=== PATIENT | female | born 1965 | race African-American/Black ===

== ENCOUNTER 2017-12-08 12:44 | Outpatient (CLI) | payer BC | END 2017-12-08 12:45 | disposition home or self-care (01) | LOC: BICRAD 12:44 | PROVIDERS: ATTEND Physician Assistant | DX: M25.562 Pain in left knee (principal); M17.12 Unilateral primary osteoarthritis, left knee ==

== ENCOUNTER 2018-07-19 12:41 | Inpatient (IN) | payer SELFPAY ==
[2018-07-19] MEDS ORDERED: Lidocaine 1% (PF) 30 ML VIAL ONE (15:13)
[2018-07-19 16:02] LABS: BF Color Yellow; Body Fluid Source PLEURAL FLUID; Tube # EDTA; WBC/NonHematic-Auto 1020 /cumm
[2018-07-19 16:03] LABS: BF RBC Count - Manual 2375 /cumm; Clarity Cloudy/Turbid (Clear)
[2018-07-19 16:07] LABS: Pleural Fluid, Protein 4.3 g/dL
[2018-07-19 16:26] VITALS: BMI 32.0
[2018-07-19] MEDS ORDERED: Dextrose 50% Abboject 50 ML SYRINGE SLOW IVP PRN ×2 (16:28)
[2018-07-19] MEDS ORDERED: Dextrose 5% in Water 1,000 ML IV PRN (16:28)
--- NOTE | 2018-07-19 16:43 | CON ---
DATE OF SERVICE: 07/19/2018 SERVICE: Pulmonary Medicine. REASON FOR CONSULTATION: Pleural effusion. HISTORY OF PRESENT ILLNESS: The patient is a 53-year-old -[place] female with past medical history significant for actually nothing. She denies any current fevers, chills, nausea or vomiting. She was in her usual state of health until 3 weeks ago when she started having cough. It was nonproductive. She denies having any hemoptysis, yellow, green or white phlegm. She denies having orthopnea. That being said, she has had progressive increasing shortness of breath, particularly with exertion. She presented to the Emergency Department for this evaluation. She denies having any sick contacts. She has no nausea, vomiting, diarrhea, arthralgias, hot or red swollen joints , rashes. PAST MEDICAL HISTORY: 1. Type 2 diabetes mellitus. 2. Hypothyroidism. 3. Hypertension. 4. Chronic back pain. PAST SURGICAL HISTORY: 1. Peritoneal abscess drainage. 2. Cholecystectomy. 3. Tonsillectomy. 4. Tubal ligation. SOCIAL HISTORY: Negative for significant alcohol, tobacco or illicit drug use. She is a lifelong nonsmoker. She has no exposure to chemicals, dust asbestos or tuberculosis. FAMILY HISTORY: Mom had lung cancer. Otherwise, it is noncontributory. ALLERGIES: NKDA INPATIENT MEDICATIONS: Reviewed in MAR and updated as noted below. REVEIW OF SYSTEMS: General, Head, Ears, Eyes, Nose, Throat, Cardiovascular, Respiratory, GI, , Musculoskeletal, Neurologic, and Skin are negative except as mentioned in the HPI. PHYSICAL EXAM: Vitals: Afebrile, Stable. Gen: AOx3, NAD HEENT: NC/AT, sclera white, conjunctavae pink, Oral/Nasal mucosa moist and without lesions. Lungs: CTAB. No w/r/r. Reduced air entry at left base. Heart: RRR Abd: soft, nt/nd, bs+ MS: no c/c/e : no [place] Neuro: grossly non-focal. LABORATORY DATA: WBC 7.2, hemoglobin 14.4, platelets 399,000. Sodium 131, bicarbonate 20, creatinine 1.45. Basic metabolic profile and liver function studies are otherwise unremarkable. Lactate 1.5. Urinalysis is positive for glycosuria, but otherwise completely unremarkable. Influenza A and B are negative. IMAGING DATA: 1. Chest x-ray demonstrates left-sided pleural parenchymal opacification. Otherwise, right-sided chest appears to be clear. 2. CT of the chest demonstrates large left-sided pleural effusion. There are both consolidating and atelectatic changes of the left lung. There is a very small amount of the left upper lobe that is actually open. There is no acute cardiopulmonary abnormality in the right lung. Mediastinal lymphadenopathy is identified. ASSESSMENT: 1. Acute hypoxic respiratory failure. 2. Pleural effusion. 3. Community-acquired pneumonia, possible. 4. Family history of lung cancer. 5. Diabetes mellitus. DISCUSSION AND PLAN: We will proceed with a thoracentesis. I would put her on some antibiotics directed at community-acquired coverage. We can include anaerobic coverage as well. Augmentin should be more than adequate for covering most of the organisms that we need to. Atypical disease should not need to be covered. Furthermore, she frankly does not present like she has pneumonia. We will know more after the thoracentesis could be completed, but cancer is a diagnosis of exclusion at this time. 70 minutes have been devoted to this patient in various activities. I personally reviewed all imaging studies and laboratory data noted within this document. For fifty percent of this time, I was interacting with the patient at the bedside or coordinating care with the care team. For the remainder of the time I was immediately available to the patient in the hospital unit. YING
[2018-07-19] MEDS: HYDROcodone/Acetaminophen 5/325 mg Tablet PO PRN ×2 (17:02→21:27)
[2018-07-19 17:10] LABS: BF Segmented Neutrophils 15 %; Cell Count Non Hematic 78 %; Eosinophils 2 %; Lymphocytes 5 %
[2018-07-19] MEDS: HumaLOG 300 UNITS/3 ML VIAL SC PRN (18:08)
--- NOTE | 2018-07-19 18:46 | HP ---
HISTORY OF PRESENT ILLNESS: A 53-year-old female who generally healthy, who was ultimately transferr ed from the [facility]. In the ER there, the patient presented complaining of a dry cough that has been going on for about 3 weeks and getting progressively worse. She reported she did not initially have any shortness of breath or feel bad, but she was having cough paroxysms th at made her feel like she was having some asthma. She felt some rattling and wheezing once it was ov er. She then started developing some dyspnea on exertion and mild shortness of breath. She has had no sputum production or hemoptysis. She denies any fevers or chills or any chest pain except that judy varghese has some positional pain on the right side when she was lying on that side. In the [facility], the patient had a chest x-ray which revealed near complete opacification of the l eft hemithorax on the right lung was clear. There was no mediastinal shift. A CT scan of the chest was obtained which revealed large left pleural effusion with extensive opacification of the left lung . Once patient arrived to the emergency department here, she was seen by myself and Dr. Allen of [facility]. He subsequently performed an ultrasound guided thoracentesis and removed 2-1/2 liters of dark kelly fluid. The patient tolerated the procedure well. Review of systems was negative except for those things mentioned in the history of present illness. MEDICATIONS: The patient does report occasional polyuria depending on the control of her blood sugar s. PAST MEDICAL HISTORY: Notable for hypertension, diabetes mellitus, hypothyroidism, chronic back pain , osteoarthritis. PAST SURGICAL HISTORY: Tubal ligation, cholecystectomy peritonsillar abscess drainage. FAMILY HISTORY: Father had prostate cancer, CHF. Mother had a "female" cancer as well as a melanoma and lung cancer both diagnosed at the same time, but were distinctly different pathology according t o the patient. SOCIAL HISTORY: The patient is a nonsmoker. She is a social drinker. She denies drug use. She is . She is a F[employer] and her would be her surrogate decision maker should that become necessary. ALLERGIES: None, Flexeril 10 mg p.r.n., Neurontin 300 mg t.i.d., metformin 1000 mg b.i.d., glyburide 2.5 mg every day, lisinopril/HCTZ 20/12.5 one p.o. daily, lisinopril 20 mg every day, Demadex 20 mg every day, Synthroid 175 mcg every day. PHYSICAL EXAMINATION: VITAL SIGNS: BP ranged from 92/74-148/124, pulse 103, respirations 20, temperature 98.4, O2 sat 100% on room air. GENERAL APPEARANCE: Age appropriate female. She is in no distress. She is awake, alert, and orient ed, pleasant, cooperative. HEENT: PERRL. No OP lesions. NECK: Supple and symmetric, no lymphadenopathy, JVD, or carotid bruits. CARDIOVASCULAR: Regular rate and rhythm without murmurs, gallops or rubs. LUNGS: Clear to auscultation bilaterally with good chest wall expansion and air exchange on the righ t. Left side is completely diminished with only very distant lung sounds presents. ABDOMEN: Soft, nontender, nondistended. No hepatosplenomegaly. EXTREMITIES: Trace edema on the right, none on the left. No cyanosis, clubbing, or edema. LABORATORY DATA: White count 7.2, hemoglobin 14.4, platelets 399. Sodium 131, potassium 3.9, chlori de 98, CO2 of 20, BUN 17, creatinine 1.45, glucose 595. A repeat fingerstick is 373. Lactic acid 1. 5. AST 9, ALT 12. Urinalysis greater than 1000 glucose. Pleural fluid is cloudy and turbid with 10 20 white cells, 2375 red cells. Protein is 4.3, LDH 869 and glucose 371. Flu screen is negative. ASSESSMENT AND PLAN: 1. Left pleural effusion, unknown etiology. The patient has had thoracentesis performed in the [facility] department. Fluid has been sent for further studies pending further evaluation. We will need to follow up chest x-ray to ensure there is no underlying pneumonia. In the interim, the patient is covered with oral Augmentin per the recommendations of Pulmonary. 2. Diabetes mellitus, poor control. We will give her diabetic diet and sliding scale insulin for no w. Continue with metformin. 3. Chronic kidney disease. The patient's last creatinine in our system was 1.15 in 2012, current GF R is 45 given her stage 3 chronic kidney disease. 4. History of hypertension. The patient's blood pressure has been fairly variable, but currently on the low side. We will continue to monitor. 5. History of hypothyroidism. We will continue with her usual Synthroid dose. 6. Chronic pain syndrome. The patient is on gabapentin. We will continue that with arvind ambrose.
--- NOTE | 2018-07-19 19:04 | OP ---
DATE OF PROCEDURE: 07/19/2018 PROCEDURE: Left-sided pleural drainage with catheter insertion under ultrasound guidance. CONSENT: The risks and benefits of this procedure were explained to the patient. All questions were answered and alternative options explained. STAFF PHYSICIAN: Braulio Allen M.D. MEDICATIONS USED: Lidocaine 1% without epinephrine, total quantity 10 mL. PREOPERATIVE DIAGNOSIS: Pleural effusion, not otherwise specified. POSTPROCEDURE DIAGNOSIS: Pleural effusion, not otherwise specified. DESCRIPTION OF PROCEDURE: A timeout was performed by the procedure team and patient. The patient wa s positively identified using name and date of . The procedure site was marked. Vital sign mon itoring was accomplished by noninvasive hemodynamic monitoring, pulse oximetry, and telemetry. In th e seated position, the left posterior hemithorax was examined using ultrasound probe. The diaphragm and pleural fluid were easily identified. The skin was prepped and draped in usual sterile fashion a nd anesthetized with 1% lidocaine without epinephrine. A finder needle was inserted in the pleural s pace with return of cloudy yellow fluid. A pleural drainage catheter was inserted in the same locati on and a total 2600 mL of pleural fluid was withdrawn by syringe pump technique. A sample was sent f or analysis. Evacuation of fluid terminated because the fluid stopped coming. At the end of the pro cedure, estimated pleural pressures, measured by manometry, was -17 cm of pleural fluid. The intact catheter was withdrawn on exhalation and a sterile dressing was applied. The patient had stable ratna ls throughout the entire procedure. ESTIMATED BLOOD LOSS: Two mL. COMPLICATIONS: None.
[2018-07-19] MEDS: Amoxicillin/Potassium Clav 875 MG TAB PO SCH (20:46)
[2018-07-20] MEDS: HumaLOG 300 UNITS/3 ML VIAL SC PRN ×3 (04:51→17:05)
[2018-07-20] MEDS: HYDROcodone/Acetaminophen 5/325 mg Tablet PO PRN ×2 (04:59→17:06)
[2018-07-20 05:29] LABS: #Eosinphils 0.3 thou/uL (0.0-0.7); #Lymphocytes 1.7 thou/uL (1.20-3.40); #Monocytes 0.6 thou/uL (0.11-0.59); #Neutrophils 3.6 thou/uL (1.40-6.50); %Basophils 0.1 % (0.0-1.0); %Eosinophils 4.7 % (0.0-10.0); %Lymphocytes 27.4 % (21.0-51.0); %Neutrophils 58.7 % (42.0-75.0); Hemoglobin 12.2 g/dL (12.0-16.0); Mean Corpuscular HGB CONC 33.1 g/dL (32.0-36.0); Mean Corpuscular Hemoglobin 28.2 pg (27.0-31.0); Mean Corpuscular Volume 85.4 fL (78.0-98.0); Platelet Count 319 thou/uL (130-400); RBC Distribution Width 12.8 % (11.5-14.5); Red Blood Cell (RBC) Count 4.33 mill/uL (4.20-5.40); White Blood Cell (WBC) Count 6.1 thou/uL (4.8-10.8)
[2018-07-20 05:37] LABS: Anion Gap 14 mmol/L (10-20); BUN (Urea Nitrogen) 9 mg/dL (9.8-20.1); Calc. Creatinine Clearance 130 mL/min (70-130); Carbon Dioxide 21 mmol/L (22-29); Chloride 103 mmol/L (98-107); Estimated GFR-MDRD Greater than 90; Glucose 307 mg/dL (70-105); Potassium 3.6 mmol/L (3.5-5.1); Sodium 134 mmol/L (136-145)
[2018-07-20] MEDS: Amoxicillin/Potassium Clav 875 MG TAB PO SCH ×2 (08:47→20:06)
--- NOTE | 2018-07-20 09:41 | RAD ---
CHEST PA AND LATERAL: Date: 07/20/18 HISTORY: 53-year-old female with history of pleural effusion, status post thoracentesis follow-up. COMPARISON: 07/19/18. FINDINGS: There is considerable decrease in the left side pleural effusion. There are fairly extensive intersti tial and linear, as well as some alveolar nodular parenchymal changes throughout the left lung. Incre ased interstitial markings are noted in the right chest. Slight right costophrenic angle blunting. IMPRESSION: Considerable decrease in the size of the previously noted large left pleural effusion, with resultant more midline cardiomediastinal position. Interstitial and alveolar parenchymal changes throughout th e left lung. Minimal parenchymal changes in the right lung, particularly right base, with slight righ t costophrenic angle blunting. Continue short-term follow-up. No pneumothorax. POS: ROSALBA
[2018-07-20] MEDS ORDERED: Torsemide 20 MG TAB PO PRN (11:52)
[2018-07-20] MEDS ORDERED: glyBURIDE 2.5 MG TAB PO SCH ×2 (11:52→12:45)
[2018-07-20] MEDS: Gabapentin 300 MG CAP PO SCH ×2 (15:11→20:06)
--- NOTE | 2018-07-20 16:10 | PDOC.PN ---
- Subjective Encounter Start Date: 07/20/18 Encounter Start Time: 13:10 Feels well. No complaints. Tolerated the procedure well. No cough. - Objective Resuscitation Status: Resuscitation Status FULL:Full Resuscitation Vital Signs & Weight: Vital Signs (12 hours) Temp Pulse Resp BP Pulse Ox 07/20/18 15:24 98 F 104 H 21 H 117/65 92 L 07/20/18 10:57 98.1 F 98 22 H 116/70 94 L 07/20/18 08:00 94 L 07/20/18 07:51 98.1 F 99 20 113/78 94 L Weight Weight 223 lb 1 oz I&O: 07/19/18 07/20/18 07/21/18 06:59 06:59 06:59 Intake Total 360 Balance 360 Result Diagrams: 07/20/18 04:33 07/20/18 04:33 Additional Labs: Accuchecks 07/20/18 07/20/18 07/19/18 10:56 04:48 20:13 POC Glucose 297 H 332 H 402 H 07/19/18 17:07 POC Glucose 384 H Phys Exam - Physical Examination Constitutional: NAD Respiratory: no wheezing, no rales, no rhonchi, clear to auscultation bilateral Cardiovascular: RRR, no significant murmur Gastrointestinal: soft, non-tender, no distention, positive bowel sounds Musculoskeletal: no edema Psychiatric: normal affect, A&O x 3 Dx/Plan (1) Pleural effusion Code(s): J90 - PLEURAL EFFUSION, NOT ELSEWHERE CLASSIFIED Status: Acute (2) Diabetes mellitus Code(s): E11.9 - TYPE 2 DIABETES MELLITUS WITHOUT COMPLICATIONS Status: Acute (3) Diabetic neuropathy Code(s): E11.40 - TYPE 2 DIABETES MELLITUS WITH DIABETIC NEUROPATHY, UNSP Status: Acute Comment: Continue gabapentin. (4) Hypothyroidism Code(s): E03.9 - HYPOTHYROIDISM, UNSPECIFIED Status: Acute Comment: Levothyroxine. - Plan * Awaiting results of fluid studies. Recheck CXR in am. If stable, may be able to follow up as outpatient.
[2018-07-20] MEDS ORDERED: metFORMIN 500 MG TAB PO SCH (17:00)
[2018-07-20] MEDS: metFORMIN 500 MG TAB PO SCH (17:04)
--- NOTE | 2018-07-20 17:05 | PRG ---
DATE OF SERVICE: 07/20/2018 SERVICE: Pulmonary Medicine. INTERVAL HISTORY: The patient is doing fine from a respiratory standpoint. Denies any current chest pain, fevers, chills, shortness of breath, nausea or vomiting. Otherwise, there has been no interva l change to patient's condition. She actually feels just fine. She felt that there was a little les s pressure on her chest last night and slept touch more comfortably. PHYSICAL EXAMINATION: VITAL SIGNS: Afebrile, pulse 98, blood pressure 116/70, respirations 22, saturation 94% on room air. GENERAL: The patient is awake, alert, no apparent distress. LUNGS: Decent air entry with improved aeration on the left. There is no prolonged expiratory phase, wheezing or crackles. HEART: Normal rate, regular. ABDOMEN: Soft, nontender, nondistended. Bowel sounds are positive. MUSCULOSKELETAL: No cyanosis or clubbing. There is no pitting in the bilateral lower extremities. NEUROLOGIC: Grossly nonfocal. LABORATORY DATA: Basic metabolic profile is essentially unremarkable. Creatinine is normal. Pleura l fluid LDH is 869, glucose 371, total protein 4.3. The cell type is not neutrophil, or lymphocytic. It is nonhematologic cells that predominate. PH is low at 7.2. AFB smear is negative. Body fluid culture is negative to date. IMAGING DATA: Chest x-ray demonstrates interval improvement in the left-sided pleural parenchymal op acification. ASSESSMENT: 1. Pleural effusion, exudate with non-hematogenous cell type predominating. 2. Acute hypoxic respiratory failure, resolved. 3. Community-acquired pneumonia, unlikely. 4. Family history of lung cancer. DISCUSSION AND PLAN: We are awaiting the cytology. We will continue our antibiotics, but they can b e limited to 5-day duration. She will need to remain in the hospital until we have final results of the pleural fluid broth.
[2018-07-21] MEDS: HYDROcodone/Acetaminophen 5/325 mg Tablet PO PRN ×2 (06:16→20:13)
[2018-07-21] MEDS: HumaLOG 300 UNITS/3 ML VIAL SC PRN ×3 (06:17→17:20)
[2018-07-21] MEDS: Lisinopril 20 MG TAB PO SCH (08:39)
[2018-07-21] MEDS: metFORMIN 500 MG TAB PO SCH ×2 (08:39→17:20)
[2018-07-21] MEDS: Amoxicillin/Potassium Clav 875 MG TAB PO SCH ×2 (08:39→20:14)
[2018-07-21] MEDS: Gabapentin 300 MG CAP PO SCH ×3 (08:39→20:14)
[2018-07-21] MEDS ORDERED: Levothyroxine 175 MCG TAB PO SCH ×2 (09:00→10:00)
[2018-07-21] MEDS ORDERED: Lisinopril/Hydrochlorothiazide 20 mg/12.5 mg Tablet PO SCH (09:00)
[2018-07-21] MEDS: glyBURIDE 2.5 MG TAB PO SCH (10:55)
--- NOTE | 2018-07-21 15:16 | PRG ---
DATE OF SERVICE: 07/21/2018 SERVICE: Pulmonary Medicine. INTERVAL HISTORY: The patient continues to be breathing okay. I went by the Pathology. They are zavala ggesting to me that they feel that they are seeing a significant amount of cancer cells present. It is a poorly differentiated carcinoma based on their initial observation. Special stains on a cell bl ock are currently pending. That being said, the patient is breathing comfortably. She did not have any fevers, chills or overnight events. PHYSICAL EXAMINATION: VITAL SIGNS: Afebrile, pulse 99, blood pressure 123/81, respirations 18, saturation 95% on room air. GENERAL: The patient is awake and alert, in no apparent distress. LUNGS: Decent air entry. There is no prolonged expiratory phase. Dependent crackles are not presen t. No rhonchi or wheezing are appreciated. HEART: Normal rate, regular. ABDOMEN: Soft, nontender, nondistended. Bowel sounds are positive. MUSCULOSKELETAL: No cyanosis or clubbing. There is no pitting in the bilateral lower extremities. NEUROLOGIC: Grossly nonfocal. LABORATORY DATA: WBC 6.1, hemoglobin 12.2, platelets 319,000. Acid fast smear is negative. Body fl uid culture remains negative to date. ASSESSMENT: 1. Malignant pleural effusion on the left, status post thoracentesis, final pathology pending. Poor ly differentiated carcinoma has been identified. 2. Acute hypoxic respiratory failure, resolved. 3. Family history of lung cancer. DISCUSSION AND PLAN: Once again, we are awaiting the results of the cytology. There is a cell block on which special stains are is currently pending. I have told the patient about the suspicion that we have for cancer. I am placing an Oncology referral. Once a discussion occurs between Oncology an d the patient, she could be considered for transition home. I do not think there is a pneumonia pres ent, but one cannot be excluded. As such, I think it is reasonable to complete a 5-day course of ant ibiotic.
--- NOTE | 2018-07-21 21:21 | PDOC.PN ---
- Subjective Encounter Start Date: 07/21/18 Encounter Start Time: 14:00 Feeling generally well. Still has some cough. Blood sugars are running high, but she says her blood sugars are always this high or higher. - Objective Resuscitation Status: Resuscitation Status FULL:Full Resuscitation Vital Signs & Weight: Vital Signs (12 hours) Temp Pulse Resp BP Pulse Ox 07/21/18 19:42 98.5 F 100 18 125/83 97 Weight Weight 223 lb 1 oz I&O: 07/20/18 07/21/18 07/22/18 06:59 06:59 06:59 Intake Total 600 1440 Balance 600 1440 Result Diagrams: 07/20/18 04:33 07/20/18 04:33 Additional Labs: Accuchecks 07/21/18 07/21/18 07/21/18 19:48 16:29 11:28 POC Glucose 209 H 229 H 268 H 07/21/18 04:18 POC Glucose 242 H Phys Exam - Physical Examination Constitutional: NAD Respiratory: no wheezing, no rales, no rhonchi, clear to auscultation bilateral Cardiovascular: RRR, no significant murmur, no rub Gastrointestinal: soft, non-tender, no distention, positive bowel sounds Musculoskeletal: no edema Dx/Plan (1) Pleural effusion Code(s): J90 - PLEURAL EFFUSION, NOT ELSEWHERE CLASSIFIED Status: Acute (2) Diabetes mellitus Code(s): E11.9 - TYPE 2 DIABETES MELLITUS WITHOUT COMPLICATIONS Status: Acute (3) Diabetic neuropathy Code(s): E11.40 - TYPE 2 DIABETES MELLITUS WITH DIABETIC NEUROPATHY, UNSP Status: Acute Comment: Continue gabapentin. (4) Hypothyroidism Code(s): E03.9 - HYPOTHYROIDISM, UNSPECIFIED Status: Acute Comment: Levothyroxine. - Plan * Discussed with Dr. Allen. Tayla on the fluid appears to have malignant cells. Initially appears to be a poorly differentiated carcinoma. Tayla is working on cell blocks for stains. He will follow up with the patient his afternoon and discuss the findings with her and help decide on a plan for oncology evaluation.
[2018-07-22] MEDS: HumaLOG 300 UNITS/3 ML VIAL SC PRN ×2 (06:23→17:41)
[2018-07-22] MEDS: Levothyroxine 175 MCG TAB PO SCH (06:23)
[2018-07-22] MEDS: Acetaminophen 325 MG TAB PO PRN (06:27)
[2018-07-22] MEDS: Cyclobenzaprine 10 MG TAB PO PRN (06:27)
[2018-07-22] MEDS: glyBURIDE 2.5 MG TAB PO SCH (08:57)
[2018-07-22] MEDS: Amoxicillin/Potassium Clav 875 MG TAB PO SCH ×2 (08:57→20:19)
[2018-07-22] MEDS: metFORMIN 500 MG TAB PO SCH ×2 (08:57→17:41)
[2018-07-22] MEDS: Gabapentin 300 MG CAP PO SCH ×3 (08:57→20:17)
[2018-07-22] MEDS: Lisinopril 20 MG TAB PO SCH (08:57)
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
[2018-07-22] MEDS: HYDROcodone/Acetaminophen 5/325 mg Tablet PO PRN ×2 (12:29→20:17)
--- NOTE | 2018-07-22 14:47 | PRG ---
DATE OF SERVICE: 07/22/2018 SERVICE: Pulmonary Medicine. INTERVAL HISTORY: The patient did really well from a respiratory standpoint. She denies any current chest pain, fevers, chills, nausea, vomiting or diarrhea. She is meeting with Oncology right now. As such, my encounter was brief. There were no reported events overnight. PHYSICAL EXAMINATION: VITAL SIGNS: Afebrile, pulse 97, blood pressure 140/91, respirations 20, saturation 96% on room air. GENERAL: The patient is awake, alert, no apparent distress. LUNGS: Excellent air entry. There is no prolonged expiratory phase or wheezing present. HEART: Normal rate, regular. ABDOMEN: Soft, nontender, nondistended. Bowel sounds are positive. MUSCULOSKELETAL: No cyanosis or clubbing. There is no pitting in the bilateral lower extremities. NEUROLOGIC: Grossly nonfocal. ASSESSMENT: 1. Malignant effusion. 2. Adenocarcinoma of the lung, stage IV. 3. Community-acquired pneumonia, unlikely. DISCUSSION AND PLAN: At this point, the patient is stable for transition out of the hospital. She h as no further requirements for inpatient Pulmonary or critical care opinion, and I will sign off. I will have her return to clinic in 2 weeks in the outpatient setting with a pre-clinic chest x-ray. S he is certainly more than welcome to come back sooner if she has increasing respiratory discomfort. She will be an excellent candidate for PleurX catheter if she has recurrence.
--- NOTE | 2018-07-22 15:26 | CT ---
CT THORAX WITH IV CONTRAST CT ABDOMEN AND PELVIS WITH IV CONTRAST: Date: 07/22/18 HISTORY: Non-small cell lung cancer with left pleural effusion and metastatic disease. This exam is being perf ormed for staging. COMPARISON: Noncontrast CT thorax on 07/19/18. FINDINGS: CT THORAX: There has been interval decrease in size of the left pleural effusion, but a moderately large left pl eural effusion does persist. There are increased interstitial densities and alveolar opacities, as we ll as patchy parenchymal changes within the visualized left lung, although the consolidation within t he left lung has improved from the prior exam. Findings on current exam could be related to pneumonit is, although lymphangitic spread of tumor cannot be entirely excluded. There has been interval development of a very small right pleural effusion. A stable 6.0 mm pleural based pulmonary nodule is again seen in the anterior aspect of the right midd le lobe. No additional pulmonary nodule is seen on the right. There is a tiny, sub-4.0 mm, pulmonary nodule in the right upper lobe, better visualized on prior exam, but is not enlarged. No enlarged lymph nodes are seen by CT size criteria. There are degenerative changes in the spine, but no lytic or sclerotic osseous lesions are visualized . There is right acromioclavicular joint osteoarthritis and right glenohumeral osteoarthropathy prese nt. CT ABDOMEN AND PELVIS: Post cholecystectomy changes are seen. The liver, spleen, pancreas, bilateral adrenal glands, kidneys, abdominal aorta, and opacified small bowel demonstrate a normal CT appearance. Increased density is seen in the urinary bladder which could be related to a small amount of contrast in the urinary bladder, but no contrast is seen in either ureter. Hemorrhage within the urinary blad nany cannot be entirely excluded given increased density. There is heterogeneity of the uterus with calcifications present. Findings could be related to uterin e fibroids. The appendix is visualized and normal in caliber. There is no free fluid, fluid collection, or lymphadenopathy seen in the abdomen or pelvis. There is bilateral hip osteoarthritis with degenerative change in the spine. No lytic or sclerotic os seous lesions are otherwise appreciated involving the osseous structures. IMPRESSION: 1. Interval decrease in size of left pleural effusion, but a moderately large left pleural effusion does persist. 2. Interstitial and patchy parenchymal opacities, as well as alveolar opacities involving the left l cecilia. Findings could be related to pneumonitis, but lymphangitic spread of tumor is a possibility. 3. Stable right middle lobe pleural based pulmonary nodule. 4. Interval development of a tiny right pleural effusion. 5. No evidence of lymphadenopathy. 6. Post cholecystectomy changes. 7. Increased density within the urinary bladder of uncertain etiology. While this could be related t o a small amount of contrast mixing with urine, there is no contrast seen in either collecting system or ureter to suggest this as an etiology. Hemorrhage within the urinary bladder cannot be entirely e xcluded. Clinical correlation is recommended, and urinalysis may be helpful for further evaluation. 8. Heterogeneity of the uterus, which is not well opacified on this exam, but this could be related to uterine fibroids. POS: [facility]
[2018-07-22] MEDS ORDERED: ISOVUE-370 76%-LOCM 1 ML ONE (16:20)
[2018-07-22] MEDS ORDERED: Gadobenate Dimeglumine 529 MG/1 ML (20ML VIAL) ONE (16:34)
--- NOTE | 2018-07-22 19:42 | PDOC.PN ---
- Subjective Encounter Start Date: 07/22/18 Encounter Start Time: 19:40 Subjective: nsg notes rev, gilberto ovn, multiple family members at bedside, no c/o of -: CP or SOB at this point in time - Objective Resuscitation Status: Resuscitation Status FULL:Full Resuscitation Vital Signs & Weight: Vital Signs (12 hours) Temp Pulse Resp BP BP Pulse Ox 07/22/18 15:52 97.6 F 100 18 132/88 96 07/22/18 10:53 98.3 F 97 20 140/91 H 96 07/22/18 08:57 129/87 07/22/18 08:00 96 Weight Weight 223 lb 1 oz I&O: 07/21/18 07/22/18 07/23/18 06:59 06:59 06:59 Intake Total 600 1440 480 Balance 600 1440 480 Result Diagrams: 07/20/18 04:33 07/20/18 04:33 Additional Labs: Accuchecks 07/22/18 07/22/18 07/22/18 15:56 10:57 04:10 POC Glucose 243 H 232 H 262 H 07/21/18 19:48 POC Glucose 209 H Dx/Plan - Plan - Physical Examination Constitutional: NAD, seated on the EOB Dx/Plan (1) Pleural effusion Code(s): J90 - PLEURAL EFFUSION, NOT ELSEWHERE CLASSIFIED Status: Likely sub- acute 2/2 malignancy. Currently stable respiratory status s/p thoracentesis. Apprec pulm c/s Concern for malignant etiology. apprec onc c/s Family at bedside state that they would prefer to have a clearly outlined plan for oncologic treatment and from there will determine whether or not they want to pursue treatment locally or in [place] (2) Diabetes mellitus Code(s): E11.9 - TYPE 2 DIABETES MELLITUS WITHOUT COMPLICATIONS Status: Acute (3) Diabetic neuropathy Code(s): E11.40 - TYPE 2 DIABETES MELLITUS WITH DIABETIC NEUROPATHY, UNSP Status: Acute Comment: Continue gabapentin. (4) Hypothyroidism Code(s): E03.9 - HYPOTHYROIDISM, UNSPECIFIED Status: Acute Comment: Levothyroxine. - Plan * d/w pt and pts family at bedside
--- NOTE | 2018-07-22 20:13 | MRI ---
MRI OF BRAIN WITH AND WITHOUT IV CONTRAST: 07/22/18 HISTORY: Non-small cell lung cancer with metastatic disease. COMPARISON: None available. FINDINGS: No signal abnormalities are seen within the brain. There is no evidence of an acute infarction. Thin section post contrasted images demonstrate a small focal area of enhancement anterior to the frontal horn of the right lateral ventricle. This has a more linear configuration on sagittal images. No othe r areas of abnormal enhancement are present within the brain. The septum pellucidum and third ventricle are in the midline. The ventricular system is normal in siz e, shape and position. There are mastoid effusions seen bilaterally, greater on the left. The orbits and paranasal sinuses demonstrate a normal MRI appearance. There is a focus of increased F LAIR, T2, and T1 weighted signal intensity within the right parotid bone likely related to focal area of fat in the diploic space. No definite calvarial lesion is appreciated. IMPRESSION: Suggestion of a small focal area of enhancement measuring 6 mm just anterior to the anterior horn of the right lateral ventricle. This is only seen on thin section post contrast imaging. An early metast atic lesion could not be excluded, and a follow-up MRI brain in 6 weeks is recommended for further ev aluation. No other areas of abnormal enhancement are seen. POS: [facility]
[2018-07-23] MEDS: Cyclobenzaprine 10 MG TAB PO PRN ×2 (01:50→12:51)
[2018-07-23] MEDS: Acetaminophen 325 MG TAB PO PRN ×2 (01:50→12:50)
[2018-07-23] MEDS: HumaLOG 300 UNITS/3 ML VIAL SC PRN ×2 (06:19→12:39)
[2018-07-23] MEDS: Levothyroxine 175 MCG TAB PO SCH (06:19)
[2018-07-23] MEDS: HYDROcodone/Acetaminophen 5/325 mg Tablet PO PRN ×2 (06:22→16:03)
[2018-07-23] MEDS: Gabapentin 300 MG CAP PO SCH ×2 (07:50→16:04)
[2018-07-23] MEDS: Lisinopril 20 MG TAB PO SCH (07:50)
[2018-07-23] MEDS: metFORMIN 500 MG TAB PO SCH ×2 (07:50→16:04)
[2018-07-23] MEDS: Amoxicillin/Potassium Clav 875 MG TAB PO SCH (07:51)
[2018-07-23] MEDS: glyBURIDE 2.5 MG TAB PO SCH (07:51)
[2018-07-23] MEDS ORDERED: Fluconazole 100 MG TAB PO SCH (09:00)
[2018-07-23 17:09] VITALS: BP 133/86; TEMP 97.8
== END 2018-07-23 18:15 | disposition home or self-care (01) | DRG 186 ==
LOC: ERS 12:41 → T4-A 14:48
PROVIDERS: ADMIT Internal Medicine; ATTEND Internal Medicine
PROC: 0W9B3ZX Drainage of Left Pleural Cavity, Percutaneous Approach, Diagnostic (ICD-10-PCS; principal; 2018-07-19)
DX: J90 Pleural effusion, not elsewhere classified (principal); J96.01 Acute respiratory failure with hypoxia; C34.90 Malignant neoplasm of unspecified part of unspecified bronchus or lung; Z79.899 Other long term (current) drug therapy; I10 Essential (primary) hypertension; E03.9 Hypothyroidism, unspecified; M19.90 Unspecified osteoarthritis, unspecified site; M54.9 Dorsalgia, unspecified; Z88.8 Allergy status to other drugs, medicaments and biological substances; N18.3 Chronic kidney disease, stage 3 (moderate); E11.65 Type 2 diabetes mellitus with hyperglycemia; G89.4 Chronic pain syndrome; Z77.22 Contact with and (suspected) exposure to environmental tobacco smoke (acute) (chronic); E11.40 Type 2 diabetes mellitus with diabetic neuropathy, unspecified
CPT/HCPCS: 32555; 36415; 36416; 70553; 71046; 71260; 74177; 80048; 82945; 83615; 83986; 84157; 85025; 85060; 87070; 87116; 87205; 87206; 88112; 88305; 88341; 88342; 89051; 96365; A9579; J2001; J3370

== ENCOUNTER 2018-07-28 22:31 | Inpatient (IN) | payer SELFPAY ==
[2018-07-28 23:13] LABS: #Basophils 0.1 thou/uL (0.0-0.2); #Eosinphils 0.2 thou/uL (0.0-0.7); #Lymphocytes 1.6 thou/uL (1.20-3.40); #Monocytes 0.7 thou/uL (0.11-0.59); #Neutrophils 5.5 thou/uL (1.40-6.50); %Basophils 0.6 % (0.0-1.0); %Eosinophils 2.2 % (0.0-10.0); %Lymphocytes 20.5 % (21.0-51.0); %Monocytes 8.5 % (0.0-10.0); %Neutrophils 68.3 % (42.0-75.0); Hemoglobin 14.1 g/dL (12.0-16.0); Mean Corpuscular HGB CONC 33.3 g/dL (32.0-36.0); Mean Corpuscular Hemoglobin 28.3 pg (27.0-31.0); Mean Platelet Volume 6.6 fL (7.4-10.4); Platelet Count 565 thou/uL (130-400); RBC Distribution Width 12.9 % (11.5-14.5); Red Blood Cell (RBC) Count 4.98 mill/uL (4.20-5.40)
[2018-07-28 23:20] LABS: PTT 33.5 SEC (22.9-36.1); Prothrombin Time 13.1 SEC (12.0-14.7)
--- NOTE | 2018-07-28 23:22 | RAD ---
TWO VIEWS CHEST: 07/28/18 Comparison made to previous exam from 07/20/18. PA and lateral views of the chest demonstrate near complete whiteout of the left hemithorax with what appears to be interval development of a near complete opacification of the left lung and development of a large left sided effusion. This has significantly increased since the previous exam from eight days ago. Some cardiomegaly seen. There is some shift of the mediastinum from left to right. The righ t lung is well aerated. IMPRESSION: Complete whiteout of the left hemithorax concerning for some component of consolidation and left side d effusion. POS: [facility]
[2018-07-28] MEDS ORDERED: Diazepam 5 MG TAB ONE (23:30)
[2018-07-28 23:56] LABS: CKMB 2.3 ng/mL (0-6.6); Troponin I Less than 0.010 ng/mL (< 0.028)
[2018-07-29 00:33] LABS: ALT (SGPT) 34 U/L (8-55); AST (SGOT) 35 U/L (5-34); Albumin 3.4 g/dL (3.5-5.0); Alkaline Phosphatase 87 U/L (40-150); Anion Gap 17 mmol/L (10-20); BUN (Urea Nitrogen) 13 mg/dL (9.8-20.1); Bilirubin, Total 0.6 mg/dL (0.2-1.2); Calc. Creatinine Clearance 0 mL/min (70-130); Calcium 8.5 mg/dL (7.8-10.44); Carbon Dioxide 21 mmol/L (22-29); Chloride 97 mmol/L (98-107); Estimated GFR-MDRD 83; Globulin 3.3 g/dL (2.4-3.5); Glucose 341 mg/dL (70-105); Potassium 5.3 mmol/L (3.5-5.1); Protein, Total 6.7 g/dL (6.0-8.3); Sodium 130 mmol/L (136-145)
[2018-07-29] MEDS ORDERED: Dextrose 5 % And 0.9 % NaCl 1,000 ML IV SCH ×2 (01:15→02:45)
[2018-07-29 01:31] VITALS: BMI 35.0
[2018-07-29] MEDS ORDERED: Dextrose 5% in Water 1,000 ML IV PRN (01:32)
[2018-07-29] MEDS ORDERED: Dextrose 50% Abboject 50 ML SYRINGE SLOW IVP PRN (01:32)
[2018-07-29] MEDS ORDERED: Cyclobenzaprine 10 MG TAB PO PRN (01:50)
[2018-07-29] MEDS ORDERED: Torsemide 20 MG TAB PO PRN (01:53)
[2018-07-29] MEDS ORDERED: Ketorolac Tromethamine 30 MG/ML VIAL IVP SCH (02:00)
[2018-07-29] MEDS: Sodium Chloride 0.9% 1,000 ML IV SCH ×3 (03:13→21:40)
[2018-07-29] MEDS: HumaLOG 300 UNITS/3 ML VIAL SC PRN ×3 (03:14→21:41)
[2018-07-29] MEDS: Acetaminophen/Codeine 30-300mg Tablet PO PRN (06:12)
[2018-07-29] MEDS: Levothyroxine 175 MCG TAB PO SCH (06:12)
[2018-07-29] MEDS ORDERED: Prevnar 13-Val Conj/PF 0.5 ML SYRINGE IM ONE (09:00)
[2018-07-29] MEDS: glyBURIDE 2.5 MG TAB PO SCH (09:00)
[2018-07-29] MEDS: Lisinopril/Hydrochlorothiazide 20 mg/12.5 mg Tablet PO SCH (09:00)
[2018-07-29] MEDS: Gabapentin 300 MG CAP PO SCH ×3 (11:17→21:43)
[2018-07-29] MEDS ORDERED: Sodium Chloride 0.9% 1,000 ML IV SCH (11:45)
--- NOTE | 2018-07-29 11:46 | CON ---
DATE OF CONSULTATION: 07/29/2018 REASON FOR CONSULTATION: Metastatic lung cancer. HISTORY OF PRESENT ILLNESS: A 53-year-old -[place] female with recent diagnosis of adenocarcinoma of the lung discovered on pleural fluid analysis for large left pleural effusion, presenting with worsening dyspnea, cough, and right lower neck muscle spasms for the past few days. The patient denies any fevers at home or other symptoms. The patient had drainage of large left effusion on recent hospitalization and pathology confirmed adenocarcinoma of the lung, PD-L1 of 60%. EGFR ALK, ROS 1 and BRAP mutations are still currently pending. The recommended treatment for her would be Keytruda immunotherapy unless she has an activating mutation in which case an oral targeted drug would be appropriate. The patient is to be seen by Dr. Clemente this afternoon for placement of a PleurX catheter and has already been seen by Dr. Allen. REVIEW OF SYSTEMS: A 10-point review of systems negative except as per HPI. PAST MEDICAL HISTORY: Adenocarcinoma of the lung, diabetes and hypothyroidism. PAST SURGICAL HISTORY: Tubal ligation, cholecystectomy, peritonsillar abscess drainage and pleural effusion drainage. FAMILY HISTORY: Prostate cancer in father, some type of gynecologic malignancy in her mother along with melanoma and lung cancer. SOCIAL HISTORY: Nonsmoker, however, a large amount of secondhand smoke at home from her . Social alcohol, no intravenous drug use. ALLERGIES: No known drug allergies. CURRENT MEDICATIONS: Reviewed. PHYSICAL EXAMINATION: VITAL SIGNS: Temperature 97.9, pulse 113, respirations 22, satting 93% on room air, blood pressure 114/76. GENERAL APPEARANCE: Patient is sitting up, in mild respiratory distress. HEENT: Pupils equally round and reactive. NECK: Supple, no lymphadenopathy. CARDIOVASCULAR: S1, S2, regular rate and rhythm. LUNGS: No accessory muscle use. Largely decreased breath sounds of the left mid to lower lung padilla. Right side is clear to auscultation without wheezing. ABDOMEN: Obese, soft, nondistended, nontender. EXTREMITIES: No edema. NEUROLOGIC: Cranial nerves II-XII grossly intact. PSYCHIATRIC: Awake, alert and oriented x3 with appropriate affect. LABORATORY DATA: White blood cell 8.0, hemoglobin 14.1, platelets 565. Sodium 130, potassium 5.3, BUN 13 and creatinine 0.86. IMAGING DATA: Chest x-ray shows complete wide out of the left hemithorax concerning for some component of consolidation of left-sided effusion increased since the previous exam 8 days ago. Some shift of the mediastinum from left to right, right lung is well aerated. ASSESSMENT AND PLAN: A 53-year-old -[place] female with new diagnosis of adenocarcinoma of the lung with primary site left pleural fluid with no other evidence of disease. The patient has recurrent left-sided effusion and is planned for PleurX catheter placement today. The patient had dramatic response to pleural fluid drainage during last hospital admission and expected the same response to PleurX catheter placement. After discharge, patient can follow up with me in clinic and start treatment with Keytruda versus targeted oral therapy depending on activating mutation once these results return from pathology. I have discussed the patient's PDL1 positivity and treatment with her and her sister. The patient is scheduled to see me on 08/02/2018 at 11:15 a.m[facility]. I have encouraged the patient to keep this appointment so that we can promptly start therapy. Thank you for the consultation. YING
--- NOTE | 2018-07-29 13:13 | CON ---
DATE OF CONSULTATION: 07/29/2018 SERVICE: Pulmonary Medicine. INTERVAL HISTORY: The patient is doing poorly from a respiratory standpoint. After discharge from the hospital, she started slowly having increasing dyspnea on exertion over the last 3 or 4 days. She started getting the fullness in her chest, and the pain that was reminiscent of her full fluid chest previously. Ultimately, she decided to return to the emergency department. She had recurrence of the fluid in a very short period of time. I was going to see her in clinic in an additional week. Unfortunately, she could make it to that appointment. Ultimately, she returned to the emergency department. She is not having any fevers or chills. She is coughing, but not bringing up any sputum. Otherwise, she is in her usual state of health. We have very good news. The special studies are back on her cancer. It appears that she has very high expression of PD-L1. For past medical history, past surgical history, social history, family history , allergies, please refer to my consultation report dated 07/19/2018. MEDICATIONS: List of her inpatient medications was reviewed. No specific updates were made at this time. REVIEW OF SYSTEMS: General, head, ears, eyes, nose, throat, cardiovascular, respiratory, GI, , musculoskeletal, neurologic and skin is negative except as mentioned in the HPI. PHYSICAL EXAMINATION: VITAL SIGNS: Afebrile, pulse 113, blood pressure 114/76, respirations 20, saturation 93% on room air. GENERAL: The patient is awake, alert, no apparent distress. HEENT: Normocephalic, atraumatic. Sclerae are white, conjunctivae pink. Oral mucosa is moist without lesions. LUNGS: Excellent air entry on the right. There is no prolonged expiratory phase. There is decreased air entry on the left. HEART: Normal rate, regular. ABDOMEN: Soft, nontender, nondistended. Bowel sounds are positive. MUSCULOSKELETAL: No cyanosis or clubbing. No pitting in the bilateral lower extremities. NEUROLOGIC: Grossly nonfocal. LABORATORY DATA: WBC 8.0, hemoglobin 14.1, platelets 565,000 with a normal differential. INR 1.0. Sodium 130. Basic metabolic profile is otherwise unremarkable. Liver function studies are also unremarkable. Blood sugar ranges from 178-341. Urinalysis is only significant for glycosuria. Pathology on the pleural fluid was reviewed once again. It is poorly differentiated adenocarcinoma consistent with lung primary. PD-L1 expression is over 90% based on what Dr. Vallecillo has told me today. ASSESSMENT: 1. Adenocarcinoma of the lung, stage IV, PD-L1 positive. 2. Malignant pleural effusion. DISCUSSION AND PLAN: I am going to place an Oncology consultation in. She can work with Dr. Vallecillo to determine what the best course of therapy is for her moving forward. [facility] In [facility] meantime, I would like to make her feel better. I am going to place a Cardiothoracic Surgery consultation, so that Dr. Clemente can evaluate her to see if she is a good candidate for PleurX. I think she would be a great candidate for PleurX being that she actually manipulate these things at her usp. Once we get her feeling comfortable, she is a candidate for transition out of the hospital. Pulmonary will continue to follow while she remains in house, but from my perspective, as soon as the space was drained, she will be good to go home. Follow up with Oncology. 70 minutes have been devoted to this patient in various activities. I personally reviewed all imaging studies and laboratory data noted within this document. For fifty percent of this time, I was interacting with the patient at the bedside or coordinating care with the care team. For the remainder of the time I was immediately available to the patient in the hospital unit. YING
--- NOTE | 2018-07-29 13:57 | HP ---
REASON FOR ADMISSION: Left pleural effusion, recurrent with adenocarcinoma of the lung. HISTORY OF PRESENT ILLNESS: The patient gives history of having shortness of breath which started ou t 2 days back. This got worse last night and she developed spasms in her neck and shoulder. She kne w something was wrong and came to emergency room. On arrival, the patient had an x-ray done which sh ows whiteout of left lung. She has known history of adenocarcinoma of lung and her PD-L1 is 60% per Oncology notes. She is apparently a candidate for Pembrolizumab. She has no complaints of chest heather n or palpitation. PAST MEDICAL AND SURGICAL HISTORY: The patient has had thoracenteses done on 07/19/[address] Tanya alston. She had nearly 2600 mL of pleural fluid removed then. Histopathology grew poorly differentiated adenocarcinoma. Diabetes mellitus type 2, hypertension, dyslipidemia, hypothyroidism, chronic back pain, osteoarthritis, tubal ligation, cholecystectomy, peritonsillar abscess drainage in the past. PERSONAL HISTORY: Does not abuse alcohol or drugs. No history of smoking. FAMILY HISTORY: Mother at the age of 78 years. She has had history of lung cancer, melanoma an d pelvic cancer. Father in his 70s. He has had history of prostate cancer. CODE STATUS: FULL. Power of banking attorney is her sister, Ms. Trupti Irvin and daughter, Ms. Segundo. ALLERGIES: No known drug allergies. CURRENT MEDICATIONS: Flexeril 10 mg p.o. 3 times daily p.r.n., Tylenol with codeine q.8 hours p.r.n. , gabapentin 300 mg p.o. 3 times daily, glyburide 2.5 mg p.o. daily, Synthroid 175 mcg p.o. daily, li sinopril with hydrochlorothiazide 20/12.5 mg p.o. daily, metformin 1000 mg p.o. twice daily, torsemid e 20 mg p.o. daily, Ultram 25 mg p.o. q.8h. p.r.n. REVIEW OF SYSTEMS: The following complete review of systems was negative, unless otherwise mentioned in the HPI or below: Constitutional: Weight loss or gain, ability to conduct usual activities. Skin: Rash, itching. Eyes: Double vision, pain. ENT/Mouth: Nose bleeding, neck stiffness, pain, tenderness. Cardiovascular: Palpitations, dyspnea on exertion, orthopnea. Respiratory: Shortness of breath, wheezing, cough, hemoptysis, fever or night sweats. Gastrointestinal: Poor appetite, abdominal pain, heartburn, nausea, vomiting, constipation, or diarrhea. Genitourinary: Urgency, frequency, dysuria, nocturia. Musculoskeletal: Pain, swelling. Neurologic/Psychiatric: Anxiety, depression. Allergy/Immunologic: Skin rash, bleeding tendency. PHYSICAL EXAMINATION: GENERAL: The patient is a 53-year-old female who is currently sitting up due to shortness of breath. VITAL SIGNS: Blood pressure 124/86, pulse 120 per minute, respiratory rate 20 per minute, temperatur e 98 degrees Fahrenheit, saturating 97% on room air. NECK: Supple, no elevated JVD. HEENT: Eyes; extraocular muscles intact. Pupils reacting to light. Oral cavity; mucous membranes a re moist. No exudates or congestion. CARDIOVASCULAR: S1, S2 heard. Regular rhythm, tachycardic. RESPIRATORY: There is no air entry on the left hemithorax. ABDOMEN: Soft, bowel sounds heard. No tenderness, rigidity or guarding. EXTREMITIES: No peripheral edema or calf tenderness. VASCULAR: Peripheral pulses 1+ bilateral, no ischemic ulcerations or gangrene. CENTRAL NERVOUS SYSTEM: No gross focal deficits noted. The patient is alert, awake, and oriented we ll. PSYCHIATRIC: The patient's mood is euthymic. No hallucinations or delusions. LABORATORY AND X-RAY FINDINGS: Chest x-ray done shows complete whiteout of left hemithorax. White c ount of 8, H&H 14 and 42, platelet count 565 with 68% neutrophils. PT, INR, PTT within normal limits . Potassium 5.3, serum bicarbonate 21, BUN 13, creatinine 0.8, serum glucose 341. AST, ALT 35 and 3 4, total bilirubin 0.6, alkaline phosphatase 87, albumin is 3.4. CLINICAL IMPRESSION AND PLAN: The patient will be admitted to telemetry for left complete opacificat ion of hemithorax due to recurrent effusion from known adenocarcinoma left lung. The patient will huitron ve a PleurX catheter placed by Dr. Clemente this afternoon. I have discussed her findings with Dr. Kapil hood. The patient is cleared for discharge this afternoon after PleurX catheter and once she ambulate s well. The patient as difficulty passing urine and has very low residual of 50 mL. Likely the pat ient is a hypovolemic and will give a liter of bolus. We will also place her on lidocaine patch for pain and spasms and continue Flexeril and Ultram as before. We will also continue her glyburide, lis inopril with hydrochlorothiazide along with levothyroxine, gabapentin as before. The patient appears to have a good prognosis per Dr. Allen due to PD- L1 mutation being positive. Please note her EGF R and ROS and BRAP mutations are still pending per Oncology. If the patient goes home, this will be a short stay summary. CODE STATUS: Code status was discussed and she is a FULL CODE.
[2018-07-29] MEDS ORDERED: Lidocaine 1% PF 5 ML VIAL ONE (14:30)
[2018-07-29] MEDS ORDERED: Ondansetron PF 4 MG/2 ML Vial ONE (14:30)
[2018-07-29] MEDS ORDERED: Succinylcholine Chloride 20 MG/ML 10 ml SYRINGE FS ONE (14:30)
[2018-07-29] MEDS ORDERED: PROPOFOL 200 MG/20 ML VIAL ONE (14:30)
[2018-07-29] MEDS ORDERED: Fentanyl 100 MCG/2 ML VIAL ONE (14:42)
[2018-07-29] MEDS ORDERED: Midazolam HCl 2 mg/2 ml Vial ONE (14:42)
[2018-07-29] MEDS ORDERED: Fentanyl 100 MCG/2 ML VIAL SLOW IVP PRN (17:02)
[2018-07-29] MEDS ORDERED: Acetaminophen 325 MG TAB PO PRN (17:02)
--- NOTE | 2018-07-29 17:09 | RAD ---
PORTABLE CHEST: 07/29/18 HISTORY: Chest tube. COMPARISON: 07/28/18. FINDINGS/IMPRESSION: There is a linear density overlying the left apical region which presumably represents a left chest d rainage tube. I do not detect entry site of this catheter. There is improved aeration in the left lung, although there continues to be diffuse alveolar density throughout the left hemithorax. The right lung remains clear. POS: [facility]
[2018-07-29] MEDS: HYDROcodone/Acetaminophen 5/325 mg Tablet PO PRN (19:30)
[2018-07-30] MEDS: Levothyroxine 175 MCG TAB PO SCH (05:12)
[2018-07-30] MEDS: Acetaminophen/Codeine 30-300mg Tablet PO PRN ×2 (05:19→15:43)
[2018-07-30 05:41] LABS: #Basophils 0.1 thou/uL (0.0-0.2); #Eosinphils 0.1 thou/uL (0.0-0.7); #Lymphocytes 1.2 thou/uL (1.20-3.40); #Monocytes 0.8 thou/uL (0.11-0.59); #Neutrophils 5.4 thou/uL (1.40-6.50); %Basophils 0.7 % (0.0-1.0); %Eosinophils 1.6 % (0.0-10.0); %Neutrophils 70.8 % (42.0-75.0); Hemoglobin 12.6 g/dL (12.0-16.0); Mean Corpuscular HGB CONC 32.4 g/dL (32.0-36.0); Mean Corpuscular Hemoglobin 27.4 pg (27.0-31.0); Mean Corpuscular Volume 84.6 fL (78.0-98.0); Mean Platelet Volume 6.5 fL (7.4-10.4); Platelet Count 490 thou/uL (130-400); RBC Distribution Width 12.6 % (11.5-14.5); Red Blood Cell (RBC) Count 4.59 mill/uL (4.20-5.40); White Blood Cell (WBC) Count 7.6 thou/uL (4.8-10.8)
[2018-07-30 05:52] LABS: Anion Gap 13 mmol/L (10-20); BUN (Urea Nitrogen) 10 mg/dL (9.8-20.1); Calc. Creatinine Clearance 135 mL/min (70-130); Carbon Dioxide 25 mmol/L (22-29); Chloride 100 mmol/L (98-107); Estimated GFR-MDRD Greater than 90; Glucose 208 mg/dL (70-105); Sodium 134 mmol/L (136-145)
--- NOTE | 2018-07-30 08:08 | RAD ---
ONE VIEW CHEST: HISTORY: Status post pleurx. COMPARISON: 07/29/2018. FINDINGS: There is a left-sided chest tube. There is near-complete opacification of the left hemithorax. Stab le aeration of the right lung. Limited evaluation of the cardiac silhouette due to left hemithoracic opacification. IMPRESSION: No significant interval change. POS: [facility]
[2018-07-30] MEDS: glyBURIDE 2.5 MG TAB PO SCH (08:10)
[2018-07-30] MEDS: Gabapentin 300 MG CAP PO SCH ×2 (08:10→15:05)
[2018-07-30] MEDS: Lisinopril/Hydrochlorothiazide 20 mg/12.5 mg Tablet PO SCH (08:10)
[2018-07-30] MEDS ORDERED: Lidocaine 5% Patch TD SCH (09:00)
[2018-07-30] MEDS: HYDROcodone/Acetaminophen 5/325 mg Tablet PO PRN (11:07)
--- NOTE | 2018-07-30 11:08 | PDOC.PN ---
- Subjective Encounter Start Date: 07/30/18 Encounter Start Time: 10:00 Subjective: no sob, feels better -: is amb in room - Objective MAR Reviewed: Yes Vital Signs & Weight: Vital Signs (12 hours) Temp Pulse Resp BP BP BP Pulse Ox 07/30/18 08:10 109 H 110/66 07/30/18 07:05 99.4 F 113 H 18 109/72 92 L 07/30/18 03:04 98.7 F 120 H 18 115/70 93 L Weight Weight 228 lb 6.4 oz I&O: 07/29/18 07/30/18 07/31/18 06:59 06:59 06:59 Intake Total 309 3049 Output Total 4400 Balance 309 -1351 Result Diagrams: 07/30/18 05:01 07/30/18 05:01 Additional Labs: Accuchecks 07/30/18 07/29/18 07/29/18 05:30 20:50 18:55 POC Glucose 215 H 232 H 232 H 07/29/18 11:24 POC Glucose 241 H Phys Exam - Physical Examination HEENT: PERRLA, moist MMs Neck: no JVD, supple Respiratory: no wheezing, no rales decrease air entry left infrascapular area Cardiovascular: RRR, no significant murmur Gastrointestinal: soft, non-tender, positive bowel sounds Musculoskeletal: no edema, pulses present Neurological: non-focal, moves all 4 limbs Psychiatric: normal affect, A&O x 3 Dx/Plan (1) Malignant pleural effusion Code(s): J91.0 - MALIGNANT PLEURAL EFFUSION Status: Acute Comment: s/p Pleuryx cath 07/29/2018 (2) Adenocarcinoma, lung Code(s): C34.90 - MALIGNANT NEOPLASM OF UNSP PART OF UNSP BRONCHUS OR LUNG Status: Acute Qualifiers: Laterality: left Qualified Code(s): C34.92 - Malignant neoplasm of unspecified part of left bronchus or lung (3) HTN (hypertension) Code(s): I10 - ESSENTIAL (PRIMARY) HYPERTENSION Status: Chronic Qualifiers: Hypertension type: essential hypertension Qualified Code(s): I10 - Essential (primary) hypertension (4) Diabetes mellitus Code(s): E11.9 - TYPE 2 DIABETES MELLITUS WITHOUT COMPLICATIONS Status: Chronic Qualifiers: Diabetes mellitus type: type 2 Diabetes mellitus exterminator insulin use: without half-way use Diabetes mellitus complication status: with unspecified complications Qualified Code(s): E11.8 - Type 2 diabetes mellitus with unspecified complications (5) Hypothyroidism Code(s): E03.9 - HYPOTHYROIDISM, UNSPECIFIED Status: Chronic Qualifiers: Hypothyroidism type: unspecified Qualified Code(s): E03.9 - Hypothyroidism , unspecified Comment: Levothyroxine. - Plan hemostable -: needs to learn to use Pleuryx cath at home -: may dc home if cleared by specialists -: to f/u with on thursday * . Review of Systems - Medications/Allergies Allergies/Adverse Reactions: Allergies Allergy/AdvReac Type Severity Reaction Status Date / Time No Known Allergies Allergy Verified 07/29/18 01:32 Medications: Current Medications Acetaminophen (Tylenol) 325 mg PO Q6H PRN PRN Reason: Headache/Fever or Pain Acetaminophen/Codeine Phosphate (Tylenol #3) 1 tab PO Q8H PRN PRN Reason: Pain Last Admin: 07/30/18 05:19 Dose: 1 tab Hydrocodone Bitart/Acetaminophen ([place] 5/325) 1 tab PO Q4H PRN PRN Reason: Severe Pain (7-10) Last Admin: 07/29/18 19:30 Dose: 1 tab Cyclobenzaprine HCl (Flexeril) 10 mg PO TIDPRN PRN PRN Reason: Muscle Spasm Last Admin: 07/29/18 02:00 Dose: 10 mg Dextrose/Water (Dextrose 50%) 25 gm SLOW IVP PRN PRN PRN Reason: Hypoglycemia Fentanyl (Sublimaze) 25 mcg SLOW IVP Q2H PRN PRN Reason: Severe Pain (7-10) Gabapentin (Neurontin) 300 mg PO TID [facility] Last Admin: 07/30/18 08:10 Dose: 300 mg Glucagon (Glucagon) 1 mg IM PRN PRN PRN Reason: Hypoglycemia Glyburide (Micronase) 2.5 mg PO DAILY [facility] Last Admin: 07/30/18 08:10 Dose: 2.5 mg Lisinopril/HCTZ (Prinizide 20-12.5) 1 tab PO DAILY [facility] Last Admin: 07/30/18 08:10 Dose: 1 tab Dextrose/Water (D5w) 1,000 mls @ 0 mls/hr IV .Q0M PRN PRN Reason: Hypoglycemia Sodium Chloride (Normal Saline 0.9%) 1,000 mls @ 70 mls/hr IV .[id number] [facility] Last Admin: 07/29/18 21:40 Dose: 1,000 mls Insulin Human Lispro (Humalog) 0 units SC .MILD SLIDING SCALE PRN PRN Reason: Mild Correctional Scale Last Admin: 07/29/18 19:33 Dose: 3 unit Insulin Human Lispro (Humalog) 0 units SC .BEDTIME SLIDING SC PRN PRN Reason: Bedtime Correctional Scale Last Admin: 07/29/18 21:41 Dose: 2 unit Levothyroxine Sodium (Synthroid) 175 mcg PO 0600 [facility] Last Admin: 07/30/18 05:12 Dose: 175 mcg Lidocaine (Lidoderm 5% Patch) 1 patch TD DAILY [facility] Last Admin: 07/30/18 08:10 Dose: 1 patch Miscellaneous Medication (Lidocaine Patch Removal) 1 each TOP 2100 [place] Sodium Chloride (Flush - Normal Saline) 10 ml IVF Q12HR [facility] Last Admin: 07/30/18 08:11 Dose: 10 ml Sodium Chloride (Flush - Normal Saline) 10 ml IVF PRN PRN PRN Reason: Saline Flush
[2018-07-30] MEDS: HumaLOG 300 UNITS/3 ML VIAL SC PRN (11:10)
--- NOTE | 2018-07-30 13:19 | DIS ---
DATE OF ADMISSION: 07/29/2018 DATE OF DISCHARGE: 07/30/2018 DISCHARGE DISPOSITION: To home. PRIMARY DISCHARGE DIAGNOSES: 1. Malignant left-sided pleural effusion, status post PleurX catheter placed. 2. Adenocarcinoma left lung. SECONDARY DISCHARGE DIAGNOSES: Hypertension, diabetes mellitus type 2, hypothyroidism. PROCEDURES DONE DURING HOSPITALIZATION: The patient has had PleurX catheter placed by Dr. Clemente on 1 09/28/2017. She has had removal of 3000 mL of pleural fluid with the procedure. Chest x-ray done on admission showed whiteout of left lung. H&H 12 and 38, platelet count 490, BUN 10, creatinine 0.7, a lbumin is 3.4. INPATIENT CONSULTS: Dr. Edwin Vallecillo for Oncology, Dr. Allen for Pulmonology, Dr. Clemente for Thoracic Surgery. DISCHARGE MEDICATIONS: Patient to continue Tylenol with codeine q.8h. p.r.n., Flexeril 10 mg 3 time s daily p.r.n., lisinopril with hydrochlorothiazide 20/12.5 mg p.o. daily, Ultram p.r.n. for pain, ga bapentin 300 mg p.o. 3 times daily, glyburide 2.5 mg p.o. daily, Synthroid 175 mcg p.o. daily, lidoca ine patch 5% transdermal daily, metformin 1000 mg twice daily. ALLERGIES: No known drug allergies. DISCHARGE PLAN: Patient to follow up with Dr. Vallecillo on Thursday for further plans about chemo/immunoth erapy. BRIEF COURSE DURING HOSPITALIZATION: The patient got admitted on the with complaints of shortne ss of breath. She had known history of adenocarcinoma left lung and was recently hospitalized with a thoracentesis done as well. The patient essentially had a whiteout of left lung with recurrent pleu ral effusion. She had PleurX catheter placed by Dr. Cleemnte with removal of 3000 mL of fluid. The pat ient is awaiting multiple mutation markers from her cancer workup. She currently has PD-L1 of about 60%. EGFR, ROS and BRAP mutations are still pending. She will discuss with Dr. Vallecillo on Thursday abou t further immunotherapy versus chemotherapy options based on the mentation markers. She is hemodynam ically stable. Once the patient is taught how to use the PleurX catheter she will be shortly discharged home. Pleporfirio e see a [id number] documentation for the day of discharge on [facility].
--- NOTE | 2018-07-30 14:26 | PRG ---
DATE OF SERVICE: 07/30/2018 SERVICE: Pulmonary Medicine. INTERVAL HISTORY: The patient is doing great from a respiratory standpoint. She denies any current chest pain, fevers, chills, nausea or vomiting. She got her chest evacuated yesterday and PleurX cat heter is in place. She feels comfortable with the use of this device. Ultimately, she is prepared f or transition out of hospital. PHYSICAL EXAMINATION: VITAL SIGNS: Afebrile, pulse 122, blood pressure 116/70, respirations 18, saturation 97% on room air . GENERAL: The patient is awake, alert, in no apparent distress. LUNGS: Excellent air entry. There is no prolonged expiratory phase or wheezing present. HEART: Normal rate, regular. ABDOMEN: Soft, nontender, nondistended. Bowel sounds are positive. MUSCULOSKELETAL: No cyanosis or clubbing. No pitting in the bilateral lower extremities. NEUROLOGIC: Grossly nonfocal. ASSESSMENT: 1. Adenocarcinoma of the lung, PD-L1 positive. 2. Malignant pleural effusion, status post PleurX catheter placement. PLAN: The patient can be transitioned out of the hospital today. Pulmonary will continue to follow if she remains in house, but hopefully she will be [id number] today. I will have her return to [facility] to see me as previously directed.
[2018-07-30 15:10] VITALS: BP 116/70; TEMP 98.3
--- NOTE | 2018-07-30 17:50 | EKG ---
Test Reason : SOB Blood Pressure : / mmHG Vent. Rate : 124 BPM Atrial Rate : 124 BPM P-R Int : 140 ms QRS Dur : 076 ms QT Int : 334 ms P-R-T Axes : 052 036 053 degrees QTc Int : 479 ms Sinus tachycardia with Fusion complexes Nonspecific T wave abnormality Abnormal ECG Confirmed by ABISAI MUHAMMAD ([id number]), development editor MARGIE HERR ([id number] on 07/30/2018 5:49:13 PM Referred By: Confirmed By:ABISAI MUHAMMAD
[2018-07-30] MEDS ORDERED: Lidocaine Patch Removal 1 EACH TOP SCH (21:00)
== END 2018-07-30 16:08 | disposition home or self-care (01) | DRG 181 ==
LOC: ERS 22:31 → 2NO 07-29 01:10
PROVIDERS: ADMIT Internal Medicine; ATTEND Internal Medicine
PROC: 0W9B30Z Drainage of Left Pleural Cavity with Drainage Device, Percutaneous Approach (ICD-10-PCS; principal; 2018-07-29)
DX: C34.92 Malignant neoplasm of unspecified part of left bronchus or lung (principal); J91.0 Malignant pleural effusion; I10 Essential (primary) hypertension; E11.9 Type 2 diabetes mellitus without complications; E03.9 Hypothyroidism, unspecified
CPT/HCPCS: 36415; 36416; 71045; 71046; 80048; 80053; 82553; 84484; 85025; 85610; 85730; 87040; 90471; 90670; 93005; C1729; G0009; J1885; J2001; J2250; J2405; J2704; J3010

== ENCOUNTER 2018-08-09 12:57 | Outpatient (CLI) | payer OTHER, SELFPAY | END 2018-08-09 12:58 | disposition home or self-care (01) | LOC: ULT 12:57 | PROVIDERS: ATTEND Internal Medicine Hematology & Oncology | DX: Z51.11 Encounter for antineoplastic chemotherapy (principal); C34.90 Malignant neoplasm of unspecified part of unspecified bronchus or lung; J91.0 Malignant pleural effusion; I08.1 Rheumatic disorders of both mitral and tricuspid valves; Z79.899 Other long term (current) drug therapy | CPT/HCPCS: 93306 ==

== ENCOUNTER 2018-08-17 10:20 | Outpatient (CLI) | payer OTHER, SELFPAY ==
--- NOTE | 2018-08-18 10:52 | PET ---
PET CT FROM SKULL BASE THROUGH MID THIGH: HISTORY: Non-small cell lung cancer with metastatic disease. COMPARISON: CT of chest, abdomen, and pelvis dated 07/22/18. TECHNIQUE: A PET CT was performed from the skull base through the mid thigh after administration of 12.1 mCi F18 -FDG. FINDINGS: The entire left thorax demonstrates hypermetabolic activity. This is more prominent peripherally. The re is only a trace left pleural effusion when compared to the prior CT in the upper thorax. The patie nt has a left-sided chest tube. Residual fluid is seen in the major fissure and inferiorly just above the diaphragm. The max SUV value of the hypermetabolic left thorax is 5.1. There is a right middle l obe peripheral nodule which is not hypermetabolic. There are hypermetabolic mediastinal lymph nodes with a max SUV value of 6.1 in the subcarinal locati on. Bilateral hilar hypermetabolic lymph nodes are seen with a maximum SUV value of 4.1 on the right and 5.6 on the left. There are hypermetabolic lymph nodes at the cervicothoracic junction which are s ubcentimeter in size but have max SUV value of 4.3. There appears to be one lymph node on each side. Anterior to the heart, within the left thorax, there is hypermetabolic activity with a max SUV value of 3.7. This may represent activity along the anterior pleura in this location, but pericardial hyper metabolic activity is also a possibility. No suspicious or hypermetabolic activity are seen in the abdomen or pelvis. No suspicious or hypermet abolic activity seen within the bones. IMPRESSION: 1. Abnormal diffuse hypermetabolic activity in the left thorax is consistent with the patient's left lung malignancy. This appears to have spread throughout the entire left thorax. 2. There is metastatic disease to the mediastinum and bilateral hilar regions. 3. There are hypermetabolic lower cervical lymph nodes which likely represent metastatic disease. POS: ROSALBA
== END 2018-08-17 10:21 | disposition home or self-care (01) ==
LOC: PET 10:20
PROVIDERS: ATTEND Internal Medicine Hematology & Oncology
DX: C34.92 Malignant neoplasm of unspecified part of left bronchus or lung (principal); C78.1 Secondary malignant neoplasm of mediastinum
CPT/HCPCS: 78815; A9552

== ENCOUNTER 2018-08-30 11:25 | Outpatient (CLI) | payer OTHER, SELFPAY ==
--- NOTE | 2018-08-30 14:21 | RAD ---
CHEST PA AND LATERAL 2 VIEWS: Date: 08/30/18 HISTORY: 53-year-old female with history of dyspnea. COMPARISON: 07/30/18. FINDINGS: There is extensive interstitial and alveolar parenchymal changes throughout the entire left chest. Th ere is evidence for some left pleural effusion. There is a small caliber left chest tube in place. Th ere are some increased linear and interstitial markings in the right lung, which appears somewhat mor e marked than on the prior 07/30/18 study, raising concern for the possibility of some developing dif fuse interstitial change. IMPRESSION: Marked pleural and parenchymal opacity changes in the left chest, showing little change from prior study. Small caliber left chest tube in place extending into the region of the left apex. Mini mal increased linear and interstitial markings in the right lung, which appear more marked than on th e prior study. Probable tiny right pleural effusion. POS: ROSALBA
== END 2018-08-30 11:26 | disposition home or self-care (01) ==
LOC: RAD 11:25
PROVIDERS: ATTEND Internal Medicine
DX: R06.00 Dyspnea, unspecified (principal)
CPT/HCPCS: 71046

== ENCOUNTER 2018-09-13 19:22 | Inpatient (IN) | payer BC, OTHER ==
[~2018-09-13 19:22] MED LIST: ISOVUE-370 76%-LOCM 1 ML ONE
[2018-09-13 19:55] LABS: #Eosinphils 0.5 thou/uL (0.0-0.7); #Lymphocytes 1.5 thou/uL (1.20-3.40); #Neutrophils 11.6 thou/uL (1.40-6.50); %Basophils 0.1 % (0.0-1.0); %Eosinophils 3.2 % (0.0-10.0); %Lymphocytes 10.1 % (21.0-51.0); %Monocytes 6.9 % (0.0-10.0); %Neutrophils 79.7 % (42.0-75.0); Hemoglobin 14.5 g/dL (12.0-16.0); Mean Corpuscular HGB CONC 32.1 g/dL (32.0-36.0); Mean Corpuscular Hemoglobin 27.1 pg (27.0-31.0); Mean Corpuscular Volume 84.6 fL (78.0-98.0); Mean Platelet Volume 8.7 fL (7.4-10.4); Platelet Count 126 thou/uL (130-400); RBC Distribution Width 13.5 % (11.5-14.5); Red Blood Cell (RBC) Count 5.33 mill/uL (4.20-5.40); White Blood Cell (WBC) Count 14.6 thou/uL (4.8-10.8)
--- NOTE | 2018-09-13 20:12 | RAD ---
PORTABLE AP CHEST X-RAY: 09/13/2018 HISTORY: Shortness of breath. Abdominal pain. Chest tightness. Stage IV lung cancer. COMPARISON: 07/29/2018 and 08/30/2018 FINDINGS: Again noted is increased density at the left lung base with increased interstitial and alveolar opaci ties seen within the left upper and left mid lung zones. Findings are overall stable when compared t o the prior exam. The thoracostomy tube overlying the medial left lung apex is again seen. The righ t lung remains clear. The left cardiac border is obscured. There has been no interval change from p rior exams. IMPRESSION: Stable chest with pleural and parenchymal changes throughout the left hemithorax with left-sided thor acostomy tube remaining in place. POS: ALEJANDRO
[2018-09-13 20:18] LABS: ALT (SGPT) 16 U/L (8-55); AST (SGOT) 7 U/L (5-34); Albumin 4.3 g/dL (3.5-5.0); Alkaline Phosphatase 87 U/L (40-150); Anion Gap 26 mmol/L (10-20); BUN (Urea Nitrogen) 32 mg/dL (9.8-20.1); Bilirubin, Total 1.4 mg/dL (0.2-1.2); Calc. Creatinine Clearance 0 mL/min (70-130); Calcium 8.8 mg/dL (7.8-10.44); Carbon Dioxide 25 mmol/L (22-29); Chloride 80 mmol/L (98-107); Estimated GFR-MDRD 31; Globulin 3.6 g/dL (2.4-3.5); Lipase 13 U/L (8-78); Magnesium 1.6 mg/dL (1.6-2.6); Potassium 3.6 mmol/L (3.5-5.1); Protein, Total 7.9 g/dL (6.0-8.3); Sodium 127 mmol/L (136-145)
[2018-09-13 20:42] LABS: Glucose 761 mg/dL (70-105)
[2018-09-13 20:45] LABS: Bilirubin Negative (Negative); Blood, Urine Negative (Negative); Clarity CLEAR (Clear); Glucose, Urine (Dipstick) >=1000 mg/dL (Negative); Leukocyte Negative (Negative); Nitrite Negative (Negative); Protein, Urine (Dipstick) Negative (Neg-Trace); Specific Gravity, Urine 1.019 (1.002-1.036); Urobilinogen 0.2 mg/dL (0.2-1.0); pH, Urine 6.5 (5.0-9.0)
--- NOTE | 2018-09-13 21:01 | CT ---
CT PULMONARY ANGIOGRAM CHEST WITH 3D RENDERING: HISTORY: A 53-year-old female with a history of shortness of breath and chest pain with palpitations. History of hypertension and lung cancer. FINDINGS: There are small bilateral layering pleural effusions. There is a left-sided chest tube in place. Th ere is a very large, loculated, somewhat subpleural effusion on the left, resulting in some marked co mpression of the left lung, as well as marked depression of the left hemidiaphragm. This large colle ction measures approximately 10 x 13 x 16 cm. There is some bilateral scattered ground glass opacity changes and some vascular congestion. There are bilateral nodules, up to 0.9 cm on the left side. There is some left-sided pleural thickening. There is some shift of the heart to the right side seco ndary to the large, loculated pleural effusion. There are some minimally enlarged bilateral hilar ly mph nodes. Minimal pericardial effusion. Up to borderline-sized superior-anterior mediastinal lymph nodes. IMPRESSION: 1. No convincing CT evidence for acute pulmonary embolism. 2. Very large, loculated left pleural effusion, with compression of the left lung, marked depression of the left hemidiaphragm, and some shift of the heart to the right. 3. Small free layering pleural effusions. 4. Bilateral scattered pulmonary ground glass opacity changes, nonspecific, as well as some bilatera l pulmonary nodules, which are poorly circumscribed, up to 0.8 cm. 5. Bilateral hilar, as well as some anterior-superior mediastinal lymph node enlargement. 6. Minimal pericardial effusion. POS: YARIEL
--- NOTE | 2018-09-13 21:08 | CT ---
CT ABDOMEN AND PELVIS WITH IV CONTRAST: HISTORY: A 53-year-old female with a history of abdominal pain. FINDINGS: The previously noted very large, loculated left pleural effusion is only partially visualized on this study. There is marked depression of the left hemidiaphragm, with some pleural thickening in the le ft chest, small free layering pleural effusions, and scattered, poorly defined, nodular changes and d iffuse nonspecific ground glass opacities within both visualized lower lungs. Status post cholecyste ctomy. The liver, pancreas, spleen, and adrenal glands are unremarkable. No renal calculus or ob struction. No CT evidence for acute appendicitis. Small uterine calcifications, probably small fibr oids. No significant free intraperitoneal fluid, abscess, or other significant acute process. Lumba r spine degenerative disease. IMPRESSION: 1. The left hemidiaphragm is markedly depressed from the very large, loculated left pleural effusion . 2. Pleural and parenchymal changes in the lower visualized lungs, as above. 3. No renal calculus or genitourinary obstruction. 4. Normal appearing appendix. 5. No evidence for other significant acute process in the abdomen or pelvis. POS: ROSALBA
[2018-09-13] MEDS ORDERED: Sodium Chloride 0.9% 100 ML ONE (21:13)
[2018-09-13] MEDS ORDERED: Piperacillin/Tazobactam 3.375 GM VIAL ONE (21:13)
[2018-09-13] MEDS ORDERED: Insulin Regular 300 UNITS/3 ML VIAL ONE (21:16)
[2018-09-13] MEDS ORDERED: Ondansetron PF 4 MG/2 ML Vial ONE (21:21)
[2018-09-13] MEDS ORDERED: Fentanyl 100 MCG/2 ML VIAL ONE (21:21)
[2018-09-13] MEDS ORDERED: Senokot S 8.6-50 MG TAB PO PRN (22:04)
[2018-09-13] MEDS ORDERED: Bisacodyl 5 MG TAB PO PRN (22:04)
[2018-09-13] MEDS ORDERED: Ondansetron ODT 4 MG TAB PO PRN (22:04)
[2018-09-13] MEDS ORDERED: Dextrose 50% Abboject 50 ML SYRINGE SLOW IVP PRN (22:04)
[2018-09-13] MEDS ORDERED: Dextrose 5% in Water 1,000 ML IV PRN (22:04)
[2018-09-13] MEDS ORDERED: HumaLOG 300 UNITS/3 ML VIAL SC PRN ×2 (22:04)
[2018-09-13] MEDS ORDERED: Sodium Chloride 0.9% 1,000 ML IV SCH (22:15)
[2018-09-13 22:42] LABS: Bicarbonate (HCO3v) 28.7 mmol/L (22.0-29.0); CO2 Tension (PvCO2) 42.2 mmHg (41.0-51.0); Calcium, Ionized 0.88 mmol/L (1.12-1.32); Hemoglobin - Calc 14.2 g/dL (12.0-18.0); O2 Tension (PvO2) 36.5 mmHg (35.0-45.0); Potassium 3.3 mmol/L (3.4-4.7); vO2 Saturation-calc 71.7 % (94-98)
[2018-09-13 23:17] LABS: Troponin I Less than 0.010 ng/mL (< 0.028)
[2018-09-13 23:24] LABS: Glucose Accucheck Confirmation 710 mg/dl (70-105)
[2018-09-14 00:03] LABS: Lactic Acid 4.1 mmol/L (0.5-2.2)
[2018-09-14] MEDS ORDERED: HumaLOG 300 UNITS/3 ML VIAL SC SCH (02:00)
[2018-09-14] MEDS: Cefepime 2 GM in Sodium Chloride 0.9% 100 ML IVPB SCH (02:31)
[2018-09-14 02:55] LABS: #Eosinphils 0.5 thou/uL (0.0-0.7); #Monocytes 1.1 thou/uL (0.11-0.59); #Neutrophils 8.6 thou/uL (1.40-6.50); %Basophils 0.3 % (0.0-1.0); %Eosinophils 4.7 % (0.0-10.0); %Monocytes 9.8 % (0.0-10.0); %Neutrophils 76.2 % (42.0-75.0); Mean Corpuscular HGB CONC 33.1 g/dL (32.0-36.0); Mean Corpuscular Hemoglobin 27.6 pg (27.0-31.0); Mean Corpuscular Volume 83.4 fL (78.0-98.0); Mean Platelet Volume 8.5 fL (7.4-10.4); Platelet Count 105 thou/uL (130-400); RBC Distribution Width 13.5 % (11.5-14.5); Red Blood Cell (RBC) Count 4.72 mill/uL (4.20-5.40); White Blood Cell (WBC) Count 11.3 thou/uL (4.8-10.8)
[2018-09-14 03:15] LABS: Albumin 3.6 g/dL (3.5-5.0); Anion Gap 21 mmol/L (10-20); BUN (Urea Nitrogen) 28 mg/dL (9.8-20.1); BUN/Creatinine Ratio 16.57; Calc. Creatinine Clearance 53 mL/min (70-130); Calcium 7.8 mg/dL (7.8-10.44); Carbon Dioxide 24 mmol/L (22-29); Chloride 90 mmol/L (98-107); Estimated GFR-MDRD 38; Glucose 496 mg/dL (70-105); Phosphorus 4.4 mg/dL (2.3-4.7); Potassium 3.3 mmol/L (3.5-5.1); Sodium 132 mmol/L (136-145)
[2018-09-14] MEDS: Ondansetron PF 4 MG/2 ML Vial IVP PRN ×2 (03:41→11:39)
[2018-09-14] MEDS ORDERED: NS 0.9% w/ 20 MEQ KCL 1,000 ML/1,000 ML BAG IV PRN (03:48)
[2018-09-14] MEDS ORDERED: Dextrose 5 %-0.45 % NaCl 1,000 ML IV PRN (03:48)
[2018-09-14] MEDS ORDERED: D5 1/2 NS w/20 mEq KCL 1,000 ML IV PRN (03:48)
[2018-09-14] MEDS ORDERED: Dextrose 5% in Water 1,000 ML IV PRN ×2 (03:48→22:41)
[2018-09-14] MEDS ORDERED: Sodium Chloride 0.9% 1,000 ML IV PRN ×4 (03:48)
[2018-09-14] MEDS ORDERED: Potassium Chloride 20 MEQ TAB PO PRN (03:49)
[2018-09-14] MEDS ORDERED: Potassium Chloride 40 MEQ in Premix Bag 1 BAG IVPB PRN (03:49)
[2018-09-14] MEDS ORDERED: Magnesium 2 GM/NS 0.9% 100 ML 2 GM in Premix Bag 1 BAG IVPB PRN (03:49)
[2018-09-14] MEDS ORDERED: Potassium Phosphate 15 MMOL in Sodium Chloride 0.9% 250 ML 250 ML IV PRN (03:49)
[2018-09-14] MEDS ORDERED: Potassium Chloride 40 MEQ in Sodium Chloride 0.9% 250 ML 250 ML IVPB PRN (03:49)
[2018-09-14] MEDS ORDERED: Dextrose 50% Abboject 50 ML SYRINGE SLOW IVP PRN (03:49)
[2018-09-14] MEDS ORDERED: Potassium Phosphate 12 MMOL in Sodium Chloride 0.9% 250 ML 250 ML IV PRN (03:49)
[2018-09-14] MEDS ORDERED: Potassium Phosphate 9 MMOL in Sodium Chloride 0.9% 100 ML IVPB PRN (03:49)
[2018-09-14] MEDS ORDERED: CCU ELECTROLYTE REPLACEMENT PROTOCOL FS PRN (03:49)
[2018-09-14] MEDS ORDERED: Magnesium Oxide 400 MG TAB PO PRN (03:49)
[2018-09-14] MEDS ORDERED: ADD ELECTROLYTE REPLACEMENT SET TO PROFILE FS SCH (04:00)
[2018-09-14] MEDS ORDERED: HUMULIN R 100 UNITS in Sodium Chloride 0.9% 100 ML IVPB SCH (04:00)
[2018-09-14] MEDS ORDERED: Levothyroxine Sodium 100 MCG TAB PO SCH (06:00)
[2018-09-14 06:18] LABS: Anion Gap 22 mmol/L (10-20); BUN (Urea Nitrogen) 26 mg/dL (9.8-20.1); Calc. Creatinine Clearance 62 mL/min (70-130); Calcium 7.9 mg/dL (7.8-10.44); Carbon Dioxide 21 mmol/L (22-29); Chloride 95 mmol/L (98-107); Estimated GFR-MDRD 46; Glucose 242 mg/dL (70-105); Potassium 3.1 mmol/L (3.5-5.1); Sodium 135 mmol/L (136-145)
[2018-09-14] MEDS: Thyroid 30 MG TAB PO SCH (08:17)
[2018-09-14] MEDS: Heparin 5,000 UNITS/ML VIAL SC SCH ×2 (08:29→20:37)
[2018-09-14] MEDS: Famotidine/PF 20 mg/2ml Vial SLOW IVP SCH (08:29)
[2018-09-14] MEDS: Famotidine 20 MG TAB PO SCH (08:30)
[2018-09-14] MEDS: Lidocaine 5% Patch TD SCH (08:30)
[2018-09-14] MEDS: Gabapentin 300 MG CAP PO SCH ×3 (08:30→20:37)
[2018-09-14] MEDS ORDERED: Prevnar 13-Val Conj/PF 0.5 ML SYRINGE IM ONE (09:00)
[2018-09-14 11:18] LABS: Anion Gap 18 mmol/L (10-20); BUN (Urea Nitrogen) 22 mg/dL (9.8-20.1); Calc. Creatinine Clearance 74 mL/min (70-130); Calcium 7.8 mg/dL (7.8-10.44); Carbon Dioxide 23 mmol/L (22-29); Chloride 97 mmol/L (98-107); Estimated GFR-MDRD 56; Glucose 273 mg/dL (70-105); Potassium 3.9 mmol/L (3.5-5.1); Sodium 134 mmol/L (136-145)
--- NOTE | 2018-09-14 11:43 | CON ---
DATE OF CONSULTATION: HISTORY OF PRESENT ILLNESS: A 53-year-old female, recently discharged from the hospital after she had a pleural catheter inserted for malignant left pleural effusion. Does not have any shortness of breath, palpitation, or cough. She received two cycles of chemotherapy. She got worsening dyspnea and palpitation. PAST MEDICAL HISTORY: Pertinent for otherwise diabetes, hypothyroidism, hypertension, arthritis, and stage IV lung cancer. PAST SURGICAL HISTORY: Previous surgeries otherwise included previous thoracentesis, previous pleural catheter, previous cholecystectomy, tubal ligation, and peritonsillar abscess. SOCIAL HISTORY: No alcohol or tobacco use at this time. MEDICATIONS: Home medicines include Glucophage 1000 twice a day, Demadex 20, thyroid, Compazine, Tagrisso, lisinopril, . She is now started on vancomycin and Maxipime. REVIEW OF SYSTEMS: Otherwise 10-point negative. PHYSICAL EXAMINATION: GENERAL: She is awake, alert, and responsive. VITAL SIGNS: Sats are 95 on room air, respirations 16, temperature 97, and blood pressure 109/73. CHEST: Decreased breath sounds in left lung. CARDIAC: Normal S1, S2. No gallops. ABDOMEN: No mass. LABORATORY DATA: Influenza titer negative. IMPRESSION: Status post left pleural catheter, recurrent malignant pleural effusion, adenocarcinoma, status post chemotherapy. She has a pleural catheter which has stopped working. It is unclear at this stage whether if there would be any benefit from doing a thoracentesis or not. She remains relatively asymptomatic. I am not so sure if there is any benefit from repositioning the pleural catheter either. The pleural effusion is loculated anteriorly in the upper lobe. Continue comfort care. Discussed with Dr. Clemente in the morning. This is a consultation note, 70 minutes, of which 50% spent in direct patient care. Job ID: [id number]
[2018-09-14] MEDS: Vancomycin HCl 1 GM in Premix Bag 1 BAG IVPB SCH ×2 (13:18→23:01)
[2018-09-14] MEDS: Acetaminophen/Codeine 30-300mg Tablet PO PRN (13:25)
[2018-09-14] MEDS ORDERED: Promethazine HCl 25 MG/ML VIAL SLOW IVP PRN (14:57)
--- NOTE | 2018-09-14 16:30 | PDOC.PN ---
- Subjective Encounter Start Date: 09/14/18 Encounter Start Time: 10:00 Pt seen for followup re; pleural effusion. Reports abdo discomfort, SOBOE. - Objective Resuscitation Status - Order Detail: 09/13/18 22:04 Resuscitation Status Routine Resuscitation Status: FULL: Full Resuscitation MAR Reviewed: Yes Vital Signs & Weight: Vital Signs (12 hours) Temp Pulse Resp BP Pulse Ox 09/14/18 15:29 98.7 F 116 H 18 108/77 99 09/14/18 11:03 97.2 F L 110 H 20 106/78 99 09/14/18 08:00 95 09/14/18 07:32 97.2 F L 113 H 16 109/73 95 Weight Weight 196 lb I&O: 09/13/18 09/14/18 09/15/18 06:59 06:59 06:59 Intake Total 1025 Output Total 200 Balance 825 Result Diagrams: 09/14/18 02:26 09/14/18 10:36 Additional Labs: Accuchecks 09/14/18 09/14/18 09/14/18 16:06 15:15 14:11 POC Glucose 129 H 109 152 H 09/14/18 09/14/18 09/14/18 13:21 12:04 11:12 POC Glucose 189 H 213 H 263 H 09/14/18 09/14/18 09/14/18 10:02 09:14 08:15 POC Glucose 287 H 245 H 219 H 09/14/18 09/14/18 09/14/18 07:14 06:00 05:05 POC Glucose 148 H 160 H 265 H 09/14/18 09/14/18 09/14/18 04:10 03:27 01:40 POC Glucose 340 H 401 H 478 H EKG Reviewed by me: Yes (Tele: sinus tachycardia) Phys Exam - Physical Examination Constitutional: NAD HEENT: moist MMs, sclera anicteric, oral pharynx no lesions, 2+ tonsils Neck: no nodes, no JVD, supple, full ROM Decreased air entry left base S1, s2, tachy, reg Gastrointestinal: soft, non-tender, no distention, positive bowel sounds Neurological: moves all 4 limbs Psychiatric: normal affect, A&O x 3 Dx/Plan (1) Malignant pleural effusion Code(s): J91.0 - MALIGNANT PLEURAL EFFUSION Status: Acute Comment: s/p Pleuryx cath 07/29/2018, now presenting with pleural effusion (2) DKA (diabetic ketoacidosis) Code(s): E13.10 - OTH DIABETES MELLITUS WITH KETOACIDOSIS WITHOUT COMA Status : Acute Comment: being treated per protocol (3) Adenocarcinoma, lung Code(s): C34.90 - MALIGNANT NEOPLASM OF UNSP PART OF UNSP BRONCHUS OR LUNG Status: Chronic Qualifiers: Laterality: left Qualified Code(s): C34.92 - Malignant neoplasm of unspecified part of left bronchus or lung Comment: oncology consulted (4) HTN (hypertension) Code(s): I10 - ESSENTIAL (PRIMARY) HYPERTENSION Status: Chronic Qualifiers: Hypertension type: essential hypertension Qualified Code(s): I10 - Essential (primary) hypertension Comment: controlled (5) Hypothyroidism Code(s): E03.9 - HYPOTHYROIDISM, UNSPECIFIED Status: Chronic Qualifiers: Hypothyroidism type: unspecified Qualified Code(s): E03.9 - Hypothyroidism , unspecified Comment: on levothyroxine. - Plan * . Review of Systems - Review of Systems Constitutional: weakness. negative: fever, chills, sweats, malaise Respiratory: SOB with Excertion. negative: Cough, Dry, Shortness of Breath, Hemoptysis, Pleuritic Pain, Sputum, Wheezing Cardiovascular: negative: chest pain, palpitations, orthopnea, paroxysmal nocturnal dyspnea, edema, light headedness Gastrointestinal: Abdominal Pain. negative: Nausea, Vomiting, Diarrhea, Constipation, Melena, Hematochezia Genitourinary: Other. negative: Dysuria, Frequency, Incontinence, Hematuria, Retention Skin: negative: Rash, Lesions, Blu, Bruising - Medications/Allergies Allergies/Adverse Reactions: Allergies Allergy/AdvReac Type Severity Reaction Status Date / Time No Known Allergies Allergy Verified 07/29/18 01:32 Medications: Current Medications Acetaminophen (Tylenol) 650 mg PO Q4H PRN PRN Reason: Headache/Fever/Mild Pain (1-3) Acetaminophen/Codeine Phosphate (Tylenol #3) 1 tab PO Q8H PRN PRN Reason: Moderate Pain (4-6) Last Admin: 09/14/18 13:25 Dose: 1 tab Bisacodyl (Dulcolax) 10 mg PO DAILYPRN PRN PRN Reason: Constipation Calcium Carbonate (Tums) 1,000 mg PO Q4H PRN PRN Reason: Heartburn or Indigestion Cyclobenzaprine HCl (Flexeril) 10 mg PO TIDPRN PRN PRN Reason: MUSCLE SPASM Dextrose/Water (Dextrose 50%) 25 gm SLOW IVP PRN PRN PRN Reason: Hypoglycemia Famotidine (Pepcid) 20 mg SLOW IVP DAILY [facility] Last Admin: 09/14/18 08:29 Dose: 20 mg Famotidine (Pepcid) 20 mg PO DAILY [facility] Last Admin: 09/14/18 08:30 Dose: Not Given Gabapentin (Neurontin) 300 mg PO TID [facility] Last Admin: 09/14/18 13:25 Dose: 300 mg Glucagon (Glucagon) 1 mg IM PRN PRN PRN Reason: Hypoglycemia Heparin Sodium (Porcine) (Heparin) 5,000 units SC BID [facility] Last Admin: 09/14/18 08:29 Dose: 5,000 units Dextrose/Water (D5w) 1,000 mls @ 0 mls/hr IV .Q0M PRN PRN Reason: Hypoglycemia Cefepime HCl 2 gm/ Sodium (Chloride) 100 mls @ 200 mls/hr IVPB Q24HR@0300 [facility] Last Admin: 09/14/18 02:31 Dose: 100 mls Vancomycin HCl 1 gm/ Device 200 mls @ 200 mls/hr IVPB 1100,2300 [facility] Last Admin: 09/14/18 13:18 Dose: 200 mls Insulin Human Regular 100 (units/ Sodium Chloride) 101 mls @ 0 mls/hr IVPB INF [facility]; Protocol Last Admin: 09/14/18 04:18 Dose: 101 mls Sodium Chloride (Normal Saline 0.9%) 1,000 mls @ 1,000 mls/hr IV .Q1H PRN; Protocol PRN Reason: STEP 1: DKA PROTOCOL Sodium Chloride (Normal Saline 0.9%) 1,000 mls @ 500 mls/hr IV .Q2H PRN PRN Reason: STEP 1: DKA PROTOCOL Potassium Chloride/Sodium Chloride (Ns 0.9% W/ 20 Meq Kcl) 1,000 ml in 1,000 mls @ 500 mls/hr IV .Q2H PRN; Protocol PRN Reason: STEP 2: DKA PROTOCOL Sodium Chloride (Normal Saline 0.9%) 1,000 mls @ 500 mls/hr IV INF PRN; Protocol PRN Reason: STEP 2: DKA PROTOCOL Potassium Chloride/Sodium Chloride (Ns 0.9% W/ 20 Meq Kcl) 1,000 ml in 1,000 mls @ 250 mls/hr IV .Q4H PRN PRN Reason: STEP 3: DKA PROTOCOL Sodium Chloride (Normal Saline 0.9%) 1,000 mls @ 250 mls/hr IV .Q4H PRN PRN Reason: STEP 3:DKA PROTOCOL Dextrose/Sodium Chloride (D5 1/2 Ns) 1,000 mls @ 250 mls/hr IV INF PRN; Protocol PRN Reason: STEP 4: DKA PROTOCOL Potassium Chloride/Dextrose/Sod Cl (D5 1/2 Ns W/20 Meq Kcl) 1,000 mls @ 250 mls /hr IV INF PRN; Protocol PRN Reason: STEP 4: DKA PROTOCOL Last Admin: 09/14/18 06:04 Dose: 1,000 mls Potassium Chloride 40 meq/ (Sodium Chloride) 270 mls @ 135 mls/hr IVPB ASDIR PRN PRN Reason: FOR SERUM K+ 2.5 - 3.5 Potassium Chloride 40 meq/ (Device) 100 mls @ 50 mls/hr IVPB ASDIR PRN PRN Reason: FOR SERUM K+ 2.5 - 3.5 Magnesium Sulfate 1 gm/ Sodium (Chloride) 102 mls @ 102 mls/hr IV PRN PRN PRN Reason: MAG LEVEL 1.4 - 2.0 Magnesium Sulfate 2 gm/ Device 100 mls @ 100 mls/hr IVPB ASDIR PRN PRN Reason: MAGNESIUM < 1.4 Potassium Phosphate 9 mmol/ (Sodium Chloride) 103 mls @ 25.75 mls/hr IVPB ASDIR PRN PRN Reason: Phosphate 1.0-1.8 Potassium Phosphate 12 mmol/ (Sodium Chloride) 254 mls @ 63.5 mls/hr IV ASDIR PRN PRN Reason: Serum phosphate 0.5-0.9 Potassium Phosphate 15 mmol/ (Sodium Chloride) 255 mls @ 63.75 mls/hr IV ASDIR PRN PRN Reason: Serum Phos < 0.5 Lidocaine (Lidoderm 5% Patch) 1 patch TD DAILY [facility] Last Admin: 09/14/18 08:30 Dose: Not Given Magnesium Oxide (Magnesium Oxide) 400 mg PO BIDPRN PRN PRN Reason: FOR SERUM MAG 1.4 - 2.0 Magnesium Oxide (Magnesium Oxide) 800 mg PO PRN PRN PRN Reason: FOR SERUM MAG < 1.4 Miscellaneous Medication (Lidocaine Patch Removal) 1 each TOP 2100 [facility] Miscellaneous Medication (Pharmacy To Dose) 0 each IVPB PRN PRN PRN Reason: VANC/CEFEPIME Pharmacy to Dose Miscellaneous Medication (Phos-Nak) 1 pkt PO TIDPRN PRN PRN Reason: FOR PHOS LEVEL 1.0 - 1.8 Miscellaneous Medication (Phos-Nak) 2 pkt PO TIDPRN PRN PRN Reason: FOR PHOS LEVEL 0.5 - 1.0 Morphine Sulfate (Morphine) 2 mg IV Q4H PRN PRN Reason: Severe Pain (7-10) Ccu Electrolyte (Replacement Protocol) 0 each FS PRN PRN PRN Reason: FOR ELECTROLYTE REPLACEMENT Ondansetron HCl (Zofran Odt) 4 mg PO Q6H PRN PRN Reason: Nausea/Vomiting Ondansetron HCl (Zofran) 4 mg IVP Q6H PRN PRN Reason: Nausea/Vomiting Last Admin: 09/14/18 11:39 Dose: 4 mg Potassium Chloride (K-Dur) 40 meq PO ASDIR PRN PRN Reason: FOR SERUM K+ 2.5 - 3.5 Last Admin: 09/14/18 04:59 Dose: 40 meq Potassium Chloride (Klor-Con) 40 meq PER TUBE ASDIR PRN PRN Reason: FOR SERUM K+ 2.5-3.5 Promethazine HCl (Phenergan) 25 mg SLOW IVP Q6H PRN PRN Reason: Nausea/Vomiting Senna/Docusate Sodium (Senokot S) 2 tab PO BIDPRN PRN PRN Reason: Constipation Sodium Chloride (Flush - Normal Saline) 10 ml IVF Q12HR [facility] Last Admin: 09/14/18 08:31 Dose: 10 ml Sodium Chloride (Flush - Normal Saline) 10 ml IVF PRN PRN PRN Reason: Saline Flush Last Admin: 09/14/18 11:40 Dose: 10 ml Thyroid ([place] Thyroid) 30 mg PO 0600 [facility] Last Admin: 09/14/18 08:17 Dose: Not Given Tramadol HCl (Ultram) 25 mg PO Q8H PRN PRN Reason: Moderate Pain (4-6) Zolpidem Tartrate (Ambien) 5 mg PO HSPRN PRN PRN Reason: Insomnia
[2018-09-14] MEDS: Lidocaine Patch Removal 1 EACH TOP SCH (20:36)
[2018-09-14] MEDS ORDERED: Dextrose 50% Abboject 50 ML SYRINGE IVP PRN (22:41)
[2018-09-14] MEDS: NS 0.9% w/ 20 MEQ KCL 1,000 ML/1,000 ML BAG IV PRN (22:42)
[2018-09-14] MEDS ORDERED: Insulin Glargine 30 UNITS in Pre-Filled Syringe 1 EACH SC SCH (22:45)
[2018-09-15] MEDS: Cefepime 2 GM in Sodium Chloride 0.9% 100 ML IVPB SCH (02:13)
[2018-09-15] MEDS: NS 0.9% w/ 20 MEQ KCL 1,000 ML/1,000 ML BAG IV PRN ×3 (04:37→20:26)
[2018-09-15] MEDS: Thyroid 30 MG TAB PO SCH (05:30)
[2018-09-15] MEDS: Insulin Regular 300 UNITS/3 ML VIAL SC PRN ×3 (05:33→17:03)
[2018-09-15 06:34] LABS: #Eosinphils 0.6 thou/uL (0.0-0.7); #Lymphocytes 1.6 thou/uL (1.20-3.40); #Monocytes 0.9 thou/uL (0.11-0.59); %Basophils 0.1 % (0.0-1.0); %Eosinophils 6.4 % (0.0-10.0); %Lymphocytes 17.3 % (21.0-51.0); %Monocytes 9.9 % (0.0-10.0); %Neutrophils 66.3 % (42.0-75.0); Hemoglobin 11.8 g/dL (12.0-16.0); Mean Corpuscular HGB CONC 32.7 g/dL (32.0-36.0); Mean Corpuscular Hemoglobin 27.6 pg (27.0-31.0); Mean Corpuscular Volume 84.2 fL (78.0-98.0); Mean Platelet Volume 8.3 fL (7.4-10.4); Platelet Count 104 thou/uL (130-400); RBC Distribution Width 13.4 % (11.5-14.5); Red Blood Cell (RBC) Count 4.27 mill/uL (4.20-5.40)
[2018-09-15 06:47] LABS: Anion Gap 12 mmol/L (10-20); BUN (Urea Nitrogen) 12 mg/dL (9.8-20.1); Calc. Creatinine Clearance 97 mL/min (70-130); Calcium 7.6 mg/dL (7.8-10.44); Carbon Dioxide 22 mmol/L (22-29); Chloride 103 mmol/L (98-107); Estimated GFR-MDRD 77; Glucose 216 mg/dL (70-105); Potassium 4.3 mmol/L (3.5-5.1); Sodium 133 mmol/L (136-145)
[2018-09-15] MEDS: Famotidine/PF 20 mg/2ml Vial SLOW IVP SCH (08:48)
[2018-09-15] MEDS: Gabapentin 300 MG CAP PO SCH ×3 (08:52→20:25)
[2018-09-15] MEDS: Famotidine 20 MG TAB PO SCH (08:52)
[2018-09-15] MEDS: Acetaminophen/Codeine 30-300mg Tablet PO PRN ×2 (08:52→20:27)
[2018-09-15] MEDS: Heparin 5,000 UNITS/ML VIAL SC SCH ×2 (08:52→20:25)
[2018-09-15] MEDS: Lidocaine 5% Patch TD SCH (08:53)
[2018-09-15 10:22] LABS: Vancomycin, Trough 15.2 ug/mL
[2018-09-15] MEDS: Vancomycin HCl 1 GM in Premix Bag 1 BAG IVPB SCH ×2 (11:00→23:03)
[2018-09-15] MEDS ORDERED: TAGRISSO 80 MG PO SCH (13:00)
[2018-09-15] MEDS: TAGRISSO 80 MG PO SCH (13:31)
--- NOTE | 2018-09-15 14:56 | PDOC.PN ---
- Subjective Encounter Start Date: 09/15/18 Encounter Start Time: 10:40 Pt seen for followup re: malignant pleural effusion. feels better today, tolerating diet. - Objective Resuscitation Status - Order Detail: 09/13/18 22:04 Resuscitation Status Routine Resuscitation Status: FULL: Full Resuscitation MAR Reviewed: Yes Vital Signs & Weight: Vital Signs (12 hours) Temp Pulse Resp BP Pulse Ox 09/15/18 11:40 98.1 F 114 H 20 108/76 100 09/15/18 08:00 98 09/15/18 07:45 97.3 F L 120 H 20 122/74 98 09/15/18 04:24 97.6 F 119 H 21 H 93/55 L 96 Weight Admit Weight 196 lb Weight 196 lb I&O: 09/14/18 09/15/18 09/16/18 06:59 06:59 06:59 Intake Total 1025 5560 Output Total 200 1450 Balance 825 4110 Result Diagrams: 09/15/18 05:46 09/15/18 05:46 Additional Labs: Accuchecks 09/15/18 09/15/18 09/15/18 11:42 05:33 02:13 POC Glucose 233 H 210 H 206 H 09/14/18 09/14/18 09/14/18 23:00 22:03 21:10 POC Glucose 151 H 210 H 175 H 09/14/18 09/14/18 09/14/18 20:08 19:05 17:58 POC Glucose 190 H 190 H 190 H 09/14/18 09/14/18 09/14/18 17:13 16:06 15:15 POC Glucose 214 H 129 H 109 09/13/18 22:51 POC Glucose Greater than 550 H* EKG Reviewed by me: Yes (Tele: s. tach) Phys Exam - Physical Examination Constitutional: NAD HEENT: moist MMs, sclera anicteric, oral pharynx no lesions, 2+ tonsils Neck: no nodes, no JVD, supple, full ROM Decreased air entry L base S1, S2, tachy, reg Gastrointestinal: soft, non-tender, no distention, positive bowel sounds Neurological: moves all 4 limbs Psychiatric: normal affect, A&O x 3 Dx/Plan (1) Malignant pleural effusion Code(s): J91.0 - MALIGNANT PLEURAL EFFUSION Status: Acute Comment: may need catheter location changed (2) Adenocarcinoma, lung Code(s): C34.90 - MALIGNANT NEOPLASM OF UNSP PART OF UNSP BRONCHUS OR LUNG Status: Chronic Qualifiers: Laterality: left Qualified Code(s): C34.92 - Malignant neoplasm of unspecified part of left bronchus or lung Comment: oncology following (3) HTN (hypertension) Code(s): I10 - ESSENTIAL (PRIMARY) HYPERTENSION Status: Chronic Qualifiers: Hypertension type: essential hypertension Qualified Code(s): I10 - Essential (primary) hypertension Comment: controlled (4) Hypothyroidism Code(s): E03.9 - HYPOTHYROIDISM, UNSPECIFIED Status: Chronic Qualifiers: Hypothyroidism type: unspecified Qualified Code(s): E03.9 - Hypothyroidism , unspecified Comment: continue levothyroxine. (5) DKA (diabetic ketoacidosis) Code(s): E13.10 - OTH DIABETES MELLITUS WITH KETOACIDOSIS WITHOUT COMA Status : Resolved - Plan * . Review of Systems - Review of Systems Constitutional: negative: fever, chills, sweats, weakness, malaise Respiratory: Cough, Dry, SOB with Excertion. negative: Shortness of Breath, Hemoptysis, Pleuritic Pain, Sputum, Wheezing Cardiovascular: negative: chest pain, palpitations, orthopnea, paroxysmal nocturnal dyspnea, edema, light headedness Gastrointestinal: negative: Nausea, Vomiting, Abdominal Pain, Diarrhea, Constipation, Melena, Hematochezia Genitourinary: negative: Dysuria, Frequency, Incontinence, Hematuria, Retention Skin: negative: Rash, Lesions, Blu, Bruising - Medications/Allergies Allergies/Adverse Reactions: Allergies Allergy/AdvReac Type Severity Reaction Status Date / Time No Known Allergies Allergy Verified 07/29/18 01:32 Medications: Current Medications Acetaminophen (Tylenol) 650 mg PO Q4H PRN PRN Reason: Headache/Fever/Mild Pain (1-3) Acetaminophen/Codeine Phosphate (Tylenol #3) 1 tab PO Q8H PRN PRN Reason: Moderate Pain (4-6) Last Admin: 09/15/18 08:52 Dose: 1 tab Bisacodyl (Dulcolax) 10 mg PO DAILYPRN PRN PRN Reason: Constipation Calcium Carbonate (Tums) 1,000 mg PO Q4H PRN PRN Reason: Heartburn or Indigestion Cyclobenzaprine HCl (Flexeril) 10 mg PO TIDPRN PRN PRN Reason: MUSCLE SPASM Dextrose/Water (Dextrose 50%) 25 gm IVP PRN PRN PRN Reason: HYPOGLYCEMIA PROTOCOL Famotidine (Pepcid) 20 mg SLOW IVP DAILY [facility] Last Admin: 09/15/18 08:48 Dose: Not Given Famotidine (Pepcid) 20 mg PO DAILY [facility] Last Admin: 09/15/18 08:52 Dose: 20 mg Gabapentin (Neurontin) 300 mg PO TID [facility] Last Admin: 09/15/18 14:02 Dose: 300 mg Glucagon (Glucagon) 1 mg IM PRN PRN PRN Reason: HYPOGLYCEMIA PROTOCOL Heparin Sodium (Porcine) (Heparin) 5,000 units SC BID [facility] Last Admin: 09/15/18 08:52 Dose: 5,000 units Cefepime HCl 2 gm/ Sodium (Chloride) 100 mls @ 200 mls/hr IVPB Q24HR@0300 [facility] Last Admin: 09/15/18 02:13 Dose: 100 mls Vancomycin HCl 1 gm/ Device 200 mls @ 200 mls/hr IVPB 1100,2300 [facility] Last Admin: 09/15/18 11:00 Dose: 200 mls Sodium Chloride (Normal Saline 0.9%) 1,000 mls @ 1,000 mls/hr IV .Q1H PRN; Protocol PRN Reason: STEP 1: DKA PROTOCOL Sodium Chloride (Normal Saline 0.9%) 1,000 mls @ 500 mls/hr IV .Q2H PRN PRN Reason: STEP 1: DKA PROTOCOL Potassium Chloride/Sodium Chloride (Ns 0.9% W/ 20 Meq Kcl) 1,000 ml in 1,000 mls @ 500 mls/hr IV .Q2H PRN; Protocol PRN Reason: STEP 2: DKA PROTOCOL Sodium Chloride (Normal Saline 0.9%) 1,000 mls @ 500 mls/hr IV INF PRN; Protocol PRN Reason: STEP 2: DKA PROTOCOL Potassium Chloride/Sodium Chloride (Ns 0.9% W/ 20 Meq Kcl) 1,000 ml in 1,000 mls @ 250 mls/hr IV .Q4H PRN PRN Reason: STEP 3: DKA PROTOCOL Last Admin: 09/15/18 14:03 Dose: 1,000 mls Sodium Chloride (Normal Saline 0.9%) 1,000 mls @ 250 mls/hr IV .Q4H PRN PRN Reason: STEP 3:DKA PROTOCOL Dextrose/Sodium Chloride (D5 1/2 Ns) 1,000 mls @ 250 mls/hr IV INF PRN; Protocol PRN Reason: STEP 4: DKA PROTOCOL Potassium Chloride/Dextrose/Sod Cl (D5 1/2 Ns W/20 Meq Kcl) 1,000 mls @ 250 mls /hr IV INF PRN; Protocol PRN Reason: STEP 4: DKA PROTOCOL Last Admin: 09/14/18 06:04 Dose: 1,000 mls Potassium Chloride 40 meq/ (Sodium Chloride) 270 mls @ 135 mls/hr IVPB ASDIR PRN PRN Reason: FOR SERUM K+ 2.5 - 3.5 Potassium Chloride 40 meq/ (Device) 100 mls @ 50 mls/hr IVPB ASDIR PRN PRN Reason: FOR SERUM K+ 2.5 - 3.5 Magnesium Sulfate 1 gm/ Sodium (Chloride) 102 mls @ 102 mls/hr IV PRN PRN PRN Reason: MAG LEVEL 1.4 - 2.0 Magnesium Sulfate 2 gm/ Device 100 mls @ 100 mls/hr IVPB ASDIR PRN PRN Reason: MAGNESIUM < 1.4 Potassium Phosphate 9 mmol/ (Sodium Chloride) 103 mls @ 25.75 mls/hr IVPB ASDIR PRN PRN Reason: Phosphate 1.0-1.8 Potassium Phosphate 12 mmol/ (Sodium Chloride) 254 mls @ 63.5 mls/hr IV ASDIR PRN PRN Reason: Serum phosphate 0.5-0.9 Potassium Phosphate 15 mmol/ (Sodium Chloride) 255 mls @ 63.75 mls/hr IV ASDIR PRN PRN Reason: Serum Phos < 0.5 Dextrose/Water (D5w) 1,000 mls @ 0 mls/hr IV INF PRN PRN Reason: HYPOGLYCEMIA PROTOCOL Insulin Human Regular (Humulin R) 0 units SC .MODERATE SLIDING SC PRN; Protocol PRN Reason: MODERATE SLIDING SCALE Last Admin: 09/15/18 12:31 Dose: 4 unit Insulin Human Regular (Humulin R) 0 units SC .BEDTIME SLIDING [facility] PRN; Protocol PRN Reason: BEDTIME SLIDING SCALE Lidocaine (Lidoderm 5% Patch) 1 patch TD DAILY [facility] Last Admin: 09/15/18 08:53 Dose: Not Given Magnesium Oxide (Magnesium Oxide) 400 mg PO BIDPRN PRN PRN Reason: FOR SERUM MAG 1.4 - 2.0 Magnesium Oxide (Magnesium Oxide) 800 mg PO PRN PRN PRN Reason: FOR SERUM MAG < 1.4 Miscellaneous Medication (Lidocaine Patch Removal) 1 each TOP 2100 [facility] Last Admin: 09/14/18 20:36 Dose: Not Given Miscellaneous Medication (Pharmacy To Dose) 0 each IVPB PRN PRN PRN Reason: VANC/CEFEPIME Pharmacy to Dose Miscellaneous Medication (Phos-Nak) 1 pkt PO TIDPRN PRN PRN Reason: FOR PHOS LEVEL 1.0 - 1.8 Miscellaneous Medication (Phos-Nak) 2 pkt PO TIDPRN PRN PRN Reason: FOR PHOS LEVEL 0.5 - 1.0 Morphine Sulfate (Morphine) 2 mg IV Q4H PRN PRN Reason: Severe Pain (7-10) Ccu Electrolyte (Replacement Protocol) 0 each FS PRN PRN PRN Reason: FOR ELECTROLYTE REPLACEMENT Ondansetron HCl (Zofran Odt) 4 mg PO Q6H PRN PRN Reason: Nausea/Vomiting Ondansetron HCl (Zofran) 4 mg IVP Q6H PRN PRN Reason: Nausea/Vomiting Last Admin: 09/14/18 11:39 Dose: 4 mg Tagrisso 80 Mg 1 each PO DAILY [facility] Last Admin: 09/15/18 13:31 Dose: 1 each Tagrisso 80 Mg 1 each PO NOW [facility] Stop: 09/15/18 15:00 Last Admin: 09/15/18 13:32 Dose: Not Given Potassium Chloride (K-Dur) 40 meq PO ASDIR PRN PRN Reason: FOR SERUM K+ 2.5 - 3.5 Last Admin: 09/14/18 04:59 Dose: 40 meq Potassium Chloride (Klor-Con) 40 meq PER TUBE ASDIR PRN PRN Reason: FOR SERUM K+ 2.5-3.5 Promethazine HCl (Phenergan) 25 mg SLOW IVP Q6H PRN PRN Reason: Nausea/Vomiting Senna/Docusate Sodium (Senokot S) 2 tab PO BIDPRN PRN PRN Reason: Constipation Sodium Chloride (Flush - Normal Saline) 10 ml IVF Q12HR [facility] Last Admin: 09/15/18 08:53 Dose: Not Given Sodium Chloride (Flush - Normal Saline) 10 ml IVF PRN PRN PRN Reason: Saline Flush Last Admin: 09/14/18 11:40 Dose: 10 ml Thyroid ([place] Thyroid) 30 mg PO 0600 [facility] Last Admin: 09/15/18 05:30 Dose: 30 mg Tramadol HCl (Ultram) 25 mg PO Q8H PRN PRN Reason: Moderate Pain (4-6) Zolpidem Tartrate (Ambien) 5 mg PO HSPRN PRN PRN Reason: Insomnia
[2018-09-15] MEDS: Lidocaine Patch Removal 1 EACH TOP SCH (20:26)
[2018-09-16] MEDS: Guaifenesin DM 100-10/5 ML UDCUP PO PRN ×3 (02:52→21:40)
[2018-09-16] MEDS: Cefepime 2 GM in Sodium Chloride 0.9% 100 ML IVPB SCH (02:53)
[2018-09-16] MEDS: traMADol HCl 50 MG TAB PO PRN ×2 (02:53→09:03)
--- NOTE | 2018-09-16 03:49 | CON ---
DATE OF CONSULTATION: 09/14/2018 REASON FOR CONSULTATION: Lung cancer. 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 The patient was started on Tagrisso approximately 4 weeks ago and has been tolerating this medication well. She was admitted to the hospital twice in July 2018 for shortness of breath and at that time, was found to have a large pleural effusion, which required thoracentesis and rapidly returned, which required readmission and the placement of a PleurX catheter and drain. The patient's symptoms greatly improved, drainage of the fluid and she was able to follow up with me in clinic and begin treatment. Since beginning treatment, her drain has stopped draining any pleural fluid and her effusion has returned. The patient has maintained her oxygen saturation; however, still complains of some shortness of breath. Today, she states that her main complaint is stomach pain, but she denies major nausea, vomiting, diarrhea, or constipation. She currently denies any other symptoms. She states that she was seen by someone from Thoracic Surgery, who stated they would discuss with Dr. Clemente if her PleurX catheter needs to be adjusted or replaced. REVIEW OF SYSTEMS: Ten-point review of systems negative except as per HPI. PAST MEDICAL HISTORY: Lung cancer, hypothyroidism, hypertension, and diabetes. PAST SURGICAL HISTORY: PleurX catheter placement, cholecystectomy, tubal ligation, and peritonsillar abscess. SOCIAL HISTORY: No alcohol or tobacco currently, and a former smoker. CURRENT MEDICATIONS: Reviewed. PHYSICAL EXAMINATION: VITAL SIGNS: Temperature 97.2, pulse 110, respirations 20, saturating 99% on room air, and blood pressure 106/78. GENERAL APPEARANCE: The patient is sitting up in bed, eating, in no acute distress. HEENT: Normocephalic, atraumatic. No scleral icterus noted. CARDIAC: S1 and S2 without murmurs, rubs, or gallops. Mild tachycardia. LUNGS: Respirations, decreased breath sounds in the left mid to lower lung padilla and otherwise clear to auscultation. ABDOMEN: Soft, nondistended, and nontender. EXTREMITIES: No significant edema. NEUROLOGIC: Cranial nerves 2 through 12 grossly intact. PSYCHIATRIC: Awake, alert, and oriented x3. LABORATORY DATA: White blood cells 14.6 on admission down to 11.3, hemoglobin 13.0. Platelets 126 on admission, currently 105. Sodium 134, potassium 3.9, chloride 97, carbon dioxide 23. Creatinine 2.04 on admission, currently 1.2. BUN 32 on admission, currently 22. Glucose 761 on admission, currently 273. Lactic acid 4.1. IMAGING DATA: CT angio of the chest showed no convincing evidence for acute PE , but did show a very large loculated left pleural effusion with compression of the left lung, marked depression of the left hemidiaphragm and some shift of the heart to the right, small free layering pleural effusions, bilateral scattered pulmonary ground-glass opacity changes are nonspecific as well as some bilateral pulmonary nodules, which are partly circumscribed at 2.8 cm. Bilateral hilar as well as some anterior-superior mediastinal lymph node enlargement and minimal pericardial effusion. CT of the abdomen and pelvis did not show any significant acute process. ASSESSMENT AND PLAN: A 53-year-old female with stage IV EGFR positive lung cancer with malignant left pleural effusion, status post PleurX catheter drainage and currently on Tagrisso oral targeted therapy for treatment of her lung cancer. The patient is presenting with worsening shortness of breath due to recurrent left pleural effusion and her PleurX catheter is currently not draining. She is currently maintaining her oxygen saturations; however, may require adjustment or placement of a PleurX catheter and this is to be determined by Dr. Clemente. The patient also presented with elevated glucose over 700 and required an insulin drip. Recommend followup with Dr. Clemente with regards to replacement of the PleurX catheter. APOLINAR is improved with fluid resuscitation and glucose has improved with insulin drip. The patient did not take her Tagrisso last night and has not been restarted on it as of yet. She had an EKG in the ER and I would recommend repeating this and if her QTc is not prolonged, she may restart her Tagrisso while she is in the hospital.We will follow along with you. Thank you for this consult. Job ID: [id number] [email or web address]
[2018-09-16] MEDS: Thyroid 30 MG TAB PO SCH (05:49)
[2018-09-16] MEDS: TAGRISSO 80 MG PO SCH (08:53)
[2018-09-16] MEDS: Famotidine 20 MG TAB PO SCH ×2 (08:54→20:11)
[2018-09-16] MEDS: Gabapentin 300 MG CAP PO SCH ×3 (08:54→20:11)
[2018-09-16] MEDS ORDERED: TAGRISSO 80 MG PO SCH (09:00)
[2018-09-16] MEDS: Heparin 5,000 UNITS/ML VIAL SC SCH ×2 (09:07→20:10)
[2018-09-16] MEDS: Famotidine/PF 20 mg/2ml Vial SLOW IVP SCH ×2 (09:07→20:35)
[2018-09-16] MEDS: Lidocaine 5% Patch TD SCH (09:09)
[2018-09-16 10:22] LABS: #Eosinphils 0.4 thou/uL (0.0-0.7); #Monocytes 0.7 thou/uL (0.11-0.59); #Neutrophils 5.2 thou/uL (1.40-6.50); %Eosinophils 4.8 % (0.0-10.0); %Lymphocytes 14.1 % (21.0-51.0); %Monocytes 9.5 % (0.0-10.0); %Neutrophils 71.6 % (42.0-75.0); Hemoglobin 11.5 g/dL (12.0-16.0); Mean Corpuscular HGB CONC 32.3 g/dL (32.0-36.0); Mean Corpuscular Hemoglobin 27.3 pg (27.0-31.0); Mean Corpuscular Volume 84.6 fL (78.0-98.0); Mean Platelet Volume 8.3 fL (7.4-10.4); Platelet Count 111 thou/uL (130-400); RBC Distribution Width 13.4 % (11.5-14.5); Red Blood Cell (RBC) Count 4.21 mill/uL (4.20-5.40); White Blood Cell (WBC) Count 7.3 thou/uL (4.8-10.8)
[2018-09-16 10:35] LABS: Vancomycin, Trough 14.7 ug/mL
[2018-09-16] MEDS: Piperacillin/Tazobactam 3.375 GM in Sodium Chloride 0.9% 100 ML IVPB SCH ×3 (10:36→21:39)
[2018-09-16 10:37] LABS: Anion Gap 13 mmol/L (10-20); BUN (Urea Nitrogen) 6 mg/dL (9.8-20.1); Calc. Creatinine Clearance 115 mL/min (70-130); Calcium 7.9 mg/dL (7.8-10.44); Carbon Dioxide 19 mmol/L (22-29); Chloride 105 mmol/L (98-107); Estimated GFR-MDRD Greater than 90; Glucose 238 mg/dL (70-105); Phosphorus 2.1 mg/dL (2.3-4.7); Potassium 4.6 mmol/L (3.5-5.1); Sodium 132 mmol/L (136-145)
[2018-09-16] MEDS: Lorazepam 2 MG/ML VIAL SLOW IVP PRN ×2 (11:23→20:10)
[2018-09-16] MEDS: Vancomycin HCl 1.25 GM in Sodium Chloride 0.9% 250 ML 250 ML IVPB SCH ×2 (11:32→23:08)
[2018-09-16] MEDS ORDERED: Sodium Phosphate 15 MMOL in Sodium Chloride 0.9% 250 ML 250 ML IVPB SCH (12:15)
--- NOTE | 2018-09-16 12:21 | PRG ---
DATE OF SERVICE: 09/16/2018 SERVICE: Pulmonary Medicine. INTERVAL HISTORY: The patient is doing poorly from respiratory standpoint. She is tachycardic and short of breath. She denies any current fevers, chills, nausea, or vomiting. She is not able to get any significant rest. PHYSICAL EXAMINATION: VITAL SIGNS: Afebrile, pulse 113, blood pressure 110/73, respirations 18, saturation 99% on 4 L nasal cannula. GENERAL: The patient is awake and alert, in no apparent distress. LUNGS: Decent air entry. There are crackles and rhonchi present on the left. No prolonged expiratory phase or wheezing is present. There is good air entry on the right. No wheezing, rhonchi, or crackles appreciated there. HEART: Normal rate and regular. ABDOMEN: Soft, nontender, and nondistended. Bowel sounds are positive. MUSCULOSKELETAL: No cyanosis or clubbing. There is no pitting in the bilateral lower extremities. NEUROLOGIC: Grossly nonfocal. LABORATORY DATA: WBC 7.3, hemoglobin 11.5, and platelets 111,000. Sodium 132 and stable. Basic metabolic profile is otherwise unremarkable. Blood sugar ranges from 178 to 238. Phosphorus 2.1, magnesium 1.0. Urinalysis is unremarkable except for glycosuria. Vancomycin trough is 15. Serratia is growing in the lung. This is mostly sensitive organism. IMAGING STUDIES: CTA of the chest demonstrates a large loculated left-sided effusion. There is a PleurX catheter in place with drainage of that compartment. There is also interstitial fullness, and atelectasis in the left lung. Infiltrate cannot be excluded. There is no significant disease on the right. Shotty mediastinal lymphadenopathy is also noted. CT of the abdomen and pelvis demonstrates no acute intraabdominal process. ASSESSMENT: 1. Severe sepsis. 2. Acute kidney injury, resolved. 3. Empyema, suspected. 4. Adenocarcinoma of the lung, stage IV. 5. Malignant effusion with history of PleurX catheter placement. DISCUSSION AND PLAN: The PleurX catheter has been nonfunctional for a protracted period of time. As such, I do think it would be reasonable for us to remove it, particularly in light of now growing Serratia. Additionally, she may benefit from a partial decortication, so that we can liberate this loculated collection of fluid. Replacement of the PleurX catheter and/or chest tube placement may be indicated. If Cardiothoracic Surgery is unable to perform this type of an intervention, because of technical difficulties, we will make an attempt doing a bedside thoracentesis. Phosphorus and magnesium will be replaced today. Empiric antibiotics will be continued. She will need to remain in the [facility]MCU for the time being. Pulmonary Critical Care will continue to follow along. Job ID: [id number]
--- NOTE | 2018-09-16 15:51 | PDOC.PN ---
- Subjective Encounter Start Date: 09/16/18 Encounter Start Time: 09:00 Pt seen for followup re; malignant pleural effusion. Reports significant shortness of breath. Feels unwell. - Objective Resuscitation Status - Order Detail: 09/13/18 22:04 Resuscitation Status Routine Resuscitation Status: FULL: Full Resuscitation MAR Reviewed: Yes Vital Signs & Weight: Vital Signs (12 hours) Temp Pulse Resp BP Pulse Ox 09/16/18 15:20 98.2 F 117 H 32 H 121/91 H 100 09/16/18 11:05 98.8 F 122 H 20 130/95 H 100 09/16/18 08:01 98.8 F 113 H 18 110/73 99 09/16/18 08:00 100 09/16/18 03:59 98.5 F 119 H 18 118/84 100 09/16/18 03:58 95 Weight Admit Weight 196 lb Weight 197 lb I&O: 09/15/18 09/16/18 09/17/18 06:59 06:59 06:59 Intake Total 5560 3800 Output Total 1450 900 Balance 4110 2900 Result Diagrams: 09/16/18 10:06 09/16/18 10:06 Additional Labs: Accuchecks 09/16/18 09/16/18 09/15/18 10:28 05:49 20:40 POC Glucose 219 H 178 H 187 H 09/15/18 16:44 POC Glucose 232 H EKG Reviewed by me: Yes (Tele: sinus tachycardia) Phys Exam - Physical Examination Constitutional: NAD HEENT: moist MMs Neck: supple Decreased air entry left lung S1, S2, tachy, reg Gastrointestinal: soft Neurological: moves all 4 limbs Deviation from normal: appears anxious Dx/Plan (1) Malignant pleural effusion Code(s): J91.0 - MALIGNANT PLEURAL EFFUSION Status: Acute Comment: culture growing serratia, antibiotics changed today (to Zosyn and vancomycin) (2) Adenocarcinoma, lung Code(s): C34.90 - MALIGNANT NEOPLASM OF UNSP PART OF UNSP BRONCHUS OR LUNG Status: Chronic Qualifiers: Laterality: left Qualified Code(s): C34.92 - Malignant neoplasm of unspecified part of left bronchus or lung Comment: appreciate oncology service input (3) HTN (hypertension) Code(s): I10 - ESSENTIAL (PRIMARY) HYPERTENSION Status: Chronic Qualifiers: Hypertension type: essential hypertension Qualified Code(s): I10 - Essential (primary) hypertension Comment: controlled (4) Hypothyroidism Code(s): E03.9 - HYPOTHYROIDISM, UNSPECIFIED Status: Chronic Qualifiers: Hypothyroidism type: unspecified Qualified Code(s): E03.9 - Hypothyroidism , unspecified Comment: on levothyroxine. (5) DKA (diabetic ketoacidosis) Code(s): E13.10 - OTH DIABETES MELLITUS WITH KETOACIDOSIS WITHOUT COMA Status : Resolved - Plan * . CV surgery being consulted re; pleural effusion. Will await input. Review of Systems - Review of Systems Constitutional: weakness, malaise Respiratory: SOB with Excertion. negative: Cough, Shortness of Breath, Pleuritic Pain, Wheezing Cardiovascular: chest pain. negative: palpitations, orthopnea, paroxysmal nocturnal dyspnea, edema, light headedness - Medications/Allergies Allergies/Adverse Reactions: Allergies Allergy/AdvReac Type Severity Reaction Status Date / Time No Known Allergies Allergy Verified 07/29/18 01:32 Medications: Current Medications Acetaminophen (Tylenol) 650 mg PO Q4H PRN PRN Reason: Headache/Fever/Mild Pain (1-3) Acetaminophen/Codeine Phosphate (Tylenol #3) 1 tab PO Q8H PRN PRN Reason: Moderate Pain (4-6) Last Admin: 09/15/18 20:27 Dose: 1 tab Albuterol/Ipratropium (Duoneb) 3 ml NEB Q6H PRN PRN Reason: .SHORTNESS OF BREATH Bisacodyl (Dulcolax) 10 mg PO DAILYPRN PRN PRN Reason: Constipation Calcium Carbonate (Tums) 1,000 mg PO Q4H PRN PRN Reason: Heartburn or Indigestion Cyclobenzaprine HCl (Flexeril) 10 mg PO TIDPRN PRN PRN Reason: MUSCLE SPASM Dextrose/Water (Dextrose 50%) 25 gm IVP PRN PRN PRN Reason: HYPOGLYCEMIA PROTOCOL Famotidine (Pepcid) 20 mg PO BID SOLOMON Famotidine (Pepcid) 20 mg SLOW IVP BID SOLOMON Gabapentin (Neurontin) 300 mg PO TID SOLOMON Last Admin: 09/16/18 15:39 Dose: 300 mg Glucagon (Glucagon) 1 mg IM PRN PRN PRN Reason: HYPOGLYCEMIA PROTOCOL Guaifenesin/Dextromethorphan (Robitussin Dm) 10 ml PO Q4H PRN PRN Reason: Cough Last Admin: 09/16/18 09:00 Dose: 10 ml Heparin Sodium (Porcine) (Heparin) 5,000 units SC BID SOLOMON Last Admin: 09/16/18 09:07 Dose: Not Given Sodium Chloride (Normal Saline 0.9%) 1,000 mls @ 1,000 mls/hr IV .Q1H PRN; Protocol PRN Reason: STEP 1: DKA PROTOCOL Potassium Chloride/Sodium Chloride (Ns 0.9% W/ 20 Meq Kcl) 1,000 ml in 1,000 mls @ 500 mls/hr IV .Q2H PRN; Protocol PRN Reason: STEP 2: DKA PROTOCOL Sodium Chloride (Normal Saline 0.9%) 1,000 mls @ 500 mls/hr IV INF PRN; Protocol PRN Reason: STEP 2: DKA PROTOCOL Potassium Chloride 40 meq/ (Sodium Chloride) 270 mls @ 135 mls/hr IVPB ASDIR PRN PRN Reason: FOR SERUM K+ 2.5 - 3.5 Potassium Chloride 40 meq/ (Device) 100 mls @ 50 mls/hr IVPB ASDIR PRN PRN Reason: FOR SERUM K+ 2.5 - 3.5 Magnesium Sulfate 1 gm/ Sodium (Chloride) 102 mls @ 102 mls/hr IV PRN PRN PRN Reason: MAG LEVEL 1.4 - 2.0 Magnesium Sulfate 2 gm/ Device 100 mls @ 100 mls/hr IVPB ASDIR PRN PRN Reason: MAGNESIUM < 1.4 Potassium Phosphate 9 mmol/ (Sodium Chloride) 103 mls @ 25.75 mls/hr IVPB ASDIR PRN PRN Reason: Phosphate 1.0-1.8 Potassium Phosphate 12 mmol/ (Sodium Chloride) 254 mls @ 63.5 mls/hr IV ASDIR PRN PRN Reason: Serum phosphate 0.5-0.9 Potassium Phosphate 15 mmol/ (Sodium Chloride) 255 mls @ 63.75 mls/hr IV ASDIR PRN PRN Reason: Serum Phos < 0.5 Dextrose/Water (D5w) 1,000 mls @ 0 mls/hr IV INF PRN PRN Reason: HYPOGLYCEMIA PROTOCOL Piperacillin Sod/Tazobactam (Sod 3.375 gm/ Sodium Chloride) 100 mls @ 200 mls/ hr IVPB 0400,1000,1600,2200 [facility] Last Admin: 09/16/18 15:40 Dose: 100 mls Vancomycin HCl 1.25 gm/ Sodium (Chloride) 250 mls @ 166.667 mls/hr IVPB 1100, 2300 [facility] Last Admin: 09/16/18 11:32 Dose: 250 mls Sodium Phosphate 15 mmol/ (Sodium Chloride) 255 mls @ 63.75 mls/hr IVPB 1215 [facility] Stop: 09/16/18 16:14 Last Admin: 09/16/18 12:41 Dose: 255 mls Insulin Human Regular (Humulin R) 0 units SC .MODERATE SLIDING SC PRN; Protocol PRN Reason: MODERATE SLIDING SCALE Last Admin: 09/15/18 17:03 Dose: 4 unit Insulin Human Regular (Humulin R) 0 units SC .BEDTIME SLIDING SC PRN; Protocol PRN Reason: BEDTIME SLIDING SCALE Lidocaine (Lidoderm 5% Patch) 1 patch TD DAILY [facility] Last Admin: 09/16/18 09:09 Dose: 1 patch Lorazepam (Ativan) 1 mg SLOW IVP Q4H PRN PRN Reason: Anxiety Last Admin: 09/16/18 11:23 Dose: 1 mg Magnesium Oxide (Magnesium Oxide) 400 mg PO BIDPRN PRN PRN Reason: FOR SERUM MAG 1.4 - 2.0 Magnesium Oxide (Magnesium Oxide) 800 mg PO PRN PRN PRN Reason: FOR SERUM MAG < 1.4 Miscellaneous Medication (Lidocaine Patch Removal) 1 each TOP 2100 [facility] Last Admin: 09/15/18 20:26 Dose: Not Given Miscellaneous Medication (Pharmacy To Dose) 0 each IVPB PRN PRN PRN Reason: VANC/CEFEPIME Pharmacy to Dose Miscellaneous Medication (Phos-Nak) 1 pkt PO TIDPRN PRN PRN Reason: FOR PHOS LEVEL 1.0 - 1.8 Miscellaneous Medication (Phos-Nak) 2 pkt PO TIDPRN PRN PRN Reason: FOR PHOS LEVEL 0.5 - 1.0 Morphine Sulfate (Morphine) 2 mg IV Q4H PRN PRN Reason: Severe Pain (7-10) Ccu Electrolyte (Replacement Protocol) 0 each FS PRN PRN PRN Reason: FOR ELECTROLYTE REPLACEMENT Ondansetron HCl (Zofran Odt) 4 mg PO Q6H PRN PRN Reason: Nausea/Vomiting Ondansetron HCl (Zofran) 4 mg IVP Q6H PRN PRN Reason: Nausea/Vomiting Last Admin: 09/14/18 11:39 Dose: 4 mg Tagrisso 80 Mg 1 each PO DAILY [facility] Last Admin: 09/16/18 08:53 Dose: 1 each Potassium Chloride (K-Dur) 40 meq PO ASDIR PRN PRN Reason: FOR SERUM K+ 2.5 - 3.5 Last Admin: 09/14/18 04:59 Dose: 40 meq Potassium Chloride (Klor-Con) 40 meq PER TUBE ASDIR PRN PRN Reason: FOR SERUM K+ 2.5-3.5 Promethazine HCl (Phenergan) 25 mg SLOW IVP Q6H PRN PRN Reason: Nausea/Vomiting Senna/Docusate Sodium (Senokot S) 2 tab PO BIDPRN PRN PRN Reason: Constipation Sodium Chloride (Flush - Normal Saline) 10 ml IVF Q12HR [facility] Last Admin: 09/16/18 09:07 Dose: 10 ml Sodium Chloride (Flush - Normal Saline) 10 ml IVF PRN PRN PRN Reason: Saline Flush Last Admin: 09/14/18 11:40 Dose: 10 ml Thyroid (Heartwell Thyroid) 30 mg PO 0600 [facility] Last Admin: 09/16/18 05:49 Dose: 30 mg Tramadol HCl (Ultram) 25 mg PO Q8H PRN PRN Reason: Moderate Pain (4-6) Last Admin: 09/16/18 09:03 Dose: 25 mg Zolpidem Tartrate (Ambien) 5 mg PO HSPRN PRN PRN Reason: Insomnia
[2018-09-16] MEDS: Acetaminophen/Codeine 30-300mg Tablet PO PRN (20:16)
[2018-09-16] MEDS: Lidocaine Patch Removal 1 EACH TOP SCH (20:35)
[2018-09-16] MEDS: Insulin Regular 300 UNITS/3 ML VIAL SC PRN (21:39)
[2018-09-17] MEDS: Zolpidem Tartrate 5 MG TAB PO PRN (00:18)
[2018-09-17] MEDS: Lorazepam 2 MG/ML VIAL SLOW IVP PRN ×4 (04:14→21:35)
[2018-09-17] MEDS: Piperacillin/Tazobactam 3.375 GM in Sodium Chloride 0.9% 100 ML IVPB SCH ×2 (04:14→09:27)
[2018-09-17] MEDS: Guaifenesin DM 100-10/5 ML UDCUP PO PRN ×3 (04:14→19:46)
[2018-09-17 05:15] LABS: Anion Gap 15 mmol/L (10-20); BUN (Urea Nitrogen) 6 mg/dL (9.8-20.1); Calc. Creatinine Clearance 116 mL/min (70-130); Calcium 8.4 mg/dL (7.8-10.44); Carbon Dioxide 18 mmol/L (22-29); Chloride 107 mmol/L (98-107); Estimated GFR-MDRD Greater than 90; Glucose 207 mg/dL (70-105); Magnesium 1.6 mg/dL (1.6-2.6); Phosphorus 2.8 mg/dL (2.3-4.7); Potassium 5.1 mmol/L (3.5-5.1); Sodium 135 mmol/L (136-145)
[2018-09-17] MEDS: Thyroid 30 MG TAB PO SCH (05:32)
[2018-09-17] MEDS: Insulin Regular 300 UNITS/3 ML VIAL SC PRN ×4 (05:41→21:35)
[2018-09-17 07:37] LABS: BF Color Red; Body Fluid Source THORACENTESIS FLD; Clarity Cloudy/Turbid (Clear); Tube # 1
[2018-09-17 07:39] LABS: RBC Count-Automated 88000 /cumm; WBC/NonHematic-Auto 414 /cumm
[2018-09-17 07:47] LABS: Pleural Fluid, Protein 3.7 g/dL
--- NOTE | 2018-09-17 08:00 | RAD ---
CHEST 1 VIEW: Date: 09/17/18 COMPARISON: 09/13/18. HISTORY: Status post thoracentesis. FINDINGS: Essentially stable opacification of the lung parenchyma. There are extensive interstitial and alveola r opacities involving the left lung. Right basilar opacity is noted and has slightly progressed when compared to the prior examination. Limited evaluation of the cardiac silhouette. No definite pneumothorax. IMPRESSION: 1. Interval increased opacities in the right hemithorax, predominantly in the right lung base. 2. Persistent opacification of left lung. POS: [facility]
[2018-09-17] MEDS: TAGRISSO 80 MG PO SCH (08:15)
[2018-09-17] MEDS: Gabapentin 300 MG CAP PO SCH ×3 (08:15→19:45)
[2018-09-17] MEDS: Famotidine 20 MG TAB PO SCH ×2 (08:15→19:44)
[2018-09-17] MEDS: Heparin 5,000 UNITS/ML VIAL SC SCH ×2 (08:15→19:45)
--- NOTE | 2018-09-17 08:21 | PRG ---
DATE OF SERVICE: 09/17/2018 SERVICE: Pulmonary Medicine. INTERVAL HISTORY: The patient is actually doing poorly from respiratory standpoint. She is tachypneic. She is tachycardic. She denies any current fevers, chills, nausea, or vomiting. Otherwise, she started to have a wet cough this morning. She is bringing up a whole bunch of slimy serosanguinous fluid. PHYSICAL EXAMINATION: VITAL SIGNS: Afebrile, pulse 121, blood pressure 118/67, respirations 18, and saturation 100% on 4 L nasal cannula. GENERAL: The patient is awake and alert. She is in mild respiratory distress. HEENT: Normocephalic and atraumatic. Sclerae are white. Conjunctivae are pink. Oral mucosa is moist without lesions. LUNGS: Decent air entry on the right. On the left, there is decreased air entry, particularly in the anterior portion. HEART: Normal rate, regular. ABDOMEN: Soft, nontender, and nondistended. Bowel sounds are positive. MUSCULOSKELETAL: No cyanosis or clubbing. No pitting in bilateral lower extremities. NEUROLOGIC: Grossly nonfocal. LABORATORIES: Sodium 135, bicarb 18. Basic metabolic profile is otherwise unremarkable. Calcium 8.4, magnesium and phosphorus both fall within the normal limits. Urinalysis is only significant for glycosuria. Thoracentesis fluid has lots of red blood cells and some white blood cells. The differential is currently pending, but the pH is only 7.6. Bacterial culture from the PleurX catheter is growing Serratia marcescens, which is sensitive to many different antibiotics. Blood cultures x2 and urine culture are unremarkable. ASSESSMENT: 1. Severe sepsis. 2. Acute kidney injury, resolved. 3. Pleural effusion with history of malignant effusion. 4. Empyema, possible. 5. Adenocarcinoma of the lung, stage 4. DISCUSSION AND PLAN: PleurX catheter ultimately will need to be removed. I am going to do a bedside thoracentesis on this pocket of fluid to see whether or not there is any infection there. If there is, we may need to force the discussion of a large bore chest tube versus decortication, which would be extremely challenging given the fact that she is auto-pleurodesed her malignant effusion. Pulmonary will continue to follow. We will keep the patient in the [facility] for the time being. Job ID: [id number] [facility]
[2018-09-17 08:54] LABS: BF Segmented Neutrophils 5 %; Cell Count Non Hematic 90 %; Lymphocytes 5 %
[2018-09-17] MEDS ORDERED: Magnesium 2 GM/50 ML 2 GM in Premix Bag 1 BAG IVPB SCH (09:00)
[2018-09-17] MEDS ORDERED: Magnesium Sulfate 2 GM in Sodium Chloride 0.9% 100 ML IVPB SCH (09:00)
[2018-09-17] MEDS: Famotidine/PF 20 mg/2ml Vial SLOW IVP SCH ×2 (10:45→19:54)
[2018-09-17] MEDS: Lidocaine 5% Patch TD SCH (10:46)
[2018-09-17] MEDS: Vancomycin HCl 1.25 GM in Sodium Chloride 0.9% 250 ML 250 ML IVPB SCH (11:29)
--- NOTE | 2018-09-17 12:35 | OP ---
DATE OF PROCEDURE: 09/17/2018 SERVICE: Pulmonary Medicine. PROCEDURE: Left-sided pleural drainage with catheter insertion under ultrasound guidance. CONSENT: Risks and benefits of this procedure were explained to the patient. All questions were answered and alternative options were explained. MEDICATIONS USED: 1% without epinephrine, total quantity 10 mL. PREPROCEDURE DIAGNOSES: 1. Adenocarcinoma, stage IV. 2. History of malignant pleural effusion. 3. Severe sepsis. POSTPROCEDURE DIAGNOSES: 1. Adenocarcinoma, stage IV. 2. Pleural effusion, loculated. 3. History of malignant pleural effusion. DESCRIPTION OF PROCEDURE: Time-out was performed by the procedure team with the patient. The patient was positively identified using name and date of . The procedure site was marked. Vital sign monitoring was accomplished by noninvasive hemodynamic monitoring, pulse oximetry, and telemetry. In the supine position, the left anterior hemithorax was examined using ultrasound probe. The pocket of fluid was easily identified. The skin was prepped and draped in sterile fashion and anesthetized with 1% lidocaine without epinephrine. A finder needle was inserted into the pleural space with return of serosanguinous pleural fluid. A pleural drainage catheter was inserted in the same location. A total quantity of 900 mL of serosanguinous fluid was withdrawn by syringe pump technique. A sample was sent for analysis. Evacuation of fluid was terminated because the patient had a coughing paroxysm that would not quit. At the end of the procedure, estimated pleural pressures, measured by manometry, was -14 cm of pleural fluid. The intact catheter was withdrawn on exhalation and a sterile dressing was applied. The patient had stable vitals throughout the entire procedure. ESTIMATED BLOOD LOSS: Less than 2 mL. COMPLICATIONS: None. Job ID: [id number]
[2018-09-17] MEDS: Clindamycin 150 MG CAP PO SCH ×2 (13:33→21:34)
[2018-09-17] MEDS: cefTRIAXone\\ROCEPHIN 2 GM in Sodium Chloride 0.9% 100 ML IVPB SCH (13:43)
--- NOTE | 2018-09-17 15:59 | CON ---
DATE OF CONSULTATION: Ms. Thomas is a 53-year-old woman with stage IV lung cancer. She has been on Tagrisso for approximately 4 weeks. She had a PleurX catheter placed 3 weeks ago for malignant left-sided pleural effusion. She has not been feeling well, presented with shortness of breath. She had a CT of her chest performed, which shows the PleurX catheter to be intrapleural. There is an anterior effusion, which is unchanged from her pre-PleurX catheter placement. This indicates to me that is a loculated and walled off area of fluid. The PleurX catheter has been dysfunctional, draining only 5 mL or so of fluid. This fluid was cultured and is growing Serratia. I have been asked to see her to remove the catheter and also to lend an opinion on the anterior loculated area of pleural fluid. The PleurX catheter was easily removed at the bedside. 1. I have discussed the pleural fluid with Dr. Allen. 2. Adequately drain this would require decortication. I am not sure that her current situation is going to tolerate. Physiologically, she will tolerate any sort of surgical intervention. Doing a thoracentesis on the area, we will not change her lung volumes as this is a chronic loculated area. Unfortunately, she is in a bad situation overall and is with stage IV lung cancer, probably nearing the . Job ID: [id number]
--- NOTE | 2018-09-17 17:55 | PRG ---
DATE OF SERVICE: 09/17/2018 SUBJECTIVE: The patient was seen and examined at bedside. There were 2 family members in the room during my visit. She complains of shortness of breath and lack of good response from her paracentesis this morning. OBJECTIVE: VITAL SIGNS: Blood pressure is 130/96, pulse is 127, temperature is 98.3, respirations 34, O2 saturation is 96% on 2.5 L by nasal cannula, and maximal temperature is 98.8. HEENT: Head is atraumatic and normocephalic. Sclerae nonicteric. Oral mucosa is moist. NECK: Supple. LUNGS: Breath sounds diminished at the bases with crackles at the left base with some rales. No wheezing. HEART: S1 and S2. Tachycardic. No S3. No S4. ABDOMEN: Soft, nontender. Bowel sounds are present. EXTREMITIES: 1 to 1+ peripheral edema, similar bilaterally. NEUROLOGIC: She is alert and oriented x4. There are no any sensory or motor deficits present. Cranial nerves are intact. LABORATORY DATA: Labs showed sodium of 135, potassium 5.1, chloride 107, CO2 of 18, BUN 6, creatinine 0.77, glycemia is ranging from 199 to 265, and lactate dehydrogenase 551. The rest of chemistry within normal limits. Pleural fluid; cloudy and turbid, the pH of 7.6, WBCs 414, RBCs 88,000. Segmented neutrophils only 5%, 90% nonhematologic, total protein 3.7, pleural LDH 1492, pleural glucose 157. Microbiology; acid-fast bacilli on pleural fluid are negative. Gram stain on pleural fluid; RBCs present, few WBCs seen, no organisms seen. IMPRESSION: 1. Malignant pleural effusion, status post thoracentesis. This morning, the patient was switched to Rocephin and clindamycin. Cultures on pleural fluid pending. Cytology is pending. This looks like it is exudative pleural effusion. 2. Hypertension, chronic. 3. Uncontrolled diabetes. We will make some adjustments to her regimen. 4. Hypothyroidism, chronic, on replacement. Job ID: [id number]
[2018-09-17] MEDS: Acetaminophen/Codeine 30-300mg Tablet PO PRN (19:44)
[2018-09-17] MEDS: Lidocaine Patch Removal 1 EACH TOP SCH (19:54)
[2018-09-17] MEDS ORDERED: Insulin Glargine 10 UNITS in Pre-Filled Syringe 1 EACH SC SCH (21:00)
[2018-09-18] MEDS: Guaifenesin DM 100-10/5 ML UDCUP PO PRN ×4 (01:08→20:28)
[2018-09-18 05:02] LABS: Anion Gap 13 mmol/L (10-20); BUN (Urea Nitrogen) 5 mg/dL (9.8-20.1); Calc. Creatinine Clearance 111 mL/min (70-130); Calcium 8.4 mg/dL (7.8-10.44); Carbon Dioxide 23 mmol/L (22-29); Chloride 104 mmol/L (98-107); Estimated GFR-MDRD 80; Glucose 201 mg/dL (70-105); Potassium 4.7 mmol/L (3.5-5.1); Sodium 135 mmol/L (136-145)
[2018-09-18 05:07] LABS: Phosphorus 2.6 mg/dL (2.3-4.7)
[2018-09-18] MEDS: Thyroid 30 MG TAB PO SCH (05:59)
[2018-09-18] MEDS: Clindamycin 150 MG CAP PO SCH ×3 (05:59→21:03)
[2018-09-18 06:47] LABS: Magnesium 1.7 mg/dL (1.6-2.6)
[2018-09-18] MEDS: TAGRISSO 80 MG PO SCH (08:43)
[2018-09-18] MEDS: Heparin 5,000 UNITS/ML VIAL SC SCH ×2 (08:46→20:29)
[2018-09-18] MEDS: Famotidine 20 MG TAB PO SCH ×2 (08:47→20:28)
[2018-09-18] MEDS: Famotidine/PF 20 mg/2ml Vial SLOW IVP SCH ×2 (08:48→20:30)
[2018-09-18] MEDS: Lidocaine 5% Patch TD SCH (08:49)
[2018-09-18] MEDS: Gabapentin 300 MG CAP PO SCH ×3 (08:49→20:28)
[2018-09-18] MEDS: cefTRIAXone\\ROCEPHIN 2 GM in Sodium Chloride 0.9% 100 ML IVPB SCH (12:16)
[2018-09-18] MEDS: Insulin Regular 300 UNITS/3 ML VIAL SC PRN ×2 (12:16→21:04)
[2018-09-18] MEDS: Lorazepam 2 MG/ML VIAL SLOW IVP PRN ×2 (13:32→21:07)
--- NOTE | 2018-09-18 15:58 | PRG ---
DATE OF SERVICE: 09/18/2018 SUBJECTIVE: The patient is seen and examined at bedside. She went to the bathroom and took a shower and it worn her out to the point that she is tachypneic and more tachycardic. She is sitting in the chair. OBJECTIVE: VITAL SIGNS: Blood pressure is 123/75, pulse is 125, temperature is 98.2, respiratory rate is 22, O2 saturation is 100% on 4 L by nasal cannula. HEENT: Pupils reactive to light properly. Sclerae are nonicteric. LUNGS: Diminished breath sounds at the left base. HEART: S1, S2. Tachycardic. No S3. No S4. EXTREMITIES: 1+ peripheral edema. NEUROLOGIC EXAMINATION: Nonfocal. LABORATORY DATA: Showed sodium of 135, potassium 4.7, chloride 104, CO2 of 23, BUN 5, creatinine 0.89. Glycemia is ranging from 175 to 265. Calcium 8.4, phosphorus 2.6, and magnesium 1.7. IMPRESSION: 1. Pleural effusion, status post thoracocentesis. Cytology is still pending. The fluid is exudative. Cultures are pending. 2. History of malignant pleural effusion. 3. Stage IV adenocarcinoma of the lung. 4. Hypertension, chronic. 5. Uncontrolled diabetes. I am going to increase her insulin Lantus from 10 to 15 units daily. 6. Hypothyroidism, chronic, on replacement. PLAN: As mentioned above, we are increasing the dose on her long-acting insulin. Pulmonary management per Critical Care/Pulmonary Service. Job ID: [id number]
--- NOTE | 2018-09-18 16:21 | PRG ---
DATE OF SERVICE: SUBJECTIVE: This patient is very dyspneic at rest. She is sitting up in a chair. OBJECTIVE: VITAL SIGNS: Temperature is 98.2, pulse 120, respirations 22, O2 saturation 100% on 4 L, and blood pressure 123/75. HEENT: Unremarkable. NECK: No JVD. LUNGS: She has globally diminished breath sounds on both sides. CARDIAC: S1, S2, tachycardic without audible murmur. ABDOMEN: Soft. EXTREMITIES: No edema. LABORATORY DATA: Her chest x-ray shows a fairly sizable left effusion/infiltrate. Sodium 135, potassium 4.7, BUN 5, creatinine 0.8, glucose 201. ASSESSMENT: This patient has metastatic adenocarcinoma, stage IV. She has no current therapeutic options other than chemotherapy, which she does not appear to be responding to very well. RECOMMENDATIONS: Her prognosis is extremely poor. I think that her situation is palliative in nature. I spoke to the patient and her family extensively about options available to them as I doubt that continued medical management is going to prolong her life. Job ID: [id number]
[2018-09-18] MEDS ORDERED: Clopidogrel Bisulfate 75 MG TAB ONE (20:01)
[2018-09-18] MEDS: Lidocaine Patch Removal 1 EACH TOP SCH (20:31)
[2018-09-18] MEDS: Insulin Glargine 15 UNITS in Pre-Filled Syringe SC SCH (21:04)
[2018-09-19] MEDS: Guaifenesin DM 100-10/5 ML UDCUP PO PRN ×3 (03:09→20:59)
[2018-09-19 05:35] LABS: Anion Gap 13 mmol/L (10-20); BUN (Urea Nitrogen) 5 mg/dL (9.8-20.1); Calc. Creatinine Clearance 109 mL/min (70-130); Calcium 8.5 mg/dL (7.8-10.44); Carbon Dioxide 22 mmol/L (22-29); Chloride 104 mmol/L (98-107); Estimated GFR-MDRD 78; Glucose 234 mg/dL (70-105); Magnesium 1.5 mg/dL (1.6-2.6); Potassium 4.5 mmol/L (3.5-5.1); Sodium 134 mmol/L (136-145)
[2018-09-19] MEDS: Magnesium Oxide 400 MG TAB PO PRN ×2 (06:12→20:59)
[2018-09-19] MEDS: Clindamycin 150 MG CAP PO SCH ×3 (06:13→20:59)
[2018-09-19] MEDS: Insulin Regular 300 UNITS/3 ML VIAL SC PRN ×3 (06:13→21:00)
[2018-09-19] MEDS: Thyroid 30 MG TAB PO SCH (06:13)
[2018-09-19] MEDS: Gabapentin 300 MG CAP PO SCH ×3 (09:06→20:59)
[2018-09-19] MEDS: Heparin 5,000 UNITS/ML VIAL SC SCH ×2 (09:06→21:00)
[2018-09-19] MEDS: TAGRISSO 80 MG PO SCH (09:07)
[2018-09-19] MEDS: Famotidine 20 MG TAB PO SCH ×2 (09:10→20:59)
[2018-09-19] MEDS: Lidocaine 5% Patch TD SCH (09:30)
[2018-09-19] MEDS: Famotidine/PF 20 mg/2ml Vial SLOW IVP SCH ×2 (09:30→21:00)
[2018-09-19] MEDS: cefTRIAXone\\ROCEPHIN 2 GM in Sodium Chloride 0.9% 100 ML IVPB SCH (12:29)
--- NOTE | 2018-09-19 16:06 | PRG ---
DATE OF SERVICE: 09/19/2018 SUBJECTIVE: The patient is seen and examined at the bedside. She is sitting in the chair. She seems to be more comfortable this morning. Her respirations are slowed down, and her pulse is lower than what it was yesterday. She seems to be more comfortable. OBJECTIVE: NECK: Supple. LUNGS: Breath sounds diminished at the left base. HEART: S1 and S2. Tachycardic. No S3. No S4. ABDOMEN: Soft and nontender. EXTREMITIES: 1 to 2+ peripheral edema similar bilaterally. NEUROLOGIC: She is alert and oriented x4. There are no any motor or sensory deficits present. Cranial nerves are intact. LABORATORY DATA: Labs showed glycemia ranging from 193 to 239. IMPRESSION: 1. Pleural effusion, status post thoracocentesis. Cytology is still pending. The fluid is exudative. Culture is pending. 2. History of malignant pleural effusion. 3. Stage IV adenocarcinoma of the lung. 4. Hypertension, chronic. 5. Uncontrolled diabetes. I will again increase the dose on her long-acting insulin Lantus. 6. Hypothyroidism, chronic, on replacement. DISCUSSION: We are still waiting for cytology on the pleural effusion and culture results, but this looks like going to be malignant and her situation here is quite difficult since this is a stage IV and assistant quality manager informed the family that this situation is palliative and no medical treatment is going to help this lady, but the family has a hard time to understand and agree with this. Job ID: [id number]
[2018-09-19] MEDS: Insulin Glargine 15 UNITS in Pre-Filled Syringe SC SCH (21:00)
[2018-09-19] MEDS: Lorazepam 2 MG/ML VIAL SLOW IVP PRN (21:06)
[2018-09-19] MEDS: Lidocaine Patch Removal 1 EACH TOP SCH (21:11)
[2018-09-19] MEDS: Calcium Carbonate 500 MG ChewTAB PO PRN (22:18)
[2018-09-20 05:09] LABS: Anion Gap 14 mmol/L (10-20); BUN (Urea Nitrogen) 5 mg/dL (9.8-20.1); Calc. Creatinine Clearance 114 mL/min (70-130); Calcium 8.6 mg/dL (7.8-10.44); Carbon Dioxide 21 mmol/L (22-29); Chloride 103 mmol/L (98-107); Estimated GFR-MDRD 82; Glucose 193 mg/dL (70-105); Magnesium 1.3 mg/dL (1.6-2.6); Potassium 4.5 mmol/L (3.5-5.1); Sodium 133 mmol/L (136-145)
[2018-09-20] MEDS: Insulin Regular 300 UNITS/3 ML VIAL SC PRN ×3 (05:50→21:14)
[2018-09-20] MEDS: Clindamycin 150 MG CAP PO SCH ×3 (06:29→21:07)
[2018-09-20] MEDS: Magnesium 2 GM/50 ML 2 GM in Premix Bag 1 BAG IVPB SCH ×2 (06:29→15:11)
[2018-09-20] MEDS: Thyroid 30 MG TAB PO SCH (06:29)
[2018-09-20] MEDS ORDERED: Furosemide 40 MG/4 ML VIAL SLOW IVP SCH (08:30)
[2018-09-20] MEDS: Famotidine 20 MG TAB PO SCH ×2 (09:51→21:07)
[2018-09-20] MEDS: Gabapentin 300 MG CAP PO SCH ×3 (09:51→21:07)
[2018-09-20] MEDS: Famotidine/PF 20 mg/2ml Vial SLOW IVP SCH ×2 (09:52→21:08)
[2018-09-20] MEDS: Heparin 5,000 UNITS/ML VIAL SC SCH ×2 (09:52→21:06)
[2018-09-20] MEDS: Lidocaine 5% Patch TD SCH (09:53)
[2018-09-20] MEDS: TAGRISSO 80 MG PO SCH (09:53)
--- NOTE | 2018-09-20 11:22 | PQF ---
FATOU JUDD ZBIGNIEW A MD [id number] [facility]- B10 [id number] CLINICAL DOCUMENTATION IMPROVEMENT CLARIFICATION FORM: ICD-10 Updated PLEASE DO AN ADDENDUM TO THE PROGRESS NOTE WITH ANY DOCUMENTATION UPDATES OR ADDITIONS AND CARRY THROUGH TO DC SUMMARY. THANK YOU. DATE: 09/20 ATTN : DR. America MG Please exercise your independent, professional judgment in responding to the clarification form. Clinical indicators are provided on the bottom of this form for your review. Please check appropriate box(es): [ ] Sepsis due to: (Pna, UTI, gangrenous gall bladder, etc.) [x ] Severe sepsis with acute organ dysfunction of: (Examples: respiratory failure, encephalopathy, acute kidney failure, other) [ ] Localized infection without sepsis [ ] Other diagnosis [ ] Unable to determine For continuity of documentation, please document condition throughout progress notes and discharge summary. Thank You. CLINICAL INDICATORS - SIGNS / SYMPTOMS / LABS ER RPT: SOB HR: 103-140 RR: 23-28 BP: 86/60-114/76 RA SAT 91-97 >2L: 100%; WBC: 14.6 LACTIC ACID: 3.5 > 4.1 TRT: 3L NS, IV VANC & ZOSYN FINAL: LOCULATED PLEURAL EFFUSION, APOLINAR, EMPYEMA W/SEPSIS PULMONOLOGY PN 09/16 & 4: ASSESSMENT: 1) SEVERE SEPSIS; 3) EMPYEMA, SUSPECTED RISK FACTORS: STAGE IV L LUNG CANCER LOCULATED L PLEURAL EFFUSION (SERRATIA MARCESCENS) APOLINAR TREATMENTS: 3L NS IN ER (09/13) IV ANTIBIOTICS (VANCOMYCIN 09/13 - 09/17; ZOSYN 09/13; ROCEPHIN 09/17 - PRESENT) PO ANTIBIOTIC (CLEOCIN 09/17 - PRESENT) THANK YOU! Cindy (This form is maintained as a part of the permanent medical record) 2014 [employer]. All Rights Reserved Cindy Taylor RN, BSN [email or web address] Office: [phone] YING
[2018-09-20] MEDS ORDERED: Cefdinir 300 MG CAP PO SCH (11:45)
--- NOTE | 2018-09-20 11:47 | PRG ---
DATE OF SERVICE: 09/20/2018 SERVICE: Pulmonary Medicine. INTERVAL HISTORY: The patient is doing fine from respiratory standpoint. Breathing comfortably. She denies any current chest pain, fevers, or chills. Otherwise, there has been no notable change to her condition. PHYSICAL EXAMINATION: VITAL SIGNS: Afebrile, pulse 124, blood pressure 103/71, respirations 28, saturation 94% on 3 L nasal cannula. GENERAL: The patient is awake and alert, in no apparent distress. LUNGS: Decent air entry. No prolonged expiratory phase or wheezing is present. Dependent crackles are noted. HEART: Normal rate, regular. ABDOMEN: Soft, nontender, and nondistended. Bowel sounds are positive. MUSCULOSKELETAL: No cyanosis or clubbing. There is 3 to 4+ pitting in the bilateral lower extremities. NEUROLOGIC: Grossly nonfocal. LABORATORY DATA: Sodium 133, basic metabolic profile is otherwise unremarkable. Magnesium 1.3, phosphorus 3.0. Lung is growing Serratia marcescens. Body fluid culture and AFB are also unremarkable. ASSESSMENT: 1. Severe sepsis. 2. Acute kidney injury, resolved. 3. Malignant pleural effusion, loculated. 4. Adenocarcinoma of the lung, stage IV. DISCUSSION AND PLAN: The PleurX catheter has been removed. We can continue a 4-week course of antibiotic. They should be directed at the Serratia. Magnesium will be replaced today. I will put a Cardiology consultation in for persistent tachycardia, and initiate some small doses of Lasix. Her thyroid will be checked. Pulmonary Critical Care will continue to follow along. Job ID: [id number]
[2018-09-20] MEDS ORDERED: Thyroid 30 MG TAB PO SCH (12:00)
[2018-09-20] MEDS: Guaifenesin DM 100-10/5 ML UDCUP PO PRN ×2 (12:07→22:47)
--- NOTE | 2018-09-20 13:47 | PRG ---
DATE OF SERVICE: 09/20/2018 SUBJECTIVE: The patient is seen and examined at the bedside. She is feeling somewhat better, but she is asking for Dr. Vallecillo, her oncologist's to re-evaluate the situation and maybe give her some treatment for her stage IV lung cancer on the top of what she was getting before. OBJECTIVE: VITAL SIGNS: Blood pressure is 103/71, pulse is 124, temperature is 98.4, respiratory rate is 28, and O2 saturation is 94% on 3 L by nasal cannula. HEENT: Her eyes are PERRLA. Sclerae nonicteric. Oral mucosa is slightly dry. NECK: Supple. LUNGS: Breath sounds diminished at the left base with few crackles bilaterally. HEART: S1 and S2. Tachycardic. No S3. No S4. ABDOMEN: Soft and nontender. EXTREMITIES: 2+ peripheral edema similar bilaterally on the lower extremities. LABORATORY DATA: Labs showed glycemia ranging from 166 to 259, sodium of 133, potassium 4.5, chloride 103, CO2 of 21, BUN 5, creatinine 0.87, and magnesium 1.3. Culture, no growth in 3 days and pathology report shows adenocarcinoma cells in the pleural fluid. IMPRESSION: 1. Severe sepsis, resolved. 2. Malignant pleural effusion based on current cytology. 3. Stage IV adenocarcinoma of the lung. 4. Hypertension, chronic. 5. Uncontrolled diabetes. 6. Hypothyroidism, chronic on replacement. 7. Peripheral edema. DISCUSSION: We will use Lasix 40 mg IV push x1. At this point, she is switched to cefdinir and clindamycin. Mentioned above, her outlook is very poor. Job ID: [id number]
[2018-09-20] MEDS: Insulin Glargine 15 UNITS in Pre-Filled Syringe SC SCH (21:08)
[2018-09-20] MEDS: Lidocaine Patch Removal 1 EACH TOP SCH (21:09)
[2018-09-20] MEDS: Calcium Carbonate 500 MG ChewTAB PO PRN (21:14)
[2018-09-20] MEDS: traMADol HCl 50 MG TAB PO PRN (21:15)
--- NOTE | 2018-09-20 22:50 | CON ---
DATE OF CONSULTATION: HISTORY OF PRESENT ILLNESS: Sandee Thomas is a 53-year-old black female, nonsmoker, who has adenocarcinoma of the left lung. On PET scan, this appears to spread throughout the entire left thorax with metastatic disease in the mediastinum and hilar regions bilaterally. On August 24, 2018, she had a left PleurX catheter placed by Dr. Clemente. She also had an echocardiogram on August 09, 2018, which revealed the study to be technically difficult. Ejection fraction was 40% to 45% with mild concentric left ventricular hypertrophy, mild mitral regurgitation, and mild tricuspid regurgitation. She has apparently received 2 cycles of chemotherapy, but developed worsening dyspnea and palpitations. She has been in sinus tachycardia with rates in the 110s to 120s. PAST MEDICAL HISTORY: Stage IV lung cancer of the left lung, diabetes, hypothyroidism, hypertension, and arthritis. OPERATIONS: PleurX catheter placement, cholecystectomy, tubal ligation, and peritonsillar abscess. SOCIAL HISTORY: She has never smoked. She does not drink. MEDICATIONS: At home include: 1. Flexeril 10 mg t.i.d. 2. Neurontin 300 mg t.i.d. 3. Lisinopril/hydrochlorothiazide daily. 4. Metformin 1000 mg b.i.d. 5. Tagrisso 80 daily. 6. Compazine p.r.n. 7. [place] Thyroid 30 mcg daily. 8. Torsemide 20 mg daily p.r.n. ALLERGIES: NONE. REVIEW OF SYSTEMS: A 10-point review of systems is otherwise unremarkable. PHYSICAL EXAMINATION: VITAL SIGNS: Blood pressure 106/82, pulse of 121, sinus rhythm on the monitor. HEENT: PERRL. NECK: Supple. CHEST: Clear on the right. There is decreased breath sounds one fpc to posterior lung field on the left and crackles in the mid lung field. CARDIOVASCULAR: S1, S2 normal without any S3, S4, or murmurs. ABDOMEN: Obese. Normal bowel sounds. No tenderness. EXTREMITIES: Revealed 2+ pretibial edema bilaterally. NEUROLOGIC: Grossly intact. SKIN: Warm and dry. LABORATORY DATA: EKG revealed sinus tachycardia with rate of 125 per minute, possible left ventricular hypertrophy. Hemoglobin 11.5, hematocrit 35.6, white count 7300, platelets 111,000. Sodium 133, potassium 4.5, chloride 103, carbon dioxide 21, BUN 5, creatinine 0.87, magnesium 1.3, BNP 12.5. IMAGING STUDIES: Chest CTA revealed no evidence of pulmonary embolism, large effusion in left lung, minimal pericardial effusion. IMPRESSION: 1. Increased shortness of breath, multifactorial with left lung adenocarcinoma with large pleural effusion. She has developed increasing peripheral edema. 2. Left ventricular dysfunction with ejection fraction of 40% to 45%, one month ago. However, her BNP is only 12.5. 3. Hypertension. 4. Diabetes. 5. Hypercholesterolemia. 6. Obesity. 7. Hypothyroidism. PLAN: Echocardiogram will be performed to reassess left ventricular function. She will be gently diuresed. She is somewhat hypotensive and probably we will need to start carvedilol, but I would want to check an echocardiogram first to make sure that she does not have significant pericardial effusion. Certainly, her long-term prognosis is poor with stage IV lung cancer. Job ID: [id number]
[2018-09-21] MEDS: Furosemide 40 MG/4 ML VIAL SLOW IVP SCH (05:49)
[2018-09-21] MEDS: Clindamycin 150 MG CAP PO SCH ×3 (05:50→20:41)
[2018-09-21] MEDS: Insulin Regular 300 UNITS/3 ML VIAL SC PRN ×2 (05:57→20:42)
[2018-09-21] MEDS ORDERED: Thyroid 30 MG TAB PO SCH (06:00)
[2018-09-21] MEDS: traMADol HCl 50 MG TAB PO PRN ×3 (07:04→20:41)
[2018-09-21 07:17] LABS: Anion Gap 15 mmol/L (10-20); BUN (Urea Nitrogen) 7 mg/dL (9.8-20.1); Calc. Creatinine Clearance 94 mL/min (70-130); Calcium 9.2 mg/dL (7.8-10.44); Carbon Dioxide 24 mmol/L (22-29); Chloride 100 mmol/L (98-107); Estimated GFR-MDRD 68; Glucose 167 mg/dL (70-105); Magnesium 1.6 mg/dL (1.6-2.6); Potassium 4.3 mmol/L (3.5-5.1); Sodium 135 mmol/L (136-145)
[2018-09-21] MEDS: Cefdinir 300 MG CAP PO SCH (08:27)
[2018-09-21] MEDS: Famotidine 20 MG TAB PO SCH ×2 (08:27→20:41)
[2018-09-21] MEDS: Heparin 5,000 UNITS/ML VIAL SC SCH ×2 (08:27→20:41)
[2018-09-21] MEDS: TAGRISSO 80 MG PO SCH (08:27)
[2018-09-21] MEDS: Gabapentin 300 MG CAP PO SCH ×3 (08:27→20:41)
[2018-09-21] MEDS: Lidocaine 5% Patch TD SCH (08:28)
[2018-09-21] MEDS: Famotidine/PF 20 mg/2ml Vial SLOW IVP SCH ×2 (08:28→22:55)
[2018-09-21] MEDS ORDERED: Magnesium 2 GM/50 ML 2 GM in Premix Bag 1 BAG IVPB SCH (10:30)
--- NOTE | 2018-09-21 10:58 | PRG ---
DATE OF SERVICE: 09/21/2018 SERVICE: Pulmonary Medicine. INTERVAL HISTORY: The patient is breathing comfortably. Her heart rate is under a little better control. She has no complaints of fevers, chills, nausea, or vomiting. There were no significant overnight events. If anything, her dyspnea has improved ever so slightly. OBJECTIVE: VITAL SIGNS: Afebrile, pulse 122, blood pressure 117/80, respirations 22, saturation 93% on 3 L nasal cannula. GENERAL: The patient is awake and alert, in no apparent distress. LUNGS: Decreased air entry. Crackles are present. No prolonged expiratory phase or wheezing appreciated. HEART: Normal rate and regular. ABDOMEN: Soft, nontender, and nondistended. Bowel sounds are positive. MUSCULOSKELETAL: No cyanosis or clubbing. There is trace pitting in the bilateral lower extremities. NEUROLOGIC: Grossly nonfocal. LABORATORY DATA: Sodium 135 and improving. Creatinine 1.02 and gently uptrending. Magnesium 1.6. Lung is growing Serratia, which is sensitive to third generation cephalosporin. Blood cultures x2, and body fluid culture from the thoracentesis are unremarkable to date. ASSESSMENT: 1. Severe sepsis, improving. 2. Adenocarcinoma of the lung, stage IV. 3. Malignant pleural effusion, status post PleurX catheter placement and subsequent removal. 4. Acute kidney injury, resolved. 5. Severe sepsis secondary to possible infected pleural space. 6. Hyperthyroidism, iatrogenic. DISCUSSION AND PLAN: Her [place] Thyroid will be interrupted. Her TSH will need to be reinvestigated in the outpatient setting. I will replace the magnesium once again. From my perspective, she is stable for transition to the oncology unit if Cardiology clears that disposition. Pulmonary will continue to follow, intermittently during this hospital stay. Job ID: [id number] [facility]
[2018-09-21] MEDS: Carvedilol 3.125 MG TAB PO SCH (17:36)
[2018-09-21] MEDS: Insulin Glargine 15 UNITS in Pre-Filled Syringe SC SCH (20:40)
[2018-09-21] MEDS: Calcium Carbonate 500 MG ChewTAB PO PRN (21:28)
[2018-09-21] MEDS: Guaifenesin DM 100-10/5 ML UDCUP PO PRN (21:43)
[2018-09-21] MEDS: Lidocaine Patch Removal 1 EACH TOP SCH (22:56)
--- NOTE | 2018-09-21 22:58 | PDOC.PN ---
- Subjective Encounter Start Date: 09/21/18 Encounter Start Time: 19:30 Late entry note. Patient sitting up, leaning over bedside table. Breathing "about the same." Appetite marginal. She prefers not to engage regarding her disease process with me, a new physician to her, at this time, as "I'm just too tired right now." - Objective Resuscitation Status - Order Detail: 09/13/18 22:04 Resuscitation Status Routine Resuscitation Status: FULL: Full Resuscitation Vital Signs & Weight: Vital Signs (12 hours) Temp Pulse Resp BP Pulse Ox 09/21/18 20:00 98.7 F 113 H 20 111/71 99 09/21/18 16:00 97.9 F 117 H 18 97/71 99 09/21/18 11:09 97.6 F 118 H 22 H 115/70 94 L Weight Admit Weight 196 lb Weight 210 lb 12.191 oz I&O: 09/20/18 09/21/18 09/22/18 06:59 06:59 06:59 Intake Total 1820 1970 950 Output Total 1500 1300 800 Balance 320 670 150 Result Diagrams: 09/16/18 10:06 09/21/18 06:41 Additional Labs: Accuchecks 09/21/18 09/21/18 09/21/18 20:22 16:54 11:13 POC Glucose 245 H 186 H 139 H 09/21/18 05:58 POC Glucose 183 H Phys Exam - Physical Examination Uncomfortable, leaning over bedside table HEENT: oral pharynx no lesions Neck: supple Paucity of bs on left lower, decent aeration right lung Tachycardic Gastrointestinal: soft, non-tender Musculoskeletal: edema present Neurological: non-focal, moves all 4 limbs Psychiatric: A&O x 3 Fatigued Skin: no rash Dx/Plan (1) Systolic CHF, acute on chronic Code(s): I50.23 - ACUTE ON CHRONIC SYSTOLIC (CONGESTIVE) HEART FAILURE Status : Acute Comment: Moderate apical pericardial effusion on echo. Coreg added this evening per Dr. Stock. Torsemide at home prn, will add low dose scheduled. Appreciate cardiology care. (2) Malignant pleural effusion Code(s): J91.0 - MALIGNANT PLEURAL EFFUSION Status: Acute Comment: Oral antibiotics on board, Serratia present in fluid, sensitive to third generation cephalosporin (omnicef and clinda presently). Appreciate pulmonary care. (3) Adenocarcinoma, lung Code(s): C34.90 - MALIGNANT NEOPLASM OF UNSP PART OF UNSP BRONCHUS OR LUNG Status: Chronic Qualifiers: Laterality: left Qualified Code(s): C34.92 - Malignant neoplasm of unspecified part of left bronchus or lung Comment: Poor prognosis (4) Diabetes mellitus Code(s): E11.9 - TYPE 2 DIABETES MELLITUS WITHOUT COMPLICATIONS Status: Chronic Qualifiers: Diabetes mellitus type: type 2 Diabetes mellitus prison insulin use: without prison use Diabetes mellitus complication status: with unspecified complications Qualified Code(s): E11.8 - Type 2 diabetes mellitus with unspecified complications Comment: Hyperglycemia present. Diabetes management not a priority at this time. Appetite and intake variable. No changes made to regimen today. (5) HTN (hypertension) Code(s): I10 - ESSENTIAL (PRIMARY) HYPERTENSION Status: Chronic Qualifiers: Hypertension type: essential hypertension Qualified Code(s): I10 - Essential (primary) hypertension Comment: controlled (6) Hypothyroidism Code(s): E03.9 - HYPOTHYROIDISM, UNSPECIFIED Status: Chronic Qualifiers: Hypothyroidism type: unspecified Qualified Code(s): E03.9 - Hypothyroidism , unspecified Comment: On [place] thyroid (7) Hypomagnesemia Code(s): E83.42 - HYPOMAGNESEMIA Status: Acute Comment: Repleted, check AM - Plan * Noted per pulm rec transfer to oncology floor when ok with cardiology. Will review cardiology notes when transcribed, may be candidate to switch floors tomorrow.
[2018-09-22] MEDS: Furosemide 40 MG/4 ML VIAL SLOW IVP SCH (05:49)
[2018-09-22] MEDS: Cyclobenzaprine 10 MG TAB PO PRN (05:53)
[2018-09-22] MEDS: traMADol HCl 50 MG TAB PO PRN (05:57)
[2018-09-22] MEDS: Clindamycin 150 MG CAP PO SCH ×3 (06:06→21:09)
[2018-09-22 06:36] LABS: Anion Gap 17 mmol/L (10-20); BUN (Urea Nitrogen) 9 mg/dL (9.8-20.1); Calc. Creatinine Clearance 88 mL/min (70-130); Calcium 9.3 mg/dL (7.8-10.44); Carbon Dioxide 23 mmol/L (22-29); Chloride 99 mmol/L (98-107); Estimated GFR-MDRD 62; Glucose 138 mg/dL (70-105); Magnesium 1.9 mg/dL (1.6-2.6); Potassium 4.6 mmol/L (3.5-5.1); Sodium 134 mmol/L (136-145)
[2018-09-22] MEDS: Cefdinir 300 MG CAP PO SCH (09:37)
[2018-09-22] MEDS: Torsemide 20 MG TAB PO SCH (09:38)
[2018-09-22] MEDS: Famotidine 20 MG TAB PO SCH ×2 (09:38→21:09)
[2018-09-22] MEDS: Potassium Chloride 10 MEQ TAB PO SCH (09:38)
[2018-09-22] MEDS: Heparin 5,000 UNITS/ML VIAL SC SCH ×2 (09:38→21:09)
[2018-09-22] MEDS: Gabapentin 300 MG CAP PO SCH ×3 (09:38→21:09)
[2018-09-22] MEDS: Carvedilol 3.125 MG TAB PO SCH ×2 (09:39→17:36)
[2018-09-22] MEDS: Famotidine/PF 20 mg/2ml Vial SLOW IVP SCH ×2 (09:39→21:10)
[2018-09-22] MEDS: Lidocaine 5% Patch TD SCH (09:40)
[2018-09-22] MEDS: TAGRISSO 80 MG PO SCH (09:40)
[2018-09-22] MEDS: ALPRAZolam 0.25 MG TAB PO PRN ×2 (15:18→21:09)
--- NOTE | 2018-09-22 16:04 | PRG ---
DATE OF SERVICE: 09/22/2018 SUBJECTIVE: I was called to see the patient after she was complaining of difficulty breathing. She had a stat chest x-ray today, which shows a large left pleural effusion which is apparently loculated and a small right pleural effusion. She had an echocardiogram done yesterday, which shows evidence of pericardial effusion. Cardiology to address that. OBJECTIVE: VITAL SIGNS: Pulse 108, temperature 97, blood pressure 116/85, sats on a Ventimask 50% is 94% to 100%. She was having difficulty breathing. CHEST: Reveals extensive rhonchi and crackles bilaterally. CARDIAC: Normal S1, S2. No gallops. ABDOMEN: No masses. LABORATORY DATA: Creatinine 1.1. IMPRESSION: 1. Metastatic lung cancer. 2. Bilateral pleural effusion, left is loculated. 3. Pericardial effusion. 4. Congestive heart failure. She was started on Demadex yesterday. I am going to initiate neb treatments and low-dose steroids. Oncology needs to discuss the code status with her. Job ID: [id number]
--- NOTE | 2018-09-22 16:16 | RAD ---
PORTABLE UPRIGHT FRONTAL CHEST RADIOGRAPH 09/22/18 COMPARISON: 09/17/18. HISTORY: Shortness of breath. FINDINGS: There is extensive nonspecific hazy increased density throughout the left hemithorax suggesting pleur al density and/or diffuse air space disease. Lobulated density along the left hemithorax suggests loc ulated pleural fluid and/or left basilar mass lesion. Small right pleural effusion noted. Nonspecific interstitial opacity seen throughout the right hemith orax. Findings are not significantly changed when compared to 09/17/18. IMPRESSION: Extensive interstitial opacity/pulmonary parenchymal opacity and pleural opacity, left greater than r ight, nonspecific and grossly unchanged. Findings are better assessed on the 09/13/[address] exam. Of note, aeration within the right lung has significantly worsened since the 09/13/18 examination wit h worsening pleural density and worsening interstitial opacity throughout the right lung. POS: ROSALBA
--- NOTE | 2018-09-22 17:35 | PDOC.PN ---
- Subjective Encounter Start Date: 09/22/18 Encounter Start Time: 17:33 Subjective: feels very SOb coming [place] [facility] [place] daughter in room & reports that she was "fine"20 mins ago - Objective Resuscitation Status - Order Detail: 09/13/18 22:04 Resuscitation Status Routine Resuscitation Status: FULL: Full Resuscitation MAR Reviewed: Yes Vital Signs & Weight: Vital Signs (12 hours) Temp Pulse Resp BP BP Pulse Ox 09/22/18 16:25 98.2 F 118 H 28 H 116/85 99 09/22/18 12:15 97.8 F 108 H 22 H 116/85 92 L 09/22/18 07:49 93 L 09/22/18 07:47 98.4 F 110 H 20 100/58 L 93 L Weight Admit Weight 196 lb Weight 213 lb 13.574 oz I&O: 09/21/18 09/22/18 09/23/18 06:59 06:59 06:59 Intake Total 1970 1670 Output Total 1300 1000 Balance 670 670 Result Diagrams: 09/16/18 10:06 09/22/18 05:39 Additional Labs: Accuchecks 09/22/18 09/21/18 11:31 20:22 POC Glucose 150 H 245 H Microbiology 09/13/18 21:05 Nasal swab Influenza Types A,B Direct EIA - Final 09/13/18 19:55 Venous blood - Right Arm Blood Culture - Final NO GROWTH IN 5 DAYS 09/13/18 19:50 Venous blood - Right Arm Blood Culture - Final NO GROWTH IN 5 DAYS 09/13/18 19:26 Urine clean catch Urine Culture - Final 09/17/18 07:14 Pleural fluid Acid Fast Bacilli Smear - Final 09/14/18 01:07 Lung - Pending Bacterial Culture - Final Serratia marcescens 09/17/18 07:14 Pleural fluid Body Fluid Culture - Preliminary Laboratory Tests 09/20/18 09/21/18 09/22/18 04:45 06:41 05:39 Creatinine 0.87 1.02 1.11 H Phys Exam - Physical Examination very SOB,sitting on the edge of bed HEENT: PERRLA, moist MMs, sclera anicteric, TM's clear, 2+ tonsils Respiratory: wheezing present tachypenic Cardiovascular: RRR Gastrointestinal: soft, non-tender, no distention, positive bowel sounds Musculoskeletal: pulses present, edema present Neurological: non-focal, normal sensation, moves all 4 limbs Dx/Plan (1) Acute respiratory failure with hypoxia Code(s): J96.01 - ACUTE RESPIRATORY FAILURE WITH HYPOXIA Status: Acute (2) Sepsis Code(s): A41.9 - SEPSIS, UNSPECIFIED ORGANISM Status: Acute Comment: Serratia in Pleural fluid which is malignant (3) Systolic CHF, acute on chronic Code(s): I50.23 - ACUTE ON CHRONIC SYSTOLIC (CONGESTIVE) HEART FAILURE Status : Acute Comment: Moderate apical pericardial effusion on echo. Coreg added per Dr. Stock. Torsemide low dose scheduled. Appreciate cardiology care. (4) Pericardial effusion Code(s): I31.3 - PERICARDIAL EFFUSION (NONINFLAMMATORY) Status: Acute (5) Malignant pleural effusion Code(s): J91.0 - MALIGNANT PLEURAL EFFUSION Status: Acute Comment: Oral antibiotics on board, Serratia present in fluid, sensitive to third generation cephalosporin (omnicef and clinda presently). Appreciate pulmonary care.S/P PleurX placement and subsequent removal (6) Adenocarcinoma, lung Code(s): C34.90 - MALIGNANT NEOPLASM OF UNSP PART OF UNSP BRONCHUS OR LUNG Status: Chronic Qualifiers: Laterality: left Qualified Code(s): C34.92 - Malignant neoplasm of unspecified part of left bronchus or lung Comment: Poor prognosis (7) Diabetes mellitus Code(s): E11.9 - TYPE 2 DIABETES MELLITUS WITHOUT COMPLICATIONS Status: Chronic Qualifiers: Diabetes mellitus type: type 2 Diabetes mellitus fci insulin use: without ad terminal makeup operator use Diabetes mellitus complication status: with unspecified complications Qualified Code(s): E11.8 - Type 2 diabetes mellitus with unspecified complications Comment: Hyperglycemia present. Diabetes management not a priority at this time. Appetite and intake variable. No changes made to regimen today. (8) HTN (hypertension) Code(s): I10 - ESSENTIAL (PRIMARY) HYPERTENSION Status: Chronic Qualifiers: Hypertension type: essential hypertension Qualified Code(s): I10 - Essential (primary) hypertension Comment: controlled (9) Hypothyroidism Code(s): E03.9 - HYPOTHYROIDISM, UNSPECIFIED Status: Chronic Qualifiers: Hypothyroidism type: unspecified Qualified Code(s): E03.9 - Hypothyroidism , unspecified Comment: Yoandy thyroid stopped due to Iatrogenic Hyperthyroidism - Plan plan discussed w/ family, continue antibiotics, respiratory therapy, incentive spirometry, DVT proph w/SCDs clinically worse but wants everything done including ETT if needed -: cont o2 prn.diuresis.Poor prognosis -: Bipap if needed. add xanax prn -: follow [facility] recs.cont nebs,steroids,ABx IV -: care discussed w oncology.remains Full code as per discussion * .may need PleurX again for loculated pleural effusion Review of Systems - Review of Systems Constitutional: weakness, malaise Respiratory: Shortness of Breath Other: limited due to respiratory distress - Medications/Allergies Allergies/Adverse Reactions: Allergies Allergy/AdvReac Type Severity Reaction Status Date / Time No Known Allergies Allergy Verified 07/29/18 01:32 Medications: Current Medications Acetaminophen (Tylenol) 650 mg PO Q4H PRN PRN Reason: Headache/Fever/Mild Pain (1-3) Acetaminophen/Codeine Phosphate (Tylenol #3) 1 tab PO Q8H PRN PRN Reason: Moderate Pain (4-6) Last Admin: 09/17/18 19:44 Dose: 1 tab Albuterol/Ipratropium (Duoneb) 3 ml NEB Q6H PRN PRN Reason: .SHORTNESS OF BREATH Albuterol/Ipratropium (Duoneb) 3 ml NEB [id number] Alprazolam (Xanax) 0.25 mg PO TID PRN PRN Reason: Anxiety Last Admin: 09/22/18 15:18 Dose: 0.25 mg Bisacodyl (Dulcolax) 10 mg PO DAILYPRN PRN PRN Reason: Constipation Calcium Carbonate (Tums) 1,000 mg PO Q4H PRN PRN Reason: Heartburn or Indigestion Last Admin: 09/21/18 21:28 Dose: 1,000 mg Carvedilol (Coreg) 1.5625 mg PO BID-[facility] Last Admin: 09/22/18 09:39 Dose: 1.5625 mg Cefdinir (Omnicef) 600 mg PO DAILY [facility] Stop: 10/12/18 09:01 Last Admin: 09/22/18 09:37 Dose: 600 mg Clindamycin HCl (Cleocin) 300 mg PO Q8HR [facility] Last Admin: 09/22/18 14:30 Dose: 300 mg Cyclobenzaprine HCl (Flexeril) 10 mg PO TIDPRN PRN PRN Reason: MUSCLE SPASM Last Admin: 09/22/18 05:53 Dose: 10 mg Dextrose/Water (Dextrose 50%) 25 gm IVP PRN PRN PRN Reason: HYPOGLYCEMIA PROTOCOL Famotidine (Pepcid) 20 mg PO BID [facility] Last Admin: 09/22/18 09:38 Dose: 20 mg Famotidine (Pepcid) 20 mg SLOW IVP BID [facility] Last Admin: 09/22/18 09:39 Dose: Not Given Furosemide (Lasix) 40 mg SLOW IVP 0600 [facility] Last Admin: 09/22/18 05:49 Dose: 40 mg Gabapentin (Neurontin) 300 mg PO TID [facility] Last Admin: 09/22/18 14:30 Dose: 300 mg Glucagon (Glucagon) 1 mg IM PRN PRN PRN Reason: HYPOGLYCEMIA PROTOCOL Guaifenesin/Dextromethorphan (Robitussin Dm) 10 ml PO Q4H PRN PRN Reason: Cough Last Admin: 09/21/18 21:43 Dose: 10 ml Heparin Sodium (Porcine) (Heparin) 5,000 units SC BID [facility] Last Admin: 09/22/18 09:38 Dose: 5,000 units Sodium Chloride (Normal Saline 0.9%) 1,000 mls @ 1,000 mls/hr IV .Q1H PRN; Protocol PRN Reason: STEP 1: DKA PROTOCOL Potassium Chloride/Sodium Chloride (Ns 0.9% W/ 20 Meq Kcl) 1,000 ml in 1,000 mls @ 500 mls/hr IV .Q2H PRN; Protocol PRN Reason: STEP 2: DKA PROTOCOL Sodium Chloride (Normal Saline 0.9%) 1,000 mls @ 500 mls/hr IV INF PRN; Protocol PRN Reason: STEP 2: DKA PROTOCOL Potassium Chloride 40 meq/ (Sodium Chloride) 270 mls @ 135 mls/hr IVPB ASDIR PRN PRN Reason: FOR SERUM K+ 2.5 - 3.5 Potassium Chloride 40 meq/ (Device) 100 mls @ 50 mls/hr IVPB ASDIR PRN PRN Reason: FOR SERUM K+ 2.5 - 3.5 Magnesium Sulfate 1 gm/ Sodium (Chloride) 102 mls @ 102 mls/hr IV PRN PRN PRN Reason: MAG LEVEL 1.4 - 2.0 Potassium Phosphate 9 mmol/ (Sodium Chloride) 103 mls @ 25.75 mls/hr IVPB ASDIR PRN PRN Reason: Phosphate 1.0-1.8 Potassium Phosphate 12 mmol/ (Sodium Chloride) 254 mls @ 63.5 mls/hr IV ASDIR PRN PRN Reason: Serum phosphate 0.5-0.9 Potassium Phosphate 15 mmol/ (Sodium Chloride) 255 mls @ 63.75 mls/hr IV ASDIR PRN PRN Reason: Serum Phos < 0.5 Dextrose/Water (D5w) 1,000 mls @ 0 mls/hr IV INF PRN PRN Reason: HYPOGLYCEMIA PROTOCOL Insulin Glargine 15 units/ (Miscellaneous Medication) 0.15 mls @ 0 mls/hr SC [facility] Last Admin: 09/21/18 20:40 Dose: 0.15 mls Magnesium Sulfate 2 gm/ Device 50 mls @ 100 mls/hr IVPB ASDIR [facility] Last Admin: 09/20/18 15:11 Dose: 50 mls Insulin Human Regular (Humulin R) 0 units SC .MODERATE SLIDING SC PRN; Protocol PRN Reason: MODERATE SLIDING SCALE Last Admin: 09/21/18 05:57 Dose: 2 unit Insulin Human Regular (Humulin R) 0 units SC .BEDTIME SLIDING SC PRN; Protocol PRN Reason: BEDTIME SLIDING SCALE Last Admin: 09/21/18 20:42 Dose: 2 units Lidocaine (Lidoderm 5% Patch) 1 patch TD DAILY [facility] Last Admin: 09/22/18 09:40 Dose: Not Given Lorazepam (Ativan) 1 mg SLOW IVP Q4H PRN PRN Reason: Anxiety Last Admin: 09/19/18 21:06 Dose: 1 mg Magnesium Oxide (Magnesium Oxide) 400 mg PO BIDPRN PRN PRN Reason: FOR SERUM MAG 1.4 - 2.0 Last Admin: 09/19/18 20:59 Dose: 400 mg Magnesium Oxide (Magnesium Oxide) 800 mg PO PRN PRN PRN Reason: FOR SERUM MAG < 1.4 Methylprednisolone Sodium Succinate (Solu-Medrol) 40 mg IVP 0400,1600 [facility] Miscellaneous Medication (Lidocaine Patch Removal) 1 each TOP 2100 [facility] Last Admin: 09/21/18 22:56 Dose: Not Given Miscellaneous Medication (Phos-Nak) 1 pkt PO TIDPRN PRN PRN Reason: FOR PHOS LEVEL 1.0 - 1.8 Miscellaneous Medication (Phos-Nak) 2 pkt PO TIDPRN PRN PRN Reason: FOR PHOS LEVEL 0.5 - 1.0 Morphine Sulfate (Morphine) 2 mg IV Q4H PRN PRN Reason: Severe Pain (7-10) Ccu Electrolyte (Replacement Protocol) 0 each FS PRN PRN PRN Reason: FOR ELECTROLYTE REPLACEMENT Ondansetron HCl (Zofran Odt) 4 mg PO Q6H PRN PRN Reason: Nausea/Vomiting Ondansetron HCl (Zofran) 4 mg IVP Q6H PRN PRN Reason: Nausea/Vomiting Last Admin: 09/14/18 11:39 Dose: 4 mg Tagrisso 80 Mg 1 each PO DAILY [facility] Last Admin: 09/22/18 09:40 Dose: Not Given Potassium Chloride (K-Dur) 40 meq PO ASDIR PRN PRN Reason: FOR SERUM K+ 2.5 - 3.5 Last Admin: 09/14/18 04:59 Dose: 40 meq Potassium Chloride (Klor-Con) 40 meq PER TUBE ASDIR PRN PRN Reason: FOR SERUM K+ 2.5-3.5 Potassium Chloride (Klor-Con 10) 10 meq PO QAM-WM [facility] Last Admin: 09/22/18 09:38 Dose: 10 meq Promethazine HCl (Phenergan) 25 mg SLOW IVP Q6H PRN PRN Reason: Nausea/Vomiting Last Admin: 09/20/18 06:34 Dose: 25 mg Senna/Docusate Sodium (Senokot S) 2 tab PO BIDPRN PRN PRN Reason: Constipation Sodium Chloride (Flush - Normal Saline) 10 ml IVF Q12HR [facility] Last Admin: 09/22/18 09:41 Dose: 10 ml Sodium Chloride (Flush - Normal Saline) 10 ml IVF PRN PRN PRN Reason: Saline Flush Last Admin: 09/20/18 15:12 Dose: 10 ml Torsemide (Demadex) 20 mg PO DAILY [facility] Last Admin: 09/22/18 09:38 Dose: 20 mg Tramadol HCl (Ultram) 25 mg PO Q8H PRN PRN Reason: Moderate Pain (4-6) Last Admin: 09/22/18 05:57 Dose: 25 mg Zolpidem Tartrate (Ambien) 5 mg PO HSPRN PRN PRN Reason: Insomnia Last Admin: 09/17/18 00:18 Dose: 5 mg
[2018-09-22] MEDS: methylPREDNISolone Sod Succ 40 MG VIAL IVP SCH (17:36)
[2018-09-22] MEDS: Lidocaine Patch Removal 1 EACH TOP SCH (21:10)
[2018-09-22] MEDS: Insulin Glargine 15 UNITS in Pre-Filled Syringe SC SCH (21:12)
[2018-09-23] MEDS: methylPREDNISolone Sod Succ 40 MG VIAL IVP SCH ×2 (04:20→14:41)
[2018-09-23 04:45] LABS: #Basophils 0.1 thou/uL (0.0-0.2); #Lymphocytes 0.8 thou/uL (1.20-3.40); #Monocytes 0.3 thou/uL (0.11-0.59); %Basophils 0.8 % (0.0-1.0); %Eosinophils 0.6 % (0.0-10.0); %Lymphocytes 9.9 % (21.0-51.0); %Monocytes 3.1 % (0.0-10.0); %Neutrophils 85.6 % (42.0-75.0); Mean Corpuscular HGB CONC 30.4 g/dL (32.0-36.0); Mean Corpuscular Hemoglobin 26.4 pg (27.0-31.0); Mean Corpuscular Volume 87.1 fL (78.0-98.0); Mean Platelet Volume 8.3 fL (7.4-10.4); Platelet Count 153 thou/uL (130-400); RBC Distribution Width 13.6 % (11.5-14.5); Red Blood Cell (RBC) Count 4.55 mill/uL (4.20-5.40); White Blood Cell (WBC) Count 8.2 thou/uL (4.8-10.8)
[2018-09-23 05:06] LABS: Anion Gap 19 mmol/L (10-20); BUN (Urea Nitrogen) 16 mg/dL (9.8-20.1); Calc. Creatinine Clearance 74 mL/min (70-130); Carbon Dioxide 20 mmol/L (22-29); Chloride 97 mmol/L (98-107); Estimated GFR-MDRD 51; Glucose 238 mg/dL (70-105); Magnesium 1.7 mg/dL (1.6-2.6); Potassium 5.4 mmol/L (3.5-5.1); Sodium 131 mmol/L (136-145)
[2018-09-23] MEDS: ALPRAZolam 0.25 MG TAB PO PRN ×3 (05:20→20:39)
[2018-09-23] MEDS: Clindamycin 150 MG CAP PO SCH ×3 (05:21→22:15)
[2018-09-23] MEDS: Morphine 4 MG/ML VIAL IV PRN ×5 (05:24→23:21)
[2018-09-23] MEDS: Furosemide 40 MG/4 ML VIAL SLOW IVP SCH (05:57)
[2018-09-23] MEDS: Insulin Regular 300 UNITS/3 ML VIAL SC PRN ×2 (06:26→22:15)
[2018-09-23] MEDS: Potassium Chloride 10 MEQ TAB PO SCH (09:48)
[2018-09-23] MEDS: Torsemide 20 MG TAB PO SCH (09:48)
[2018-09-23] MEDS: Gabapentin 300 MG CAP PO SCH ×3 (09:48→20:39)
[2018-09-23] MEDS: Carvedilol 3.125 MG TAB PO SCH ×2 (09:48→17:20)
[2018-09-23] MEDS: Famotidine 20 MG TAB PO SCH ×2 (09:48→20:39)
[2018-09-23] MEDS: Cefdinir 300 MG CAP PO SCH (09:49)
[2018-09-23] MEDS: Famotidine/PF 20 mg/2ml Vial SLOW IVP SCH ×2 (09:49→20:39)
[2018-09-23] MEDS: Lidocaine 5% Patch TD SCH (09:50)
[2018-09-23] MEDS: Heparin 5,000 UNITS/ML VIAL SC SCH ×2 (09:50→20:39)
[2018-09-23] MEDS: TAGRISSO 80 MG PO SCH (09:50)
--- NOTE | 2018-09-23 10:07 | PRG ---
DATE OF SERVICE: 09/23/2018 SUBJECTIVE: This morning remains short of breath on a Ventimask. OBJECTIVE: VITAL SIGNS: Saturations are 100%, respiratory rate 24, temperature 97, blood pressure CHEST: Decreased breath sounds without any wheezing. CARDIAC: Sinus tach. ABDOMEN: Soft without any masses. LABORATORY DATA: Creatinine 1.3. White count 8000. IMPRESSION: Metastatic lung cancer, serratia, and loculated pleural effusion. PLAN: Comfort care. Pulmonary has nothing additional to offer at this stage. Family deciding about going home with hospice. Job ID: [id number]
--- NOTE | 2018-09-23 15:27 | PDOC.PN ---
- Subjective Encounter Start Date: 09/23/18 Encounter Start Time: 15:26 Subjective: feels very SOB but feels that she can get better -: sister in room & does not want to talk to me as i discuss prognosis -: care D/W PCT RN and RN on floor - Objective Resuscitation Status - Order Detail: 09/13/18 22:04 Resuscitation Status Routine Resuscitation Status: FULL: Full Resuscitation MAR Reviewed: Yes Vital Signs & Weight: Vital Signs (12 hours) Temp Pulse Resp BP Pulse Ox 09/23/18 11:55 97.5 F L 107 H 26 H 144/93 H 100 09/23/18 08:16 100 09/23/18 08:03 97.6 F 108 H 24 H 159/99 H 100 09/23/18 04:00 97.2 F L 106 H 18 159/99 H 98 Weight Admit Weight 196 lb Weight 227 lb 1.218 oz I&O: 09/22/18 09/23/18 09/24/18 06:59 06:59 06:59 Intake Total 1670 1070 Output Total 1000 1100 Balance 670 -30 Result Diagrams: 09/23/18 04:34 09/23/18 04:34 Additional Labs: Accuchecks 09/23/18 09/23/18 09/22/18 12:22 05:40 20:37 POC Glucose 222 H 212 H 193 H Laboratory Tests 09/21/18 09/22/18 09/23/18 06:41 05:39 04:34 Creatinine 1.02 1.11 H 1.31 H Phys Exam - Physical Examination seveer repiratory distress despite Venti mask HEENT: PERRLA, moist MMs, sclera anicteric, oral pharynx no lesions Neck: no nodes, no JVD, supple, full ROM Respiratory: wheezing present Cardiovascular: no significant murmur tachy Gastrointestinal: soft, non-tender, no distention, positive bowel sounds Musculoskeletal: no edema, pulses present Neurological: non-focal, normal sensation, moves all 4 limbs Dx/Plan (1) Acute respiratory failure with hypoxia Code(s): J96.01 - ACUTE RESPIRATORY FAILURE WITH HYPOXIA Status: Acute Comment: Pericardial and pleural effusion (2) Sepsis Code(s): A41.9 - SEPSIS, UNSPECIFIED ORGANISM Status: Acute Comment: Serratia in Pleural fluid which is malignant (3) Systolic CHF, acute on chronic Code(s): I50.23 - ACUTE ON CHRONIC SYSTOLIC (CONGESTIVE) HEART FAILURE Status : Acute Comment: Moderate apical pericardial effusion on echo. Coreg added per Dr. Stock. Torsemide low dose scheduled. Appreciate cardiology care. (4) Pericardial effusion Code(s): I31.3 - PERICARDIAL EFFUSION (NONINFLAMMATORY) Status: Acute (5) Malignant pleural effusion Code(s): J91.0 - MALIGNANT PLEURAL EFFUSION Status: Acute Comment: Oral antibiotics on board, Serratia present in fluid, sensitive to third generation cephalosporin (omnicef and clinda presently). Appreciate pulmonary care.S/P PleurX placement and subsequent removal (6) Adenocarcinoma, lung Code(s): C34.90 - MALIGNANT NEOPLASM OF UNSP PART OF UNSP BRONCHUS OR LUNG Status: Chronic Qualifiers: Laterality: left Qualified Code(s): C34.92 - Malignant neoplasm of unspecified part of left bronchus or lung Comment: Poor prognosis (7) Diabetes mellitus Code(s): E11.9 - TYPE 2 DIABETES MELLITUS WITHOUT COMPLICATIONS Status: Chronic Qualifiers: Diabetes mellitus type: type 2 Diabetes mellitus usp insulin use: without termination clerk use Diabetes mellitus complication status: with unspecified complications Qualified Code(s): E11.8 - Type 2 diabetes mellitus with unspecified complications Comment: Hyperglycemia present. Diabetes management not a priority at this time. Appetite and intake variable. No changes made to regimen today. (8) HTN (hypertension) Code(s): I10 - ESSENTIAL (PRIMARY) HYPERTENSION Status: Chronic Qualifiers: Hypertension type: essential hypertension Qualified Code(s): I10 - Essential (primary) hypertension Comment: controlled (9) Hypothyroidism Code(s): E03.9 - HYPOTHYROIDISM, UNSPECIFIED Status: Chronic Qualifiers: Hypothyroidism type: unspecified Qualified Code(s): E03.9 - Hypothyroidism , unspecified Comment: Yoandy thyroid stopped due to Iatrogenic Hyperthyroidism - Plan plan discussed w/ family, DVT proph w/SCDs family requesting transfer to [facility].will try -: Oncology trying to see if repeat Palliative thoracentesis is an option -: prognosis extremly poor & not unexpected -: family & Pt in denial & do not demonstarted any understanding of Disease -: cont supportive care.Unfunded. * .time spent in coordinating care 35 minutes Review of Systems - Review of Systems Constitutional: weakness, malaise Respiratory: SOB with Excertion Other: limited ROS due to severe resp distress - Medications/Allergies Allergies/Adverse Reactions: Allergies Allergy/AdvReac Type Severity Reaction Status Date / Time No Known Allergies Allergy Verified 07/29/18 01:32 Medications: Current Medications Acetaminophen (Tylenol) 650 mg PO Q4H PRN PRN Reason: Headache/Fever/Mild Pain (1-3) Acetaminophen/Codeine Phosphate (Tylenol #3) 1 tab PO Q8H PRN PRN Reason: Moderate Pain (4-6) Albuterol/Ipratropium (Duoneb) 3 ml NEB Q6H PRN PRN Reason: .SHORTNESS OF BREATH Albuterol/Ipratropium (Duoneb) 3 ml NEB [id number] Last Admin: 09/23/18 10:18 Dose: Not Given Alprazolam (Xanax) 0.25 mg PO TID PRN PRN Reason: Anxiety Last Admin: 09/23/18 11:50 Dose: 0.25 mg Bisacodyl (Dulcolax) 10 mg PO DAILYPRN PRN PRN Reason: Constipation Calcium Carbonate (Tums) 1,000 mg PO Q4H PRN PRN Reason: Heartburn or Indigestion Last Admin: 09/21/18 21:28 Dose: 1,000 mg Carvedilol (Coreg) 3.125 mg PO BID-[facility] Last Admin: 09/23/18 09:48 Dose: 3.125 mg Cefdinir (Omnicef) 600 mg PO DAILY [facility] Stop: 10/12/18 09:01 Last Admin: 09/23/18 09:49 Dose: 600 mg Clindamycin HCl (Cleocin) 300 mg PO Q8HR [facility] Last Admin: 09/23/18 14:40 Dose: 300 mg Cyclobenzaprine HCl (Flexeril) 10 mg PO TIDPRN PRN PRN Reason: MUSCLE SPASM Last Admin: 09/22/18 05:53 Dose: 10 mg Dextrose/Water (Dextrose 50%) 25 gm IVP PRN PRN PRN Reason: HYPOGLYCEMIA PROTOCOL Famotidine (Pepcid) 20 mg PO BID [facility] Last Admin: 09/23/18 09:48 Dose: 20 mg Famotidine (Pepcid) 20 mg SLOW IVP BID [facility] Last Admin: 09/23/18 09:49 Dose: Not Given Furosemide (Lasix) 40 mg SLOW IVP 0600 [facility] Last Admin: 09/23/18 05:57 Dose: Not Given Gabapentin (Neurontin) 300 mg PO TID [facility] Last Admin: 09/23/18 14:40 Dose: 300 mg Glucagon (Glucagon) 1 mg IM PRN PRN PRN Reason: HYPOGLYCEMIA PROTOCOL Guaifenesin/Dextromethorphan (Robitussin Dm) 10 ml PO Q4H PRN PRN Reason: Cough Last Admin: 09/21/18 21:43 Dose: 10 ml Heparin Sodium (Porcine) (Heparin) 5,000 units SC BID [facility] Last Admin: 09/23/18 09:50 Dose: 5,000 units Sodium Chloride (Normal Saline 0.9%) 1,000 mls @ 1,000 mls/hr IV .Q1H PRN; Protocol PRN Reason: STEP 1: DKA PROTOCOL Potassium Chloride/Sodium Chloride (Ns 0.9% W/ 20 Meq Kcl) 1,000 ml in 1,000 mls @ 500 mls/hr IV .Q2H PRN; Protocol PRN Reason: STEP 2: DKA PROTOCOL Sodium Chloride (Normal Saline 0.9%) 1,000 mls @ 500 mls/hr IV INF PRN; Protocol PRN Reason: STEP 2: DKA PROTOCOL Potassium Chloride 40 meq/ (Sodium Chloride) 270 mls @ 135 mls/hr IVPB ASDIR PRN PRN Reason: FOR SERUM K+ 2.5 - 3.5 Potassium Chloride 40 meq/ (Device) 100 mls @ 50 mls/hr IVPB ASDIR PRN PRN Reason: FOR SERUM K+ 2.5 - 3.5 Magnesium Sulfate 1 gm/ Sodium (Chloride) 102 mls @ 102 mls/hr IV PRN PRN PRN Reason: MAG LEVEL 1.4 - 2.0 Last Admin: 09/23/18 10:56 Dose: 102 mls Potassium Phosphate 9 mmol/ (Sodium Chloride) 103 mls @ 25.75 mls/hr IVPB ASDIR PRN PRN Reason: Phosphate 1.0-1.8 Potassium Phosphate 12 mmol/ (Sodium Chloride) 254 mls @ 63.5 mls/hr IV ASDIR PRN PRN Reason: Serum phosphate 0.5-0.9 Potassium Phosphate 15 mmol/ (Sodium Chloride) 255 mls @ 63.75 mls/hr IV ASDIR PRN PRN Reason: Serum Phos < 0.5 Dextrose/Water (D5w) 1,000 mls @ 0 mls/hr IV INF PRN PRN Reason: HYPOGLYCEMIA PROTOCOL Insulin Glargine 15 units/ (Miscellaneous Medication) 0.15 mls @ 0 mls/hr SC HS [facility] Last Admin: 09/22/18 21:12 Dose: 0.15 mls Magnesium Sulfate 2 gm/ Device 50 mls @ 100 mls/hr IVPB ASDIR [facility] Last Admin: 09/20/18 15:11 Dose: 50 mls Insulin Human Regular (Humulin R) 0 units SC .MODERATE SLIDING SC PRN; Protocol PRN Reason: MODERATE SLIDING SCALE Last Admin: 09/23/18 06:26 Dose: 4 unit Insulin Human Regular (Humulin R) 0 units SC .BEDTIME SLIDING SC PRN; Protocol PRN Reason: BEDTIME SLIDING SCALE Last Admin: 09/21/18 20:42 Dose: 2 units Lidocaine (Lidoderm 5% Patch) 1 patch TD DAILY [facility] Last Admin: 09/23/18 09:50 Dose: Not Given Lorazepam (Ativan) 1 mg SLOW IVP Q4H PRN PRN Reason: Anxiety Last Admin: 09/19/18 21:06 Dose: 1 mg Magnesium Oxide (Magnesium Oxide) 400 mg PO BIDPRN PRN PRN Reason: FOR SERUM MAG 1.4 - 2.0 Last Admin: 09/19/18 20:59 Dose: 400 mg Magnesium Oxide (Magnesium Oxide) 800 mg PO PRN PRN PRN Reason: FOR SERUM MAG < 1.4 Methylprednisolone Sodium Succinate (Solu-Medrol) 40 mg IVP 0400,1600 [facility] Last Admin: 09/23/18 14:41 Dose: 40 mg Miscellaneous Medication (Lidocaine Patch Removal) 1 each TOP 2100 [facility] Last Admin: 09/22/18 21:10 Dose: Not Given Miscellaneous Medication (Phos-Nak) 1 pkt PO TIDPRN PRN PRN Reason: FOR PHOS LEVEL 1.0 - 1.8 Miscellaneous Medication (Phos-Nak) 2 pkt PO TIDPRN PRN PRN Reason: FOR PHOS LEVEL 0.5 - 1.0 Morphine Sulfate (Morphine) 2 mg IV Q4H PRN PRN Reason: Severe Pain (7-10) Last Admin: 09/23/18 14:41 Dose: 2 mg Ccu Electrolyte (Replacement Protocol) 0 each FS PRN PRN PRN Reason: FOR ELECTROLYTE REPLACEMENT Ondansetron HCl (Zofran Odt) 4 mg PO Q6H PRN PRN Reason: Nausea/Vomiting Ondansetron HCl (Zofran) 4 mg IVP Q6H PRN PRN Reason: Nausea/Vomiting Last Admin: 09/14/18 11:39 Dose: 4 mg Tagrisso 80 Mg 1 each PO DAILY [facility] Last Admin: 09/23/18 09:50 Dose: Not Given Potassium Chloride (K-Dur) 40 meq PO ASDIR PRN PRN Reason: FOR SERUM K+ 2.5 - 3.5 Last Admin: 09/14/18 04:59 Dose: 40 meq Potassium Chloride (Klor-Con) 40 meq PER TUBE ASDIR PRN PRN Reason: FOR SERUM K+ 2.5-3.5 Potassium Chloride (Klor-Con 10) 10 meq PO QAM-WM [facility] Last Admin: 09/23/18 09:48 Dose: 10 meq Promethazine HCl (Phenergan) 25 mg SLOW IVP Q6H PRN PRN Reason: Nausea/Vomiting Last Admin: 09/20/18 06:34 Dose: 25 mg Senna/Docusate Sodium (Senokot S) 2 tab PO BIDPRN PRN PRN Reason: Constipation Sodium Chloride (Flush - Normal Saline) 10 ml IVF Q12HR [facility] Last Admin: 09/23/18 09:50 Dose: 10 ml Sodium Chloride (Flush - Normal Saline) 10 ml IVF PRN PRN PRN Reason: Saline Flush Last Admin: 09/20/18 15:12 Dose: 10 ml Torsemide (Demadex) 20 mg PO DAILY [facility] Last Admin: 09/23/18 09:48 Dose: 20 mg Tramadol HCl (Ultram) 25 mg PO Q8H PRN PRN Reason: Moderate Pain (4-6) Zolpidem Tartrate (Ambien) 5 mg PO HSPRN PRN PRN Reason: Insomnia Last Admin: 09/17/18 00:18 Dose: 5 mg
--- NOTE | 2018-09-23 18:45 | EKG ---
Test Reason : BEFORE CHEMO MED Blood Pressure : / mmHG Vent. Rate : 112 BPM Atrial Rate : 112 BPM P-R Int : 128 ms QRS Dur : 074 ms QT Int : 372 ms P-R-T Axes : 057 050 051 degrees QTc Int : 507 ms Sinus tachycardia Nonspecific T wave abnormality Abnormal ECG Confirmed by KAI CHAVEZ ([id number]) on 09/23/2018 6:44:53 PM Referred By: PEG CARMEN Confirmed By:KAI CHAVEZ
[2018-09-23] MEDS: Lidocaine Patch Removal 1 EACH TOP SCH (20:39)
[2018-09-23] MEDS: Insulin Glargine 15 UNITS in Pre-Filled Syringe SC SCH (22:14)
[2018-09-24] MEDS: Morphine 4 MG/ML VIAL IV PRN ×3 (04:00→13:24)
[2018-09-24] MEDS: methylPREDNISolone Sod Succ 40 MG VIAL IVP SCH (04:01)
[2018-09-24] MEDS: Furosemide 40 MG/4 ML VIAL SLOW IVP SCH (06:07)
[2018-09-24] MEDS: Insulin Regular 300 UNITS/3 ML VIAL SC PRN ×2 (06:08→21:07)
[2018-09-24] MEDS: ALPRAZolam 0.25 MG TAB PO PRN ×3 (06:14→22:11)
[2018-09-24] MEDS: Clindamycin 150 MG CAP PO SCH ×3 (06:14→21:06)
[2018-09-24] MEDS: traMADol HCl 50 MG TAB PO PRN (06:14)
[2018-09-24 06:54] LABS: Glucose 210 mg/dL (70-105)
[2018-09-24 07:04] LABS: Anion Gap 22 mmol/L (10-20); BUN (Urea Nitrogen) 24 mg/dL (9.8-20.1); Calc. Creatinine Clearance 57 mL/min (70-130); Calcium 8.9 mg/dL (7.8-10.44); Carbon Dioxide 18 mmol/L (22-29); Chloride 97 mmol/L (98-107); Estimated GFR-MDRD 39; Potassium 6.2 mmol/L (3.5-5.1); Sodium 131 mmol/L (136-145)
--- NOTE | 2018-09-24 08:07 | CON ---
DATE OF CONSULTATION: HISTORY OF PRESENT ILLNESS: This is a 53-year-old black female with metastatic lung cancer. She had placement of a left-sided PleurX catheter on August 24 and was notable for drainage of 2 to 3 L of fluid. The patient was discharged home and getting about 600 mL of fluid out almost every day and then fluid recollection ceased. Catheter was removed and cultured, positive for Serratia. The patient has had rather severe dyspnea since admission and has been sitting up in bed on high-flow oxygen. She had a CT scan on admission that demonstrated a large anterior collection of fluid separate from the PleurX catheter. Ultimately, she had an ultrasound-guided aspiration of this by Dr. Allen several days ago with removal of about 900 mL of fluid. I have been asked to see her again for possible PleurX catheter placement. On examination, she is dyspneic at rest and high flow on oxygen, sitting up in a bed. She is unable to lie flat. Most recent chest x-ray yesterday showed what appeared to be a loculated effusion with a somewhat different appearance on the x-ray prior to thoracentesis by Dr. Allen thoracentesis. She is extremely dyspneic even after thoracentesis and oxygen therapy although with oxygen she has 100% saturations. We will repeat her chest x-ray tomorrow and have radiology do an ultrasound-guided catheter placement and evacuation of her effusion. Job ID: [id number] [facility]
[2018-09-24] MEDS ORDERED: Insulin Regular 300 UNITS/3 ML VIAL SC SCH (09:00)
[2018-09-24] MEDS ORDERED: Dextrose 50% Abboject 50 ML SYRINGE SLOW IVP SCH (09:00)
--- NOTE | 2018-09-24 09:00 | RAD ---
SINGLE VIEW OF THE CHEST: Comparison: 09-17-18, 09-22-18 History: Malignant left pleural effusion. FINDINGS: Single view of the chest shows near complete opacification of the left thorax. This is unchanged comp ared to the prior examination. It is difficult to assess the cardiomediastinal silhouette secondary t o the opacification. This opacity is likely secondary to a pleural effusion. There also appears to be small right pleural effusions. IMPRESSION: Stable exam. POS: TPC
[2018-09-24] MEDS: Carvedilol 6.25 MG TAB PO SCH ×2 (09:07→18:04)
[2018-09-24] MEDS: Cefdinir 300 MG CAP PO SCH (09:07)
[2018-09-24] MEDS: Potassium Chloride 10 MEQ TAB PO SCH (09:07)
[2018-09-24] MEDS: Gabapentin 300 MG CAP PO SCH ×3 (09:07→21:07)
[2018-09-24] MEDS: Torsemide 20 MG TAB PO SCH (09:07)
[2018-09-24] MEDS: Famotidine/PF 20 mg/2ml Vial SLOW IVP SCH ×2 (09:08→21:08)
[2018-09-24] MEDS: Famotidine 20 MG TAB PO SCH ×2 (09:08→21:06)
[2018-09-24] MEDS: TAGRISSO 80 MG PO SCH (09:09)
[2018-09-24] MEDS: Lidocaine 5% Patch TD SCH (09:09)
[2018-09-24] MEDS: Heparin 5,000 UNITS/ML VIAL SC SCH ×2 (09:13→21:07)
--- NOTE | 2018-09-24 11:04 | PRG ---
DATE OF SERVICE: 09/24/2018 SUBJECTIVE: Sandee Thomas remains in MICU on the Ventimask. OBJECTIVE: VITAL SIGNS: Saturations 90%, respiratory rate temperature 96, and blood pressure 127/82. CHEST: Decreased breath sounds. No wheezing. CARDIAC: Normal S1 and S2. No gallops. ABDOMEN: Soft. LABORATORY DATA: Potassium 6.2, creatinine 1.64. IMPRESSION: 1. Metastatic lung cancer. 2. Bilateral pleural effusion. 3. Azotemia. PLAN: Discussed with Dr. Clemente. I do not have any great options at this stage. Since the azotemia is worsening, I am going to stop the diuretics. Comfort care. In the meantime, continue steroids and neb treatments. Job ID: [id number]
[2018-09-24 12:43] LABS: INR-International Normal Ratio 1.1; PTT 30.2 SEC (22.9-36.1); Prothrombin Time 14.3 SEC (12.0-14.7)
[2018-09-24] MEDS ORDERED: Fentanyl 100 MCG/2 ML VIAL ONE (13:06)
[2018-09-24] MEDS ORDERED: Sodium Bicarbonate 2.5 MEQ/5 ML VIAL ONE (13:06)
--- NOTE | 2018-09-24 14:47 | PDOC.PN ---
- Subjective Encounter Start Date: 09/24/18 Encounter Start Time: 14:45 Subjective: feels a little better. in good spirits.no Chest pain -: still significant SOB, - Objective Resuscitation Status - Order Detail: 09/13/18 22:04 Resuscitation Status Routine Resuscitation Status: FULL: Full Resuscitation MAR Reviewed: Yes Vital Signs & Weight: Vital Signs (12 hours) Temp Pulse Resp BP BP Pulse Ox 09/24/18 12:00 97.4 F L 92 21 H 105/73 100 09/24/18 08:00 96.9 F L 106 H 24 H 127/82 98 09/24/18 07:35 98 09/24/18 04:00 97.0 F L 101 H 20 109/67 100 Weight Admit Weight 196 lb Weight 206 lb 9.17 oz I&O: 09/23/18 09/24/18 09/25/18 06:59 06:59 06:59 Intake Total 1070 910 Output Total 1100 1050 Balance -30 -140 Result Diagrams: 09/23/18 04:34 09/24/18 05:57 Additional Labs: Accuchecks 09/24/18 09/24/18 09/23/18 10:35 05:43 20:32 POC Glucose 264 H 273 H 344 H Laboratory Tests 09/22/18 09/23/18 09/24/18 05:39 04:34 05:57 Creatinine 1.11 H 1.31 H 1.64 H Phys Exam - Physical Examination mod resp distress w VentiMask on HEENT: PERRLA, moist MMs, sclera anicteric, oral pharynx no lesions Neck: no nodes, no JVD, supple, full ROM Respiratory: wheezing present Cardiovascular: RRR tachy Gastrointestinal: soft, non-tender, no distention Musculoskeletal: no edema, pulses present Neurological: non-focal, normal sensation, moves all 4 limbs Psychiatric: normal affect, A&O x 3 Skin: no rash Dx/Plan (1) Hyperkalemia Code(s): E87.5 - HYPERKALEMIA Status: Acute (2) Acute respiratory failure with hypoxia Code(s): J96.01 - ACUTE RESPIRATORY FAILURE WITH HYPOXIA Status: Acute Comment: Pericardial and pleural effusion (3) Sepsis Code(s): A41.9 - SEPSIS, UNSPECIFIED ORGANISM Status: Acute Comment: Serratia in Pleural fluid which is malignant (4) Systolic CHF, acute on chronic Code(s): I50.23 - ACUTE ON CHRONIC SYSTOLIC (CONGESTIVE) HEART FAILURE Status : Acute Comment: Moderate apical pericardial effusion on echo. Coreg added per Dr. Stock. Torsemide low dose scheduled. Appreciate cardiology care. (5) Pericardial effusion Code(s): I31.3 - PERICARDIAL EFFUSION (NONINFLAMMATORY) Status: Acute (6) Malignant pleural effusion Code(s): J91.0 - MALIGNANT PLEURAL EFFUSION Status: Acute Comment: Oral antibiotics on board, Serratia present in fluid, sensitive to third generation cephalosporin (omnicef and clinda presently). Appreciate pulmonary care.S/P PleurX placement and subsequent removal (7) Adenocarcinoma, lung Code(s): C34.90 - MALIGNANT NEOPLASM OF UNSP PART OF UNSP BRONCHUS OR LUNG Status: Chronic Qualifiers: Laterality: left Qualified Code(s): C34.92 - Malignant neoplasm of unspecified part of left bronchus or lung Comment: Poor prognosis (8) Diabetes mellitus Code(s): E11.9 - TYPE 2 DIABETES MELLITUS WITHOUT COMPLICATIONS Status: Chronic Qualifiers: Diabetes mellitus type: type 2 Diabetes mellitus terminal gauger insulin use: without terminal gauger use Diabetes mellitus complication status: with unspecified complications Qualified Code(s): E11.8 - Type 2 diabetes mellitus with unspecified complications Comment: Hyperglycemia present. Diabetes management not a priority at this time. Appetite and intake variable. No changes made to regimen today. (9) HTN (hypertension) Code(s): I10 - ESSENTIAL (PRIMARY) HYPERTENSION Status: Chronic Qualifiers: Hypertension type: essential hypertension Qualified Code(s): I10 - Essential (primary) hypertension Comment: controlled (10) Hypothyroidism Code(s): E03.9 - HYPOTHYROIDISM, UNSPECIFIED Status: Chronic Qualifiers: Hypothyroidism type: unspecified Qualified Code(s): E03.9 - Hypothyroidism , unspecified Comment: Yoandy thyroid stopped due to Iatrogenic Hyperthyroidism - Plan plan discussed w/ family, continue antibiotics, respiratory therapy, incentive spirometry, DVT proph w/SCDs plans for palliative thoracentesis w leave in cathter -: give insulin with dextrose for high potassium. worsening renal function -: poor prognnosis but will let Dr Allen discuss Rx options -: Oncology following -: cont supportive care * . Review of Systems - Review of Systems Constitutional: weakness, malaise Respiratory: SOB with Excertion. negative: Cough, Dry, Shortness of Breath, Hemoptysis, Pleuritic Pain, Sputum, Wheezing Cardiovascular: negative: chest pain, palpitations, orthopnea, paroxysmal nocturnal dyspnea, edema, light headedness, other Gastrointestinal: negative: Nausea, Vomiting, Abdominal Pain, Diarrhea, Constipation, Melena, Hematochezia, Other Genitourinary: negative: Dysuria, Frequency, Incontinence, Hematuria, Retention , Other - Medications/Allergies Allergies/Adverse Reactions: Allergies Allergy/AdvReac Type Severity Reaction Status Date / Time No Known Allergies Allergy Verified 07/29/18 01:32 Medications: Current Medications Acetaminophen (Tylenol) 650 mg PO Q4H PRN PRN Reason: Headache/Fever/Mild Pain (1-3) Acetaminophen/Codeine Phosphate (Tylenol #3) 1 tab PO Q8H PRN PRN Reason: Moderate Pain (4-6) Albuterol/Ipratropium (Duoneb) 3 ml NEB Q6H PRN PRN Reason: .SHORTNESS OF BREATH Albuterol/Ipratropium (Duoneb) 3 ml NEB [id number] SCH Last Admin: 09/24/18 10:17 Dose: Not Given Alprazolam (Xanax) 0.25 mg PO TID PRN PRN Reason: Anxiety Last Admin: 09/24/18 06:14 Dose: 0.25 mg Bisacodyl (Dulcolax) 10 mg PO DAILYPRN PRN PRN Reason: Constipation Calcium Carbonate (Tums) 1,000 mg PO Q4H PRN PRN Reason: Heartburn or Indigestion Last Admin: 09/21/18 21:28 Dose: 1,000 mg Carvedilol (Coreg) 6.25 mg PO BID-[facility] Last Admin: 09/24/18 09:07 Dose: 6.25 mg Cefdinir (Omnicef) 600 mg PO DAILY [facility] Stop: 10/12/18 09:01 Last Admin: 09/24/18 09:07 Dose: 600 mg Clindamycin HCl (Cleocin) 300 mg PO Q8HR [facility] Last Admin: 09/24/18 06:14 Dose: 300 mg Cyclobenzaprine HCl (Flexeril) 10 mg PO TIDPRN PRN PRN Reason: MUSCLE SPASM Last Admin: 09/22/18 05:53 Dose: 10 mg Dextrose/Water (Dextrose 50%) 25 gm IVP PRN PRN PRN Reason: HYPOGLYCEMIA PROTOCOL Famotidine (Pepcid) 20 mg PO BID [facility] Last Admin: 09/24/18 09:08 Dose: 20 mg Famotidine (Pepcid) 20 mg SLOW IVP BID [facility] Last Admin: 09/24/18 09:08 Dose: Not Given Gabapentin (Neurontin) 300 mg PO TID [facility] Last Admin: 09/24/18 09:07 Dose: 300 mg Glucagon (Glucagon) 1 mg IM PRN PRN PRN Reason: HYPOGLYCEMIA PROTOCOL Guaifenesin/Dextromethorphan (Robitussin Dm) 10 ml PO Q4H PRN PRN Reason: Cough Last Admin: 09/21/18 21:43 Dose: 10 ml Heparin Sodium (Porcine) (Heparin) 5,000 units SC BID [facility] Last Admin: 09/24/18 09:13 Dose: 5,000 units Sodium Chloride (Normal Saline 0.9%) 1,000 mls @ 1,000 mls/hr IV .Q1H PRN; Protocol PRN Reason: STEP 1: DKA PROTOCOL Potassium Chloride/Sodium Chloride (Ns 0.9% W/ 20 Meq Kcl) 1,000 ml in 1,000 mls @ 500 mls/hr IV .Q2H PRN; Protocol PRN Reason: STEP 2: DKA PROTOCOL Sodium Chloride (Normal Saline 0.9%) 1,000 mls @ 500 mls/hr IV INF PRN; Protocol PRN Reason: STEP 2: DKA PROTOCOL Magnesium Sulfate 1 gm/ Sodium (Chloride) 102 mls @ 102 mls/hr IV PRN PRN PRN Reason: MAG LEVEL 1.4 - 2.0 Last Admin: 09/23/18 10:56 Dose: 102 mls Potassium Phosphate 9 mmol/ (Sodium Chloride) 103 mls @ 25.75 mls/hr IVPB ASDIR PRN PRN Reason: Phosphate 1.0-1.8 Potassium Phosphate 12 mmol/ (Sodium Chloride) 254 mls @ 63.5 mls/hr IV ASDIR PRN PRN Reason: Serum phosphate 0.5-0.9 Potassium Phosphate 15 mmol/ (Sodium Chloride) 255 mls @ 63.75 mls/hr IV ASDIR PRN PRN Reason: Serum Phos < 0.5 Dextrose/Water (D5w) 1,000 mls @ 0 mls/hr IV INF PRN PRN Reason: HYPOGLYCEMIA PROTOCOL Insulin Glargine 15 units/ (Miscellaneous Medication) 0.15 mls @ 0 mls/hr SC HS [facility] Last Admin: 09/23/18 22:14 Dose: 0.15 mls Magnesium Sulfate 2 gm/ Device 50 mls @ 100 mls/hr IVPB ASDIR [facility] Last Admin: 09/20/18 15:11 Dose: 50 mls Insulin Human Regular (Humulin R) 0 units SC .MODERATE SLIDING SC PRN; Protocol PRN Reason: MODERATE SLIDING SCALE Last Admin: 09/24/18 06:08 Dose: 6 unit Insulin Human Regular (Humulin R) 0 units SC .BEDTIME SLIDING SC PRN; Protocol PRN Reason: BEDTIME SLIDING SCALE Last Admin: 09/23/18 22:15 Dose: 4 units Lidocaine (Lidoderm 5% Patch) 1 patch TD DAILY [facility] Last Admin: 09/24/18 09:09 Dose: Not Given Lorazepam (Ativan) 1 mg SLOW IVP Q4H PRN PRN Reason: Anxiety Last Admin: 09/19/18 21:06 Dose: 1 mg Magnesium Oxide (Magnesium Oxide) 400 mg PO BIDPRN PRN PRN Reason: FOR SERUM MAG 1.4 - 2.0 Last Admin: 09/19/18 20:59 Dose: 400 mg Magnesium Oxide (Magnesium Oxide) 800 mg PO PRN PRN PRN Reason: FOR SERUM MAG < 1.4 Miscellaneous Medication (Lidocaine Patch Removal) 1 each TOP 2100 [facility] Last Admin: 09/23/18 20:39 Dose: Not Given Miscellaneous Medication (Phos-Nak) 1 pkt PO TIDPRN PRN PRN Reason: FOR PHOS LEVEL 1.0 - 1.8 Miscellaneous Medication (Phos-Nak) 2 pkt PO TIDPRN PRN PRN Reason: FOR PHOS LEVEL 0.5 - 1.0 Morphine Sulfate (Morphine) 2 mg IV Q4H PRN PRN Reason: Severe Pain (7-10) Last Admin: 09/24/18 13:24 Dose: 2 mg Ccu Electrolyte (Replacement Protocol) 0 each FS PRN PRN PRN Reason: FOR ELECTROLYTE REPLACEMENT Ondansetron HCl (Zofran Odt) 4 mg PO Q6H PRN PRN Reason: Nausea/Vomiting Ondansetron HCl (Zofran) 4 mg IVP Q6H PRN PRN Reason: Nausea/Vomiting Last Admin: 09/14/18 11:39 Dose: 4 mg Tagrisso 80 Mg 1 each PO DAILY [facility] Last Admin: 09/24/18 09:09 Dose: Not Given Promethazine HCl (Phenergan) 25 mg SLOW IVP Q6H PRN PRN Reason: Nausea/Vomiting Last Admin: 09/20/18 06:34 Dose: 25 mg Senna/Docusate Sodium (Senokot S) 2 tab PO BIDPRN PRN PRN Reason: Constipation Sodium Chloride (Flush - Normal Saline) 10 ml IVF Q12HR [facility] Last Admin: 09/24/18 09:09 Dose: 10 ml Sodium Chloride (Flush - Normal Saline) 10 ml IVF PRN PRN PRN Reason: Saline Flush Last Admin: 09/20/18 15:12 Dose: 10 ml Tramadol HCl (Ultram) 25 mg PO Q8H PRN PRN Reason: Moderate Pain (4-6) Last Admin: 09/24/18 06:14 Dose: 25 mg Zolpidem Tartrate (Ambien) 5 mg PO HSPRN PRN PRN Reason: Insomnia Last Admin: 09/17/18 00:18 Dose: 5 mg
--- NOTE | 2018-09-24 15:36 | ULT ---
FOCUS ULTRASOUND OF THE RIGHT HEMITHORAX: Date: 09-24-18 History: Right pleural effusion. Area was marked for Dr. Michel to perform a thoracentesis. FINDINGS: Two images demonstrate a large right pleural effusion. IMPRESSION: Right pleural effusion marked for Dr. Michel to perform thoracentesis. POS: YARIEL
[2018-09-24 16:04] LABS: Body Fluid Source PLEURAL FLUID; Clarity Cloudy/Turbid (Clear); Tube # EDTA
[2018-09-24 16:10] LABS: Pleural Fluid, Protein 3.6 g/dL
[2018-09-24 16:26] LABS: RBC Count-Automated 20000 /cumm; WBC/NonHematic-Auto 9344 /cumm
--- NOTE | 2018-09-24 16:29 | RAD ---
SINGLE VIEW OF THE CHEST: 09/24/18 COMPARISON: 09/22/18, 09/24/18 at 4:42 a.m. HISTORY: Status post thoracentesis. FINDINGS: Single view of the chest shows an enlarged but stable cardiomediastinal silhouette. A pigtail cathete r projects over the left chest. No pneumothorax is seen. There is persistent opacity projecting over the left thorax consistent with a pleural effusion and adjacent atelectasis. The previously seen smal l left pleural effusion has improved and is not visible on this examination. There may be an infiltra te in the right lower lobe. IMPRESSION: 1. Status post pigtail catheter placement in the left thorax without evidence of pneumothorax. 2. Persistent left pleural effusion with adjacent atelectasis. POS: TPC
[2018-09-24 16:39] LABS: BF Segmented Neutrophils 4 %; Cell Count Non Hematic 93 %; Lymphocytes 3 %
--- NOTE | 2018-09-24 16:43 | CT ---
CT GUIDED PERCUTANEOUS LEFT SIDED THORACOSTOMY TUBE PLACEMENT AND DRAINAGE OF LARGE PLEURAL FLUID COL LECTION. 09/24/18 HISTORY: Large left sided pleural fluid collection which recurs after thoracentesis. Placement of drainage cat heter was requested. TECHNIQUE: The procedure including the risks and complications were explained to the patient and informed consen t was obtained. The patient was placed on the CT scan table in the supine position. Limited noncont rasted CT scan was obtained through the chest with grid localizer in place overlying the left chest. The area was marked and then meticulously prepped and draped in the usual sterile fashion. Skin and s ubcutaneous tissues were infiltrated with buffered 1% lidocaine for local anesthesia. A 21 gauge needle was advanced into the collection with return of fluid. A 0.018 guidewire was placed and position was confirmed with three axial noncontrasted CT images. The needle was exchanged over the guidewire for a 5 [place] introducer sheath, and the 0.018 inch guid ewire was removed and 0.035 inch Amplatz guidewire was placed and positioning was confirmed with thre e axial noncontrasted CT images. The introducer sheath was exchanged over the guidewire for an 8 [place] tissue dilator followed by john cement of an 8 [place] loop all purpose drainage catheter. The catheter was positioned in the ple ural fluid collection. Approximately 80 mL of serosanguineous fluid was aspirated. The catheter was s utured in place utilizing 2-0 Ethilon suture material. The catheter was capped as requested. Patient tolerated the procedure well without immediate complication. FINDINGS: Large left pleural fluid collection with consolidation in the left upper lobe with pleural thickenin g involving the majority of the left upper lobe. There is a moderately large right pleural effusion present. An 8 [place] loop all purpose drainage catheter serving as a left sided thoracostomy tub e was successfully placed within the large left pleural fluid collection. Approximately 80 mL of ser osanguineous fluid was aspirated. The tube was capped as requested. Above findings were discussed with Dr. Michel at this time. Dr. Michel reported that right sided thoracoc entesis will be performed and as result, the large left pleural fluid collection was not drained in i ts entirety at this time. Patient was transported to ultrasound for marking of the right posterior ch est prior to thoracentesis on the right. IMPRESSION: 1. Large left loculated pleural fluid collection. An 8 [place] loop all purpose drainage cat heter serving as a left sided thoracostomy tube was placed. 2. Moderately large right pleural effusion. 3. Pleural thickening involving the left hemithorax as well as interstitial thickening in the vi sualized aerated left upper lung. Findings may be related to patient's known neoplastic process. POS: YARIEL
[2018-09-24 17:13] LABS: BF Color Red; Body Fluid Source PLEURAL FLUID; Clarity Cloudy/Turbid (Clear); RBC Count-Automated 255000 /cumm; Tube # EDTA; WBC/NonHematic-Auto 1872 /cumm
[2018-09-24 19:17] LABS: BF Segmented Neutrophils 26 %; Cell Count Non Hematic 64 %; Eosinophils 2 %; Lymphocytes 8 %
[2018-09-24] MEDS: Insulin Glargine 15 UNITS in Pre-Filled Syringe SC SCH (21:07)
[2018-09-24] MEDS: Lidocaine Patch Removal 1 EACH TOP SCH (21:08)
[2018-09-25] MEDS: Calcium Carbonate 500 MG ChewTAB PO PRN (03:40)
[2018-09-25] MEDS ORDERED: Clotrimazole 2% 3 Day Vag Cr 22.2 GM TUBE VAG SCH (03:45)
[2018-09-25] MEDS: Clindamycin 150 MG CAP PO SCH ×3 (05:39→22:09)
[2018-09-25] MEDS: Insulin Regular 300 UNITS/3 ML VIAL SC PRN ×2 (05:42→17:07)
[2018-09-25 06:31] LABS: Anion Gap 15 mmol/L (10-20); BUN (Urea Nitrogen) 36 mg/dL (9.8-20.1); Calc. Creatinine Clearance 64 mL/min (70-130); Calcium 8.5 mg/dL (7.8-10.44); Carbon Dioxide 26 mmol/L (22-29); Chloride 97 mmol/L (98-107); Estimated GFR-MDRD 44; Glucose 231 mg/dL (70-105); Magnesium 1.9 mg/dL (1.6-2.6); Potassium 4.6 mmol/L (3.5-5.1); Sodium 133 mmol/L (136-145)
[2018-09-25] MEDS: Heparin 5,000 UNITS/ML VIAL SC SCH ×2 (08:37→22:09)
[2018-09-25] MEDS: Fluconazole 100 MG TAB PO SCH (08:38)
[2018-09-25] MEDS: Cefdinir 300 MG CAP PO SCH (08:38)
[2018-09-25] MEDS: Famotidine 20 MG TAB PO SCH ×2 (08:38→22:09)
[2018-09-25] MEDS: Gabapentin 300 MG CAP PO SCH ×3 (08:38→22:09)
[2018-09-25] MEDS: Famotidine/PF 20 mg/2ml Vial SLOW IVP SCH ×2 (08:39→22:10)
[2018-09-25] MEDS: TAGRISSO 80 MG PO SCH (08:39)
[2018-09-25] MEDS: Lidocaine 5% Patch TD SCH (08:39)
[2018-09-25] MEDS: Carvedilol 6.25 MG TAB PO SCH ×2 (08:41→16:36)
[2018-09-25] MEDS: traMADol HCl 50 MG TAB PO PRN (08:41)
--- NOTE | 2018-09-25 11:06 | PRG ---
DATE OF SERVICE: 09/25/2018 SUBJECTIVE: This morning, she is looking better, and less short of breath. OBJECTIVE: VITAL SIGNS: Saturations 100% on 2 L, temperature 98, blood pressure is 118/72, respiratory rate 18. CHEST: Decreased breath sounds bilateral with minimal crackles. CARDIAC: Normal S1 and S2. No gallops. ABDOMEN: Soft. LABORATORY DATA: Creatinine 1.48. IMPRESSION: Bilateral metastatic pleural effusion, [id number] carcinoma, drainage of large right volume of pleural effusion with improvement in her pulmonary status. PLAN: Pulmonary saunders, continue supportive care. She can be transferred out of the MICU. Continue neb treatments and low-dose steroids. Job ID: [id number]
--- NOTE | 2018-09-25 14:35 | PDOC.PN ---
- Subjective Encounter Start Date: 09/25/18 Encounter Start Time: 14:30 Subjective: feels a little better today as fluid removed from lungs -: able to eat and drink and has no new Qs for me today -: declines to discuss prognosis to anyone again - Objective Resuscitation Status - Order Detail: 09/13/18 22:04 Resuscitation Status Routine Resuscitation Status: FULL: Full Resuscitation MAR Reviewed: Yes Vital Signs & Weight: Vital Signs (12 hours) Temp Pulse Resp BP BP BP Pulse Ox 09/25/18 10:51 98 18 88/59 L 100 09/25/18 08:41 118/72 09/25/18 08:00 100 09/25/18 07:46 100 09/25/18 07:16 98.0 F 101 H 23 H 97/69 99 09/25/18 04:00 97.6 F 99 18 101/81 97 Weight Admit Weight 196 lb Weight 208 lb I&O: 09/24/18 09/25/18 09/26/18 06:59 06:59 06:59 Intake Total 910 1310 Output Total 1050 2680 Balance -140 -1370 Result Diagrams: 09/23/18 04:34 09/25/18 05:55 Additional Labs: Accuchecks 09/25/18 09/24/18 09/24/18 10:34 19:56 16:35 POC Glucose 100 444 H 273 H Microbiology 09/13/18 21:05 Nasal swab Influenza Types A,B Direct EIA - Final 09/13/18 19:55 Venous blood - Right Arm Blood Culture - Final NO GROWTH IN 5 DAYS 09/13/18 19:50 Venous blood - Right Arm Blood Culture - Final NO GROWTH IN 5 DAYS 09/13/18 19:26 Urine clean catch Urine Culture - Final 09/17/18 07:14 Pleural fluid Body Fluid Culture - Final 09/17/18 07:14 Pleural fluid Acid Fast Bacilli Smear - Final 09/14/18 01:07 Lung - Pending Bacterial Culture - Final Serratia marcescens 09/24/18 15:30 Pleural fluid Body Fluid Culture - Preliminary 09/24/18 14:00 Pleural fluid Body Fluid Culture - Preliminary Laboratory Tests 09/21/18 09/22/18 09/23/18 06:41 05:39 04:34 Potassium 4.6 5.4 H Creatinine 1.02 1.11 H 1.31 H 09/24/18 09/25/18 05:57 05:55 Potassium 6.2 H 4.6 Creatinine 1.64 H 1.48 H Phys Exam - Physical Examination breathing easier today HEENT: PERRLA, moist MMs, sclera anicteric, oral pharynx no lesions Neck: no nodes, no JVD, supple, full ROM diffuse rales ,reduced at bases Cardiovascular: RRR, no significant murmur Gastrointestinal: soft, non-tender, no distention, positive bowel sounds Musculoskeletal: no edema, pulses present Neurological: non-focal, normal sensation, moves all 4 limbs Dx/Plan (1) Acute respiratory failure with hypoxia Code(s): J96.01 - ACUTE RESPIRATORY FAILURE WITH HYPOXIA Status: Acute Comment: Pericardial and pleural effusion (2) Sepsis Code(s): A41.9 - SEPSIS, UNSPECIFIED ORGANISM Status: Acute Comment: Serratia in Pleural fluid which is malignant (3) Systolic CHF, acute on chronic Code(s): I50.23 - ACUTE ON CHRONIC SYSTOLIC (CONGESTIVE) HEART FAILURE Status : Acute Comment: Moderate apical pericardial effusion on echo. Coreg added per Dr. Stock. Torsemide low dose scheduled. Appreciate cardiology care. (4) Pericardial effusion Code(s): I31.3 - PERICARDIAL EFFUSION (NONINFLAMMATORY) Status: Acute (5) Malignant pleural effusion Code(s): J91.0 - MALIGNANT PLEURAL EFFUSION Status: Acute Comment: Oral antibiotics on board, Serratia present in fluid, sensitive to third generation cephalosporin (omnicef and clinda presently). Appreciate pulmonary care.S/P PleurX placement and subsequent removal (6) Adenocarcinoma, lung Code(s): C34.90 - MALIGNANT NEOPLASM OF UNSP PART OF UNSP BRONCHUS OR LUNG Status: Chronic Qualifiers: Laterality: left Qualified Code(s): C34.92 - Malignant neoplasm of unspecified part of left bronchus or lung Comment: Poor prognosis (7) Diabetes mellitus Code(s): E11.9 - TYPE 2 DIABETES MELLITUS WITHOUT COMPLICATIONS Status: Chronic Qualifiers: Diabetes mellitus type: type 2 Diabetes mellitus assisted insulin use: without assisted use Diabetes mellitus complication status: with unspecified complications Qualified Code(s): E11.8 - Type 2 diabetes mellitus with unspecified complications Comment: Hyperglycemia present. Diabetes management not a priority at this time. Appetite and intake variable. No changes made to regimen today. (8) HTN (hypertension) Code(s): I10 - ESSENTIAL (PRIMARY) HYPERTENSION Status: Chronic Qualifiers: Hypertension type: essential hypertension Qualified Code(s): I10 - Essential (primary) hypertension Comment: controlled (9) Hypothyroidism Code(s): E03.9 - HYPOTHYROIDISM, UNSPECIFIED Status: Chronic Qualifiers: Hypothyroidism type: unspecified Qualified Code(s): E03.9 - Hypothyroidism , unspecified Comment: Yoandy thyroid stopped due to Iatrogenic Hyperthyroidism (10) Hyperkalemia Code(s): E87.5 - HYPERKALEMIA Status: Acute - Plan plan discussed w/ family, respiratory therapy, incentive spirometry, DVT proph w /SCDs s/p Left chest pigtail cathter & large volume thoracentesis left side -: will start DC planning w OP follow up -: pt and family do not want to dicsuss prognosis but just want her to be -: comfortable.HD stable for now -: renal Fx improving. monitor * . Review of Systems - Review of Systems Constitutional: weakness, malaise Respiratory: Shortness of Breath, SOB with Excertion, Wheezing Cardiovascular: negative: chest pain, palpitations, orthopnea, paroxysmal nocturnal dyspnea, edema, light headedness, other Gastrointestinal: negative: Nausea, Vomiting, Abdominal Pain, Diarrhea, Constipation, Melena, Hematochezia, Other Genitourinary: negative: Dysuria, Frequency, Incontinence, Hematuria, Retention , Other - Medications/Allergies Allergies/Adverse Reactions: Allergies Allergy/AdvReac Type Severity Reaction Status Date / Time No Known Allergies Allergy Verified 07/29/18 01:32 Medications: Current Medications Acetaminophen (Tylenol) 650 mg PO Q4H PRN PRN Reason: Headache/Fever/Mild Pain (1-3) Acetaminophen/Codeine Phosphate (Tylenol #3) 1 tab PO Q8H PRN PRN Reason: Moderate Pain (4-6) Albuterol/Ipratropium (Duoneb) 3 ml NEB Q6H PRN PRN Reason: .SHORTNESS OF BREATH Albuterol/Ipratropium (Duoneb) 3 ml NEB [id number] [facility] Last Admin: 09/25/18 14:25 Dose: Not Given Alprazolam (Xanax) 0.25 mg PO TID PRN PRN Reason: Anxiety Last Admin: 09/24/18 22:11 Dose: 0.25 mg Bisacodyl (Dulcolax) 10 mg PO DAILYPRN PRN PRN Reason: Constipation Calcium Carbonate (Tums) 1,000 mg PO Q4H PRN PRN Reason: Heartburn or Indigestion Last Admin: 09/25/18 03:40 Dose: 1,000 mg Carvedilol (Coreg) 6.25 mg PO BID-[facility] Last Admin: 09/25/18 08:41 Dose: 6.25 mg Cefdinir (Omnicef) 600 mg PO DAILY [facility] Stop: 10/12/18 09:01 Last Admin: 09/25/18 08:38 Dose: 600 mg Clindamycin HCl (Cleocin) 300 mg PO Q8HR [facility] Last Admin: 09/25/18 13:00 Dose: 300 mg Clotrimazole (Clotrimazole 2% 3 Day Vag Cr) 0 gm VAG HS [facility] Stop: 09/26/18 21:01 Cyclobenzaprine HCl (Flexeril) 10 mg PO TIDPRN PRN PRN Reason: MUSCLE SPASM Last Admin: 09/22/18 05:53 Dose: 10 mg Dextrose/Water (Dextrose 50%) 25 gm IVP PRN PRN PRN Reason: HYPOGLYCEMIA PROTOCOL Famotidine (Pepcid) 20 mg PO BID [facility] Last Admin: 09/25/18 08:38 Dose: 20 mg Famotidine (Pepcid) 20 mg SLOW IVP BID [facility] Last Admin: 09/25/18 08:39 Dose: Not Given Fluconazole (Diflucan) 150 mg PO DAILY [facility] Stop: 09/27/18 09:01 Last Admin: 09/25/18 08:38 Dose: 150 mg Gabapentin (Neurontin) 300 mg PO TID [facility] Last Admin: 09/25/18 08:38 Dose: 300 mg Glucagon (Glucagon) 1 mg IM PRN PRN PRN Reason: HYPOGLYCEMIA PROTOCOL Guaifenesin/Dextromethorphan (Robitussin Dm) 10 ml PO Q4H PRN PRN Reason: Cough Last Admin: 09/21/18 21:43 Dose: 10 ml Heparin Sodium (Porcine) (Heparin) 5,000 units SC BID [facility] Last Admin: 09/25/18 08:37 Dose: 5,000 units Sodium Chloride (Normal Saline 0.9%) 1,000 mls @ 1,000 mls/hr IV .Q1H PRN; Protocol PRN Reason: STEP 1: DKA PROTOCOL Potassium Chloride/Sodium Chloride (Ns 0.9% W/ 20 Meq Kcl) 1,000 ml in 1,000 mls @ 500 mls/hr IV .Q2H PRN; Protocol PRN Reason: STEP 2: DKA PROTOCOL Sodium Chloride (Normal Saline 0.9%) 1,000 mls @ 500 mls/hr IV INF PRN; Protocol PRN Reason: STEP 2: DKA PROTOCOL Magnesium Sulfate 1 gm/ Sodium (Chloride) 102 mls @ 102 mls/hr IV PRN PRN PRN Reason: MAG LEVEL 1.4 - 2.0 Last Admin: 09/23/18 10:56 Dose: 102 mls Potassium Phosphate 9 mmol/ (Sodium Chloride) 103 mls @ 25.75 mls/hr IVPB ASDIR PRN PRN Reason: Phosphate 1.0-1.8 Potassium Phosphate 12 mmol/ (Sodium Chloride) 254 mls @ 63.5 mls/hr IV ASDIR PRN PRN Reason: Serum phosphate 0.5-0.9 Potassium Phosphate 15 mmol/ (Sodium Chloride) 255 mls @ 63.75 mls/hr IV ASDIR PRN PRN Reason: Serum Phos < 0.5 Dextrose/Water (D5w) 1,000 mls @ 0 mls/hr IV INF PRN PRN Reason: HYPOGLYCEMIA PROTOCOL Insulin Glargine 15 units/ (Miscellaneous Medication) 0.15 mls @ 0 mls/hr SC HS [facility] Last Admin: 09/24/18 21:07 Dose: 0.15 mls Magnesium Sulfate 2 gm/ Device 50 mls @ 100 mls/hr IVPB ASDIR [facility] Last Admin: 09/20/18 15:11 Dose: 50 mls Insulin Human Regular (Humulin R) 0 units SC .MODERATE SLIDING SC PRN; Protocol PRN Reason: MODERATE SLIDING SCALE Last Admin: 09/25/18 05:42 Dose: 6 unit Insulin Human Regular (Humulin R) 0 units SC .BEDTIME SLIDING SC PRN; Protocol PRN Reason: BEDTIME SLIDING SCALE Last Admin: 09/24/18 21:07 Dose: 5 units Lidocaine (Lidoderm 5% Patch) 1 patch TD DAILY [facility] Last Admin: 09/25/18 08:39 Dose: Not Given Lorazepam (Ativan) 1 mg SLOW IVP Q4H PRN PRN Reason: Anxiety Last Admin: 09/19/18 21:06 Dose: 1 mg Magnesium Oxide (Magnesium Oxide) 400 mg PO BIDPRN PRN PRN Reason: FOR SERUM MAG 1.4 - 2.0 Last Admin: 09/19/18 20:59 Dose: 400 mg Magnesium Oxide (Magnesium Oxide) 800 mg PO PRN PRN PRN Reason: FOR SERUM MAG < 1.4 Miscellaneous Medication (Lidocaine Patch Removal) 1 each TOP 2100 [facility] Last Admin: 09/24/18 21:08 Dose: Not Given Miscellaneous Medication (Phos-Nak) 1 pkt PO TIDPRN PRN PRN Reason: FOR PHOS LEVEL 1.0 - 1.8 Miscellaneous Medication (Phos-Nak) 2 pkt PO TIDPRN PRN PRN Reason: FOR PHOS LEVEL 0.5 - 1.0 Morphine Sulfate (Morphine) 2 mg IV Q4H PRN PRN Reason: Severe Pain (7-10) Last Admin: 09/24/18 13:24 Dose: 2 mg Ccu Electrolyte (Replacement Protocol) 0 each FS PRN PRN PRN Reason: FOR ELECTROLYTE REPLACEMENT Ondansetron HCl (Zofran Odt) 4 mg PO Q6H PRN PRN Reason: Nausea/Vomiting Ondansetron HCl (Zofran) 4 mg IVP Q6H PRN PRN Reason: Nausea/Vomiting Last Admin: 09/14/18 11:39 Dose: 4 mg Tagrisso 80 Mg 1 each PO DAILY [facility] Last Admin: 09/25/18 08:39 Dose: Not Given Promethazine HCl (Phenergan) 25 mg SLOW IVP Q6H PRN PRN Reason: Nausea/Vomiting Last Admin: 09/20/18 06:34 Dose: 25 mg Senna/Docusate Sodium (Senokot S) 2 tab PO BIDPRN PRN PRN Reason: Constipation Sodium Chloride (Flush - Normal Saline) 10 ml IVF Q12HR [facility] Last Admin: 09/25/18 08:39 Dose: 10 ml Sodium Chloride (Flush - Normal Saline) 10 ml IVF PRN PRN PRN Reason: Saline Flush Last Admin: 09/20/18 15:12 Dose: 10 ml Tramadol HCl (Ultram) 25 mg PO Q8H PRN PRN Reason: Moderate Pain (4-6) Last Admin: 09/25/18 08:41 Dose: 25 mg Zolpidem Tartrate (Ambien) 5 mg PO HSPRN PRN PRN Reason: Insomnia Last Admin: 09/17/18 00:18 Dose: 5 mg
--- NOTE | 2018-09-25 19:11 | EKG ---
Test Reason : SHORTNESS OF BREATH Blood Pressure : / mmHG Vent. Rate : 125 BPM Atrial Rate : 125 BPM P-R Int : 114 ms QRS Dur : 074 ms QT Int : 336 ms P-R-T Axes : 057 057 075 degrees QTc Int : 484 ms Sinus tachycardia Moderate voltage criteria for LVH, may be normal variant Nonspecific T wave abnormality Abnormal ECG Confirmed by DARRYL PARKS ([id number]), makeup editor MARGIE HERR ([id number]) on 09/25/2018 7:10:15 PM Referred By: Confirmed By:DARRYL PARKS
[2018-09-25] MEDS: Clotrimazole 2% 3 Day Vag Cr 22.2 GM TUBE VAG SCH (22:10)
[2018-09-25] MEDS: Insulin Glargine 15 UNITS in Pre-Filled Syringe SC SCH (22:11)
[2018-09-25] MEDS: Lidocaine Patch Removal 1 EACH TOP SCH (22:12)
[2018-09-26] MEDS: Calcium Carbonate 500 MG ChewTAB PO PRN ×2 (00:06→06:01)
[2018-09-26] MEDS: traMADol HCl 50 MG TAB PO PRN ×3 (00:06→22:48)
[2018-09-26 05:52] LABS: Anion Gap 17 mmol/L (10-20); BUN (Urea Nitrogen) 25 mg/dL (9.8-20.1); Calc. Creatinine Clearance 92 mL/min (70-130); Calcium 8.5 mg/dL (7.8-10.44); Carbon Dioxide 24 mmol/L (22-29); Chloride 101 mmol/L (98-107); Estimated GFR-MDRD 67; Glucose 134 mg/dL (70-105); Magnesium 1.6 mg/dL (1.6-2.6); Potassium 4.1 mmol/L (3.5-5.1); Sodium 138 mmol/L (136-145)
[2018-09-26] MEDS: Clindamycin 150 MG CAP PO SCH ×3 (05:59→21:55)
[2018-09-26] MEDS: Acetaminophen 325 MG TAB PO PRN (06:08)
[2018-09-26] MEDS: Fluconazole 100 MG TAB PO SCH (10:33)
[2018-09-26] MEDS: Cefdinir 300 MG CAP PO SCH (10:44)
[2018-09-26] MEDS: Famotidine 20 MG TAB PO SCH ×2 (10:44→21:55)
[2018-09-26] MEDS: Gabapentin 300 MG CAP PO SCH ×3 (10:44→21:55)
[2018-09-26] MEDS: Heparin 5,000 UNITS/ML VIAL SC SCH ×2 (10:44→21:54)
[2018-09-26] MEDS: Carvedilol 6.25 MG TAB PO SCH ×2 (10:46→18:19)
[2018-09-26] MEDS: Famotidine/PF 20 mg/2ml Vial SLOW IVP SCH ×2 (10:47→21:52)
[2018-09-26] MEDS: TAGRISSO 80 MG PO SCH (10:48)
[2018-09-26] MEDS: Lidocaine 5% Patch TD SCH (10:48)
--- NOTE | 2018-09-26 12:27 | PDOC.PN ---
- Subjective Encounter Start Date: 09/26/18 Encounter Start Time: 12:25 Subjective: feels much better today and breathing a little easier -: still very SOB w minimal exertion. -: wants to keep Warren in - Objective Resuscitation Status - Order Detail: 09/13/18 22:04 Resuscitation Status Routine Resuscitation Status: FULL: Full Resuscitation MAR Reviewed: Yes Vital Signs & Weight: Vital Signs (12 hours) Temp Pulse Resp BP BP BP Pulse Ox 09/26/18 12:00 98.5 F 104 H 16 100 09/26/18 10:46 110/88 09/26/18 08:00 98.4 F 103 H 18 98/65 97 09/26/18 04:00 97.4 F L 103 H 18 104/60 100 Weight Admit Weight 196 lb Weight 208 lb I&O: 09/25/18 09/26/18 09/27/18 06:59 06:59 06:59 Intake Total 1310 650 100 Output Total 2680 1200 Balance -1370 -550 100 Result Diagrams: 09/23/18 04:34 09/26/18 04:54 Additional Labs: Accuchecks 09/26/18 09/26/18 09/25/18 10:42 06:11 22:00 POC Glucose 215 H 153 H 214 H 09/25/18 16:30 POC Glucose 252 H Microbiology 09/13/18 21:05 Nasal swab Influenza Types A,B Direct EIA - Final 09/13/18 19:55 Venous blood - Right Arm Blood Culture - Final NO GROWTH IN 5 DAYS 09/13/18 19:50 Venous blood - Right Arm Blood Culture - Final NO GROWTH IN 5 DAYS 09/13/18 19:26 Urine clean catch Urine Culture - Final 09/24/18 15:30 Pleural fluid Acid Fast Bacilli Smear - Final 09/17/18 07:14 Pleural fluid Body Fluid Culture - Final 09/17/18 07:14 Pleural fluid Acid Fast Bacilli Smear - Final 09/14/18 01:07 Lung - Pending Bacterial Culture - Final Serratia marcescens 09/24/18 15:30 Pleural fluid Body Fluid Culture - Preliminary 09/24/18 14:00 Pleural fluid Body Fluid Culture - Preliminary Laboratory Tests 09/21/18 09/22/18 09/23/18 06:41 05:39 04:34 Creatinine 1.02 1.11 H 1.31 H 09/24/18 09/25/18 09/26/18 05:57 05:55 04:54 Creatinine 1.64 H 1.48 H 1.03 Phys Exam - Physical Examination Constitutional: NAD winded HEENT: PERRLA, moist MMs, sclera anicteric, oral pharynx no lesions Neck: no nodes, no JVD, supple, full ROM Respiratory: no wheezing, no rales, no rhonchi reduced at bases.Left <right Cardiovascular: RRR, no significant murmur Gastrointestinal: soft, non-tender, no distention, positive bowel sounds Musculoskeletal: no edema, pulses present Neurological: non-focal, normal sensation, moves all 4 limbs Dx/Plan (1) Acute respiratory failure with hypoxia Code(s): J96.01 - ACUTE RESPIRATORY FAILURE WITH HYPOXIA Status: Acute Comment: Pericardial and pleural effusion .S/P Pigtail cathter insertion Left Pleural effusion and R thoracentesis of large volume 09/24/18 (2) Sepsis Code(s): A41.9 - SEPSIS, UNSPECIFIED ORGANISM Status: Acute Comment: Serratia in Pleural fluid which is malignant (3) Systolic CHF, acute on chronic Code(s): I50.23 - ACUTE ON CHRONIC SYSTOLIC (CONGESTIVE) HEART FAILURE Status : Acute Comment: Moderate apical pericardial effusion on echo. Coreg added per Dr. Stock. Torsemide low dose scheduled. Appreciate cardiology care. (4) Pericardial effusion Code(s): I31.3 - PERICARDIAL EFFUSION (NONINFLAMMATORY) Status: Acute (5) Malignant pleural effusion Code(s): J91.0 - MALIGNANT PLEURAL EFFUSION Status: Acute Comment: Oral antibiotics on board, Serratia present in fluid, sensitive to third generation cephalosporin (omnicef and clinda presently). Appreciate pulmonary care.S/P PleurX placement and subsequent removal.see#1 (6) Adenocarcinoma, lung Code(s): C34.90 - MALIGNANT NEOPLASM OF UNSP PART OF UNSP BRONCHUS OR LUNG Status: Chronic Qualifiers: Laterality: left Qualified Code(s): C34.92 - Malignant neoplasm of unspecified part of left bronchus or lung Comment: Poor prognosis (7) Diabetes mellitus Code(s): E11.9 - TYPE 2 DIABETES MELLITUS WITHOUT COMPLICATIONS Status: Chronic Qualifiers: Diabetes mellitus type: type 2 Diabetes mellitus alf insulin use: without watermelon inspector use Diabetes mellitus complication status: with unspecified complications Qualified Code(s): E11.8 - Type 2 diabetes mellitus with unspecified complications Comment: Hyperglycemia present. Diabetes management not a priority at this time. Appetite and intake variable. No changes made to regimen today. (8) HTN (hypertension) Code(s): I10 - ESSENTIAL (PRIMARY) HYPERTENSION Status: Chronic Qualifiers: Hypertension type: essential hypertension Qualified Code(s): I10 - Essential (primary) hypertension Comment: controlled (9) Hypothyroidism Code(s): E03.9 - HYPOTHYROIDISM, UNSPECIFIED Status: Chronic Qualifiers: Hypothyroidism type: unspecified Qualified Code(s): E03.9 - Hypothyroidism , unspecified Comment: Yoandy thyroid stopped due to Iatrogenic Hyperthyroidism (10) Hyperkalemia Code(s): E87.5 - HYPERKALEMIA Status: Acute - Plan plan discussed w/ family, warren catheter, continue antibiotics, PT/OT, respiratory therapy, incentive spirometry, out of bed/ambulate, DVT proph w/SCDs cont supportive care -: Pt can be Dced home w Pigtail and self draiange of pleural effusion -: Requesting martina to MD [place].declined once on 09/23/18 -: will try again tomorrow .follow PCCM & CTS recs -: cont diuresis.poor prognosis But will let decide & discuss w fam * . Review of Systems - Review of Systems Constitutional: weakness, malaise. negative: fever, chills, sweats, other Respiratory: Shortness of Breath, SOB with Excertion. negative: Cough, Dry, Hemoptysis, Pleuritic Pain, Sputum, Wheezing Cardiovascular: negative: chest pain, palpitations, orthopnea, paroxysmal nocturnal dyspnea, edema, light headedness, other Gastrointestinal: negative: Nausea, Vomiting, Abdominal Pain, Diarrhea, Constipation, Melena, Hematochezia, Other Genitourinary: negative: Dysuria, Frequency, Incontinence, Hematuria, Retention , Other Musculoskeletal: negative: Neck Pain, Shoulder Pain, Arm Pain, Back Pain, Hand Pain, Leg Pain, Foot Pain, Other Neurological: negative: Weakness, Numbness, Incoordination, Change in Speech, Confusion, Seizures, Other - Medications/Allergies Allergies/Adverse Reactions: Allergies Allergy/AdvReac Type Severity Reaction Status Date / Time No Known Allergies Allergy Verified 07/29/18 01:32 Medications: Current Medications Acetaminophen (Tylenol) 650 mg PO Q4H PRN PRN Reason: Headache/Fever/Mild Pain (1-3) Last Admin: 09/26/18 06:08 Dose: 650 mg Acetaminophen/Codeine Phosphate (Tylenol #3) 1 tab PO Q8H PRN PRN Reason: Moderate Pain (4-6) Albuterol/Ipratropium (Duoneb) 3 ml NEB Q6H PRN PRN Reason: .SHORTNESS OF BREATH Albuterol/Ipratropium (Duoneb) 3 ml NEB [id number] [facility] Last Admin: 09/26/18 11:31 Dose: Not Given Alprazolam (Xanax) 0.25 mg PO TID PRN PRN Reason: Anxiety Last Admin: 09/24/18 22:11 Dose: 0.25 mg Bisacodyl (Dulcolax) 10 mg PO DAILYPRN PRN PRN Reason: Constipation Calcium Carbonate (Tums) 1,000 mg PO Q4H PRN PRN Reason: Heartburn or Indigestion Last Admin: 09/26/18 06:01 Dose: 1,000 mg Carvedilol (Coreg) 6.25 mg PO BID-[facility] Last Admin: 09/26/18 10:46 Dose: 6.25 mg Cefdinir (Omnicef) 600 mg PO DAILY [facility] Stop: 10/12/18 09:01 Last Admin: 09/26/18 10:44 Dose: 600 mg Clindamycin HCl (Cleocin) 300 mg PO Q8HR [facility] Last Admin: 09/26/18 05:59 Dose: 300 mg Clotrimazole (Clotrimazole 2% 3 Day Vag Cr) 0 gm VAG HS [facility] Stop: 09/26/18 21:01 Last Admin: 09/25/18 22:10 Dose: 1 appful Cyclobenzaprine HCl (Flexeril) 10 mg PO TIDPRN PRN PRN Reason: MUSCLE SPASM Last Admin: 09/22/18 05:53 Dose: 10 mg Dextrose/Water (Dextrose 50%) 25 gm IVP PRN PRN PRN Reason: HYPOGLYCEMIA PROTOCOL Famotidine (Pepcid) 20 mg PO BID [facility] Last Admin: 09/26/18 10:44 Dose: 20 mg Famotidine (Pepcid) 20 mg SLOW IVP BID [facility] Last Admin: 09/26/18 10:47 Dose: Not Given Fluconazole (Diflucan) 150 mg PO DAILY [facility] Stop: 09/27/18 09:01 Last Admin: 09/26/18 10:33 Dose: 150 mg Gabapentin (Neurontin) 300 mg PO TID [facility] Last Admin: 09/26/18 10:44 Dose: 300 mg Glucagon (Glucagon) 1 mg IM PRN PRN PRN Reason: HYPOGLYCEMIA PROTOCOL Guaifenesin/Dextromethorphan (Robitussin Dm) 10 ml PO Q4H PRN PRN Reason: Cough Last Admin: 09/21/18 21:43 Dose: 10 ml Heparin Sodium (Porcine) (Heparin) 5,000 units SC BID [facility] Last Admin: 09/26/18 10:44 Dose: 5,000 units Sodium Chloride (Normal Saline 0.9%) 1,000 mls @ 1,000 mls/hr IV .Q1H PRN; Protocol PRN Reason: STEP 1: DKA PROTOCOL Potassium Chloride/Sodium Chloride (Ns 0.9% W/ 20 Meq Kcl) 1,000 ml in 1,000 mls @ 500 mls/hr IV .Q2H PRN; Protocol PRN Reason: STEP 2: DKA PROTOCOL Sodium Chloride (Normal Saline 0.9%) 1,000 mls @ 500 mls/hr IV INF PRN; Protocol PRN Reason: STEP 2: DKA PROTOCOL Magnesium Sulfate 1 gm/ Sodium (Chloride) 102 mls @ 102 mls/hr IV PRN PRN PRN Reason: MAG LEVEL 1.4 - 2.0 Last Admin: 09/23/18 10:56 Dose: 102 mls Potassium Phosphate 9 mmol/ (Sodium Chloride) 103 mls @ 25.75 mls/hr IVPB ASDIR PRN PRN Reason: Phosphate 1.0-1.8 Potassium Phosphate 12 mmol/ (Sodium Chloride) 254 mls @ 63.5 mls/hr IV ASDIR PRN PRN Reason: Serum phosphate 0.5-0.9 Potassium Phosphate 15 mmol/ (Sodium Chloride) 255 mls @ 63.75 mls/hr IV ASDIR PRN PRN Reason: Serum Phos < 0.5 Dextrose/Water (D5w) 1,000 mls @ 0 mls/hr IV INF PRN PRN Reason: HYPOGLYCEMIA PROTOCOL Insulin Glargine 15 units/ (Miscellaneous Medication) 0.15 mls @ 0 mls/hr SC HS [facility] Last Admin: 09/25/18 22:11 Dose: 0.15 mls Magnesium Sulfate 2 gm/ Device 50 mls @ 100 mls/hr IVPB ASDIR [facility] Last Admin: 09/20/18 15:11 Dose: 50 mls Insulin Human Regular (Humulin R) 0 units SC .MODERATE SLIDING SC PRN; Protocol PRN Reason: MODERATE SLIDING SCALE Last Admin: 09/25/18 17:07 Dose: 6 unit Insulin Human Regular (Humulin R) 0 units SC .BEDTIME SLIDING SC PRN; Protocol PRN Reason: BEDTIME SLIDING SCALE Last Admin: 09/24/18 21:07 Dose: 5 units Lidocaine (Lidoderm 5% Patch) 1 patch TD DAILY [facility] Last Admin: 09/26/18 10:48 Dose: Not Given Magnesium Oxide (Magnesium Oxide) 400 mg PO BIDPRN PRN PRN Reason: FOR SERUM MAG 1.4 - 2.0 Last Admin: 09/19/18 20:59 Dose: 400 mg Magnesium Oxide (Magnesium Oxide) 800 mg PO PRN PRN PRN Reason: FOR SERUM MAG < 1.4 Miscellaneous Medication (Lidocaine Patch Removal) 1 each TOP 2100 [facility] Last Admin: 09/25/18 22:12 Dose: Not Given Miscellaneous Medication (Phos-Nak) 1 pkt PO TIDPRN PRN PRN Reason: FOR PHOS LEVEL 1.0 - 1.8 Miscellaneous Medication (Phos-Nak) 2 pkt PO TIDPRN PRN PRN Reason: FOR PHOS LEVEL 0.5 - 1.0 Morphine Sulfate (Morphine) 2 mg IV Q4H PRN PRN Reason: Severe Pain (7-10) Last Admin: 09/24/18 13:24 Dose: 2 mg Ccu Electrolyte (Replacement Protocol) 0 each FS PRN PRN PRN Reason: FOR ELECTROLYTE REPLACEMENT Ondansetron HCl (Zofran Odt) 4 mg PO Q6H PRN PRN Reason: Nausea/Vomiting Ondansetron HCl (Zofran) 4 mg IVP Q6H PRN PRN Reason: Nausea/Vomiting Last Admin: 09/14/18 11:39 Dose: 4 mg Tagrisso 80 Mg 1 each PO DAILY [facility] Last Admin: 09/26/18 10:48 Dose: Not Given Promethazine HCl (Phenergan) 25 mg SLOW IVP Q6H PRN PRN Reason: Nausea/Vomiting Last Admin: 09/20/18 06:34 Dose: 25 mg Senna/Docusate Sodium (Senokot S) 2 tab PO BIDPRN PRN PRN Reason: Constipation Sodium Chloride (Flush - Normal Saline) 10 ml IVF Q12HR [facility] Last Admin: 09/26/18 10:47 Dose: 10 ml Sodium Chloride (Flush - Normal Saline) 10 ml IVF PRN PRN PRN Reason: Saline Flush Last Admin: 09/20/18 15:12 Dose: 10 ml Tramadol HCl (Ultram) 25 mg PO Q8H PRN PRN Reason: Moderate Pain (4-6) Last Admin: 09/26/18 10:44 Dose: 25 mg Zolpidem Tartrate (Ambien) 5 mg PO HSPRN PRN PRN Reason: Insomnia Last Admin: 09/17/18 00:18 Dose: 5 mg
[2018-09-26] MEDS: Insulin Regular 300 UNITS/3 ML VIAL SC PRN ×2 (12:49→18:19)
--- NOTE | 2018-09-26 12:57 | PRG ---
DATE OF SERVICE: 09/26/2018 SUBJECTIVE: This morning, she is much better, less short of breath. OBJECTIVE: VITAL SIGNS: Saturations 100% on nasal O2 2 L, respirations 16, temperature 98, pulse 104, blood pressure 98/65. CHEST: Decreased breath sounds on the left side, right lung unremarkable. CARDIAC: Normal S1 and S2. No gallops. ABDOMEN: No masses. IMPRESSION: Recurrent pleural effusion, metastatic cancer, status post thoracentesis right side, status post small bore chest tube inserted in the left chest with loculated pleural effusion. PLAN: The patient is symptomatic, much improved. She is to follow up with her oncologist on outpatient basis. At this stage, nothing additional for pulmonary to offer. Job ID: [id number]
[2018-09-26] MEDS: Acetaminophen/Codeine 30-300mg Tablet PO PRN (16:00)
[2018-09-26] MEDS: Insulin Glargine 15 UNITS in Pre-Filled Syringe SC SCH (21:54)
[2018-09-26] MEDS: Lidocaine Patch Removal 1 EACH TOP SCH (21:56)
[2018-09-26] MEDS: Clotrimazole 2% 3 Day Vag Cr 22.2 GM TUBE VAG SCH (22:07)
[2018-09-27] MEDS: ALPRAZolam 0.25 MG TAB PO PRN (02:46)
[2018-09-27 05:46] LABS: Anion Gap 11 mmol/L (10-20); BUN (Urea Nitrogen) 15 mg/dL (9.8-20.1); Calc. Creatinine Clearance 110 mL/min (70-130); Calcium 8.2 mg/dL (7.8-10.44); Carbon Dioxide 29 mmol/L (22-29); Chloride 101 mmol/L (98-107); Estimated GFR-MDRD 83; Glucose 124 mg/dL (70-105); Magnesium 1.6 mg/dL (1.6-2.6); Potassium 4.2 mmol/L (3.5-5.1); Sodium 137 mmol/L (136-145)
[2018-09-27] MEDS: Acetaminophen/Codeine 30-300mg Tablet PO PRN (06:49)
[2018-09-27] MEDS: Clindamycin 150 MG CAP PO SCH ×2 (06:49→14:48)
--- NOTE | 2018-09-27 07:12 | OP ---
DATE OF PROCEDURE: 09/24/2018 PROCEDURE PERFORMED: Thoracentesis. INDICATION: Pleural effusion in the right side. DESCRIPTION OF PROCEDURE: After informed consent, the right posterior thorax was cleaned with chlorhexidine and 1% Xylocaine was infiltrated in the right 8th intercostal space in the posterior axillary line. Pleural cavity was entered in. After infiltrated with lidocaine all the way to the pleura, about 20 mL of turbid yellow fluid was removed. Thereafter, using an 8-Yoruba catheter, total about 1200 mL of slightly sanguinous to yellow fluid was removed without difficulty. Pleural effusion was sent for appropriate studies including cytology and culture. The patient otherwise tolerated the procedure well. Job ID: [id number]
[2018-09-27] MEDS: Heparin 5,000 UNITS/ML VIAL SC SCH ×2 (09:29→22:14)
[2018-09-27] MEDS: Gabapentin 300 MG CAP PO SCH ×3 (09:31→22:14)
[2018-09-27] MEDS: Fluconazole 100 MG TAB PO SCH (09:31)
[2018-09-27] MEDS: Carvedilol 6.25 MG TAB PO SCH ×2 (09:33→17:20)
[2018-09-27] MEDS: Cefdinir 300 MG CAP PO SCH (09:33)
[2018-09-27] MEDS: Famotidine 20 MG TAB PO SCH ×3 (09:34→22:24)
[2018-09-27] MEDS: Lidocaine 5% Patch TD SCH (09:35)
[2018-09-27] MEDS: TAGRISSO 80 MG PO SCH (09:35)
[2018-09-27] MEDS: Famotidine/PF 20 mg/2ml Vial SLOW IVP SCH ×2 (09:35→22:25)
[2018-09-27] MEDS: traMADol HCl 50 MG TAB PO PRN (09:38)
--- NOTE | 2018-09-27 12:50 | PDOC.PN ---
- Subjective Encounter Start Date: 09/27/18 Encounter Start Time: 12:47 Ms. Thomas was seen today in follow-up of Adenocarcinoma of the lung, with bilateral malignant pleural effusions. She had an episode of some dyspnea earlier,she relates to a coughing spell. She says she would like to transfer to [facility] for further treatment, as she says she has a lot to live for and believes they may offer her more advanced treatment than is available here. - Objective Resuscitation Status - Order Detail: 09/13/18 22:04 Resuscitation Status Routine Resuscitation Status: FULL: Full Resuscitation MAR Reviewed: Yes Vital Signs & Weight: Vital Signs (12 hours) Temp Pulse Resp BP BP Pulse Ox 09/27/18 12:00 97.6 F 96 20 100/72 100 09/27/18 11:22 110 H 20 09/27/18 09:33 105/76 09/27/18 08:30 104 H 105/76 100 09/27/18 08:00 98.1 F 62 18 179/84 H 97 09/27/18 07:56 120 H 16 09/27/18 04:00 97.8 F 107 H 19 106/74 93 L Weight Admit Weight 196 lb Weight 218 lb 9.6 oz I&O: 09/26/18 09/27/18 09/28/18 06:59 06:59 06:59 Intake Total 650 820 Output Total 1200 850 Balance -550 -30 Result Diagrams: 09/23/18 04:34 09/27/18 04:52 Additional Labs: Accuchecks 09/27/18 09/27/18 09/26/18 10:39 05:51 19:37 POC Glucose 166 H 121 H 190 H 09/26/18 16:34 POC Glucose 214 H Phys Exam - Physical Examination HEENT: PERRLA Respiratory: no wheezing, no rales decreased air movement at the bases Cardiovascular: RRR, no significant murmur, no rub Gastrointestinal: soft, non-tender, no distention, positive bowel sounds Musculoskeletal: edema present 2-3+ pitting edema in both lower extremities Dx/Plan (1) Acute respiratory failure with hypoxia Code(s): J96.01 - ACUTE RESPIRATORY FAILURE WITH HYPOXIA Status: Acute Comment: Pericardial and pleural effusion .S/P Pigtail cathter insertion Left Pleural effusion and R thoracentesis of large volume 09/24/18 (2) Malignant pleural effusion Code(s): J91.0 - MALIGNANT PLEURAL EFFUSION Status: Acute Comment: Oral antibiotics on board, Serratia present in fluid, sensitive to third generation cephalosporin (omnicef and clinda presently). Appreciate pulmonary care.S/P PleurX placement and subsequent removal.see#1 (3) Adenocarcinoma, lung Code(s): C34.90 - MALIGNANT NEOPLASM OF UNSP PART OF UNSP BRONCHUS OR LUNG Status: Chronic Qualifiers: Laterality: left Qualified Code(s): C34.92 - Malignant neoplasm of unspecified part of left bronchus or lung Comment: Poor prognosis (4) Diabetes mellitus Code(s): E11.9 - TYPE 2 DIABETES MELLITUS WITHOUT COMPLICATIONS Status: Chronic Qualifiers: Diabetes mellitus type: type 2 Diabetes mellitus penitentiary insulin use: without termite exterminator use Diabetes mellitus complication status: with unspecified complications Qualified Code(s): E11.8 - Type 2 diabetes mellitus with unspecified complications Comment: Hyperglycemia present. Diabetes management not a priority at this time. Appetite and intake variable. No changes made to regimen today. (5) HTN (hypertension) Code(s): I10 - ESSENTIAL (PRIMARY) HYPERTENSION Status: Chronic Qualifiers: Hypertension type: essential hypertension Qualified Code(s): I10 - Essential (primary) hypertension Comment: controlled - Plan * Acute respiratory failure due to bilateral malignant pleural effusions. She is s/p replacement of the PleurX catheter on the left, and a therapeutic Thorocentesis on the right. * Pleural fluid grew Serratia, and she is currently on Omnicef, and Clindamycin * Stage 4 adenocarcinoma- [facility] and is receiving Tagrisso * DM- blood glucose is stable * HTN- blood pressure . * We are currently pursuing transfer to [facility]
[2018-09-27] MEDS ORDERED: Furosemide 20 MG/2 ML VIAL SLOW IVP SCH (17:15)
[2018-09-27] MEDS: Morphine 4 MG/ML VIAL IV PRN (18:12)
[2018-09-27] MEDS: Insulin Regular 300 UNITS/3 ML VIAL SC PRN (18:59)
[2018-09-27] MEDS ORDERED: TAGRISSO 80 MG PO SCH (19:00)
--- NOTE | 2018-09-27 20:58 | RAD ---
RADIOGRAPH CHEST 1 VIEW: Date: 09/27/2018 Time: 6:33 p.m. HISTORY: A 53-year-old female, status post thoracentesis. COMPARISON: 09/24/2018 TECHNIQUE: Apical lordotic view. FINDINGS: Because of the very different patient positioning, comparison is somewhat difficult. There is almost total opacification of the left hemithorax. A minimally aerated portion of left apical lung field v isualized. No pneumothorax is visualized. There is a pleural catheter, with distal curled portion o verlying the lateral aspect of the left upper lung zone. Diffuse interstitial and alveolar, mostly a lveolar, pulmonary densities throughout most of the right lung, except for relative sparing of the ri ght apex. No cardiomediastinal shift from midline. IMPRESSION: 1. No pneumothorax visualized. 2. Almost total opacification of the left hemithorax by what is presumably large left pleural effusi on. 3. Diffuse infiltrates throughout the right lung, which could represent pulmonary edema, although pn eumonia is possible. STANLEY [] POS: ROSALBA
[2018-09-27] MEDS: Insulin Glargine 15 UNITS in Pre-Filled Syringe SC SCH (22:14)
[2018-09-27] MEDS: Lidocaine Patch Removal 1 EACH TOP SCH (22:26)
[2018-09-28] MEDS: Acetaminophen/Codeine 30-300mg Tablet PO PRN (04:41)
[2018-09-28] MEDS: Guaifenesin DM 100-10/5 ML UDCUP PO PRN ×2 (04:42→23:20)
[2018-09-28 06:04] LABS: Anion Gap 17 mmol/L (10-20); BUN (Urea Nitrogen) 14 mg/dL (9.8-20.1); Calc. Creatinine Clearance 107 mL/min (70-130); Calcium 8.5 mg/dL (7.8-10.44); Carbon Dioxide 24 mmol/L (22-29); Chloride 100 mmol/L (98-107); Estimated GFR-MDRD 76; Glucose 115 mg/dL (70-105); Magnesium 1.7 mg/dL (1.6-2.6); Potassium 4.9 mmol/L (3.5-5.1); Sodium 136 mmol/L (136-145)
[2018-09-28] MEDS: Famotidine/PF 20 mg/2ml Vial SLOW IVP SCH ×2 (08:11→23:22)
[2018-09-28] MEDS: Carvedilol 6.25 MG TAB PO SCH ×2 (08:51→16:08)
[2018-09-28] MEDS: Lidocaine 5% Patch TD SCH (09:07)
[2018-09-28] MEDS: Heparin 5,000 UNITS/ML VIAL SC SCH ×2 (09:14→23:22)
[2018-09-28] MEDS: Cefdinir 300 MG CAP PO SCH (09:15)
[2018-09-28] MEDS: Furosemide 40 MG TAB PO SCH (09:15)
[2018-09-28] MEDS: Famotidine 20 MG TAB PO SCH ×2 (09:15→23:22)
[2018-09-28] MEDS: Gabapentin 300 MG CAP PO SCH ×3 (09:15→23:21)
[2018-09-28] MEDS: traMADol HCl 50 MG TAB PO PRN (09:36)
[2018-09-28] MEDS: TAGRISSO 80 MG PO SCH (09:56)
--- NOTE | 2018-09-28 10:48 | PRG ---
DATE OF SERVICE: 09/28/2018 SUBJECTIVE: This morning, she is better. She is less short of breath. OBJECTIVE: VITAL SIGNS: Saturations are 100% on 3 L, respiratory rate 20, temperature 99, and blood pressure is 94/71. CHEST: Right lung remarkable. Left lung, decreased breath sounds in entire left lung. CARDIAC: Normal S1 and S2. No gallops. ABDOMEN: No masses. IMPRESSION: 1. Loculated left pleural effusion. 2. Right pleural effusion, status post thoracentesis, probably metastatic, still awaiting cytology. 3. Metastatic lung cancer. 4. Bilateral pleural effusion, left loculated. PLAN: the patient today. She can be discharged home on low-flow O2. She wants to go to [facility] for a second opinion. If the right-sided effusion comes back rapidly, consider putting another PleurX catheter. Otherwise supportive care. Job ID: [id number]
--- NOTE | 2018-09-28 11:11 | PDOC.PN ---
- Subjective Encounter Start Date: 09/28/18 Encounter Start Time: 11:10 Ms. Thomas was seen today in follow-up. She says she is breathing a little better today. She says her appetite is not the best, but she did eat most of her breakfast. - Objective Resuscitation Status - Order Detail: 09/13/18 22:04 Resuscitation Status Routine Resuscitation Status: FULL: Full Resuscitation MAR Reviewed: Yes Vital Signs & Weight: Vital Signs (12 hours) Temp Pulse Resp BP BP Pulse Ox 09/28/18 08:51 94/71 09/28/18 08:00 99 F 108 H 20 110/78 100 09/28/18 07:26 104 H 16 91 L 09/28/18 04:00 97.9 F 110 H 20 109/67 100 09/28/18 00:00 98.7 F 100 18 103/65 99 Weight Admit Weight 196 lb Weight 204 lb 9.6 oz I&O: 09/27/18 09/28/18 09/29/18 06:59 06:59 06:59 Intake Total 820 520 240 Output Total 850 1200 Balance -30 -680 240 Result Diagrams: 09/23/18 04:34 09/28/18 04:27 Additional Labs: Accuchecks 09/28/18 09/28/18 09/27/18 10:57 05:30 20:17 POC Glucose 171 H 145 H 201 H 09/27/18 18:37 POC Glucose 220 H Phys Exam - Physical Examination HEENT: PERRLA Respiratory: no wheezing + air movement on the left, but diminished deacreased breath sounds at the right base Cardiovascular: RRR, no significant murmur, no rub Gastrointestinal: soft, non-tender, no distention, positive bowel sounds Musculoskeletal: pulses present, edema present 2+ pittine edema bilaterally Neurological: non-focal Dx/Plan (1) Acute respiratory failure with hypoxia Code(s): J96.01 - ACUTE RESPIRATORY FAILURE WITH HYPOXIA Status: Acute Comment: Pericardial and pleural effusion .S/P Pigtail cathter insertion Left Pleural effusion and R thoracentesis of large volume 09/24/18 (2) Malignant pleural effusion Code(s): J91.0 - MALIGNANT PLEURAL EFFUSION Status: Acute Comment: Oral antibiotics on board, Serratia present in fluid, sensitive to third generation cephalosporin (omnicef and clinda presently). Appreciate pulmonary care.S/P PleurX placement and subsequent removal.see#1 (3) Adenocarcinoma, lung Code(s): C34.90 - MALIGNANT NEOPLASM OF UNSP PART OF UNSP BRONCHUS OR LUNG Status: Chronic Qualifiers: Laterality: left Qualified Code(s): C34.92 - Malignant neoplasm of unspecified part of left bronchus or lung Comment: Poor prognosis (4) Diabetes mellitus Code(s): E11.9 - TYPE 2 DIABETES MELLITUS WITHOUT COMPLICATIONS Status: Chronic Qualifiers: Diabetes mellitus type: type 2 Diabetes mellitus terminal operations supervisor insulin use: without nursing home use Diabetes mellitus complication status: with unspecified complications Qualified Code(s): E11.8 - Type 2 diabetes mellitus with unspecified complications Comment: Hyperglycemia present. Diabetes management not a priority at this time. Appetite and intake variable. No changes made to regimen today. (5) HTN (hypertension) Code(s): I10 - ESSENTIAL (PRIMARY) HYPERTENSION Status: Chronic Qualifiers: Hypertension type: essential hypertension Qualified Code(s): I10 - Essential (primary) hypertension Comment: controlled - Plan * Acute respiratory failure- due to bilateral Malignant Pleural Effusion- discussed with Dr. Clemente and Dr. Michel * Continue drainage through the Pigtail catheter * She is oxygenating better since admission * Stage 4 Adenocarcinoma- continue Tagrisso * She was denied transfer to [facility] yesterday, but I spoke with the doctor on the receiving end, and he said they would try to expedite getting her an appointment in their outpatient clinic. * DM- blood glucose is stable * HTN- blood pressure is stable
[2018-09-28] MEDS: Insulin Regular 300 UNITS/3 ML VIAL SC PRN ×2 (12:32→16:07)
--- NOTE | 2018-09-28 14:56 | CT ---
CT GUIDED PERCUTANEOUS LEFT SIDED THORACOSTOMY TUBE PLACEMENT AND DRAINAGE OF LARGE PLEURAL FLUID COL LECTION. 09/24/18 HISTORY: Large left sided pleural fluid collection which recurs after thoracentesis. Placement of drainage cat heter was requested. TECHNIQUE: The procedure including the risks and complications were explained to the patient and informed consen t was obtained. The patient was placed on the CT scan table in the supine position. Limited noncont rasted CT scan was obtained through the chest with grid localizer in place overlying the left chest. The area was marked and then meticulously prepped and draped in the usual sterile fashion. Skin and s ubcutaneous tissues were infiltrated with buffered 1% lidocaine for local anesthesia. A 21 gauge needle was advanced into the collection with return of fluid. A 0.018 guidewire was placed and position was confirmed with three axial noncontrasted CT images. The needle was exchanged over the guidewire for a 5 Ghanaian introducer sheath, and the 0.018 inch guid ewire was removed and 0.035 inch Amplatz guidewire was placed and positioning was confirmed with thre e axial noncontrasted CT images. The introducer sheath was exchanged over the guidewire for an 8 Ghanaian tissue dilator followed by john cement of an 8 Ghanaian Kenova loop all purpose drainage catheter. The catheter was positioned in the ple ural fluid collection. Approximately 80 mL of serosanguineous fluid was aspirated. The catheter was s utured in place utilizing 2-0 Ethilon suture material. The catheter was capped as requested. Patient tolerated the procedure well without immediate complication. FINDINGS: Large left pleural fluid collection with consolidation in the left upper lobe with pleural thickenin g involving the majority of the left upper lobe. There is a moderately large right pleural effusion present. An 8 Ghanaian Ken[place] loop all purpose drainage catheter serving as a left sided thoracostomy tub e was successfully placed within the large left pleural fluid collection. Approximately 80 mL of ser osanguineous fluid was aspirated. The tube was capped as requested. Above findings were discussed with Dr. Michel at this time. Dr. Michel reported that right sided thoracoc entesis will be performed and as result, the large left pleural fluid collection was not drained in i ts entirety at this time. Patient was transported to ultrasound for marking of the right posterior ch est prior to thoracentesis on the right. IMPRESSION: 1. Large left loculated pleural fluid collection. An 8 Ghanaian Ken[place] loop all purpose drainage cat heter serving as a left sided thoracostomy tube was placed. 2.Moderately large right pleural effusion. 3. Pleural thickening involving the left hemithorax as well as interstitial thickening in the vi sualized aerated left upper lung. Findings may be related to patient's known neoplastic process.
[2018-09-28] MEDS: Clindamycin 150 MG CAP PO SCH (23:20)
[2018-09-28] MEDS: Insulin Glargine 15 UNITS in Pre-Filled Syringe SC SCH (23:21)
[2018-09-28] MEDS: Lidocaine Patch Removal 1 EACH TOP SCH (23:22)
[2018-09-29] MEDS: ALPRAZolam 0.25 MG TAB PO PRN (01:49)
[2018-09-29] MEDS: Clindamycin 150 MG CAP PO SCH ×3 (05:39→22:27)
[2018-09-29 06:36] LABS: Anion Gap 14 mmol/L (10-20); BUN (Urea Nitrogen) 14 mg/dL (9.8-20.1); Calc. Creatinine Clearance 98 mL/min (70-130); Calcium 8.4 mg/dL (7.8-10.44); Carbon Dioxide 27 mmol/L (22-29); Chloride 98 mmol/L (98-107); Estimated GFR-MDRD 74; Glucose 105 mg/dL (70-105); Magnesium 1.6 mg/dL (1.6-2.6); Potassium 4.6 mmol/L (3.5-5.1); Sodium 134 mmol/L (136-145)
[2018-09-29] MEDS: Furosemide 40 MG TAB PO SCH ×2 (07:55→13:21)
[2018-09-29] MEDS: Morphine 4 MG/ML VIAL IV PRN (07:55)
[2018-09-29] MEDS: Heparin 5,000 UNITS/ML VIAL SC SCH ×2 (09:08→22:27)
[2018-09-29] MEDS: Carvedilol 6.25 MG TAB PO SCH ×2 (09:08→18:10)
[2018-09-29] MEDS: Cefdinir 300 MG CAP PO SCH (09:08)
[2018-09-29] MEDS: Famotidine 20 MG TAB PO SCH ×2 (09:08→22:27)
[2018-09-29] MEDS: Gabapentin 300 MG CAP PO SCH ×3 (09:08→22:27)
[2018-09-29] MEDS: Lidocaine 5% Patch TD SCH (09:09)
[2018-09-29] MEDS: Famotidine/PF 20 mg/2ml Vial SLOW IVP SCH ×2 (09:10→22:27)
[2018-09-29] MEDS: TAGRISSO 80 MG PO SCH (09:14)
[2018-09-29] MEDS: Insulin Regular 300 UNITS/3 ML VIAL SC PRN ×2 (11:28→17:21)
[2018-09-29] MEDS: Acetaminophen 325 MG TAB PO PRN (11:32)
--- NOTE | 2018-09-29 14:55 | PDOC.PN ---
- Subjective Encounter Start Date: 09/29/18 Encounter Start Time: 13:10 Ms. Thomas was seen today in follow-up of malignant pleural effusion. She is she had an episode of feeling short of breath last night, but she is doing a bit better now. - Objective Resuscitation Status - Order Detail: 09/13/18 22:04 Resuscitation Status Routine Resuscitation Status: FULL: Full Resuscitation MAR Reviewed: Yes Vital Signs & Weight: Vital Signs (12 hours) Temp Pulse Pulse Pulse Resp BP BP 09/29/18 12:00 97.8 F 96 20 09/29/18 11:08 98 98 94/75 09/29/18 10:53 110 H 18 09/29/18 10:13 98 97/73 09/29/18 09:08 116/87 09/29/18 08:00 98.1 F 104 H 20 09/29/18 07:24 105 H 16 09/29/18 04:00 97.8 F 107 H 18 BP BP Pulse Ox Pulse Ox Pulse Ox Pulse Ox 09/29/18 12:00 107/77 93 L 09/29/18 11:08 94/70 90 L 84 L 92 L 09/29/18 10:53 97 09/29/18 10:13 09/29/18 09:08 09/29/18 08:00 109/78 100 09/29/18 07:24 98 09/29/18 04:00 105/81 100 Weight Admit Weight 196 lb Weight 211 lb I&O: 09/28/18 09/29/18 09/30/18 06:59 06:59 06:59 Intake Total 520 1760 480 Output Total 1200 1325 Balance -680 435 480 Result Diagrams: 09/23/18 04:34 09/29/18 04:56 Additional Labs: Accuchecks 09/29/18 09/29/18 09/28/18 11:11 05:39 20:08 POC Glucose 218 H 106 191 H 09/28/18 15:43 POC Glucose 181 H Phys Exam - Physical Examination HEENT: PERRLA Respiratory: no wheezing + decreased breath sounds at the bases Cardiovascular: RRR, no significant murmur, no rub Gastrointestinal: soft, non-tender, positive bowel sounds Musculoskeletal: pulses present, edema present 2+ pitting edema in both lower extremities Dx/Plan (1) Acute respiratory failure with hypoxia Code(s): J96.01 - ACUTE RESPIRATORY FAILURE WITH HYPOXIA Status: Acute Comment: Pericardial and pleural effusion .S/P Pigtail cathter insertion Left Pleural effusion and R thoracentesis of large volume 09/24/18 (2) Malignant pleural effusion Code(s): J91.0 - MALIGNANT PLEURAL EFFUSION Status: Acute Comment: Oral antibiotics on board, Serratia present in fluid, sensitive to third generation cephalosporin (omnicef and clinda presently). Appreciate pulmonary care.S/P PleurX placement and subsequent removal.see#1 (3) Adenocarcinoma, lung Code(s): C34.90 - MALIGNANT NEOPLASM OF UNSP PART OF UNSP BRONCHUS OR LUNG Status: Chronic Qualifiers: Laterality: left Qualified Code(s): C34.92 - Malignant neoplasm of unspecified part of left bronchus or lung Comment: Poor prognosis (4) Diabetes mellitus Code(s): E11.9 - TYPE 2 DIABETES MELLITUS WITHOUT COMPLICATIONS Status: Chronic Qualifiers: Diabetes mellitus type: type 2 Diabetes mellitus local intermodal truck driver insulin use: without penitentiary use Diabetes mellitus complication status: with unspecified complications Qualified Code(s): E11.8 - Type 2 diabetes mellitus with unspecified complications Comment: Hyperglycemia present. Diabetes management not a priority at this time. Appetite and intake variable. No changes made to regimen today. (5) HTN (hypertension) Code(s): I10 - ESSENTIAL (PRIMARY) HYPERTENSION Status: Chronic Qualifiers: Hypertension type: essential hypertension Qualified Code(s): I10 - Essential (primary) hypertension Comment: controlled - Plan * Acute respiratory failure- due to malignant pleural effusion- I have discussed her care with Drs. Clemente and Dr. Ross ( IR Radiaologist) and Dr. Allen. She is Dr. Allen"s regular patient , and after discussion with the patient and Dr. Allen the plan will be to go home with the Pigtail catheter, and teach her how to care for it. * Will evaluate her for home oxygen, as well as home health for PT/and OT * HTN- blood pressure is controlled * DM- blood glucose is stable .
--- NOTE | 2018-09-29 16:26 | PRG ---
DATE OF SERVICE: 09/29/2018 SERVICE: Pulmonary Medicine. INTERVAL HISTORY: The patient is doing fine from breathing standpoint. Denies any current chest pain, fevers, chills, nausea, or vomiting. There are no significant overnight events. She is breathing comfortably. She goes to the bathroom without oxygen, but this is quite taxing. When she gets back, she is short of breath and it takes a minute or two to recover. Her lower extremity swelling is improving slowly. PHYSICAL EXAMINATION: VITAL SIGNS: Afebrile. Pulse 96, blood pressure 107/77, respirations 20, and saturation 96% on 3 L nasal cannula. GENERAL: The patient is awake and alert, in no apparent distress. LUNGS: Decent air entry. Crackles are present bilaterally. There is better air entry on the right compared to the left. HEART: Normal rate regular. ABDOMEN: Soft, nontender, and nondistended. Bowel sounds are positive. MUSCULOSKELETAL: No cyanosis or clubbing. 4+ pitting is present throughout. NEUROLOGIC: Grossly nonfocal. LABORATORY DATA: Basic metabolic profile is essentially unremarkable. Magnesium 1.6. Cytology is positive for adenocarcinoma in bilateral pleural fluid. ASSESSMENT: 1. Acute hypoxic respiratory failure. 2. Adenocarcinoma of the lung, stage IV. 3. Malignant pleural effusion, bilateral. She is status post PleurX catheter placement and subsequent removal on the left. Left-sided pigtail catheter is currently in place in the left anterior intercostal space. 4. Severe sepsis, improving. 5. Hyperthyroidism, iatrogenic. DISCUSSION AND PLAN: From my perspective, the patient is stable for transition out of the hospital. I would like to leave the pigtail catheter in place for the time being. She can continue to drain this at home as needed. If she has reaccumulation of fluid on the right, we will have to talk to thoracic surgery about consideration of a PleurX catheter placement on that side. That being said, in doing so, if we freeze bilateral lungs, she could end up with bilateral trapped lungs, which could make breathing challenging for the patient. Thus, I would like to avoid that if possible. She needs to continue her therapy for her adenocarcinoma through time. Because she has such a high PL1 level, there is a possibility she could have a significant response to her current therapy. Pulmonary will continue to follow while she remains in-house, but from my perspective, she is stable for transition out of the hospital. I will treat her for a total duration of four weeks with antibiotic. This should cover the Serratia that we found in the original culture. Job ID: [id number] MTDD
[2018-09-29] MEDS: Guaifenesin DM 100-10/5 ML UDCUP PO PRN (22:26)
[2018-09-29] MEDS: Insulin Glargine 15 UNITS in Pre-Filled Syringe SC SCH (22:29)
[2018-09-29] MEDS: Lidocaine Patch Removal 1 EACH TOP SCH (22:54)
[2018-09-30] MEDS: Morphine 4 MG/ML VIAL IV PRN ×2 (01:49→06:23)
[2018-09-30] MEDS: ALPRAZolam 0.25 MG TAB PO PRN (04:54)
[2018-09-30] MEDS: Clindamycin 150 MG CAP PO SCH ×4 (04:54→21:28)
[2018-09-30] MEDS: TAGRISSO 80 MG PO SCH (09:42)
[2018-09-30] MEDS: Famotidine 20 MG TAB PO SCH ×2 (09:45→21:28)
[2018-09-30] MEDS: Carvedilol 6.25 MG TAB PO SCH ×2 (09:45→17:07)
[2018-09-30] MEDS: Heparin 5,000 UNITS/ML VIAL SC SCH ×2 (09:46→22:13)
[2018-09-30] MEDS: Gabapentin 300 MG CAP PO SCH ×4 (09:46→21:28)
[2018-09-30] MEDS: Famotidine/PF 20 mg/2ml Vial SLOW IVP SCH ×2 (09:46→22:13)
[2018-09-30] MEDS: Lidocaine 5% Patch TD SCH (09:50)
[2018-09-30 10:10] LABS: Anion Gap 17 mmol/L (10-20); BUN (Urea Nitrogen) 15 mg/dL (9.8-20.1); Calc. Creatinine Clearance 81 mL/min (70-130); Calcium 8.7 mg/dL (7.8-10.44); Carbon Dioxide 24 mmol/L (22-29); Chloride 97 mmol/L (98-107); Estimated GFR-MDRD 58; Glucose 152 mg/dL (70-105); Magnesium 1.6 mg/dL (1.6-2.6); Potassium 4.7 mmol/L (3.5-5.1); Sodium 133 mmol/L (136-145)
--- NOTE | 2018-09-30 11:39 | PDOC.PN ---
- Subjective Encounter Start Date: 09/30/18 Encounter Start Time: 11:38 Ms. Thomas was seen today in follow-up of malignant pleural effusion. She does not have any new complaints. She notes some increasing shortness of breath. - Objective Resuscitation Status - Order Detail: 09/13/18 22:04 Resuscitation Status Routine Resuscitation Status: FULL: Full Resuscitation MAR Reviewed: Yes Vital Signs & Weight: Vital Signs (12 hours) Temp Pulse Pulse Pulse Resp BP BP 09/30/18 10:29 115 H 24 H 09/30/18 09:45 93/73 09/30/18 08:49 114 H 114 H 95/77 09/30/18 08:00 98.8 F 112 H 16 09/30/18 06:16 104 H 20 09/30/18 04:00 98.8 F 105 H 24 H 09/30/18 00:00 98.8 F 103 H 22 H BP BP BP Pulse Ox Pulse Ox Pulse Ox 09/30/18 10:29 94 L 09/30/18 09:45 09/30/18 08:49 93/73 91 L 92 L 09/30/18 08:00 81/65 L 94 L 09/30/18 06:16 90 L 09/30/18 04:00 121/79 92 L 09/30/18 00:00 106/73 93 L Weight Admit Weight 196 lb Weight 211 lb I&O: 09/29/18 09/30/18 10/01/18 06:59 06:59 06:59 Intake Total 1760 1350 Output Total 1325 350 Balance 435 1000 Result Diagrams: 09/23/18 04:34 09/30/18 09:39 Additional Labs: Accuchecks 09/30/18 09/30/18 09/29/18 10:45 06:04 22:27 POC Glucose 178 H 146 H 130 H 09/29/18 16:40 POC Glucose 204 H Phys Exam - Physical Examination HEENT: PERRLA decreased breath sounds in both bases, Cardiovascular: no significant murmur, no rub tachycardic Gastrointestinal: soft, non-tender, no distention, positive bowel sounds Musculoskeletal: pulses present, edema present 2+ pitting edema Neurological: non-focal, normal sensation Dx/Plan (1) Acute respiratory failure with hypoxia Code(s): J96.01 - ACUTE RESPIRATORY FAILURE WITH HYPOXIA Status: Acute Comment: Pericardial and pleural effusion .S/P Pigtail cathter insertion Left Pleural effusion and R thoracentesis of large volume 09/24/18 (2) Malignant pleural effusion Code(s): J91.0 - MALIGNANT PLEURAL EFFUSION Status: Acute Comment: Oral antibiotics on board, Serratia present in fluid, sensitive to third generation cephalosporin (omnicef and clinda presently). Appreciate pulmonary care.S/P PleurX placement and subsequent removal.see#1 (3) Adenocarcinoma, lung Code(s): C34.90 - MALIGNANT NEOPLASM OF UNSP PART OF UNSP BRONCHUS OR LUNG Status: Chronic Qualifiers: Laterality: left Qualified Code(s): C34.92 - Malignant neoplasm of unspecified part of left bronchus or lung Comment: Poor prognosis (4) Diabetes mellitus Code(s): E11.9 - TYPE 2 DIABETES MELLITUS WITHOUT COMPLICATIONS Status: Chronic Qualifiers: Diabetes mellitus type: type 2 Diabetes mellitus assisted insulin use: without truck terminal manager use Diabetes mellitus complication status: with unspecified complications Qualified Code(s): E11.8 - Type 2 diabetes mellitus with unspecified complications Comment: Hyperglycemia present. Diabetes management not a priority at this time. Appetite and intake variable. No changes made to regimen today. (5) HTN (hypertension) Code(s): I10 - ESSENTIAL (PRIMARY) HYPERTENSION Status: Chronic Qualifiers: Hypertension type: essential hypertension Qualified Code(s): I10 - Essential (primary) hypertension Comment: controlled - Plan * Malignant Effusion- patient has had re-accumulation of fluid on the right * Possible PleuX catheter is being considered for the right side * HTN- blood pressure is on the lower side- will discontinue Lasix * DM- blood glucose is stable * Adenocarcinoma- continue Tagrisso
[2018-09-30] MEDS: Furosemide 40 MG TAB PO SCH (11:45)
[2018-09-30] MEDS: Sodium Chloride 0.9% 500 ML IV SCH (12:02)
--- NOTE | 2018-09-30 16:52 | PRG ---
DATE OF SERVICE: 09/30/2018 SERVICE: Pulmonary Medicine. INTERVAL HISTORY: The patient is doing a little bit worse from respiratory standpoint. She has increasing work of breathing. She is sitting forward. She had a hard time lying down last night. PHYSICAL EXAMINATION: VITAL SIGNS: Afebrile. Pulse 105, blood pressure 192/61, respirations 18, saturation 94% on 5 L nasal cannula. GENERAL: The patient is awake and alert. She is tachypneic and has [id number] respiratory distress. There is minimal accessory muscle use. HEENT: Normocephalic and atraumatic. Sclerae white. Conjunctivae pink. Oral mucosa is moist without lesions. LUNGS: Decreased air entry. There is no prolonged expiratory phase. Crackles and rhonchi are both present. There is good air entry at the left base, but not the right base. HEART: Tachycardic. Regular. ABDOMEN: Soft, nontender, and nondistended. Bowel sounds are positive. MUSCULOSKELETAL: No cyanosis or clubbing. No pitting in the bilateral lower extremities. NEUROLOGIC: Grossly nonfocal. LABORATORY DATA: Sodium 133, creatinine 1.18 and gently uptrending. Magnesium 1.6. Basic metabolic profile is otherwise unremarkable. IMAGING STUDIES: Bedside ultrasound demonstrates reaccumulation of fluid in the right base. The fluid appears to be freely flowing at this moment. I estimated a liter and a half of fluid in there. ASSESSMENT: 1. Acute hypoxic respiratory failure. 2. Adenocarcinoma of the lung, stage IV. 3. Malignant pleural effusion, bilateral. She is status post PleurX catheter placement on the left with subsequent removal, left-sided pigtail catheter is currently in the left anterior intercostal space. 4. Sinus tachycardia. DISCUSSION AND PLAN: The patient has had a rapid reaccumulation of fluid in the right chest. She has had undergone a thoracentesis and this has proven this space to be malignant. As such, it would be reasonable to proceed with a PleurX catheter on the right side. Hopefully, when this side auto pleurodesis, it will do so in a way that will prevent. An area of loculation is set up. I talked to the patient about the risks and benefits of pursuing a second PleurX catheter on the right. She understands that if she was to pleurodesis this space, it could result in restrictive lung disease that could be challenging to treat through. That being said, at this point, we do not have many options because her shortness of breath is quite profound and we would not be able to keep her out of the hospital without keeping the fluid out of that chest wall. I talked to Dr. Clemente about considering a PleurX on the right side. He will evaluate the patient later today and determine whether or not it is appropriate to move forward with that from his perspective. Job ID: [id number]
[2018-09-30] MEDS: Acetaminophen/Codeine 30-300mg Tablet PO PRN (17:03)
[2018-09-30] MEDS: Guaifenesin DM 100-10/5 ML UDCUP PO PRN (18:48)
[2018-09-30] MEDS: Cyclobenzaprine 10 MG TAB PO PRN (21:28)
[2018-09-30] MEDS: Insulin Glargine 15 UNITS in Pre-Filled Syringe SC SCH (21:28)
[2018-09-30] MEDS: Lidocaine Patch Removal 1 EACH TOP SCH (22:13)
[2018-09-30] MEDS ORDERED: Sodium Chloride 0.9% 1,000 ML IV SCH (22:15)
[2018-10-01] MEDS ORDERED: Sodium Chloride 0.9% 1,000 ML IV SCH (01:45)
[2018-10-01] MEDS: Clindamycin 150 MG CAP PO SCH ×3 (06:27→21:38)
[2018-10-01 06:59] LABS: Anion Gap 18 mmol/L (10-20); BUN (Urea Nitrogen) 18 mg/dL (9.8-20.1); Calc. Creatinine Clearance 64 mL/min (70-130); Calcium 8.3 mg/dL (7.8-10.44); Carbon Dioxide 21 mmol/L (22-29); Chloride 99 mmol/L (98-107); Estimated GFR-MDRD 44; Glucose 132 mg/dL (70-105); Magnesium 1.7 mg/dL (1.6-2.6); Potassium 5.2 mmol/L (3.5-5.1); Sodium 133 mmol/L (136-145)
--- NOTE | 2018-10-01 08:30 | PDOC.PN ---
- Subjective Encounter Start Date: 10/01/18 Encounter Start Time: 10:00 Ms. Thomas was seen today in follow-up of malignant pleural effusion. She is complaining of some difficulty breathing. , - Objective Resuscitation Status - Order Detail: 09/13/18 22:04 Resuscitation Status Routine Resuscitation Status: FULL: Full Resuscitation MAR Reviewed: Yes Vital Signs & Weight: Vital Signs (12 hours) Temp Pulse Resp BP Pulse Ox 10/01/18 08:21 99/66 10/01/18 07:56 97.4 F L 108 H 22 H 75/63 L 94 L 10/01/18 04:00 97.6 F 103 H 22 H 93/67 100 10/01/18 00:00 97.7 F 99 19 78/54 L 100 Weight Admit Weight 196 lb Weight 211 lb I&O: 09/30/18 10/01/18 10/02/18 06:59 06:59 06:59 Intake Total 1350 800 Output Total 350 200 Balance 1000 600 Result Diagrams: 09/23/18 04:34 10/01/18 05:36 Additional Labs: Accuchecks 10/01/18 09/30/18 09/30/18 05:52 20:14 16:41 POC Glucose 150 H 231 H 161 H 09/30/18 10:45 POC Glucose 178 H Phys Exam - Physical Examination HEENT: PERRLA Respiratory: no wheezing, no rales, no rhonchi decreased breath sounds at both bases Cardiovascular: RRR, no significant murmur, no rub Gastrointestinal: soft, non-tender, no distention, positive bowel sounds Musculoskeletal: pulses present, edema present 2-3 + pitting edema in both lower extremities Dx/Plan (1) Acute respiratory failure with hypoxia Code(s): J96.01 - ACUTE RESPIRATORY FAILURE WITH HYPOXIA Status: Acute Comment: Pericardial and pleural effusion .S/P Pigtail cathter insertion Left Pleural effusion and R thoracentesis of large volume 09/24/18 (2) Malignant pleural effusion Code(s): J91.0 - MALIGNANT PLEURAL EFFUSION Status: Acute Comment: Oral antibiotics on board, Serratia present in fluid, sensitive to third generation cephalosporin (omnicef and clinda presently). Appreciate pulmonary care.S/P PleurX placement and subsequent removal.see#1 (3) Adenocarcinoma, lung Code(s): C34.90 - MALIGNANT NEOPLASM OF UNSP PART OF UNSP BRONCHUS OR LUNG Status: Chronic Qualifiers: Laterality: left Qualified Code(s): C34.92 - Malignant neoplasm of unspecified part of left bronchus or lung Comment: Poor prognosis (4) Diabetes mellitus Code(s): E11.9 - TYPE 2 DIABETES MELLITUS WITHOUT COMPLICATIONS Status: Chronic Qualifiers: Diabetes mellitus type: type 2 Diabetes mellitus alf insulin use: without termite control representative use Diabetes mellitus complication status: with unspecified complications Qualified Code(s): E11.8 - Type 2 diabetes mellitus with unspecified complications Comment: Hyperglycemia present. Diabetes management not a priority at this time. Appetite and intake variable. No changes made to regimen today. (5) HTN (hypertension) Code(s): I10 - ESSENTIAL (PRIMARY) HYPERTENSION Status: Chronic Qualifiers: Hypertension type: essential hypertension Qualified Code(s): I10 - Essential (primary) hypertension Comment: controlled - Plan * Stage 4 Adenocarcinom of the Lung, with bilateral malignant pleural effusions. The decision has been made to place a PleurX Catheter on the right side. She has a pigtail catheter on the left side ( She had a malfunctioning PleurX catheter which has been removed from the left side earlier in the admission) * Plan for PleurX catheter on the right side today * She has been Denied transfer to [facility] * Referral has been initiated for Outpatient Thoracic Clinic at [facility] * She is to continue Tagrisso for the Lung cancer, which after conversation with Dr. Vallecillo, and Dr. 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
[2018-10-01] MEDS: TAGRISSO 80 MG PO SCH (10:21)
[2018-10-01] MEDS ORDERED: Lidocaine 1% (PF) 30 ML VIAL ONE (12:17)
[2018-10-01] MEDS ORDERED: Fentanyl 100 MCG/2 ML VIAL ONE (12:58)
--- NOTE | 2018-10-01 14:57 | PRG ---
DATE OF SERVICE: 10/01/2018 SERVICE: Pulmonary Medicine. INTERVAL HISTORY: The patient is postop from her PleurX catheter placement. A little over 1200 mL of fluid were removed. Her breathing is actually opened up a little bit. She denies any current chest pain, fevers, chills, nausea, or vomiting. Otherwise, there has been no change to her condition. PHYSICAL EXAMINATION: VITAL SIGNS: Afebrile, pulse 108, blood pressure 99/66, respirations 20, saturation 100% on 15 L via a Ventimask. HEENT: Normocephalic and atraumatic. Sclerae white. Conjunctivae pink. Oral mucosa is moist without lesions. LUNGS: Decent air entry. There is much improved air entry at the right base. No prolonged expiratory phase or wheezing is appreciated. HEART: Normal rate, regular. ABDOMEN: Soft, nontender, and nondistended. Bowel sounds are positive. MUSCULOSKELETAL: No cyanosis or clubbing. There is diffuse 3 to 4+ pitting in the bilateral lower extremities. LABORATORY DATA: WBC 8.2, hemoglobin 12.0, platelets 153,000. Body fluid culture is negative to date. ASSESSMENT: 1. Acute hypoxic respiratory failure. 2. Adenocarcinoma of the lung, stage IV. This is a very high PD-L1 expression. 3. Malignant pleural effusion on the left, status post PleurX catheter placement and subsequent removal with the anterior pigtail catheter in place. 4. Malignant pleural effusion on the right, status post PleurX catheter placement, postoperative day zero. 5. Sinus tachycardia, improving. DISCUSSION AND PLAN: We will continue to diurese the patient to euvolemia. Pulmonary Critical Care will continue to follow along while the patient remains in the hospital. Once she clearly stabilizes from a respiratory standpoint, she can go home, but at this point, her frequent exacerbations associated with fluid collections have prevented her from being stable in a way that I feel that she should be able to stay out of the hospital long-term. If she is stable through the weekend, we can consider transitioning her to home on Thursday. Job ID: [id number]
[2018-10-01] MEDS: Famotidine/PF 20 mg/2ml Vial SLOW IVP SCH ×2 (15:17→21:42)
[2018-10-01] MEDS: Famotidine 20 MG TAB PO SCH ×2 (15:17→21:39)
[2018-10-01] MEDS: Carvedilol 3.125 MG TAB PO SCH ×2 (15:17→17:50)
[2018-10-01] MEDS: Lidocaine 5% Patch TD SCH (15:18)
[2018-10-01] MEDS: Gabapentin 300 MG CAP PO SCH ×3 (15:18→21:41)
[2018-10-01] MEDS: Heparin 5,000 UNITS/ML VIAL SC SCH ×2 (15:18→21:41)
[2018-10-01] MEDS: Morphine 4 MG/ML VIAL IV PRN ×2 (15:21→21:27)
[2018-10-01] MEDS ORDERED: Dexamethasone 20 MG/5 ML VIAL ONE (16:27)
[2018-10-01] MEDS ORDERED: Ondansetron PF 4 MG/2 ML Vial ONE (16:27)
[2018-10-01] MEDS ORDERED: PROPOFOL 200 MG/20 ML VIAL ONE (16:27)
[2018-10-01] MEDS ORDERED: Lidocaine 1% PF 5 ML VIAL ONE (16:27)
[2018-10-01] MEDS ORDERED: Sodium Chloride 0.9% 500 ML IV SCH (17:00)
[2018-10-01] MEDS: traMADol HCl 50 MG TAB PO PRN (17:47)
[2018-10-01] MEDS: Sodium Chloride 0.9% 500 ML IV SCH (17:53)
[2018-10-01] MEDS: Insulin Regular 300 UNITS/3 ML VIAL SC PRN (18:50)
[2018-10-01] MEDS: Ondansetron PF 4 MG/2 ML Vial IVP PRN (21:24)
[2018-10-01] MEDS: Lidocaine Patch Removal 1 EACH TOP SCH (21:38)
[2018-10-01] MEDS: Insulin Glargine 15 UNITS in Pre-Filled Syringe SC SCH ×2 (21:40→22:39)
[2018-10-02] MEDS: Morphine 4 MG/ML VIAL IV PRN ×2 (04:44→11:47)
[2018-10-02] MEDS: Clindamycin 150 MG CAP PO SCH ×3 (04:49→21:30)
[2018-10-02 05:51] LABS: Anion Gap 15 mmol/L (10-20); BUN (Urea Nitrogen) 25 mg/dL (9.8-20.1); Calc. Creatinine Clearance 60 mL/min (70-130); Calcium 8.3 mg/dL (7.8-10.44); Carbon Dioxide 24 mmol/L (22-29); Chloride 98 mmol/L (98-107); Estimated GFR-MDRD 40; Glucose 177 mg/dL (70-105); Magnesium 1.5 mg/dL (1.6-2.6); Potassium 5.2 mmol/L (3.5-5.1); Sodium 132 mmol/L (136-145)
[2018-10-02] MEDS ORDERED: Heparin 10,000 UNITS/ 10 ML VIAL SLOW IVP SCH (07:15)
[2018-10-02] MEDS ORDERED: Heparin 25,000 units/D5W 500 ML IVPB SCH (07:15)
--- NOTE | 2018-10-02 07:55 | ULT ---
BILATERAL LOWER EXTREMITY VENOUS DOPPLER: Date: 10/02/18 PROVIDED CLINICAL HISTORY: Lower extremity swelling. FINDINGS: Nieves scale and color Doppler sonography with spectral analysis performed of the bilateral common femo ral, femoral, popliteal, posterior tibial, greater saphenous, and profunda femoral veins. There is mechelle alexis echogenicity and noncompressibility involving the interrogated venous structures of both lower extremities, excluding the proximal common femoral veins. Flow is seen within these regions. IMPRESSION: Extensive bilateral lower extremity deep venous thrombosis. Findings communicated by the school operations manager to the patient's nurse following completion of the study. CODE CR. POS: ROSALBA
[2018-10-02 08:29] LABS: Hemoglobin 9.5 g/dL (12.0-16.0); Platelet Count 135 thou/uL (130-400)
[2018-10-02 08:39] LABS: #Eosinphils 0.1 thou/uL (0.0-0.7); #Lymphocytes 1.6 thou/uL (1.20-3.40); #Monocytes 1.8 thou/uL (0.11-0.59); #Neutrophils 8.7 thou/uL (1.40-6.50); %Basophils 0.2 % (0.0-1.0); %Eosinophils 0.6 % (0.0-10.0); %Lymphocytes 12.8 % (21.0-51.0); %Monocytes 14.5 % (0.0-10.0); Mean Corpuscular HGB CONC 31.6 g/dL (32.0-36.0); Mean Corpuscular Volume 85.6 fL (78.0-98.0); Mean Platelet Volume 8.6 fL (7.4-10.4); RBC Distribution Width 13.3 % (11.5-14.5); Red Blood Cell (RBC) Count 3.57 mill/uL (4.20-5.40); White Blood Cell (WBC) Count 12.1 thou/uL (4.8-10.8)
[2018-10-02] MEDS ORDERED: Enoxaparin Sodium 100 MG/ML SYRINGE SC SCH (09:30)
[2018-10-02] MEDS: Famotidine 20 MG TAB PO SCH ×2 (10:03→21:34)
[2018-10-02] MEDS: Carvedilol 3.125 MG TAB PO SCH ×2 (10:03→18:02)
[2018-10-02] MEDS: Gabapentin 300 MG CAP PO SCH ×3 (10:03→21:30)
[2018-10-02] MEDS: TAGRISSO 80 MG PO SCH (10:04)
[2018-10-02] MEDS: Famotidine/PF 20 mg/2ml Vial SLOW IVP SCH ×2 (11:12→21:33)
[2018-10-02] MEDS: Lidocaine 5% Patch TD SCH (11:13)
--- NOTE | 2018-10-02 11:18 | PDOC.PN ---
- Subjective Encounter Start Date: 10/02/18 Encounter Start Time: 09:00 Subjective: pt up in bed no complains - Objective Resuscitation Status - Order Detail: 09/13/18 22:04 Resuscitation Status Routine Resuscitation Status: FULL: Full Resuscitation Vital Signs & Weight: Vital Signs (12 hours) Temp Pulse Resp BP Pulse Ox 10/02/18 11:02 97.5 F L 110 H 20 85/66 L 95 10/02/18 08:00 97.6 F 100 20 102/63 95 10/02/18 07:01 100 10/02/18 07:00 98 24 H 10/02/18 04:35 97.9 F 111 H 20 99/56 L 93 L 10/02/18 01:40 99.3 F 102 H 14 91/71 97 Weight Admit Weight 196 lb Weight 223 lb 4.8 oz I&O: 10/01/18 10/02/18 10/03/18 06:59 06:59 06:59 Intake Total 2300 3116 Output Total 200 460 Balance 2100 2656 Result Diagrams: 10/02/18 08:19 10/02/18 05:04 Additional Labs: Accuchecks 10/02/18 10/02/18 10/01/18 10:45 06:24 22:38 POC Glucose 167 H 172 H 215 H 10/01/18 16:54 POC Glucose 157 H Phys Exam - Physical Examination Neck: no nodes, no JVD, supple, full ROM Respiratory: no wheezing, no rales, no rhonchi, wheezing present, clear to auscultation bilateral right and left cath Cardiovascular: RRR, no significant murmur, no rub, gallop, irregular Gastrointestinal: soft, non-tender, no distention, positive bowel sounds Musculoskeletal: edema present Dx/Plan (1) Acute respiratory failure with hypoxia Code(s): J96.01 - ACUTE RESPIRATORY FAILURE WITH HYPOXIA Status: Acute Comment: Pericardial and pleural effusion .S/P Pigtail cathter insertion Left Pleural effusion and R thoracentesis of large volume 09/24/18 (2) Adenocarcinoma, lung Code(s): C34.90 - MALIGNANT NEOPLASM OF UNSP PART OF UNSP BRONCHUS OR LUNG Status: Chronic Qualifiers: Laterality: left Qualified Code(s): C34.92 - Malignant neoplasm of unspecified part of left bronchus or lung Comment: Poor prognosis (3) Malignant pleural effusion Code(s): J91.0 - MALIGNANT PLEURAL EFFUSION Status: Acute Comment: Oral antibiotics on board, Serratia present in fluid, sensitive to third generation cephalosporin (omnicef and clinda presently). Appreciate pulmonary care.S/P PleurX placement and subsequent removal.see#1 (4) DVT (deep venous thrombosis) Code(s): I82.409 - ACUTE EMBOLISM AND THOMBOS UNSP DEEP VN UNSP LOWER EXTREMITY Status: Acute (5) DVT (deep venous thrombosis) Code(s): I82.409 - ACUTE EMBOLISM AND THOMBOS UNSP DEEP VN UNSP LOWER EXTREMITY Status: Acute - Plan pt now on lovonox for dvt -: has 2 pig tail for recurrent effusion -: will replace electrolytes -: pt wants warren in since she gets sob on movement -: low hh will monitor * . Review of Systems - Review of Systems Cardiovascular: negative: chest pain, palpitations, orthopnea, paroxysmal nocturnal dyspnea, edema, light headedness, other Gastrointestinal: negative: Nausea, Vomiting, Abdominal Pain, Diarrhea, Constipation, Melena, Hematochezia, Other Genitourinary: negative: Dysuria, Frequency, Incontinence, Hematuria, Retention , Other - Medications/Allergies Allergies/Adverse Reactions: Allergies Allergy/AdvReac Type Severity Reaction Status Date / Time No Known Allergies Allergy Verified 07/29/18 01:32 Medications: Current Medications Acetaminophen (Tylenol) 650 mg PO Q4H PRN PRN Reason: Headache/Fever/Mild Pain (1-3) Last Admin: 09/29/18 11:32 Dose: 650 mg Albuterol/Ipratropium (Duoneb) 3 ml NEB Q6H PRN PRN Reason: .SHORTNESS OF BREATH Albuterol/Ipratropium (Duoneb) 3 ml NEB [id number] [facility] Last Admin: 10/02/18 07:00 Dose: 3 ml Alprazolam (Xanax) 0.25 mg PO TID PRN PRN Reason: Anxiety Last Admin: 09/30/18 04:54 Dose: 0.25 mg Bisacodyl (Dulcolax) 10 mg PO DAILYPRN PRN PRN Reason: Constipation Calcium Carbonate (Tums) 1,000 mg PO Q4H PRN PRN Reason: Heartburn or Indigestion Last Admin: 09/26/18 06:01 Dose: 1,000 mg Carvedilol (Coreg) 3.125 mg PO BID-WM [facility] Last Admin: 10/02/18 10:03 Dose: 3.125 mg Clindamycin HCl (Cleocin) 300 mg PO Q8HR [facility] Last Admin: 10/02/18 04:49 Dose: 300 mg Cyclobenzaprine HCl (Flexeril) 10 mg PO TIDPRN PRN PRN Reason: MUSCLE SPASM Last Admin: 09/30/18 21:28 Dose: 10 mg Dextrose/Water (Dextrose 50%) 25 gm IVP PRN PRN PRN Reason: HYPOGLYCEMIA PROTOCOL Enoxaparin Sodium (Lovenox) 100 mg SC 0930 [facility] Stop: 10/02/18 11:30 Last Admin: 10/02/18 10:04 Dose: 100 mg Famotidine (Pepcid) 20 mg PO BID [facility] Last Admin: 10/02/18 10:03 Dose: 20 mg Famotidine (Pepcid) 20 mg SLOW IVP BID [facility] Last Admin: 10/02/18 11:12 Dose: Not Given Gabapentin (Neurontin) 300 mg PO TID [facility] Last Admin: 10/02/18 10:03 Dose: 300 mg Glucagon (Glucagon) 1 mg IM PRN PRN PRN Reason: HYPOGLYCEMIA PROTOCOL Dextrose/Water (D5w) 1,000 mls @ 0 mls/hr IV INF PRN PRN Reason: HYPOGLYCEMIA PROTOCOL Insulin Glargine 15 units/ (Miscellaneous Medication) 0.15 mls @ 0 mls/hr SC HS [facility] Last Admin: 10/01/18 22:39 Dose: 0.15 mls Insulin Human Regular (Humulin R) 0 units SC .MODERATE SLIDING SC PRN; Protocol PRN Reason: MODERATE SLIDING SCALE Last Admin: 10/01/18 18:50 Dose: 2 unit Insulin Human Regular (Humulin R) 0 units SC .BEDTIME SLIDING SC PRN; Protocol PRN Reason: BEDTIME SLIDING SCALE Last Admin: 09/24/18 21:07 Dose: 5 units Lidocaine (Lidoderm 5% Patch) 1 patch TD DAILY [facility] Last Admin: 10/02/18 11:13 Dose: Not Given Miscellaneous Medication (Lidocaine Patch Removal) 1 each TOP 2100 [facility] Last Admin: 10/01/18 21:38 Dose: Not Given Morphine Sulfate (Morphine) 2 mg IV Q4H PRN PRN Reason: Severe Pain (7-10) Last Admin: 10/02/18 04:44 Dose: 2 mg Ccu Electrolyte (Replacement Protocol) 0 each FS PRN PRN PRN Reason: FOR ELECTROLYTE REPLACEMENT Ondansetron HCl (Zofran Odt) 4 mg PO Q6H PRN PRN Reason: Nausea/Vomiting Ondansetron HCl (Zofran) 4 mg IVP Q6H PRN PRN Reason: Nausea/Vomiting Last Admin: 10/01/18 21:24 Dose: 4 mg Tagrisso 80 Mg 1 each PO DAILY [facility] Last Admin: 10/02/18 10:04 Dose: 1 each Promethazine HCl (Phenergan) 25 mg SLOW IVP Q6H PRN PRN Reason: Nausea/Vomiting Last Admin: 09/20/18 06:34 Dose: 25 mg Senna/Docusate Sodium (Senokot S) 2 tab PO BIDPRN PRN PRN Reason: Constipation Sodium Chloride (Flush - Normal Saline) 10 ml IVF Q12HR [facility] Last Admin: 10/02/18 11:13 Dose: 10 ml Sodium Chloride (Flush - Normal Saline) 10 ml IVF PRN PRN PRN Reason: Saline Flush Last Admin: 09/20/18 15:12 Dose: 10 ml Tramadol HCl (Ultram) 25 mg PO Q8H PRN PRN Reason: Moderate Pain (4-6) Last Admin: 10/01/18 17:47 Dose: 25 mg Zolpidem Tartrate (Ambien) 5 mg PO HSPRN PRN PRN Reason: Insomnia Last Admin: 09/17/18 00:18 Dose: 5 mg
[2018-10-02] MEDS: Insulin Regular 300 UNITS/3 ML VIAL SC PRN ×2 (11:51→18:02)
[2018-10-02 13:23] LABS: Anion Gap 16 mmol/L (10-20); BUN (Urea Nitrogen) 26 mg/dL (9.8-20.1); Calc. Creatinine Clearance 61 mL/min (70-130); Calcium 8.4 mg/dL (7.8-10.44); Carbon Dioxide 24 mmol/L (22-29); Chloride 97 mmol/L (98-107); Estimated GFR-MDRD 39; Glucose 199 mg/dL (70-105); Potassium 5.2 mmol/L (3.5-5.1); Sodium 132 mmol/L (136-145)
[2018-10-02] MEDS ORDERED: Morphine 4 MG/ML VIAL SLOW IVP SCH (17:15)
[2018-10-02] MEDS: guaiFENesin/Codeine Phosphate 200 mg/20 mg 10 ml UD Cup PO SCH ×2 (18:02→23:16)
--- NOTE | 2018-10-02 19:59 | PRG ---
DATE OF SERVICE: 10/02/2018 SUBJECTIVE: She is coughing continuously. It maybe that reinflation of the lungs led protracted bouts of coughing that is her only complaint. OBJECTIVE: VITAL SIGNS: She is afebrile. Heart rate is 98, respiratory rate is 18, oximetry is 94% on 3 L, and blood pressure is 84/57. GENERAL: She is in no distress. CHEST: She has equal breath sounds. HEART: Regular rhythm. ABDOMEN: Soft. IMPRESSION: 1. Stage 4 non-small cell lung cancer. 2. Status post placement of a PleurX catheter. 3. Bilateral pleural effusions. 4. ? Pseudo progression with initiation of immunotherapy. PLAN: Continue current care. I have added [id number] Robitussin with codeine, [id number] Tessalon Perles, and increased her morphine dose for her pleuritic pain caused by her PleurX catheter. Job ID: [id number]
[2018-10-02] MEDS: Benzonatate 100 MG CAP PO SCH (21:30)
[2018-10-02] MEDS: Insulin Glargine 15 UNITS in Pre-Filled Syringe SC SCH (21:31)
[2018-10-02] MEDS: Lidocaine Patch Removal 1 EACH TOP SCH (21:31)
[2018-10-02] MEDS: Morphine 4 MG/ML VIAL SLOW IVP PRN (21:47)
[2018-10-02] MEDS: Ivabradine 5 MG TAB PO SCH (22:20)
[2018-10-03 06:07] LABS: Anion Gap 17 mmol/L (10-20); BUN (Urea Nitrogen) 28 mg/dL (9.8-20.1); Calc. Creatinine Clearance 60 mL/min (70-130); Calcium 8.2 mg/dL (7.8-10.44); Carbon Dioxide 21 mmol/L (22-29); Chloride 99 mmol/L (98-107); Estimated GFR-MDRD 38; Glucose 153 mg/dL (70-105); Magnesium 1.9 mg/dL (1.6-2.6); Sodium 132 mmol/L (136-145)
[2018-10-03] MEDS: Clindamycin 150 MG CAP PO SCH ×3 (06:07→21:52)
[2018-10-03] MEDS: guaiFENesin/Codeine Phosphate 200 mg/20 mg 10 ml UD Cup PO SCH ×4 (06:07→23:33)
[2018-10-03] MEDS: Carvedilol 3.125 MG TAB PO SCH ×2 (08:39→17:28)
[2018-10-03] MEDS: Famotidine 20 MG TAB PO SCH ×2 (08:40→20:15)
[2018-10-03] MEDS: Famotidine/PF 20 mg/2ml Vial SLOW IVP SCH ×2 (08:40→20:15)
[2018-10-03] MEDS: Gabapentin 300 MG CAP PO SCH ×3 (08:40→20:15)
[2018-10-03] MEDS: Benzonatate 100 MG CAP PO SCH ×3 (08:40→20:14)
[2018-10-03] MEDS: Ivabradine 5 MG TAB PO SCH ×2 (08:41→20:15)
[2018-10-03] MEDS: TAGRISSO 80 MG PO SCH (08:42)
[2018-10-03] MEDS: Lidocaine 5% Patch TD SCH (08:42)
[2018-10-03] MEDS: Insulin Regular 300 UNITS/3 ML VIAL SC PRN ×3 (08:44→17:51)
[2018-10-03] MEDS: Acetaminophen 325 MG TAB PO PRN (08:50)
--- NOTE | 2018-10-03 09:18 | PDOC.PN ---
- Subjective Encounter Start Date: 10/03/18 Encounter Start Time: 09:16 Subjective: Seen and examined - Objective Resuscitation Status - Order Detail: 09/13/18 22:04 Resuscitation Status Routine Resuscitation Status: FULL: Full Resuscitation Vital Signs & Weight: Vital Signs (12 hours) Temp Pulse Resp BP BP Pulse Ox 10/03/18 08:35 98.2 F 98 18 87/49 L 95 10/03/18 08:02 87 L 10/03/18 07:58 89 16 10/03/18 03:58 98.8 F 97 20 98/53 L 92 L 10/02/18 23:15 97.9 F 103 H 20 93/60 95 10/02/18 21:50 104 H 102/60 Weight Admit Weight 196 lb Weight 222 lb 7.143 oz I&O: 10/02/18 10/03/18 10/04/18 06:59 06:59 06:59 Intake Total 3116 1200 Output Total 460 450 Balance 2656 750 Result Diagrams: 10/02/18 08:19 10/03/18 05:20 Additional Labs: Accuchecks 10/03/18 10/02/18 10/02/18 05:23 20:40 16:38 POC Glucose 162 H 229 H 195 H 10/02/18 10:45 POC Glucose 167 H Phys Exam - Physical Examination Constitutional: NAD HEENT: PERRLA, moist MMs, sclera anicteric, TM's clear Neck: no nodes, no JVD, supple, full ROM Respiratory: no wheezing, no rales, no rhonchi Cardiovascular: RRR, no significant murmur, no rub Gastrointestinal: soft, non-tender, no distention, positive bowel sounds Musculoskeletal: no edema, pulses present Dx/Plan (1) Acute respiratory failure with hypoxia Code(s): J96.01 - ACUTE RESPIRATORY FAILURE WITH HYPOXIA Status: Acute Comment: Pericardial and pleural effusion .S/P Pigtail cathter insertion Left Pleural effusion and R thoracentesis of large volume 09/24/18 (2) DVT (deep venous thrombosis) Code(s): I82.409 - ACUTE EMBOLISM AND THOMBOS UNSP DEEP VN UNSP LOWER EXTREMITY Status: Acute (3) Pericardial effusion Code(s): I31.3 - PERICARDIAL EFFUSION (NONINFLAMMATORY) Status: Acute (4) Sepsis Code(s): A41.9 - SEPSIS, UNSPECIFIED ORGANISM Status: Acute Comment: Serratia in Pleural fluid which is malignant (5) Systolic CHF, acute on chronic Code(s): I50.23 - ACUTE ON CHRONIC SYSTOLIC (CONGESTIVE) HEART FAILURE Status : Acute Comment: Moderate apical pericardial effusion on echo. Coreg added per Dr. Stock. Torsemide low dose scheduled. Appreciate cardiology care. (6) Malignant pleural effusion Code(s): J91.0 - MALIGNANT PLEURAL EFFUSION Status: Acute Comment: Oral antibiotics on board, Serratia present in fluid, sensitive to third generation cephalosporin (omnicef and clinda presently). Appreciate pulmonary care.S/P PleurX placement and subsequent removal.see#1 (7) Adenocarcinoma, lung Code(s): C34.90 - MALIGNANT NEOPLASM OF UNSP PART OF UNSP BRONCHUS OR LUNG Status: Chronic Qualifiers: Laterality: left Qualified Code(s): C34.92 - Malignant neoplasm of unspecified part of left bronchus or lung Comment: Poor prognosis (8) Diabetes mellitus Code(s): E11.9 - TYPE 2 DIABETES MELLITUS WITHOUT COMPLICATIONS Status: Chronic Qualifiers: Diabetes mellitus type: type 2 Diabetes mellitus penitentiary insulin use: without penitentiary use Diabetes mellitus complication status: with unspecified complications Qualified Code(s): E11.8 - Type 2 diabetes mellitus with unspecified complications Comment: Hyperglycemia present. Diabetes management not a priority at this time. Appetite and intake variable. No changes made to regimen today. - Plan PT/OT, oncology social worker, respiratory therapy, incentive spirometry, DVT proph w/ lovenox On cough syrup with codeine -: Pain management -: Pleural effusion management per pulmonary team * .
--- NOTE | 2018-10-03 13:39 | PRG ---
DATE OF SERVICE: 10/02/2018 ADDENDUM: She had venogram done today that showed bilateral lower extremity clot. She has been started on Lovenox. This is all discussed with her and she understands all this. 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 Job ID: [id number]
[2018-10-03] MEDS ORDERED: Enoxaparin Sodium 100 MG/ML SYRINGE SC SCH ×2 (15:30→23:59)
[2018-10-03] MEDS ORDERED: CEFAZOLIN/Water 2 GM/20 ML SYRINGE SLOW IVP SCH (16:00)
[2018-10-03] MEDS: Albumin 25% 25 GM/100 ML BOT IVPB SCH ×2 (16:15→21:52)
[2018-10-03] MEDS ORDERED: CEFAZOLIN 2 GM in Premix Bag 1 BAG IVPB SCH (16:15)
[2018-10-03] MEDS: Sodium Chloride 0.45% 1,000 ML IV SCH (16:19)
[2018-10-03] MEDS: Morphine 4 MG/ML VIAL IV PRN (17:32)
--- NOTE | 2018-10-03 19:10 | PRG ---
DATE OF SERVICE: 10/03/2018 Ms. Thomas was moved from stroke unit to telemetry yesterday. Apparently, only one dose of Lovenox was ordered yesterday, so she had not received any anticoagulants today. I discussed this with the pharmacy and that is the information they provided. She is afebrile. Heart rate is 94, respiratory rate is 20, oximetry is 100% on 3 L, and blood pressure 97/58. Lungs are clear. Heart, regular rhythm. Abdomen is soft. She has no peripheral access. Sodium 132, potassium 5, chloride 99, bicarb 21, BUN 20, and creatinine 1.69. IMPRESSION: 1. Metastatic lung cancer. 2. ? pseudoprogression. 3. Intravascular volume depletion. She has been negative fluid balance if her PleurX catheter drainage is recorded, but unfortunately it has not been recorded in the computer for some reason. It would look like she is in a positive balance, but her creatinine has gone from 0.8 to 1.6. Recommended IV fluids. Salt-poor albumin may help. She needs a MediPort not for chemotherapy, but for IV access and blood draws as needed. Consult to General Surgery for this. She is agreeable to a MediPort. Obviously, she has a preterminal condition, although she may survive several years of immunotherapy. Hopefully, we can get her stable. I have restarted her anticoagulants. I would probably consider switching her to another direct thrombin inhibitor besides Lovenox, so she did not stay on subcu Lovenox at home and treat her with Pradaxa for thromboembolic disease. Most likely, she has hypercoagulable state of malignancy given extensive clots in both legs. Job ID: [id number] [facility]
[2018-10-03] MEDS: Morphine 4 MG/ML VIAL SLOW IVP PRN (20:25)
[2018-10-03] MEDS: Lidocaine Patch Removal 1 EACH TOP SCH (20:28)
--- NOTE | 2018-10-03 20:47 | HP ---
HISTORY OF PRESENT ILLNESS: Sandee Thomas is a 53-year-old black female, whom Dr. Rebolledo has asked me to place a MediPort to facilitate IV access. This admission, she has required midlines. She has bilateral malignant effusions, has PleurX catheters in both thoracic cavities provided by Dr. Clemente. She had infection in one and had to have it removed and replaced. ALLERGIES: NONE. SHE IS ON LOVENOX FOR DVT, THERAPEUTIC, WE HELD THAT THIS EVENING. MEDICATIONS: 1. Tagrisso. 2. Thyroid. 3. Compazine. 4. Glucophage. 5. Demadex. 6. Hydrochlorothiazide-lisinopril. 7. Neurontin. 8. Flexeril. SOCIAL HISTORY: Tobacco and alcohol use, none currently. PAST SURGICAL HISTORY: Thoracentesis, PleurX catheters, cholecystectomy, and tubal ligation. PAST MEDICAL HISTORY: Diabetes, hypothyroidism, hypertension, arthritis, and stage IV lung cancer. PHYSICAL EXAMINATION: VITAL SIGNS: 5 feet 8 inches, 222 pounds, heart rate 88, and blood pressure 105/54. HEAD, EARS, EYES, NOSE, AND THROAT: Unremarkable. LUNGS: Clear to auscultation. CARDIAC: Regular rate and rhythm without murmur or gallop. ABDOMEN: Soft, obese, nontender. EXTREMITIES: Unremarkable. ASSESSMENT: Bilateral malignant effusions. PLAN: Place a MediPort to facilitate IV access. We will plan this tomorrow. Risks and benefits discussed and she consents. Job ID: [id number]
[2018-10-03] MEDS: Insulin Glargine 15 UNITS in Pre-Filled Syringe SC SCH (21:52)
[2018-10-04] MEDS: Albumin 25% 25 GM/100 ML BOT IVPB SCH ×2 (03:29→13:25)
[2018-10-04] MEDS: Sodium Chloride 0.45% 1,000 ML IV SCH ×3 (03:40→21:15)
[2018-10-04 05:46] LABS: Hemoglobin 8.7 g/dL (12.0-16.0); Platelet Count 143 thou/uL (130-400)
[2018-10-04] MEDS: guaiFENesin/Codeine Phosphate 200 mg/20 mg 10 ml UD Cup PO SCH ×3 (05:48→15:54)
[2018-10-04] MEDS: Clindamycin 150 MG CAP PO SCH ×3 (05:48→21:05)
[2018-10-04 06:08] LABS: Anion Gap 18 mmol/L (10-20); BUN (Urea Nitrogen) 27 mg/dL (9.8-20.1); Calc. Creatinine Clearance 59 mL/min (70-130); Calcium 8.6 mg/dL (7.8-10.44); Carbon Dioxide 19 mmol/L (22-29); Chloride 96 mmol/L (98-107); Estimated GFR-MDRD 38; Glucose 165 mg/dL (70-105); Potassium 4.5 mmol/L (3.5-5.1); Sodium 128 mmol/L (136-145)
[2018-10-04] MEDS: Morphine 4 MG/ML VIAL SLOW IVP PRN (06:38)
[2018-10-04] MEDS: Ivabradine 5 MG TAB PO SCH ×2 (08:10→21:02)
[2018-10-04] MEDS: Benzonatate 100 MG CAP PO SCH ×3 (08:10→21:02)
[2018-10-04] MEDS: Famotidine 20 MG TAB PO SCH ×2 (08:11→21:02)
[2018-10-04] MEDS: traMADol HCl 50 MG TAB PO PRN (08:11)
[2018-10-04] MEDS: Gabapentin 300 MG CAP PO SCH ×3 (08:12→21:02)
[2018-10-04] MEDS: Lidocaine 5% Patch TD SCH (08:12)
[2018-10-04] MEDS: TAGRISSO 80 MG PO SCH (08:12)
[2018-10-04] MEDS: Carvedilol 3.125 MG TAB PO SCH ×2 (08:13→17:37)
[2018-10-04] MEDS: Famotidine/PF 20 mg/2ml Vial SLOW IVP SCH ×2 (08:13→21:02)
--- NOTE | 2018-10-04 08:27 | PDOC.PN ---
- Subjective Encounter Start Date: 10/04/18 Encounter Start Time: 08:24 Subjective: Seen and examined no new complaint except pain - Objective Resuscitation Status - Order Detail: 09/13/18 22:04 Resuscitation Status Routine Resuscitation Status: FULL: Full Resuscitation Vital Signs & Weight: Vital Signs (12 hours) Temp Pulse Resp BP BP Pulse Ox 10/04/18 08:09 94 105/54 L 10/04/18 07:24 98.6 F 88 18 100/59 L 92 L 10/04/18 06:59 94 24 H 94 L 10/04/18 03:42 97 10/04/18 03:34 99.9 F H 94 22 H 98/55 L 95 10/04/18 00:00 99.3 F 93 19 97/60 92 L Weight Admit Weight 196 lb Weight 219 lb 8 oz I&O: 10/03/18 10/04/18 10/05/18 06:59 06:59 06:59 Intake Total 1200 900 Output Total 450 200 Balance 750 700 Result Diagrams: 10/04/18 05:13 10/04/18 05:13 Additional Labs: Accuchecks 10/04/18 10/03/18 10/03/18 05:29 20:26 16:45 POC Glucose 175 H 214 H 184 H 10/03/18 11:06 POC Glucose 178 H Phys Exam - Physical Examination Constitutional: NAD HEENT: PERRLA, moist MMs, sclera anicteric Neck: no nodes, no JVD, supple, full ROM Respiratory: no wheezing, no rales, no rhonchi, clear to auscultation bilateral Cardiovascular: RRR, no significant murmur, no rub Gastrointestinal: soft, non-tender, no distention, positive bowel sounds Musculoskeletal: no edema, pulses present Dx/Plan (1) Acute respiratory failure with hypoxia Code(s): J96.01 - ACUTE RESPIRATORY FAILURE WITH HYPOXIA Status: Acute Comment: Pericardial and pleural effusion .S/P Pigtail cathter insertion Left Pleural effusion and R thoracentesis of large volume 09/24/18 (2) DVT (deep venous thrombosis) Code(s): I82.409 - ACUTE EMBOLISM AND THOMBOS UNSP DEEP VN UNSP LOWER EXTREMITY Status: Acute (3) Pericardial effusion Code(s): I31.3 - PERICARDIAL EFFUSION (NONINFLAMMATORY) Status: Acute (4) Sepsis Code(s): A41.9 - SEPSIS, UNSPECIFIED ORGANISM Status: Acute Comment: Serratia in Pleural fluid which is malignant (5) Systolic CHF, acute on chronic Code(s): I50.23 - ACUTE ON CHRONIC SYSTOLIC (CONGESTIVE) HEART FAILURE Status : Acute Comment: Moderate apical pericardial effusion on echo. Coreg added per Dr. Stock. Torsemide low dose scheduled. Appreciate cardiology care. (6) Malignant pleural effusion Code(s): J91.0 - MALIGNANT PLEURAL EFFUSION Status: Acute Comment: Oral antibiotics on board, Serratia present in fluid, sensitive to third generation cephalosporin (omnicef and clinda presently). Appreciate pulmonary care.S/P PleurX placement and subsequent removal.see#1 (7) Adenocarcinoma, lung Code(s): C34.90 - MALIGNANT NEOPLASM OF UNSP PART OF UNSP BRONCHUS OR LUNG Status: Chronic Qualifiers: Laterality: left Qualified Code(s): C34.92 - Malignant neoplasm of unspecified part of left bronchus or lung Comment: Poor prognosis (8) Diabetes mellitus Code(s): E11.9 - TYPE 2 DIABETES MELLITUS WITHOUT COMPLICATIONS Status: Chronic Qualifiers: Diabetes mellitus type: type 2 Diabetes mellitus correction insulin use: without correction use Diabetes mellitus complication status: with unspecified complications Qualified Code(s): E11.8 - Type 2 diabetes mellitus with unspecified complications Comment: Hyperglycemia present. Diabetes management not a priority at this time. Appetite and intake variable. No changes made to regimen today. - Plan continue antibiotics, PT/OT, respiratory therapy On therapeutic dose of lovenox--will need oral anticoagulant -: Mediport placement today for IV access -: Dispo planning * .
[2018-10-04] MEDS: Morphine 4 MG/ML VIAL IV PRN ×2 (09:17→22:43)
[2018-10-04] MEDS: Enoxaparin Sodium 100 MG/ML SYRINGE SC SCH ×2 (10:47→21:03)
[2018-10-04] MEDS ORDERED: Propofol 500 MG/50 ML VIAL ONE (11:19)
[2018-10-04] MEDS ORDERED: Fentanyl 100 MCG/2 ML VIAL ONE (11:19)
[2018-10-04] MEDS ORDERED: Bupivacaine HCl 0.5%/Epinephrine 1:200,000/PF 30 ml Vial ONE (11:20)
[2018-10-04] MEDS ORDERED: Lidocaine 2% PF 5 ML VIAL ONE (11:20)
[2018-10-04] MEDS ORDERED: KETAMINE 100 MG/ML (5ML VIAL) ONE (11:25)
[2018-10-04] MEDS ORDERED: Midazolam HCl 2 mg/2 ml Vial ONE (11:25)
[2018-10-04] MEDS ORDERED: Meperidine HCl/PF 25 MG/ML VIAL SLOW IVP PRN (12:11)
[2018-10-04] MEDS ORDERED: Morphine Sulfate 2 MG/ML SYRINGE SLOW IVP PRN (12:11)
[2018-10-04] MEDS ORDERED: Promethazine HCl 25 MG/ML VIAL SLOW IVP PRN (12:11)
[2018-10-04] MEDS ORDERED: Promethazine HCl 25 MG/ML VIAL IM PRN (12:11)
--- NOTE | 2018-10-04 13:17 | PRG ---
DATE OF SERVICE: 10/04/2018 SERVICE: Pulmonary Medicine. INTERVAL HISTORY: The patient is doing great from respiratory standpoint. She is breathing okay. She is going down for a port catheter today. Otherwise, there has been no interval change to her condition. PHYSICAL EXAMINATION: VITAL SIGNS: Afebrile, blood pressure 100/59, respirations 18, and saturation 92% on 4 L nasal cannula. GENERAL: The patient is awake and alert, in no apparent distress. LUNGS: Decreased air entry. Minimal dependent crackles. No prolonged expiratory phase of wheezing is appreciated. HEART: Normal rate. Regular. ABDOMEN: Soft, nontender, and nondistended. Bowel sounds are positive. MUSCULOSKELETAL: No cyanosis or clubbing. There is extensive 2 to 3+ pitting in the bilateral lower extremities. NEUROLOGIC: Grossly nonfocal. LABORATORY DATA: Hemoglobin 8.7 and platelets 143,000. Creatinine 1.69 and roughly stable and BUN 27. Sodium 128 and downtrending. Basic metabolic profile is otherwise unremarkable. Magnesium 2.0. ASSESSMENT: 1. Acute hypoxic respiratory failure. 2. Adenocarcinoma of the lung, stage 4 with high PD-L1 expression. 3. Malignant pleural effusion on the left, status post PleurX catheter placement and subsequent removal with an anterior pigtail catheter now in place. 4. Malignant pleural effusion on the right, status post PleurX catheter placement. 5. Deep venous thrombosis of the bilateral lower extremities, extensive. 6. Sinus tachycardia. DISCUSSION AND PLAN: We will continue anticoagulation through time. I will defer to Oncology, for which agent they choose. She has a new evolving hyponatremia. If this progresses, may need additional investigation. Pulmonary will continue to follow if she remains in-house. Job ID: [id number]
[2018-10-04] MEDS: Sodium Chloride 0.9% 1,000 ML IV SCH (14:21)
[2018-10-04] MEDS ORDERED: Ondansetron PF 4 MG/2 ML Vial ONE (14:57)
--- NOTE | 2018-10-04 16:25 | RAD ---
PORTABLE CHEST 1 VIEW: DATE: 10/04/2018. TIME: 12:54 p.m. HISTORY: MediPort placement. FINDINGS/IMPRESSION: There has been interval placement of a right subclavian Port-A-Cath since 09/24/2018 with tip in the p rojection of the SVC. No pneumothoraces are seen. The heart is enlarged. A left-sided pleural cath eter is also noted. There is pulmonary vascular congestion with bilateral pleural effusions and cons olidation in the left lower lung. POS: YARIEL
--- NOTE | 2018-10-04 19:40 | OP ---
DATE OF PROCEDURE: 10/04/2018 PREOPERATIVE DIAGNOSES: 1. Adenocarcinoma of the lungs with metastatic and malignant effusions. 2. Need of antineoplastic chemotherapy access. POSTOPERATIVE DIAGNOSES: 1. Adenocarcinoma of the lungs with metastatic and malignant effusions. 2. Need of antineoplastic chemotherapy access. PROCEDURE PERFORMED: Right subclavian vein low-profile MediPort, fluoroscopy use, and US to facilitate access. ANESTHESIA: TIVA, local of 0.5% Marcaine with epinephrine 30 mL, mixed with 2% Xylocaine 10 mL. DESCRIPTION OF PROCEDURE: The patient was taken to the operating room under intravenous sedation, neck and chest were prepared with ChloraPrep and draped in routine fashion. Local anesthetic was infiltrated in the skin and subcutaneous tissue about the operative site. Trocar and catheter were cannulated in the right subclavian vein infraclavicular approach, and with some difficulty directing the wire into the superior vena cava, this was accomplished finally, and trocar and catheter removed. Dilator and Peel-Away sheath placed over the J-wire after a skin incision was made and a subcutaneous pocket was created with blunt and sharp dissection using cautery for hemostasis. Once the dilator and sheath were placed, the J-wire was left in place as the dilator was removed and the catheter tailored to length and placed over the J-wire through the Peel-Away sheath and directed in the superior vena cava, removing the J-wire and Peel-Away sheath under fluoroscopic visualization. The tip of the catheter placed in optimal position in the superior vena cava. It was tailored to length, connected to the MediPort, which was placed in subcutaneous pocket, secured with 2 interrupted suture of 3-0 Prolene. Subcutaneous tissue was approximated with 3-0 Monocryl, skin with subdermal 4-0 Monocryl and Coleridge glue, and sterile dressings applied after MediPort accessed and aspirated blood, flushed with heparinized saline solution. Fluoroscopic images revealed MediPort line placement. Job ID: [id number] [facility]
[2018-10-04] MEDS: Insulin Glargine 15 UNITS in Pre-Filled Syringe SC SCH (21:02)
[2018-10-04] MEDS: Lidocaine Patch Removal 1 EACH TOP SCH (21:03)
[2018-10-05] MEDS: guaiFENesin/Codeine Phosphate 200 mg/20 mg 10 ml UD Cup PO SCH ×4 (00:21→17:35)
[2018-10-05] MEDS: ALPRAZolam 0.25 MG TAB PO PRN ×2 (00:24→20:37)
[2018-10-05] MEDS: Sodium Chloride 0.9% 1,000 ML IV SCH ×2 (01:02→17:34)
[2018-10-05] MEDS: Clindamycin 150 MG CAP PO SCH ×3 (05:40→20:37)
[2018-10-05] MEDS: Sodium Chloride 0.45% 1,000 ML IV SCH ×2 (05:46→17:35)
[2018-10-05] MEDS: traMADol HCl 50 MG TAB PO PRN (06:08)
[2018-10-05] MEDS: Morphine 4 MG/ML VIAL SLOW IVP PRN ×4 (06:16→17:35)
[2018-10-05 06:48] LABS: Anion Gap 17 mmol/L (10-20); BUN (Urea Nitrogen) 24 mg/dL (9.8-20.1); Calc. Creatinine Clearance 69 mL/min (70-130); Calcium 8.9 mg/dL (7.8-10.44); Carbon Dioxide 20 mmol/L (22-29); Chloride 98 mmol/L (98-107); Estimated GFR-MDRD 44; Glucose 170 mg/dL (70-105); Potassium 4.9 mmol/L (3.5-5.1); Sodium 130 mmol/L (136-145)
--- NOTE | 2018-10-05 07:50 | PDOC.PN ---
- Subjective Encounter Start Date: 10/05/18 Encounter Start Time: 07:49 Subjective: sob ok, no specific complaints at present - Objective Resuscitation Status - Order Detail: 09/13/18 22:04 Resuscitation Status Routine Resuscitation Status: FULL: Full Resuscitation MAR Reviewed: Yes Vital Signs & Weight: Vital Signs (12 hours) Temp Pulse Resp BP BP Pulse Ox 10/05/18 03:27 98 F 81 17 166/70 H 94 L 10/05/18 00:20 98.2 F 89 18 105/62 96 10/04/18 20:07 98 Weight Admit Weight 196 lb Weight 227 lb 12.8 oz I&O: 10/04/18 10/05/18 10/06/18 06:59 06:59 06:59 Intake Total 900 998 Output Total 200 450 Balance 700 548 Result Diagrams: 10/04/18 05:13 10/05/18 05:53 Additional Labs: Accuchecks 10/05/18 10/04/18 10/04/18 05:35 20:22 16:01 POC Glucose 188 H 247 H 187 H Phys Exam - Physical Examination Neck: no JVD dull with rales LLL field Cardiovascular: RRR, no significant murmur Gastrointestinal: soft, non-tender, positive bowel sounds bilat 3+ edema Dx/Plan (1) Acute respiratory failure with hypoxia Code(s): J96.01 - ACUTE RESPIRATORY FAILURE WITH HYPOXIA Status: Acute Comment: Pericardial and pleural effusion .S/P Pigtail cathter insertion Left Pleural effusion and R thoracentesis of large volume 09/24/18 (2) DVT (deep venous thrombosis) Code(s): I82.409 - ACUTE EMBOLISM AND THOMBOS UNSP DEEP VN UNSP LOWER EXTREMITY Status: Acute Qualifiers: DVT location: lower extremity Chronicity: acute Laterality: bilateral (3) Malignant pleural effusion Code(s): J91.0 - MALIGNANT PLEURAL EFFUSION Status: Acute Comment: Oral antibiotics on board, Serratia present in fluid, sensitive to third generation cephalosporin (omnicef and clinda presently). 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 Diabetes management not a priority at this time. Appetite and intake variable. No changes made to regimen today. (5) HTN (hypertension) Code(s): I10 - ESSENTIAL (PRIMARY) HYPERTENSION Status: Chronic Qualifiers: Hypertension type: essential hypertension Qualified Code(s): I10 - Essential (primary) hypertension Comment: controlled (6) Hypothyroidism Code(s): E03.9 - HYPOTHYROIDISM, UNSPECIFIED Status: Chronic Qualifiers: Hypothyroidism type: unspecified Qualified Code(s): E03.9 - Hypothyroidism , unspecified Comment: Yoandy thyroid stopped due to Iatrogenic Hyperthyroidism - Plan cont iv antibx -: on subq loveox for DVT -transition to po med -: discuss with oncology * .
[2018-10-05] MEDS: Enoxaparin Sodium 100 MG/ML SYRINGE SC SCH ×2 (09:00→20:31)
[2018-10-05] MEDS: Ivabradine 5 MG TAB PO SCH ×2 (09:00→20:31)
[2018-10-05] MEDS: Famotidine/PF 20 mg/2ml Vial SLOW IVP SCH ×2 (09:01→20:31)
[2018-10-05] MEDS: Carvedilol 3.125 MG TAB PO SCH ×2 (09:01→17:35)
[2018-10-05] MEDS: Benzonatate 100 MG CAP PO SCH ×3 (09:01→20:31)
[2018-10-05] MEDS: Famotidine 20 MG TAB PO SCH ×2 (09:01→20:31)
[2018-10-05] MEDS: Gabapentin 300 MG CAP PO SCH ×3 (09:02→20:31)
[2018-10-05] MEDS: Lidocaine 5% Patch TD SCH (09:02)
[2018-10-05] MEDS: TAGRISSO 80 MG PO SCH (09:26)
--- NOTE | 2018-10-05 12:46 | RAD ---
RADIOGRAPH CHEST 2 VIEWS: Date: 10-05-18 Time: 12:26 p.m. HISTORY: 53-year-old female status post drainage of Pleurex catheters COMPARISON: 10-04-17 at 12:54 p.m. one view study FINDINGS: Right subclavian implantable vascular access report remains. Previously, there was almost total opaci fication of left hemithoracic cavity with poor aeration of the upper third of the left lung, filled w ith alveolar densities, and non-aeration of the lower two-thirds of the left lung. Now, this has impr cris. The completely opacified portion of the left lung is now reduced to the lower one-fourth. The u pper three-fourths of the left lung have diffuse nodular interstitial/alveolar infiltrates. There is a very large number of tiny nodular interstitial densities throughout the entire right lung. The infi ltrate/edema of the right central and basilar lung have significantly improved. There are bilateral s mall pleural effusions, left greater than right. The left sided pleural drainage catheter remains. No pneumothorax is visualized. IMPRESSION: 1. Interval decrease in volume of left pleural effusion. 2. Interval improvement in pulmonary edema, but significant amount remains. 3. Interval improvement in aeration of the lungs, although there is significant interstitial/alveolar residual infiltrate involving left lung. 4. Left pleural drainage catheter remains. 5. No pneumothorax. STANLEY POS: ROSALBA
--- NOTE | 2018-10-05 12:53 | PRG ---
DATE OF SERVICE: 10/05/2018 SERVICE: Pulmonary Medicine. INTERVAL HISTORY: The patient is doing fine from respiratory standpoint. She has increasing work of breathing. She feels the fluids coming back on, but otherwise, she is tearful today. She denies any current fevers, chills, nausea, or vomiting. There were no significant overnight events. Her creatinine seems to be improving a little bit. PHYSICAL EXAMINATION: VITAL SIGNS: Afebrile, pulse 84, blood pressure 112/70, respirations 20, and saturation 98% on 4 L nasal cannula. GENERAL: The patient is awake and alert, in no apparent distress. LUNGS: Decreased air entry is present once again at the right base. No prolonged expiratory phase or wheezing. HEART: Normal rate and regular. ABDOMEN: Soft, nontender, and nondistended. Bowel sounds are positive. MUSCULOSKELETAL: No cyanosis or clubbing. There is 2 to 3+ pitting in the bilateral lower extremities. NEUROLOGIC: Grossly nonfocal. LABORATORY DATA: Sodium 130 and improving, creatinine has improved to 1.5. Basic metabolic profile is otherwise unremarkable. ASSESSMENT: 1. Acute hypoxic respiratory failure, resolving. 2. Adenocarcinoma of the lung, stage IV with high PD-1 expression. 3. Malignant pleural effusion on the left, status post PleurX catheter placement and subsequent removal with an anterior pigtail catheter now in place. 4. Malignant pleural effusion on the right, status post PleurX catheter placement. 5. Deep venous thrombosis of the bilateral lower extremities, extensive. DISCUSSION AND PLAN: I will continue to follow the patient, intermittently during this hospital stay. From my perspective, she is in a place where she can be transitioned out of the hospital. She will need home health to assist with draining these fluid collections every 2 to 3 days based on the patient's symptoms. If these things stop draining anything, I would recommend that they be removed as soon as possible. After these collections of fluid or drain today, we will proceed with a repeat chest x-ray. Job ID: [id number]
[2018-10-05] MEDS: Insulin Regular 300 UNITS/3 ML VIAL SC PRN ×2 (13:27→17:38)
[2018-10-05] MEDS: Lidocaine Patch Removal 1 EACH TOP SCH (20:32)
[2018-10-05] MEDS: Insulin Glargine 15 UNITS in Pre-Filled Syringe SC SCH (20:38)
[2018-10-06] MEDS: guaiFENesin/Codeine Phosphate 200 mg/20 mg 10 ml UD Cup PO SCH ×5 (01:43→19:53)
[2018-10-06] MEDS: Morphine 4 MG/ML VIAL SLOW IVP PRN ×2 (03:47→15:35)
[2018-10-06 04:59] LABS: Hemoglobin 9.3 g/dL (12.0-16.0); Platelet Count 154 thou/uL (130-400)
[2018-10-06 05:20] LABS: Anion Gap 17 mmol/L (10-20); BUN (Urea Nitrogen) 26 mg/dL (9.8-20.1); Calc. Creatinine Clearance 68 mL/min (70-130); Calcium 8.7 mg/dL (7.8-10.44); Carbon Dioxide 22 mmol/L (22-29); Chloride 97 mmol/L (98-107); Estimated GFR-MDRD 43; Glucose 140 mg/dL (70-105); Potassium 4.6 mmol/L (3.5-5.1); Sodium 131 mmol/L (136-145)
[2018-10-06] MEDS: Clindamycin 150 MG CAP PO SCH ×3 (05:37→21:07)
--- NOTE | 2018-10-06 07:13 | PDOC.PN ---
- Subjective Encounter Start Date: 10/06/18 Encounter Start Time: 07:11 Subjective: no sob, pain - Objective Resuscitation Status - Order Detail: 09/13/18 22:04 Resuscitation Status Routine Resuscitation Status: FULL: Full Resuscitation MAR Reviewed: Yes Vital Signs & Weight: Vital Signs (12 hours) Temp Pulse Resp BP BP Pulse Ox 10/06/18 06:42 92 18 95 10/06/18 04:15 89 18 97 10/06/18 03:40 98.8 F 98 22 H 114/60 92 L 10/05/18 23:51 98.9 F 87 18 107/70 98 10/05/18 23:44 88 18 99 10/05/18 20:13 98 10/05/18 19:44 98.4 F 89 20 99/62 98 Weight Admit Weight 196 lb Weight 227 lb 12.8 oz I&O: 10/05/18 10/06/18 10/07/18 06:59 06:59 06:59 Intake Total 998 1500 Output Total 450 2690 Balance 548 -1190 Result Diagrams: 10/06/18 04:20 10/06/18 04:20 Additional Labs: Accuchecks 10/06/18 10/05/18 10/05/18 05:47 20:17 16:40 POC Glucose 172 H 208 H 221 H 10/05/18 10:39 POC Glucose 230 H Radiology Reviewed by me: Yes (cxr- improved aeration, decreased pleural effusion) Phys Exam - Physical Examination Neck: no JVD clear on R, dull L base Cardiovascular: RRR, no significant murmur Gastrointestinal: soft, positive bowel sounds Musculoskeletal: edema present Dx/Plan (1) Acute respiratory failure with hypoxia Code(s): J96.01 - ACUTE RESPIRATORY FAILURE WITH HYPOXIA Status: Acute Comment: Pericardial and pleural effusion .S/P Pigtail cathter insertion Left Pleural effusion and R thoracentesis of large volume 09/24/18 (2) DVT (deep venous thrombosis) Code(s): I82.409 - ACUTE EMBOLISM AND THOMBOS UNSP DEEP VN UNSP LOWER EXTREMITY Status: Acute Qualifiers: DVT location: lower extremity Chronicity: acute Laterality: bilateral (3) Malignant pleural effusion Code(s): J91.0 - MALIGNANT PLEURAL EFFUSION Status: Acute Comment: Oral antibiotics on board, Serratia present in fluid, sensitive to third generation cephalosporin (omnicef and clinda presently). Appreciate pulmonary care.S/P PleurX placement and subsequent removal.see#1 (4) Diabetes mellitus Code(s): E11.9 - TYPE 2 DIABETES MELLITUS WITHOUT COMPLICATIONS Status: Chronic Qualifiers: Diabetes mellitus type: type 2 Diabetes mellitus fpc insulin use: without fpc use Diabetes mellitus complication status: with unspecified complications Qualified Code(s): E11.8 - Type 2 diabetes mellitus with unspecified complications Comment: Hyperglycemia present. Diabetes management not a priority at this time. Appetite and intake variable. No changes made to regimen today. (5) HTN (hypertension) Code(s): I10 - ESSENTIAL (PRIMARY) HYPERTENSION Status: Chronic Qualifiers: Hypertension type: essential hypertension Qualified Code(s): I10 - Essential (primary) hypertension Comment: controlled (6) Hypothyroidism Code(s): E03.9 - HYPOTHYROIDISM, UNSPECIFIED Status: Chronic Qualifiers: Hypothyroidism type: unspecified Qualified Code(s): E03.9 - Hypothyroidism , unspecified Comment: Yoandy thyroid stopped due to Iatrogenic Hyperthyroidism - Plan discuss with pulmonology, transition planning. Discuss with CM * .
[2018-10-06] MEDS: Benzonatate 100 MG CAP PO SCH ×3 (09:05→21:07)
[2018-10-06] MEDS: Gabapentin 300 MG CAP PO SCH ×3 (09:06→21:07)
[2018-10-06] MEDS: Famotidine 20 MG TAB PO SCH ×2 (09:06→21:07)
[2018-10-06] MEDS: Carvedilol 3.125 MG TAB PO SCH ×2 (09:06→19:46)
[2018-10-06] MEDS: Famotidine/PF 20 mg/2ml Vial SLOW IVP SCH ×2 (09:07→21:08)
[2018-10-06] MEDS: Enoxaparin Sodium 100 MG/ML SYRINGE SC SCH ×2 (09:07→21:06)
[2018-10-06] MEDS: Ivabradine 5 MG TAB PO SCH ×2 (09:07→21:07)
[2018-10-06] MEDS: Lidocaine 5% Patch TD SCH (09:09)
[2018-10-06] MEDS: TAGRISSO 80 MG PO SCH (09:09)
[2018-10-06] MEDS: Morphine 4 MG/ML VIAL IV PRN (13:24)
--- NOTE | 2018-10-06 13:52 | PRG ---
DATE OF SERVICE: 10/06/2018 SERVICE: Pulmonary Medicine. INTERVAL HISTORY: The patient is doing fine from respiratory standpoint. She was able to work with physical therapy today. She denies any current fevers, chills, nausea, or vomiting. Otherwise, there has been no interval change to her condition. PHYSICAL EXAMINATION: VITAL SIGNS: Afebrile. Pulse 89, blood pressure 100/55, respirations 20, saturation 95% on 4 L nasal cannula. GENERAL: The patient is awake and alert, in no apparent distress. LUNGS: Excellent air entry. There is no prolonged expiratory phase or wheezing appreciated. HEART: Normal rate, regular. ABDOMEN: Soft, nontender, and nondistended. Bowel sounds are positive. MUSCULOSKELETAL: No cyanosis or clubbing. There is diffuse 2 to 3+ pitting in the bilateral lower extremities. LABORATORY DATA: Hemoglobin 9.3, platelets 154,000. Sodium 131 and trending upward, creatinine 1.52 and stable. Basic metabolic profile is otherwise unremarkable. ASSESSMENT: 1. Acute hypoxic respiratory failure, resolving. 2. Malignant pleural effusion on the left, status post PleurX catheter placement, subsequent removal with anterior pigtail catheter in place. 3. Malignant pleural effusion on the right, status post PleurX catheter placement. 4. Adenocarcinoma of lung, stage IV with high PD-L1 expression. 5. Deep vein thrombosis of the bilateral lower extremities, extensive. DISCUSSION AND PLAN: We will continue supportive measures. From purely respiratory perspective, the patient is stable for transition out of the hospital with home health. She will need to intermittently drain both sides of her chest. Once these pockets of fluid stopped putting anything out, she will be a candidate for the pigtail, and the PleurX to be removed at some point in future in the outpatient setting. We will continue to follow, intermittently while the patient remains inhouse. Job ID: [id number]
[2018-10-06] MEDS ORDERED: Furosemide 20 MG/2 ML VIAL SLOW IVP SCH (17:30)
[2018-10-06] MEDS: Cyclobenzaprine 10 MG TAB PO PRN (19:46)
[2018-10-06] MEDS: Insulin Glargine 15 UNITS in Pre-Filled Syringe SC SCH (21:08)
[2018-10-06] MEDS: ALPRAZolam 0.25 MG TAB PO PRN (21:08)
[2018-10-06] MEDS: Lidocaine Patch Removal 1 EACH TOP SCH (21:09)
[2018-10-07] MEDS: guaiFENesin/Codeine Phosphate 200 mg/20 mg 10 ml UD Cup PO SCH ×4 (02:17→18:32)
[2018-10-07] MEDS: Morphine 4 MG/ML VIAL SLOW IVP PRN (03:45)
[2018-10-07] MEDS: Clindamycin 150 MG CAP PO SCH ×3 (06:13→21:10)
[2018-10-07] MEDS: ALPRAZolam 0.25 MG TAB PO PRN ×2 (06:13→21:35)
--- NOTE | 2018-10-07 09:25 | PDOC.PN ---
- Subjective Encounter Start Date: 10/07/18 Encounter Start Time: 09:23 Subjective: weak, sob, on O2 - Objective Resuscitation Status - Order Detail: 09/13/18 22:04 Resuscitation Status Routine Resuscitation Status: FULL: Full Resuscitation MAR Reviewed: Yes Vital Signs & Weight: Vital Signs (12 hours) Temp Pulse Resp BP BP Pulse Ox 10/07/18 06:28 79 20 99 10/07/18 04:00 98.3 F 81 18 86/50 L 97 10/07/18 03:44 81 93/52 L 10/06/18 23:22 97.7 F 81 16 86/50 L 98 Weight Admit Weight 196 lb Weight 227 lb 12.8 oz I&O: 10/06/18 10/07/18 10/08/18 06:59 06:59 06:59 Intake Total 1500 1200 Output Total 2690 200 Balance -1190 1000 Result Diagrams: 10/06/18 04:20 10/06/18 04:20 Additional Labs: Accuchecks 10/07/18 10/06/18 10/06/18 05:07 20:58 16:50 POC Glucose 167 H 180 H 203 H 10/06/18 10/06/18 15:27 10:55 POC Glucose 206 H 173 H Phys Exam - Physical Examination Neck: no JVD rhonchi, rales both lower lobes Cardiovascular: RRR Gastrointestinal: soft, positive bowel sounds Musculoskeletal: edema present Dx/Plan (1) Acute respiratory failure with hypoxia Code(s): J96.01 - ACUTE RESPIRATORY FAILURE WITH HYPOXIA Status: Acute Comment: Pericardial and pleural effusion .S/P Pigtail cathter insertion Left Pleural effusion and R thoracentesis of large volume 09/24/18 (2) DVT (deep venous thrombosis) Code(s): I82.409 - ACUTE EMBOLISM AND THOMBOS UNSP DEEP VN UNSP LOWER EXTREMITY Status: Acute Qualifiers: DVT location: lower extremity Chronicity: acute Laterality: bilateral (3) Malignant pleural effusion Code(s): J91.0 - MALIGNANT PLEURAL EFFUSION Status: Acute Comment: Oral antibiotics on board, Serratia present in fluid, sensitive to third generation cephalosporin (omnicef and clinda presently). 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 Diabetes management not a priority at this time. Appetite and intake variable. No changes made to regimen today. (5) HTN (hypertension) Code(s): I10 - ESSENTIAL (PRIMARY) HYPERTENSION Status: Chronic Qualifiers: Hypertension type: essential hypertension Qualified Code(s): I10 - Essential (primary) hypertension Comment: controlled (6) Hypothyroidism Code(s): E03.9 - HYPOTHYROIDISM, UNSPECIFIED Status: Chronic Qualifiers: Hypothyroidism type: unspecified Qualified Code(s): E03.9 - Hypothyroidism , unspecified Comment: Yoandy thyroid stopped due to Iatrogenic Hyperthyroidism (7) Systolic CHF, acute on chronic Code(s): I50.23 - ACUTE ON CHRONIC SYSTOLIC (CONGESTIVE) HEART FAILURE Status : Acute Comment: Moderate apical pericardial effusion on echo. Coreg added per Dr. Stock. Torsemide low dose scheduled. Appreciate cardiology care. (8) Cardiomyopathy Code(s): I42.9 - CARDIOMYOPATHY, UNSPECIFIED Status: Acute - Plan BP too low for lasix/ coreg -: requiring frequent drainage of pleurex -: so far no options for outpt care * .
[2018-10-07] MEDS: Gabapentin 300 MG CAP PO SCH ×3 (09:28→21:10)
[2018-10-07] MEDS: Enoxaparin Sodium 100 MG/ML SYRINGE SC SCH ×2 (09:28→21:10)
[2018-10-07] MEDS: Carvedilol 3.125 MG TAB PO SCH ×2 (09:28→16:55)
[2018-10-07] MEDS: Famotidine 20 MG TAB PO SCH ×2 (09:28→21:10)
[2018-10-07] MEDS: Benzonatate 100 MG CAP PO SCH ×3 (09:28→21:10)
[2018-10-07] MEDS: Famotidine/PF 20 mg/2ml Vial SLOW IVP SCH ×2 (09:29→21:05)
[2018-10-07] MEDS: TAGRISSO 80 MG PO SCH (09:31)
[2018-10-07] MEDS: Lidocaine 5% Patch TD SCH (09:31)
[2018-10-07] MEDS: Ivabradine 5 MG TAB PO SCH (10:51)
[2018-10-07] MEDS: traMADol HCl 50 MG TAB PO PRN (19:32)
[2018-10-07] MEDS: Lidocaine Patch Removal 1 EACH TOP SCH (21:05)
[2018-10-07] MEDS: Insulin Glargine 15 UNITS in Pre-Filled Syringe SC SCH (21:11)
[2018-10-08] MEDS: Morphine 4 MG/ML VIAL SLOW IVP PRN (00:30)
[2018-10-08] MEDS: guaiFENesin/Codeine Phosphate 200 mg/20 mg 10 ml UD Cup PO SCH ×3 (00:45→05:33)
[2018-10-08] MEDS: Clindamycin 150 MG CAP PO SCH (05:33)
--- NOTE | 2018-10-08 09:10 | PDOC.PN ---
- Subjective Encounter Start Date: 10/08/18 Encounter Start Time: 09:08 Subjective: malaise, DUONG - Objective Resuscitation Status - Order Detail: 09/13/18 22:04 Resuscitation Status Routine Resuscitation Status: FULL: Full Resuscitation MAR Reviewed: Yes Vital Signs & Weight: Vital Signs (12 hours) Temp Pulse Resp BP Pulse Ox 10/08/18 07:43 88 L 10/08/18 07:42 88 16 10/08/18 07:40 98.0 F 78 20 89/52 L 92 L 10/08/18 04:00 97.9 F 84 16 93/51 L 93 L 10/08/18 00:00 100 24 H 133/60 93 L 10/07/18 21:53 84 26 H Weight Admit Weight 196 lb Weight 225 lb 2 oz I&O: 10/07/18 10/08/18 10/09/18 06:59 06:59 06:59 Intake Total 1200 1200 Output Total 200 225 Balance 1000 975 Result Diagrams: 10/06/18 04:20 10/06/18 04:20 Additional Labs: Accuchecks 10/08/18 10/07/18 10/07/18 05:34 20:48 16:27 POC Glucose 180 H 198 H 161 H 10/07/18 10:49 POC Glucose 195 H Phys Exam - Physical Examination Neck: no JVD decreased BS, Cardiovascular: RRR, no significant murmur Gastrointestinal: soft, positive bowel sounds Musculoskeletal: edema present 2_ edema Dx/Plan (1) Acute respiratory failure with hypoxia Code(s): J96.01 - ACUTE RESPIRATORY FAILURE WITH HYPOXIA Status: Acute Comment: Pericardial and pleural effusion .S/P Pigtail cathter insertion Left Pleural effusion and R thoracentesis of large volume 09/24/18 (2) DVT (deep venous thrombosis) Code(s): I82.409 - ACUTE EMBOLISM AND THOMBOS UNSP DEEP VN UNSP LOWER EXTREMITY Status: Acute Qualifiers: DVT location: lower extremity Chronicity: acute Laterality: bilateral (3) Malignant pleural effusion Code(s): J91.0 - MALIGNANT PLEURAL EFFUSION Status: Acute Comment: Oral antibiotics on board, Serratia present in fluid, sensitive to third generation cephalosporin (omnicef and clinda presently). 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 Diabetes management not a priority at this time. Appetite and intake variable. No changes made to regimen today. (5) HTN (hypertension) Code(s): I10 - ESSENTIAL (PRIMARY) HYPERTENSION Status: Chronic Qualifiers: Hypertension type: essential hypertension Qualified Code(s): I10 - Essential (primary) hypertension Comment: controlled (6) Hypothyroidism Code(s): E03.9 - HYPOTHYROIDISM, UNSPECIFIED Status: Chronic Qualifiers: Hypothyroidism type: unspecified Qualified Code(s): E03.9 - Hypothyroidism , unspecified Comment: Yoandy thyroid stopped due to Iatrogenic Hyperthyroidism (7) Systolic CHF, acute on chronic Code(s): I50.23 - ACUTE ON CHRONIC SYSTOLIC (CONGESTIVE) HEART FAILURE Status : Acute Comment: Moderate apical pericardial effusion on echo. Coreg added per Dr. Stock. Torsemide low dose scheduled. Appreciate cardiology care. (8) Cardiomyopathy Code(s): I42.9 - CARDIOMYOPATHY, UNSPECIFIED Status: Acute (9) Anemia Code(s): D64.9 - ANEMIA, UNSPECIFIED Status: Chronic Qualifiers: Anemia type: unspecified type Qualified Code(s): D64.9 - Anemia, unspecified (10) Hypotension Status: Acute - Plan have discussed with family, , daughter, sister.patient cont to -: decline, prognosis is poor. we have no success in placement. there are -: to decide how to care for her. will continue supportive care as -: conversations cont. we have no modalities for improving her problems * .
[2018-10-08] MEDS ORDERED: Sodium Chloride 0.9% 500 ML IV SCH (09:30)
--- NOTE | 2018-10-08 09:43 | PRG ---
DATE OF SERVICE: 10/08/2018 SERVICE: Pulmonary Medicine. SUBJECTIVE: The patient having a little additional trouble from a respiratory standpoint. Breathing is a touch more labored. She is little tachypneic. She does feel that she needs to be drained at this point. Otherwise, there were no overnight events. Denies fever chills, nausea, vomiting, diarrhea, chest pain. OBJECTIVE: VITAL SIGNS: Afebrile. Pulse 78, blood pressure 89/52, respirations 20, and saturations 92% on 4 L nasal cannula. GENERAL: The patient is awake and alert, in no apparent distress. LUNGS: Decent air entry with no prolonged expiratory phase or wheezing. Dependent crackles are present on the right. There is a little decreased air entry in the left base. HEART: Normal rate, regular. ABDOMEN: Soft, nontender, and nondistended. Bowel sounds are positive. MUSCULOSKELETAL: No cyanosis or clubbing. There is 3+ pitting in the bilateral lower extremities. NEUROLOGIC: Grossly nonfocal. ASSESSMENT: 1. Acute hypoxic respiratory failure, resolving. 2. Malignant pleural effusion on the left, status post PleurX catheter placement and subsequent removal with anterior pigtail catheter in place. 3. Malignant pleural effusion on the right, status post PleurX catheter placement. 4. Adenocarcinoma of the lung, stage IV with high PD-1 expression. 5. Deep venous thrombosis of the bilateral lower extremities, extensive. DISCUSSION AND PLAN: The patient is likely little prerenal. She does have lower extremity edema, but this is likely an artifact of her DVTs and not her volume status. Intravascularly, I bet she is dry. We will continue to drain her fluid collections intermittently. From my perspective, the patient is at her current baseline. If we can find a care facility that can handle her, she is stable for transition out of the hospital. Once these pigtail catheter and/or PleurX catheter stops putting fluid out, they can be discontinued. We will drain both sides again today. Pulmonary will continue to follow intermittently through time. I will transition the patient to the Oncology floor. Job ID: [id number] [facility]
[2018-10-08] MEDS: Famotidine/PF 20 mg/2ml Vial SLOW IVP SCH ×2 (09:59→21:35)
[2018-10-08] MEDS: Enoxaparin Sodium 100 MG/ML SYRINGE SC SCH ×2 (10:00→21:21)
[2018-10-08] MEDS: Gabapentin 300 MG CAP PO SCH ×3 (10:00→21:21)
[2018-10-08] MEDS: Famotidine 20 MG TAB PO SCH ×2 (10:00→21:21)
[2018-10-08] MEDS: Lidocaine 5% Patch TD SCH (10:00)
[2018-10-08] MEDS: Benzonatate 100 MG CAP PO SCH ×3 (10:00→21:21)
[2018-10-08] MEDS: Carvedilol 3.125 MG TAB PO SCH ×2 (10:00→18:05)
[2018-10-08] MEDS: TAGRISSO 80 MG PO SCH (10:01)
[2018-10-08] MEDS: Morphine 4 MG/ML VIAL IV PRN (11:20)
[2018-10-08] MEDS: traMADol HCl 50 MG TAB PO PRN ×2 (12:40→21:37)
[2018-10-08] MEDS: Insulin Regular 300 UNITS/3 ML VIAL SC PRN (21:22)
[2018-10-08] MEDS: Insulin Glargine 15 UNITS in Pre-Filled Syringe SC SCH (21:22)
[2018-10-08] MEDS: Lidocaine Patch Removal 1 EACH TOP SCH (21:24)
[2018-10-09] MEDS: ALPRAZolam 0.25 MG TAB PO PRN (01:05)
[2018-10-09 07:03] LABS: Anion Gap 12 mmol/L (10-20); BUN (Urea Nitrogen) 33 mg/dL (9.8-20.1); Calc. Creatinine Clearance 58 mL/min (70-130); Calcium 7.8 mg/dL (7.8-10.44); Carbon Dioxide 24 mmol/L (22-29); Chloride 97 mmol/L (98-107); Estimated GFR-MDRD 36; Glucose 134 mg/dL (70-105); Phosphorus 4.8 mg/dL (2.3-4.7); Sodium 128 mmol/L (136-145)
[2018-10-09] MEDS: Benzonatate 100 MG CAP PO SCH ×3 (08:51→21:30)
[2018-10-09] MEDS: Famotidine 20 MG TAB PO SCH ×2 (08:51→21:31)
[2018-10-09] MEDS: Gabapentin 300 MG CAP PO SCH ×4 (08:51→21:44)
[2018-10-09] MEDS: TAGRISSO 80 MG PO SCH (08:52)
[2018-10-09] MEDS: Enoxaparin Sodium 100 MG/ML SYRINGE SC SCH ×2 (08:52→21:31)
[2018-10-09] MEDS: Famotidine/PF 20 mg/2ml Vial SLOW IVP SCH (08:52)
[2018-10-09] MEDS: Lidocaine 5% Patch TD SCH (09:05)
--- NOTE | 2018-10-09 10:31 | PDOC.PN ---
- Subjective Encounter Start Date: 10/09/18 (f/u DVT) Encounter Start Time: 10:29 Subjective: Pt notes that breathing last night was improved after removal of -: pleural fluid from catheters. Legs remain swollen. appetite is 'so-so' - Objective Resuscitation Status - Order Detail: 09/13/18 22:04 Resuscitation Status Routine Resuscitation Status: FULL: Full Resuscitation Vital Signs & Weight: Vital Signs (12 hours) Temp Pulse Resp BP BP Pulse Ox 10/09/18 08:45 85 L 10/09/18 08:44 105 H 24 H 10/09/18 07:53 97.8 F 96 20 96/61 91 L 10/09/18 03:25 97.9 F 97 20 102/57 L 93 L 10/09/18 01:15 105 H 18 86 L 10/08/18 23:15 98.5 F 99 20 98/63 96 10/08/18 23:02 97 18 90 L Weight Admit Weight 196 lb Weight 225 lb 2 oz I&O: 10/08/18 10/09/18 10/10/18 06:59 06:59 06:59 Intake Total 1200 1130 Output Total 225 1771 Balance 975 -641 Result Diagrams: 10/06/18 04:20 10/09/18 06:13 Additional Labs: Accuchecks 10/09/18 10/08/18 10/08/18 05:11 16:40 10:30 POC Glucose 167 H 155 H 156 H EKG Reviewed by me: Yes (tele - sinus 90-100's) Phys Exam - Physical Examination Constitutional: NAD appears uncomfortable, leaning over a table or leaning forward to breathe some rales, decreased breath sounds to mid=lung field bilateral Cardiovascular: RRR, no significant murmur Gastrointestinal: soft, positive bowel sounds 3+ edema bilateral Neurological: non-focal Dx/Plan (1) Acute respiratory failure with hypoxia Code(s): J96.01 - ACUTE RESPIRATORY FAILURE WITH HYPOXIA Status: Acute Comment: Pericardial and pleural effusion .S/P Pigtail cathter insertion Left Pleural effusion and R thoracentesis of large volume 09/24/18 (2) DVT (deep venous thrombosis) Code(s): I82.409 - ACUTE EMBOLISM AND THOMBOS UNSP DEEP VN UNSP LOWER EXTREMITY Status: Acute Qualifiers: DVT location: lower extremity Chronicity: acute Laterality: bilateral (3) Hypotension Status: Acute (4) Diabetic neuropathy Code(s): E11.40 - TYPE 2 DIABETES MELLITUS WITH DIABETIC NEUROPATHY, UNSP Status: Acute Comment: Continue gabapentin. (5) Malignant pleural effusion Code(s): J91.0 - MALIGNANT PLEURAL EFFUSION Status: Acute Comment: Oral antibiotics on board, Serratia present in fluid, sensitive to third generation cephalosporin (omnicef and clinda presently). 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: without penitentiary use Diabetes mellitus complication status: with unspecified complications Qualified Code(s): E11.8 - Type 2 diabetes mellitus with unspecified complications (7) CKD (chronic kidney disease) Code(s): N18.9 - CHRONIC KIDNEY DISEASE, UNSPECIFIED Status: Acute Qualifiers: Chronic kidney disease stage: stage 3 (moderate) Qualified Code(s): N18.3 - Chronic kidney disease, stage 3 (moderate) - Plan * pt subjectively improved post removal of malignant pleural effusion through pigtail catheter - may need this performed every 2-3 days * light compression stockings for edema - pt not a candidate for lasix due to low blood pressure * continue PT * continue supplement shakes for nutrition - pt losing large volumes of fluid through the pleural effusions * * transfer to oncology to continue care. Tele has been normal sinus rhythm * appreicate palliative care working with patient to determine goals of care and support with this * discussed with pharmacy lovenox dosing - no change until creatinine clearance 30 and they will follow along * pt with APOLINAR vs ckd - likely secondary to malignant pleural effusions and volume loss from there, as well as generalized edema and hypervolemic. Continue low sodium diet * * Full dose lovenox * gi prophy - on famotidine bid * code status full * * reviewed plan of care and minimal changes to care today with patient. No questions or fruther needs at end of eval * she does remain at high risk of decompensation, with overall poor prognosis.
[2018-10-09] MEDS: Insulin Regular 300 UNITS/3 ML VIAL SC PRN ×2 (10:59→18:00)
--- NOTE | 2018-10-09 16:19 | PDOC.CTH ---
Cardiology Progress Note - Subjective Still SOB. - Objective Vital Signs Temp Pulse Resp BP BP Pulse Ox 10/09/18 14:05 90 L 10/09/18 14:04 106 H 24 H 10/09/18 11:39 104 H 24 H 10/09/18 11:27 98.4 F 103 H 20 105/70 91 L 10/09/18 08:45 85 L 10/09/18 08:44 105 H 24 H 10/09/18 07:53 97.8 F 96 20 96/61 91 L Admit Weight 196 lb Weight 225 lb 2 oz 10/08/18 10/09/18 10/10/18 06:59 06:59 06:59 Intake Total 1200 1130 Output Total 225 1771 Balance 975 -641 - Physical Examination General/Neuro: alert & oriented x3, NAD Neck: no JVD present Lungs: unlabored respirations Heart: RRR Abdomen: NT/ND Extremities: + edema B (trace) - Telemetry Telemetry Rhythm: S Tach - Labs Result Diagrams: 10/06/18 04:20 10/09/18 06:13 Troponin/CKMB Troponin I 0.010 ng/mL (< 0.028) 09/14/18 02:26 - Assessment/Plan 1. New onset CM EF now improved to 50-55% 2. Adenocarcinoma of the Lung. 3. Bilateral malignant pleural effusions 4. Acute hypoxic respiratory failure. 5. DVT's PLAN: - Continue full dose Lovenox - Low dose BB, BP too low to up titrate any CHF meds. - Normalized EF now. - Will follow.
[2018-10-09] MEDS: Insulin Glargine 15 UNITS in Pre-Filled Syringe SC SCH (21:32)
[2018-10-09] MEDS: Lidocaine Patch Removal 1 EACH TOP SCH (21:33)
[2018-10-10] MEDS: Acetaminophen 325 MG TAB PO PRN (06:44)
[2018-10-10] MEDS: Benzonatate 100 MG CAP PO SCH ×3 (08:19→22:48)
[2018-10-10] MEDS: Enoxaparin Sodium 100 MG/ML SYRINGE SC SCH ×2 (08:20→20:25)
[2018-10-10] MEDS: Gabapentin 300 MG CAP PO SCH ×3 (08:20→20:27)
[2018-10-10] MEDS: Famotidine 20 MG TAB PO SCH ×2 (08:20→20:27)
[2018-10-10] MEDS: TAGRISSO 80 MG PO SCH (08:20)
[2018-10-10] MEDS: Lidocaine 5% Patch TD SCH (08:21)
--- NOTE | 2018-10-10 09:42 | PDOC.PN ---
- Subjective Encounter Start Date: 10/10/18 (f/u dyspnea) Encounter Start Time: 09:38 Subjective: Pt more short of breath today - attempt to drain fluid from the -: right cath - no output. Left side not attempted due to -: pain with prior drainage. - Objective Resuscitation Status - Order Detail: 09/13/18 22:04 Resuscitation Status Routine Resuscitation Status: FULL: Full Resuscitation Vital Signs & Weight: Vital Signs (12 hours) Temp Pulse Resp BP Pulse Ox 10/10/18 08:55 101 H 20 97 10/10/18 07:30 97.5 F L 110 H 19 98/54 L 94 L 10/10/18 05:23 97 10/10/18 04:00 95 10/10/18 03:45 98 F 111 H 24 H 91/58 L 92 L 10/10/18 02:04 111 H 22 H 97 10/09/18 23:30 98 F 110 H 22 H 102/58 L 93 L Weight Admit Weight 196 lb Weight 225 lb 2 oz I&O: 10/09/18 10/10/18 10/11/18 06:59 06:59 06:59 Intake Total 1130 480 Output Total 1771 951 Balance -641 -381 Result Diagrams: 10/06/18 04:20 10/09/18 06:13 Additional Labs: Accuchecks 10/10/18 10/09/18 10/09/18 05:44 20:17 17:05 POC Glucose 157 H 199 H 201 H 10/09/18 10:43 POC Glucose 163 H EKG Reviewed by me: Yes (tele - sinus 110's) Phys Exam - Physical Examination Constitutional: NAD bilateral rales, decreased breath sounds at bases bilateral Cardiovascular: RRR, no significant murmur Gastrointestinal: soft, non-tender, positive bowel sounds 2+ pitting edema bilateral Psychiatric: normal affect Dx/Plan (1) Acute respiratory failure with hypoxia Code(s): J96.01 - ACUTE RESPIRATORY FAILURE WITH HYPOXIA Status: Acute Comment: Pericardial and pleural effusion .S/P Pigtail cathter insertion Left Pleural effusion and R thoracentesis of large volume 09/24/18 (2) DVT (deep venous thrombosis) Code(s): I82.409 - ACUTE EMBOLISM AND THOMBOS UNSP DEEP VN UNSP LOWER EXTREMITY Status: Acute Qualifiers: DVT location: lower extremity Chronicity: acute Laterality: bilateral (3) Hypotension Status: Acute (4) Diabetic neuropathy Code(s): E11.40 - TYPE 2 DIABETES MELLITUS WITH DIABETIC NEUROPATHY, UNSP Status: Acute (5) Malignant pleural effusion Code(s): J91.0 - MALIGNANT PLEURAL EFFUSION Status: Acute Comment: Oral antibiotics on board, Serratia present in fluid, sensitive to third generation cephalosporin (omnicef and clinda presently). 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: without halfway use Diabetes mellitus complication status: with unspecified complications Qualified Code(s): E11.8 - Type 2 diabetes mellitus with unspecified complications (7) CKD (chronic kidney disease) Code(s): N18.9 - CHRONIC KIDNEY DISEASE, UNSPECIFIED Status: Acute Qualifiers: Chronic kidney disease stage: stage 3 (moderate) Qualified Code(s): N18.3 - Chronic kidney disease, stage 3 (moderate) - Plan * worsening breathing - * check CXR to see if fluid is reaccumulating on right side * d/w Oncology marine operations coordinator and tagrisso is anticipated to control the disease, pt to be seen tomorrow * Based on CXR will see if anything else can be helpful to manage dyspnea * stuffy nose - afrin and nasal steroid * start IVF - pt's losing a lot of fluid due to her breathing, and losing fluid through the effusions. Run at low rate with goal of assisting renal function. Discussed with patient - she reports last time that IVF were attempted she became volume overloaded with worsening sx and requests to hold - order cancelled. * continue PT * continue supplement shakes for nutrition - pt losing large volumes of fluid through the pleural effusions * * transfer to oncology to continue care when a bed is available * appreicate palliative care working with patient to determine goals of care and support with this * monitor renal function and lovenox dosing - Pharmacy to follow along and help with this * * pt with APOLINAR vs ckd - likely secondary to malignant pleural effusions and volume loss from there, as well as generalized edema and hypervolemic. Continue low sodium diet and start some low rate IVF * * Full dose lovenox * gi prophy - on famotidine bid * code status full * * reviewed plan of care with patient and sister, no questions or further needs at end of eval * * 11:20 - reviewed CXR and pt with significant change compared to last week. Either pulm edema vs inflammation. Discussed with patient options of IV lasix an steroids - she desires to start wiht steroids. Will revisit lasix this afternoon with the goal of sx management. Reviewed wiht Pulm marine operations coordinator - Dr. Allen to return tomorrow
[2018-10-10] MEDS ORDERED: Sodium Chloride 0.9% 1,000 ML IV SCH (09:45)
[2018-10-10] MEDS ORDERED: Acetaminophen 1,000 MG in Premix Bag 1 BAG IVPB PRN (10:04)
[2018-10-10] MEDS: Fluticasone Propionate Nasal Spray 16 gm Bottle NASAL SCH (11:29)
--- NOTE | 2018-10-10 11:37 | RAD ---
RADIOGRAPH CHEST 1 VIEW: Date: 10/10/2018. Time: 9:48 a.m. HISTORY: A 53-year-old female with worsening dyspnea. COMPARISON: 10/05/2018. FINDINGS: Pigtail drainage catheter remains at the left lower lung field. There is interval worsening diffuse severe partial opacification of the left hemithorax, which is now almost totally opacified. There huitron s been interval increase in the volume of the contralateral right pleural effusion. Interstitial den sities in the right mid and lower lung zones have worsened. Focal mass-like density at the right mid lung zone has become larger, perhaps representing fluid trapped in a fissure. Right subclavian impl antable vascular access port remains. No pneumothorax. IMPRESSION: 1. Interval increase in volume of bilateral pleural effusions, left much larger than right. 2. Interval worsening of aeration of the left lung, which has now almost totally opacified. 3. Interval worsening of aeration of right lung. STANLEY [] POS: ROSALBA
[2018-10-10] MEDS: methylPREDNISolone Sod Succ 40 MG VIAL IVP SCH ×3 (12:00→23:54)
[2018-10-10 12:19] LABS: #Basophils 0.1 thou/uL (0.0-0.2); #Eosinphils 0.3 thou/uL (0.0-0.7); #Lymphocytes 1.7 thou/uL (1.20-3.40); #Monocytes 1.1 thou/uL (0.11-0.59); #Neutrophils 7.7 thou/uL (1.40-6.50); %Basophils 0.7 % (0.0-1.0); %Eosinophils 2.8 % (0.0-10.0); %Lymphocytes 15.8 % (21.0-51.0); %Monocytes 10.2 % (0.0-10.0); %Neutrophils 70.5 % (42.0-75.0); Mean Corpuscular HGB CONC 32.3 g/dL (32.0-36.0); Mean Corpuscular Hemoglobin 27.1 pg (27.0-31.0); Mean Corpuscular Volume 83.7 fL (78.0-98.0); Mean Platelet Volume 8.2 fL (7.4-10.4); Platelet Count 141 thou/uL (130-400); RBC Distribution Width 14.3 % (11.5-14.5); Red Blood Cell (RBC) Count 3.32 mill/uL (4.20-5.40); White Blood Cell (WBC) Count 10.9 thou/uL (4.8-10.8)
[2018-10-10 12:25] LABS: ALT (SGPT) Less than 7 U/L (8-55); AST (SGOT) 11 U/L (5-34); Albumin 2.7 g/dL (3.5-5.0); Alkaline Phosphatase 61 U/L (40-150); Anion Gap 17 mmol/L (10-20); BUN (Urea Nitrogen) 31 mg/dL (9.8-20.1); Bilirubin, Total 0.2 mg/dL (0.2-1.2); Calc. Creatinine Clearance 70 mL/min (70-130); Calcium 8.3 mg/dL (7.8-10.44); Carbon Dioxide 20 mmol/L (22-29); Chloride 94 mmol/L (98-107); Estimated GFR-MDRD 45; Globulin 3.4 g/dL (2.4-3.5); Glucose 175 mg/dL (70-105); Protein, Total 6.1 g/dL (6.0-8.3); Sodium 126 mmol/L (136-145)
--- NOTE | 2018-10-10 15:25 | PDOC.EVN ---
Event Note - Event Note Event Note: No significant change with the steroids. Discussed with patient using lasix - she is agreeable. Will start with 20 mg IV now and consider ordering this q6- 12 hours or increasing the dose. Will continue to monitor renal function. Hyponatremia worse today and pt is volume overloaded - anticipate diuresis will help as well. Pt with feeling like there is a tight band around her chest. UOP 700 ml with IV lasix. Has received tums and morphine, xanax for sx as well and continues to feel uncomfortable. Will repeat dose of lasix 20 mg IV now, continues steroids and order simethicone. Pt has wanted to avoid sedation earlier today - continue to reassess. Based on XR earlier today overall poor prognosis. Goal is sx relief awaiting conversations with her primary Oncology team and Primary Mechanical Design Technician both anticiapted for tomorrow.
[2018-10-10] MEDS ORDERED: Furosemide 20 MG/2 ML VIAL SLOW IVP SCH ×2 (15:30→18:30)
[2018-10-10] MEDS: Morphine 4 MG/ML VIAL IV PRN ×2 (16:09→20:42)
[2018-10-10] MEDS: ALPRAZolam 0.25 MG TAB PO PRN (16:50)
[2018-10-10] MEDS: Calcium Carbonate 500 MG ChewTAB PO PRN (18:04)
--- NOTE | 2018-10-10 18:36 | PDOC.CTH ---
Cardiology Progress Note - Subjective Worsening SOB. Worsening CXR with pulmonary edema. - Objective Vital Signs Temp Pulse Pulse Resp BP BP BP 10/10/18 17:03 10/10/18 16:18 10/10/18 16:13 106 H 24 H 10/10/18 16:00 97.4 F L 109 H 20 104/61 10/10/18 13:50 111 H 97/56 L 10/10/18 12:07 104 H 20 10/10/18 12:00 97.5 F L 107 H 17 88/51 L 10/10/18 08:55 101 H 20 10/10/18 07:30 97.5 F L 110 H 19 98/54 L Pulse Ox Pulse Ox Pulse Ox 10/10/18 17:03 100 10/10/18 16:18 94 L 10/10/18 16:13 10/10/18 16:00 100 10/10/18 13:50 93 L 98 10/10/18 12:07 10/10/18 12:00 95 10/10/18 08:55 97 10/10/18 07:30 94 L Admit Weight 196 lb Weight 225 lb 2 oz 10/09/18 10/10/18 10/11/18 06:59 06:59 06:59 Intake Total 1130 480 100 Output Total 9373 604 3916 Balance -563 -660 -102 - Physical Examination General/Neuro: alert & oriented x3, other: (mild resp distress.) Neck: no JVD present Lungs: other: (Reduce breath sounds at bases with crackles posteriorly. ) Heart: RRR Abdomen: NT/ND Extremities: + edema B (1+) - Telemetry Telemetry Rhythm: S Tach - Labs Result Diagrams: 10/10/18 11:38 10/10/18 11:38 Troponin/CKMB Troponin I 0.010 ng/mL (< 0.028) 09/14/18 02:26 - Assessment/Plan 1. New onset CM EF now improved to 50-55% 2. Adenocarcinoma of the Lung. 3. Bilateral malignant pleural effusions 4. Acute hypoxic respiratory failure. 5. DVT's 6. Worsening pulmonary edema. PLAN: - Continue full dose Lovenox - Low dose BB, BP too low to up titrate any CHF meds. - Normalized EF now. - Would increase IV lasix to BID.
[2018-10-10] MEDS: Insulin Regular 300 UNITS/3 ML VIAL SC PRN (20:22)
[2018-10-10] MEDS: Insulin Glargine 15 UNITS in Pre-Filled Syringe SC SCH (20:23)
[2018-10-10] MEDS: Lidocaine Patch Removal 1 EACH TOP SCH (20:29)
[2018-10-10] MEDS: Oxymetazoline HCl 0.05% ( 15 ML ) NASAL SCH (20:40)
[2018-10-10] MEDS: Simethicone Chewable 80 MG TAB PO PRN (20:41)
[2018-10-11 01:14] LABS: Actual Bicarbonate (HCO3a) 19.8 mEq/L (22-28); Analyzer IN Cardio OR; Base Excess (BEa) -4.6 mEq/L (-2.0 to +3.0); Calcium, Ionized 1.13 mmol/L (1.12-1.30); Carboxyhemoglobin (COHb) 0.3 gm% (0.0-3.0); Hemoglobin (Hb) 10.1 g/dL (12.0-16.0); O2 Tension (PaO2) 95.8 mmHg (80.0-100.0); Potassium - ABG Lab 5.09 mmol/L (3.70-5.30); pH, Arterial 7.38 (7.35-7.45)
[2018-10-11 01:25] LABS: Puncture Site LBA
[2018-10-11] MEDS ORDERED: Albumin 25% 25 GM/100 ML BOT IVPB SCH (01:30)
[2018-10-11] MEDS: methylPREDNISolone Sod Succ 40 MG VIAL IVP SCH ×2 (06:00→11:38)
[2018-10-11] MEDS: Furosemide 40 MG/4 ML VIAL SLOW IVP SCH ×2 (06:00→14:07)
--- NOTE | 2018-10-11 06:11 | PDOC.EVN ---
Event Note - Event Note Event Note: Nurse called concerned about pt and notified me that sepsis score was high. went to evaluate pt she was sitting up and had a venti mask on. ABG ordered which was ok. Did tell the pt that he condition is worsening and she may need bipap or ET tube. Pt started to cry and stated she needs to get through this and will be fine. She called her family to come stay with her.
[2018-10-11] MEDS: Insulin Regular 300 UNITS/3 ML VIAL SC PRN ×4 (06:12→21:27)
[2018-10-11 06:39] LABS: Anion Gap 16 mmol/L (10-20); BUN (Urea Nitrogen) 35 mg/dL (9.8-20.1); Calc. Creatinine Clearance 63 mL/min (70-130); Calcium 9.2 mg/dL (7.8-10.44); Carbon Dioxide 22 mmol/L (22-29); Chloride 94 mmol/L (98-107); Estimated GFR-MDRD 40; Glucose 282 mg/dL (70-105); Potassium 5.1 mmol/L (3.5-5.1); Sodium 127 mmol/L (136-145)
--- NOTE | 2018-10-11 08:27 | PDOC.PN ---
- Subjective Encounter Start Date: 10/11/18 Encounter Start Time: 12:00 Subjective: Patient reports she had a panic attack last night when she felt like she -: couldn't breathe, feeling better this morning. Still requiring high -: does oxygen. - Objective Resuscitation Status - Order Detail: 09/13/18 22:04 Resuscitation Status Routine Resuscitation Status: FULL: Full Resuscitation MAR Reviewed: Yes Vital Signs & Weight: Vital Signs (12 hours) Temp Pulse Resp BP Pulse Ox 10/11/18 07:25 99 10/11/18 07:23 97 20 97 10/11/18 04:00 98.1 F 96 16 108/61 100 10/11/18 02:23 96 10/10/18 23:59 97.4 F L 94 24 H 99/62 97 10/10/18 22:00 100 20 95 10/10/18 21:45 105 H 20 94 L 10/10/18 21:40 109 H 24 H 112/73 92 L Weight Admit Weight 196 lb Weight 225 lb 2 oz I&O: 10/10/18 10/11/18 10/12/18 06:59 06:59 06:59 Intake Total 480 230 Output Total 951 0975 Balance -471 1467 Result Diagrams: 10/10/18 11:38 10/11/18 06:10 Additional Labs: Accuchecks 10/11/18 10/10/18 10/10/18 06:00 20:13 16:26 POC Glucose 291 H 305 H 244 H 10/10/18 10:28 POC Glucose 193 H Phys Exam - Physical Examination Constitutional: NAD HEENT: moist MMs rales in bases, decent air movement Cardiovascular: RRR Gastrointestinal: soft Neurological: non-focal, moves all 4 limbs Psychiatric: normal affect, A&O x 3 Dx/Plan (1) Malignant pleural effusion Code(s): J91.0 - MALIGNANT PLEURAL EFFUSION Status: Acute Comment: Oral antibiotics on board, Serratia present in fluid, sensitive to third generation cephalosporin (omnicef and clinda presently). Appreciate pulmonary care.S/P PleurX placement and subsequent removal.see#1 (2) Adenocarcinoma, lung Code(s): C34.90 - MALIGNANT NEOPLASM OF UNSP PART OF UNSP BRONCHUS OR LUNG Status: Chronic Qualifiers: Laterality: left Qualified Code(s): C34.92 - Malignant neoplasm of unspecified part of left bronchus or lung Comment: Poor prognosis (3) Acute respiratory failure with hypoxia Code(s): J96.01 - ACUTE RESPIRATORY FAILURE WITH HYPOXIA Status: Acute Comment: Pericardial and pleural effusion .S/P Pigtail cathter insertion Left Pleural effusion and R thoracentesis of large volume 09/24/18, worsened over weekend, giving Lasix for diuresis (4) Pleural effusion Code(s): J90 - PLEURAL EFFUSION, NOT ELSEWHERE CLASSIFIED Status: Acute (5) Pericardial effusion Code(s): I31.3 - PERICARDIAL EFFUSION (NONINFLAMMATORY) Status: Acute (6) CKD (chronic kidney disease) Code(s): N18.9 - CHRONIC KIDNEY DISEASE, UNSPECIFIED Status: Acute Qualifiers: Chronic kidney disease stage: stage 3 (moderate) Qualified Code(s): N18.3 - Chronic kidney disease, stage 3 (moderate) (7) Diabetes mellitus Code(s): E11.9 - TYPE 2 DIABETES MELLITUS WITHOUT COMPLICATIONS Status: Chronic Qualifiers: Diabetes mellitus type: type 2 Diabetes mellitus detention insulin use: without long term acute care registered nurse use Diabetes mellitus complication status: with unspecified complications Qualified Code(s): E11.8 - Type 2 diabetes mellitus with unspecified complications (8) DVT (deep venous thrombosis) Code(s): I82.409 - ACUTE EMBOLISM AND THOMBOS UNSP DEEP VN UNSP LOWER EXTREMITY Status: Acute Qualifiers: DVT location: lower extremity Chronicity: acute Laterality: bilateral Comment: on full dose lovenox (9) Hypotension Status: Acute (10) Diabetic neuropathy Code(s): E11.40 - TYPE 2 DIABETES MELLITUS WITH DIABETIC NEUROPATHY, UNSP Status: Acute - Plan cont current plan of care, respiratory therapy Appreciate pulmonology and heme/onc assistance. * . - Discharge Day Encounter end time: 12:10 Pulmonology Consult: Meds - Medications MAR Reviewed: Yes Medications: Current Medications Acetaminophen (Tylenol) 650 mg PO Q4H PRN PRN Reason: Headache/Fever/Mild Pain (1-3) Last Admin: 10/10/18 06:44 Dose: 650 mg Albuterol/Ipratropium (Duoneb) 3 ml NEB Q6H PRN PRN Reason: .SHORTNESS OF BREATH Last Admin: 10/07/18 21:53 Dose: 3 ml Albuterol/Ipratropium (Duoneb) 3 ml NEB [id number] [facility] Last Admin: 10/11/18 07:23 Dose: 3 ml Alprazolam (Xanax) 0.25 mg PO TID PRN PRN Reason: Anxiety Last Admin: 10/10/18 16:50 Dose: 0.25 mg Benzonatate (Tessalon) 200 mg PO TID [facility] Last Admin: 10/10/18 22:48 Dose: 200 mg Bisacodyl (Dulcolax) 10 mg PO DAILYPRN PRN PRN Reason: Constipation Calcium Carbonate (Tums) 1,000 mg PO Q4H PRN PRN Reason: Heartburn or Indigestion Last Admin: 10/10/18 18:04 Dose: 1,000 mg Cyclobenzaprine HCl (Flexeril) 10 mg PO TIDPRN PRN PRN Reason: MUSCLE SPASM Last Admin: 10/06/18 19:46 Dose: 10 mg Dextrose/Water (Dextrose 50%) 25 gm IVP PRN PRN PRN Reason: HYPOGLYCEMIA PROTOCOL Enoxaparin Sodium (Lovenox) 100 mg SC Q12HR [facility] Last Admin: 10/10/18 20:25 Dose: 100 mg Famotidine (Pepcid) 20 mg PO BID [facility] Last Admin: 10/10/18 20:27 Dose: 20 mg Fluticasone Propionate (Flonase Nasal [place]) 1 gm NASAL DAILY [facility] Last Admin: 10/10/18 11:29 Dose: 1 spray Furosemide (Lasix) 40 mg SLOW IVP 0600,1400 [facility] Last Admin: 10/11/18 06:00 Dose: 40 mg Gabapentin (Neurontin) 300 mg PO TID [facility] Last Admin: 10/10/18 20:27 Dose: 300 mg Glucagon (Glucagon) 1 mg IM PRN PRN PRN Reason: HYPOGLYCEMIA PROTOCOL Dextrose/Water (D5w) 1,000 mls @ 0 mls/hr IV INF PRN PRN Reason: HYPOGLYCEMIA PROTOCOL Insulin Glargine 15 units/ (Miscellaneous Medication) 0.15 mls @ 0 mls/hr SC HS [facility] Last Admin: 10/10/18 20:23 Dose: 0.15 mls Acetaminophen 1,000 mg/ Device 100 mls @ 400 mls/hr IVPB Q8H PRN PRN Reason: Fever/Mild Pain Stop: 10/11/18 10:05 Last Admin: 10/10/18 11:29 Dose: 100 mls Insulin Human Regular (Humulin R) 0 units SC .MODERATE SLIDING SC PRN; Protocol PRN Reason: MODERATE SLIDING SCALE Last Admin: 10/11/18 06:12 Dose: 6 unit Insulin Human Regular (Humulin R) 0 units SC .BEDTIME SLIDING SC PRN; Protocol PRN Reason: BEDTIME SLIDING SCALE Last Admin: 10/10/18 20:22 Dose: 4 units Lidocaine (Lidoderm 5% Patch) 1 patch TD DAILY [facility] Last Admin: 10/10/18 08:21 Dose: Not Given Methylprednisolone Sodium Succinate (Solu-Medrol) 40 mg IVP Q6HR [facility] Last Admin: 10/11/18 06:00 Dose: 40 mg Miscellaneous Medication (Lidocaine Patch Removal) 1 each TOP 2100 [facility] Last Admin: 10/10/18 20:29 Dose: Not Given Miscellaneous Medication (Pharmacy To Dose) 0 each PO DAILYPRN PRN PRN Reason: LABS Morphine Sulfate (Morphine) 2 mg IV Q4H PRN PRN Reason: Severe Pain (7-10) Last Admin: 10/10/18 20:42 Dose: 2 mg Ccu Electrolyte (Replacement Protocol) 0 each FS PRN PRN PRN Reason: FOR ELECTROLYTE REPLACEMENT Ondansetron HCl (Zofran Odt) 4 mg PO Q6H PRN PRN Reason: Nausea/Vomiting Ondansetron HCl (Zofran) 4 mg IVP Q6H PRN PRN Reason: Nausea/Vomiting Last Admin: 10/01/18 21:24 Dose: 4 mg Oxymetazoline HCl (Oxymetazoline Hcl) 1 sprays NASAL BID [facility] Stop: 10/13/18 09:01 Last Admin: 10/10/18 20:40 Dose: 1 spr Tagrisso 80 Mg 1 each PO DAILY [facility] Last Admin: 10/10/18 08:20 Dose: 1 each Senna/Docusate Sodium (Senokot S) 2 tab PO BIDPRN PRN PRN Reason: Constipation Last Admin: 10/03/18 11:14 Dose: 2 tab Simethicone (Mylicon Chewable) 80 mg PO PCHS PRN PRN Reason: Gas Pain Last Admin: 10/10/18 20:41 Dose: 80 mg Sodium Chloride (Flush - Normal Saline) 10 ml IVF Q12HR [facility] Last Admin: 10/10/18 20:31 Dose: 10 ml Sodium Chloride (Flush - Normal Saline) 10 ml IVF PRN PRN PRN Reason: Saline Flush Last Admin: 10/11/18 06:01 Dose: 10 ml Tramadol HCl (Ultram) 25 mg PO Q8H PRN PRN Reason: Moderate Pain (4-6) Last Admin: 10/08/18 21:37 Dose: 25 mg Zolpidem Tartrate (Ambien) 5 mg PO HSPRN PRN PRN Reason: Insomnia Last Admin: 09/17/18 00:18 Dose: 5 mg - Allergies Allergies/Adverse Reactions: Allergies Allergy/AdvReac Type Severity Reaction Status Date / Time No Known Allergies Allergy Verified 07/29/18 01:32
[2018-10-11] MEDS: Enoxaparin Sodium 100 MG/ML SYRINGE SC SCH ×2 (08:47→21:29)
[2018-10-11] MEDS: Famotidine 20 MG TAB PO SCH ×2 (08:47→21:28)
[2018-10-11] MEDS: Fluticasone Propionate Nasal Spray 16 gm Bottle NASAL SCH (08:47)
[2018-10-11] MEDS: Lidocaine 5% Patch TD SCH (08:48)
[2018-10-11] MEDS: Oxymetazoline HCl 0.05% ( 15 ML ) NASAL SCH ×2 (08:48→21:31)
[2018-10-11] MEDS: Gabapentin 300 MG CAP PO SCH ×3 (08:48→21:28)
[2018-10-11] MEDS: TAGRISSO 80 MG PO SCH (08:49)
[2018-10-11] MEDS: Benzonatate 100 MG CAP PO SCH ×3 (09:52→21:28)
--- NOTE | 2018-10-11 16:30 | PRG ---
DATE OF SERVICE: 10/11/2018 SERVICE: Pulmonary Medicine. INTERVAL HISTORY: The patient is doing okay from respiratory standpoint. Overnight, she ended up having a little bit of a panic attack. She got some medication and settled down. She is on higher amounts of oxygen at this point, but her saturations are 100% on 40% FiO2. She denies any current fevers, chills, nausea, or vomiting. The last time she got drained was yesterday. At that time , she only had 25 mL out of her right chest and 500 mL out of her left chest. She has no other specific interval complaints. PHYSICAL EXAMINATION: VITAL SIGNS: Afebrile. Pulse 100, blood pressure 117/64, respirations 20, saturation 97% on 40% FiO2. GENERAL: The patient is awake and alert, in no apparent distress. LUNGS: Decreased air entry on the right. I do not hear specific crackling present. There is good air entry on the left. No prolonged expiratory phase or wheezing is appreciated. HEART: Normal rate and regular. ABDOMEN: Soft, nontender, and nondistended. Bowel sounds are positive. MUSCULOSKELETAL: No cyanosis or clubbing. There is 3+ pitting in the bilateral lower extremities. NEUROLOGIC: Grossly nonfocal. LABORATORY DATA: WBC 10.9, hemoglobin 9.0, platelets 141,000, roughly stable. Creatinine is up trending to 1.63, BUN 35, bicarb 22, anion gap 16. Sodium is 127, gently up-trending. ASSESSMENT: 1. Acute hypoxic respiratory failure. 2. Malignant pleural effusion, bilateral. 3. Extensive deep venous thrombosis in the bilateral lower extremities. 4. Adenocarcinoma of the lung, stage IV with high PD-L1 expression, likely going to respond nicely eventually to immunotherapy. DISCUSSION AND PLAN: I would like to see with the patient's creatinine, sodium , and bicarb due with diuretics before we dose her tomorrow morning. Pulmonary will continue to follow, intermittently during this hospital stay. It is my supposition that the patient is on the dry side. We have very good explanation for her lower extremity swelling, and bilateral pleural effusions. I do not believe these changes are volume mediated. Job ID: [id number] [facility]
[2018-10-11] MEDS: Insulin Glargine 20 UNITS in Pre-Filled Syringe 1 EACH SC SCH (21:27)
[2018-10-11] MEDS: ALPRAZolam 0.25 MG TAB PO PRN (21:29)
[2018-10-11] MEDS: Lidocaine Patch Removal 1 EACH TOP SCH (21:33)
[2018-10-12] MEDS: Simethicone Chewable 80 MG TAB PO PRN (02:59)
[2018-10-12] MEDS: Calcium Carbonate 500 MG ChewTAB PO PRN (05:39)
[2018-10-12] MEDS: Insulin Regular 300 UNITS/3 ML VIAL SC PRN ×4 (05:43→21:28)
[2018-10-12] MEDS ORDERED: Famotidine 20 MG TAB PO SCH (05:45)
--- NOTE | 2018-10-12 07:13 | PDOC.PN ---
- Subjective Encounter Start Date: 10/12/18 Encounter Start Time: 09:50 Subjective: Patient feeling better today. Had some bloating earlier today and wasn't -: happy with the oral Pepcid, felt better after a dose of Protonix. Abd Xray -: without sig stomach distension. Weaning O2 down successfully. - Objective Resuscitation Status - Order Detail: 09/13/18 22:04 Resuscitation Status Routine Resuscitation Status: FULL: Full Resuscitation MAR Reviewed: Yes Vital Signs & Weight: Vital Signs (12 hours) Temp Pulse Resp BP Pulse Ox 10/12/18 06:23 100 24 H 100 10/12/18 04:00 98.3 F 106 H 18 115/68 98 10/12/18 01:10 102 H 22 H 100 10/12/18 00:00 98.1 F 104 H 18 116/70 99 10/11/18 20:40 100 10/11/18 20:16 105 H 20 100 10/11/18 19:58 97.2 F L 107 H 18 118/69 100 Weight Admit Weight 196 lb Weight 225 lb 2 oz I&O: 10/11/18 10/12/18 10/13/18 06:59 06:59 06:59 Intake Total 230 690 Output Total 1695 650 Balance -1465 40 Result Diagrams: 10/10/18 11:38 10/11/18 06:10 Additional Labs: Accuchecks 10/12/18 10/11/18 10/11/18 05:30 20:22 16:08 POC Glucose 344 H 319 H 309 H 10/11/18 12:17 POC Glucose 345 H Phys Exam - Physical Examination Constitutional: NAD HEENT: moist MMs Respiratory: no wheezing, no rales, no rhonchi Able to talk with oxygen pulled back away from mouth for sig period of time Cardiovascular: RRR Gastrointestinal: soft, positive bowel sounds Musculoskeletal: edema present Neurological: non-focal, moves all 4 limbs Psychiatric: normal affect, A&O x 3 Dx/Plan (1) Malignant pleural effusion Code(s): J91.0 - MALIGNANT PLEURAL EFFUSION Status: Acute Comment: Oral antibiotics on board, Serratia present in fluid, sensitive to third generation cephalosporin (omnicef and clinda presently). Appreciate pulmonary care. Bilateral chest tubes in place with intermittent fluid drainage. (2) Adenocarcinoma, lung Code(s): C34.90 - MALIGNANT NEOPLASM OF UNSP PART OF UNSP BRONCHUS OR LUNG Status: Chronic Qualifiers: Laterality: left Qualified Code(s): C34.92 - Malignant neoplasm of unspecified part of left bronchus or lung Comment: Poor prognosis (3) Acute respiratory failure with hypoxia Code(s): J96.01 - ACUTE RESPIRATORY FAILURE WITH HYPOXIA Status: Acute Comment: Pericardial and pleural effusion .S/P Pigtail cathter insertion Left Pleural effusion and R thoracentesis of large volume 09/24/18, worsened over weekend, no improvement with Lasix and Dr. Allen believes patient is actually volume depleted with increasing creatinine (4) Pleural effusion Code(s): J90 - PLEURAL EFFUSION, NOT ELSEWHERE CLASSIFIED Status: Acute (5) Pericardial effusion Code(s): I31.3 - PERICARDIAL EFFUSION (NONINFLAMMATORY) Status: Acute (6) CKD (chronic kidney disease) Code(s): N18.9 - CHRONIC KIDNEY DISEASE, UNSPECIFIED Status: Acute Qualifiers: Chronic kidney disease stage: stage 3 (moderate) Qualified Code(s): N18.3 - Chronic kidney disease, stage 3 (moderate) Comment: Worsened with Lasix, holding diuretics for now (7) Diabetes mellitus Code(s): E11.9 - TYPE 2 DIABETES MELLITUS WITHOUT COMPLICATIONS Status: Chronic Qualifiers: Diabetes mellitus type: type 2 Diabetes 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 adjunct faculty 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 insulin use: without adjunct faculty 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 use Diabetes mellitus complication status: with unspecified complications Qualified Code(s): E11.8 - Type 2 diabetes mellitus with unspecified complications (8) DVT (deep venous thrombosis) Code(s): I82.409 - ACUTE EMBOLISM AND THOMBOS UNSP DEEP VN UNSP LOWER EXTREMITY Status: Acute Qualifiers: DVT location: lower extremity Chronicity: acute Laterality: bilateral Comment: on full dose lovenox (9) Hypotension Status: Acute (10) Diabetic neuropathy Code(s): E11.40 - TYPE 2 DIABETES MELLITUS WITH DIABETIC NEUROPATHY, UNSP Status: Acute - Plan cont current plan of care, 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 Dr. Allen hopeful that patient -: may be able to be discharged soon if has all necessary oxygen equipment -: at home. * . - Discharge Day Encounter end time: 10:00
[2018-10-12] MEDS: Benzonatate 100 MG CAP PO SCH ×3 (08:12→21:29)
[2018-10-12] MEDS: predniSONE 20 MG TAB PO SCH (08:12)
[2018-10-12] MEDS: Enoxaparin Sodium 100 MG/ML SYRINGE SC SCH ×2 (08:14→21:29)
[2018-10-12] MEDS: TAGRISSO 80 MG PO SCH (08:15)
[2018-10-12] MEDS: Fluticasone Propionate Nasal Spray 16 gm Bottle NASAL SCH ×2 (08:15→08:22)
[2018-10-12] MEDS: Oxymetazoline HCl 0.05% ( 15 ML ) NASAL SCH ×3 (08:15→21:30)
[2018-10-12] MEDS: Gabapentin 300 MG CAP PO SCH ×3 (08:16→21:30)
[2018-10-12] MEDS: Lidocaine 5% Patch TD SCH (08:23)
[2018-10-12] MEDS ORDERED: Pantoprazole 40 MG VIAL IVP SCH (09:15)
[2018-10-12] MEDS ORDERED: Sodium Chloride 0.9% (PF) 10 ML VIAL FS SCH (09:15)
--- NOTE | 2018-10-12 09:32 | RAD ---
PORTABLE SUPINE ABDOMINAL RADIOGRAPH: Date: 10-12-18 History: Abdominal pain. Comparison: Chest x-ray, 10-10-18 FINDINGS: Drainage catheter again overlies the left lung base with parenchymal changes at the left lung base. T here is evidence of a right pleural effusion with small left pleural effusion also present. There is a radiopaque catheter now overlying the right lung base which may represent pleural based catheter as well. Surgical clips overlie the right upper quadrant. The bowel gas pattern is nonspecific. Surgica l clips overlie the right upper quadrant and overlie the pelvis. Degenerative changes are noted in th e spine. There is bilateral hip osteoarthritis. IMPRESSION: 1. Bilateral pleural effusions which appear larger in size on the right. Thoracostomy tubes are seen bilaterally. Interstitial opacities at each lung base are seen as well. 2. Nonspecific bowel gas pattern. POS: [facility]
[2018-10-12] MEDS: Morphine 2 MG/ML SYRINGE SLOW IVP PRN ×5 (11:01→22:20)
--- NOTE | 2018-10-12 13:39 | PRG ---
DATE OF SERVICE: 10/12/2018 SERVICE: Pulmonary Medicine. INTERVAL HISTORY: The patient is doing fine from respiratory standpoint. Breathing comfortably. No complaints of chest pain, fevers, or chills. Otherwise, there has been no interval change to her condition. She has better strength today. She feels like she is breathing more comfortably today as well despite the fact that she had been drained in 2 days. PHYSICAL EXAMINATION: VITAL SIGNS: Afebrile. Pulse 103, blood pressure 117/72, respirations 20, saturation 100% on 15 L of venturi mask. That being said, the [place] tree is broken and so we really do not know what her flow rate is. HEENT: Normocephalic and atraumatic. Sclerae white. Conjunctivae pink. Oral mucosa is moist without lesions. GENERAL: The patient is awake and alert, in no apparent distress. She is talking in full sentences. She does not have any accessory muscle use. LUNGS: Decent air entry with dependent crackles that are minimal. There is slightly decreased air entry in the right base compared to the left. HEART: Normal rate, regular. ABDOMEN: Soft, nontender, and nondistended. Bowel sounds are positive. MUSCULOSKELETAL: No cyanosis or clubbing. No pitting in the bilateral lower extremities. NEUROLOGIC: Grossly nonfocal. IMAGING STUDIES: Abdominal x-ray demonstrates bilateral pleural effusion, which is greater on the right. Thoracostomy tubes are seen bilaterally. Increased interstitial opacifications are noted. Nonspecific bowel gas pattern is noted. ASSESSMENT: 1. Acute hypoxic respiratory failure. 2. Malignant pleural effusion, bilateral. 3. Extensive deep vein thrombosis in the bilateral lower extremities. 4. Adenocarcinoma of the lung, stage IV, possibly going to respond nicely to immunotherapy. DISCUSSION AND PLAN: We will proceed with bilateral drainage of the chest tubes again today. I will follow on a daily basis. She is stable for transition out of the hospital provided that we have a care facility that can take care of her requirements. I will continue to follow while the patient remains inhouse. Job ID: [id number]
[2018-10-12] MEDS: ALPRAZolam 0.25 MG TAB PO PRN (21:01)
[2018-10-12] MEDS: Insulin Glargine 20 UNITS in Pre-Filled Syringe 1 EACH SC SCH (21:28)
[2018-10-12] MEDS: Famotidine 20 MG TAB PO SCH (21:29)
[2018-10-12] MEDS: Lidocaine Patch Removal 1 EACH TOP SCH (21:31)
--- NOTE | 2018-10-12 22:24 | CT ---
CT CHEST WITHOUT CONTRAST: 10/12/18 HISTORY: Patient has lung cancer. Currently undergoing chemotherapy. Pleural effusion. COMPARISON: 09/12/18, 07/19/18. FINDINGS: Limited evaluation of the mediastinum due to the lack of IV contrast administration. No mediastinal m ass, lymphadenopathy or hematoma. Heart size is within normal limits. Small amount of pericardial flu id. The visualized upper solid organs are grossly unremarkable. There are diffuse opacities throughout the lung parenchyma which have developed since the previous ex amination. Specifically, there is ground glass opacification in the right lung with more focal consol idation in the right lower lobe as well as right upper lobe. Multifocal pneumonia and/or aspiration c annot be excluded. There is a small right sided pleural effusion. There appears to be a drainage cath eter in this right pleural fluid collection. With regard to the left lung, there is stable aeration o f the lung parenchyma. There is improved aeration of the left upper lobe. Previously noted fluid joyce ection has decreased. There is a pigtail catheter in place. There is still evidence of some loculated pleural fluid. The pleural fluid is predominantly along the lung base. There is consolidation in the left lower lobe which has progressed since the previous examination. Previously noted focal opacity along the lateral aspect of the left lower lobe has increased, currently measuring 2.3 cm (previously measuring less than 1 cm). Trachea and central bronchi are patent. No lytic or blastic lesions in the osseous structures. IMPRESSION: 1. Small right sided effusion. Drainage catheter is present. There is worsening opacification of the right lung suggesting multifocal pneumonia, aspiration. 2. Interval placement of a pigtail catheter in a fluid collection in the left pleural space. The previously noted fluid collection has decreased in size but still remains. There is worsening opacif ication of the left lung parenchyma which may be due to progression of disease, atelectasis or pneumo ramon. POS: [facility]
[2018-10-13 05:37] LABS: #Basophils 0.1 thou/uL (0.0-0.2); #Lymphocytes 0.8 thou/uL (1.20-3.40); #Neutrophils 12.6 thou/uL (1.40-6.50); %Basophils 0.6 % (0.0-1.0); %Eosinophils 0.1 % (0.0-10.0); %Lymphocytes 5.7 % (21.0-51.0); %Monocytes 6.7 % (0.0-10.0); %Neutrophils 86.9 % (42.0-75.0); Hemoglobin 8.7 g/dL (12.0-16.0); Mean Corpuscular HGB CONC 31.6 g/dL (32.0-36.0); Mean Corpuscular Hemoglobin 26.4 pg (27.0-31.0); Mean Corpuscular Volume 83.5 fL (78.0-98.0); Mean Platelet Volume 7.2 fL (7.4-10.4); Platelet Count 160 thou/uL (130-400); RBC Distribution Width 14.2 % (11.5-14.5); Red Blood Cell (RBC) Count 3.29 mill/uL (4.20-5.40); White Blood Cell (WBC) Count 14.5 thou/uL (4.8-10.8)
[2018-10-13 05:49] LABS: Anion Gap 16 mmol/L (10-20); BUN (Urea Nitrogen) 46 mg/dL (9.8-20.1); Calc. Creatinine Clearance 57 mL/min (70-130); Calcium 8.9 mg/dL (7.8-10.44); Carbon Dioxide 24 mmol/L (22-29); Chloride 97 mmol/L (98-107); Estimated GFR-MDRD 35; Glucose 254 mg/dL (70-105); Potassium 4.9 mmol/L (3.5-5.1); Sodium 132 mmol/L (136-145)
[2018-10-13] MEDS: Insulin Regular 300 UNITS/3 ML VIAL SC PRN ×3 (06:02→20:14)
--- NOTE | 2018-10-13 07:04 | PDOC.PN ---
- Subjective Encounter Start Date: 10/13/18 Encounter Start Time: 08:50 Subjective: Patient reports some improvement in SOB. Ambulated in hallway some -: yesterday. Still requiring fairly high doses of oxygen. - Objective Resuscitation Status - Order Detail: 09/13/18 22:04 Resuscitation Status Routine Resuscitation Status: FULL: Full Resuscitation MAR Reviewed: Yes Vital Signs & Weight: Vital Signs (12 hours) Temp Pulse Resp BP Pulse Ox 10/13/18 04:11 97.0 F L 100 20 113/72 100 10/13/18 00:51 97 16 97 10/12/18 23:52 97.3 F L 100 15 111/68 100 10/12/18 19:50 97.7 F 108 H 22 H 135/75 100 10/12/18 19:32 108 H 20 100 Weight Admit Weight 196 lb Weight 225 lb 2 oz I&O: 10/12/18 10/13/18 10/14/18 06:59 06:59 06:59 Intake Total 690 910 Output Total 650 1855 Balance 40 -945 Result Diagrams: 10/13/18 05:27 10/13/18 05:27 Additional Labs: Accuchecks 10/13/18 10/12/18 10/12/18 05:36 21:26 17:03 POC Glucose 279 H 418 H 382 H 10/12/18 10/08/18 12:27 20:12 POC Glucose 336 H 321 H Phys Exam - Physical Examination Constitutional: NAD HEENT: moist MMs Respiratory: no wheezing, no rales, no rhonchi Cardiovascular: RRR Gastrointestinal: soft, positive bowel sounds Musculoskeletal: edema present Neurological: non-focal, moves all 4 limbs Psychiatric: normal affect, A&O x 3 Dx/Plan (1) Malignant pleural effusion Code(s): J91.0 - MALIGNANT PLEURAL EFFUSION Status: Acute Comment: Oral antibiotics on board, Serratia present in fluid, sensitive to third generation cephalosporin (omnicef and clinda presently). Appreciate pulmonary care. Bilateral chest tubes in place with intermittent fluid drainage. (2) Adenocarcinoma, lung Code(s): C34.90 - MALIGNANT NEOPLASM OF UNSP PART OF UNSP BRONCHUS OR LUNG Status: Chronic Qualifiers: Laterality: left Qualified Code(s): C34.92 - Malignant neoplasm of unspecified part of left bronchus or lung Comment: Poor prognosis (3) Acute respiratory failure with hypoxia Code(s): J96.01 - ACUTE RESPIRATORY FAILURE WITH HYPOXIA Status: Acute Comment: Pericardial and pleural effusion .S/P Pigtail cathter insertion Left Pleural effusion and R thoracentesis of large volume 09/24/18, worsened over weekend, no improvement with Lasix and Dr. Allen believes patient is actually volume depleted with increasing creatinine (4) Pleural effusion Code(s): J90 - PLEURAL EFFUSION, NOT ELSEWHERE CLASSIFIED Status: Acute (5) Pericardial effusion Code(s): I31.3 - PERICARDIAL EFFUSION (NONINFLAMMATORY) Status: Acute (6) CKD (chronic kidney disease) Code(s): N18.9 - CHRONIC KIDNEY DISEASE, UNSPECIFIED Status: Acute Qualifiers: Chronic kidney disease stage: stage 3 (moderate) Qualified Code(s): N18.3 - Chronic kidney disease, stage 3 (moderate) Comment: Worsened with Lasix, holding diuretics, may need to give a little fluid if continues to worsen (7) Diabetes mellitus Code(s): E11.9 - TYPE 2 DIABETES MELLITUS WITHOUT COMPLICATIONS Status: Chronic Qualifiers: Diabetes mellitus type: type 2 Diabetes mellitus batch maker insulin use: without batch maker use Diabetes mellitus complication status: with unspecified complications Qualified Code(s): E11.8 - Type 2 diabetes mellitus with unspecified complications (8) DVT (deep venous thrombosis) Code(s): I82.409 - ACUTE EMBOLISM AND THOMBOS UNSP DEEP VN UNSP LOWER EXTREMITY Status: Acute Qualifiers: DVT location: lower extremity Chronicity: acute Laterality: bilateral Comment: on full dose lovenox (9) Hypotension Status: Acute (10) Diabetic neuropathy Code(s): E11.40 - TYPE 2 DIABETES MELLITUS WITH DIABETIC NEUROPATHY, UNSP Status: Acute - Plan cont current plan of care, PT/OT, respiratory therapy * . - Discharge Day Encounter end time: 09:00
[2018-10-13] MEDS: Famotidine 20 MG TAB PO SCH ×2 (10:08→20:14)
[2018-10-13] MEDS: Benzonatate 100 MG CAP PO SCH ×3 (10:08→20:14)
[2018-10-13] MEDS: Gabapentin 300 MG CAP PO SCH ×3 (10:08→20:14)
[2018-10-13] MEDS: Enoxaparin Sodium 100 MG/ML SYRINGE SC SCH ×2 (10:09→20:14)
[2018-10-13] MEDS: TAGRISSO 80 MG PO SCH (10:10)
[2018-10-13] MEDS: Fluticasone Propionate Nasal Spray 16 gm Bottle NASAL SCH (10:10)
[2018-10-13] MEDS: Oxymetazoline HCl 0.05% ( 15 ML ) NASAL SCH (10:10)
[2018-10-13] MEDS: Lidocaine 5% Patch TD SCH (10:10)
[2018-10-13] MEDS: predniSONE 20 MG TAB PO SCH (10:10)
[2018-10-13] MEDS: Insulin Glargine 20 UNITS in Pre-Filled Syringe 1 EACH SC SCH (20:13)
[2018-10-13] MEDS: Lidocaine Patch Removal 1 EACH TOP SCH (20:15)
[2018-10-13] MEDS: ALPRAZolam 0.25 MG TAB PO PRN (21:02)
[2018-10-14] MEDS: Insulin Regular 300 UNITS/3 ML VIAL SC PRN ×2 (05:33→12:08)
--- NOTE | 2018-10-14 08:28 | PDOC.PN ---
- Subjective Encounter Start Date: 10/14/18 Encounter Start Time: 09:40 Subjective: Patient doing a bit better. Still on high flow NRB. Moving a little better -: with some mild improvement in strength. - Objective Resuscitation Status - Order Detail: 09/13/18 22:04 Resuscitation Status Routine Resuscitation Status: FULL: Full Resuscitation MAR Reviewed: Yes Vital Signs & Weight: Vital Signs (12 hours) Temp Pulse Resp BP Pulse Ox 10/14/18 07:50 97.5 F L 115 H 18 112/57 L 96 10/14/18 07:17 98 10/14/18 07:15 112 H 20 98 10/14/18 04:39 98.3 F 110 H 20 116/68 95 10/14/18 00:14 97.9 F 120 H 20 110/66 96 10/13/18 23:34 115 H 20 96 Weight Admit Weight 196 lb Weight 225 lb 2 oz I&O: 10/13/18 10/14/18 10/15/18 06:59 06:59 06:59 Intake Total 910 1960 Output Total 1855 1450 Balance -945 510 Result Diagrams: 10/13/18 05:27 10/13/18 05:27 Additional Labs: Accuchecks 10/14/18 10/13/18 10/13/18 05:31 20:07 16:04 POC Glucose 331 H 423 H 271 H 10/13/18 11:19 POC Glucose 286 H Phys Exam - Physical Examination Constitutional: NAD HEENT: moist MMs Respiratory: no wheezing, no rales, no rhonchi decent air movement except in bases Cardiovascular: RRR Gastrointestinal: soft, positive bowel sounds Musculoskeletal: edema present Neurological: non-focal, moves all 4 limbs Psychiatric: normal affect, A&O x 3 Dx/Plan (1) Malignant pleural effusion Code(s): J91.0 - MALIGNANT PLEURAL EFFUSION Status: Acute Comment: Serratia present in fluid, completed antibiotic course. Appreciate pulmonary care. Bilateral chest tubes in place with intermittent fluid drainage. (2) Adenocarcinoma, lung Code(s): C34.90 - MALIGNANT NEOPLASM OF UNSP PART OF UNSP BRONCHUS OR LUNG Status: Chronic Qualifiers: Laterality: left Qualified Code(s): C34.92 - Malignant neoplasm of unspecified part of left bronchus or lung Comment: Poor prognosis (3) Acute respiratory failure with hypoxia Code(s): J96.01 - ACUTE RESPIRATORY FAILURE WITH HYPOXIA Status: Acute Comment: Pericardial and pleural effusion .S/P Pigtail cathter insertion Left Pleural effusion and R thoracentesis of large volume 09/24/18, now with bilateral chest tubes draining fluid every other day. (4) Pleural effusion Code(s): J90 - PLEURAL EFFUSION, NOT ELSEWHERE CLASSIFIED Status: Acute (5) Pericardial effusion Code(s): I31.3 - PERICARDIAL EFFUSION (NONINFLAMMATORY) Status: Acute (6) CKD (chronic kidney disease) Code(s): N18.9 - CHRONIC KIDNEY DISEASE, UNSPECIFIED Status: Acute Qualifiers: Chronic kidney disease stage: stage 3 (moderate) Qualified Code(s): N18.3 - Chronic kidney disease, stage 3 (moderate) Comment: Worsened with Lasix, holding diuretics, may need to give a little fluid if continues to worsen (7) Diabetes mellitus Code(s): E11.9 - TYPE 2 DIABETES MELLITUS WITHOUT COMPLICATIONS Status: Chronic Qualifiers: Diabetes mellitus type: type 2 Diabetes mellitus custodial insulin use: without custodial use Diabetes mellitus complication status: with unspecified complications Qualified Code(s): E11.8 - Type 2 diabetes mellitus with unspecified complications Comment: titrate up insulin as patient doesn't want to stick to a diabetic diet (8) DVT (deep venous thrombosis) Code(s): I82.409 - ACUTE EMBOLISM AND THOMBOS UNSP DEEP VN UNSP LOWER EXTREMITY Status: Acute Qualifiers: DVT location: lower extremity Chronicity: acute Laterality: bilateral Comment: on full dose lovenox. Will need to transition to oral anticoagulant before discharge (9) Hypotension Status: Resolved (10) Diabetic neuropathy Code(s): E11.40 - TYPE 2 DIABETES MELLITUS WITH DIABETIC NEUROPATHY, UNSP Status: Acute - Plan cont current plan of care, PT/OT, respiratory therapy, DVT proph w/lovenox * . - Discharge Day Encounter end time: 09:50 Pulmonology Consult: Meds - Medications MAR Reviewed: Yes Medications: Current Medications Acetaminophen (Tylenol) 650 mg PO Q4H PRN PRN Reason: Headache/Fever/Mild Pain (1-3) Last Admin: 10/10/18 06:44 Dose: 650 mg Albuterol/Ipratropium (Duoneb) 3 ml NEB Q6H PRN PRN Reason: .SHORTNESS OF BREATH Last Admin: 10/07/18 21:53 Dose: 3 ml Albuterol/Ipratropium (Duoneb) 3 ml NEB [id number] [facility] Last Admin: 10/14/18 07:15 Dose: 3 ml Alprazolam (Xanax) 0.25 mg PO TIDPRN PRN PRN Reason: Anxiety Last Admin: 10/13/18 21:02 Dose: 0.25 mg Benzonatate (Tessalon) 200 mg PO TID [facility] Last Admin: 10/13/18 20:14 Dose: 200 mg Bisacodyl (Dulcolax) 10 mg PO DAILYPRN PRN PRN Reason: Constipation Calcium Carbonate (Tums) 1,000 mg PO Q4H PRN PRN Reason: Heartburn or Indigestion Last Admin: 10/12/18 05:39 Dose: 1,000 mg Cyclobenzaprine HCl (Flexeril) 10 mg PO TIDPRN PRN PRN Reason: MUSCLE SPASM Last Admin: 10/06/18 19:46 Dose: 10 mg Dextrose/Water (Dextrose 50%) 25 gm IVP PRN PRN PRN Reason: HYPOGLYCEMIA PROTOCOL Enoxaparin Sodium (Lovenox) 100 mg SC Q12HR [facility] Last Admin: 10/13/18 20:14 Dose: 100 mg Famotidine (Pepcid) 20 mg PO BID [facility] Last Admin: 10/13/18 20:14 Dose: 20 mg Fluticasone Propionate (Flonase Nasal [place]) 1 gm NASAL DAILY [facility] Last Admin: 10/13/18 10:10 Dose: Not Given Gabapentin (Neurontin) 300 mg PO TID [facility] Last Admin: 10/13/18 20:14 Dose: 300 mg Glucagon (Glucagon) 1 mg IM PRN PRN PRN Reason: HYPOGLYCEMIA PROTOCOL Dextrose/Water (D5w) 1,000 mls @ 0 mls/hr IV INF PRN PRN Reason: HYPOGLYCEMIA PROTOCOL Insulin Glargine 20 units/ (Miscellaneous Medication) 0.2 mls @ 0 mls/hr SC HS [facility] Last Admin: 10/13/18 20:13 Dose: 0.2 mls Insulin Human Regular (Humulin R) 0 units SC .MODERATE SLIDING SC PRN; Protocol PRN Reason: MODERATE SLIDING SCALE Last Admin: 10/14/18 05:33 Dose: 8 unit Insulin Human Regular (Humulin R) 0 units SC .BEDTIME SLIDING SC PRN; Protocol PRN Reason: BEDTIME SLIDING SCALE Last Admin: 10/13/18 20:14 Dose: 5 units Lidocaine (Lidoderm 5% Patch) 1 patch TD DAILY [facility] Last Admin: 10/13/18 10:10 Dose: Not Given Miscellaneous Medication (Lidocaine Patch Removal) 1 each TOP 2100 [facility] Last Admin: 10/13/18 20:15 Dose: Not Given Miscellaneous Medication (Pharmacy To Dose) 0 each PO DAILYPRN PRN PRN Reason: LABS Morphine Sulfate (Morphine) 2 mg SLOW IVP Q15MIN PRN PRN Reason: L PLEURX DRAIN PAIN Last Admin: 10/12/18 22:20 Dose: 2 mg Ccu Electrolyte (Replacement Protocol) 0 each FS PRN PRN PRN Reason: FOR ELECTROLYTE REPLACEMENT Ondansetron HCl (Zofran Odt) 4 mg PO Q6H PRN PRN Reason: Nausea/Vomiting Ondansetron HCl (Zofran) 4 mg IVP Q6H PRN PRN Reason: Nausea/Vomiting Last Admin: 10/01/18 21:24 Dose: 4 mg Tagrisso 80 Mg 1 each PO DAILY [facility] Last Admin: 10/13/18 10:10 Dose: 1 each Prednisone (Prednisone) 20 mg PO QAM[facility] Last Admin: 10/13/18 10:10 Dose: 20 mg Senna/Docusate Sodium (Senokot S) 2 tab PO BIDPRN PRN PRN Reason: Constipation Last Admin: 10/03/18 11:14 Dose: 2 tab Simethicone (Mylicon Chewable) 80 mg PO PCHS PRN PRN Reason: Gas Pain Last Admin: 10/12/18 02:59 Dose: 80 mg Sodium Chloride (Flush - Normal Saline) 10 ml IVF Q12HR [facility] Last Admin: 10/13/18 20:15 Dose: 10 ml Sodium Chloride (Flush - Normal Saline) 10 ml IVF PRN PRN PRN Reason: Saline Flush Last Admin: 10/12/18 09:12 Dose: 10 ml Zolpidem Tartrate (Ambien) 5 mg PO HSPRN PRN PRN Reason: Insomnia Last Admin: 09/17/18 00:18 Dose: 5 mg - Allergies Allergies/Adverse Reactions: Allergies Allergy/AdvReac Type Severity Reaction Status Date / Time No Known Allergies Allergy Verified 07/29/18 01:32
[2018-10-14] MEDS: Benzonatate 100 MG CAP PO SCH ×3 (08:54→21:05)
[2018-10-14] MEDS: Enoxaparin Sodium 100 MG/ML SYRINGE SC SCH ×2 (08:54→21:02)
[2018-10-14] MEDS: predniSONE 20 MG TAB PO SCH (08:54)
[2018-10-14] MEDS: Famotidine 20 MG TAB PO SCH ×2 (08:55→21:02)
[2018-10-14] MEDS: Lidocaine 5% Patch TD SCH (08:55)
[2018-10-14] MEDS: Gabapentin 300 MG CAP PO SCH ×3 (08:55→21:02)
[2018-10-14] MEDS: TAGRISSO 80 MG PO SCH (08:56)
[2018-10-14] MEDS: Fluticasone Propionate Nasal Spray 16 gm Bottle NASAL SCH (08:58)
[2018-10-14] MEDS: Morphine 2 MG/ML SYRINGE SLOW IVP PRN ×3 (11:21→12:01)
[2018-10-14] MEDS: Insulin Glargine 25 UNITS in Pre-Filled Syringe 1 EACH SC SCH (21:01)
[2018-10-14] MEDS: ALPRAZolam 0.25 MG TAB PO PRN (21:05)
[2018-10-14] MEDS: Lidocaine Patch Removal 1 EACH TOP SCH (21:06)
[2018-10-15] MEDS: Insulin Regular 300 UNITS/3 ML VIAL SC PRN ×2 (05:43→20:52)
[2018-10-15 06:23] LABS: Anion Gap 12 mmol/L (10-20); BUN (Urea Nitrogen) 27 mg/dL (9.8-20.1); Calc. Creatinine Clearance 89 mL/min (70-130); Calcium 8.7 mg/dL (7.8-10.44); Carbon Dioxide 28 mmol/L (22-29); Chloride 100 mmol/L (98-107); Estimated GFR-MDRD 59; Glucose 357 mg/dL (70-105); Potassium 4.7 mmol/L (3.5-5.1); Sodium 135 mmol/L (136-145)
[2018-10-15 06:28] LABS: #Eosinphils 0.5 thou/uL (0.0-0.7); #Lymphocytes 1.6 thou/uL (1.20-3.40); #Neutrophils 8.3 thou/uL (1.40-6.50); %Basophils 0.3 % (0.0-1.0); %Eosinophils 4.3 % (0.0-10.0); %Monocytes 8.6 % (0.0-10.0); %Neutrophils 72.9 % (42.0-75.0); Mean Corpuscular HGB CONC 30.9 g/dL (32.0-36.0); Mean Corpuscular Hemoglobin 26.3 pg (27.0-31.0); Mean Corpuscular Volume 85.3 fL (78.0-98.0); Mean Platelet Volume 7.7 fL (7.4-10.4); Platelet Count 180 thou/uL (130-400); Platelet Morphology Comment Appears Adequate; RBC Distribution Width 14.4 % (11.5-14.5); Red Blood Cell (RBC) Count 3.42 mill/uL (4.20-5.40); White Blood Cell (WBC) Count 11.4 thou/uL (4.8-10.8)
--- NOTE | 2018-10-15 08:24 | PDOC.PN ---
- Subjective Encounter Start Date: 10/15/18 Encounter Start Time: 07:30 Subjective: No specific complaint. -: On ventimask.. - Objective Resuscitation Status - Order Detail: 09/13/18 22:04 Resuscitation Status Routine Resuscitation Status: FULL: Full Resuscitation Vital Signs & Weight: Vital Signs (12 hours) Temp Pulse Resp BP Pulse Ox 10/15/18 04:00 97.9 F 100 18 124/76 99 10/15/18 00:46 109 H 100 Weight Admit Weight 196 lb Weight 225 lb 2 oz I&O: 10/14/18 10/15/18 10/16/18 06:59 06:59 06:59 Intake Total 1960 3220 Output Total 1450 1750 Balance 510 1470 Result Diagrams: 10/15/18 05:50 10/15/18 05:50 Additional Labs: Accuchecks 10/15/18 10/14/18 10/14/18 05:16 19:54 16:31 POC Glucose 335 H 297 H 351 H 10/14/18 11:11 POC Glucose 317 H Phys Exam - Physical Examination Constitutional: NAD Neck: no JVD Respiratory: clear to auscultation bilateral Cardiovascular: RRR Gastrointestinal: soft Musculoskeletal: edema present Neurological: moves all 4 limbs Psychiatric: A&O x 3 Dx/Plan (1) 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 s/p bilateral chest tube. f/i with surgery and oncology. (2) Acute respiratory failure with hypoxia Code(s): J96.01 - ACUTE RESPIRATORY FAILURE WITH HYPOXIA Status: Acute Comment: On o2 via ventimask. O2 sat in the high 90's (3) CKD (chronic kidney disease) Code(s): N18.9 - CHRONIC KIDNEY DISEASE, UNSPECIFIED Status: Acute Qualifiers: Chronic kidney disease stage: stage 3 (moderate) Qualified Code(s): N18.3 - Chronic kidney disease, stage 3 (moderate) Comment: APOLINAR+ckd. Renal function has improved after holding diuretics. f/u chemistry. (4) DVT (deep venous thrombosis) Code(s): I82.409 - ACUTE EMBOLISM AND THOMBOS UNSP DEEP VN UNSP LOWER EXTREMITY Status: Acute Qualifiers: DVT location: lower extremity Chronicity: acute Laterality: bilateral Comment: on Lovenox. we'll discuss with Hem/Onc regarding oral anticoagulants. - Plan -: Continue current therapy. -: F/u with surgery, Hem/Onc. * .
[2018-10-15] MEDS: Enoxaparin Sodium 100 MG/ML SYRINGE SC SCH ×2 (08:45→20:12)
[2018-10-15] MEDS: predniSONE 20 MG TAB PO SCH (08:46)
[2018-10-15] MEDS: Gabapentin 300 MG CAP PO SCH ×3 (08:46→20:11)
[2018-10-15] MEDS: Benzonatate 100 MG CAP PO SCH ×3 (08:46→20:11)
[2018-10-15] MEDS: Famotidine 20 MG TAB PO SCH ×2 (08:46→20:12)
[2018-10-15] MEDS: Fluticasone Propionate Nasal Spray 16 gm Bottle NASAL SCH (08:47)
[2018-10-15] MEDS: Lidocaine 5% Patch TD SCH (08:47)
[2018-10-15] MEDS: TAGRISSO 80 MG PO SCH (08:48)
--- NOTE | 2018-10-15 14:17 | PRG ---
DATE OF SERVICE: 10/15/2018 SERVICE: Pulmonary Medicine. INTERVAL HISTORY: The patient is doing fine from respiratory standpoint. She is breathing comfortably. She continues to drain significant amounts of malignant effusion every other day. She denies any current fevers, chills, nausea, or vomiting. Otherwise, there has been no interval change to her condition. She had repeat laboratories today suggesting that things are actually getting a little bit better as we leave her lung. PHYSICAL EXAMINATION: VITAL SIGNS: Afebrile, pulse 116, blood pressure 110/71, respirations 16, and saturation 97% on a Venturi mask. We have no idea what her flow rate is. HEART: Normal rate and regular. ABDOMEN: Soft, nontender, and nondistended. Bowel sounds are positive. MUSCULOSKELETAL: No cyanosis or clubbing. There is diffuse 2+ pitting, which is actually much improved in bilateral lower extremities. NEUROLOGIC: Grossly nonfocal. LABORATORY DATA: WBC 11.4, hemoglobin 9.0, and platelets 180,000. Creatinine 1.15 and beautifully downtrending, BUN is also improving. Her sodium is up-trending. Basic metabolic profile is otherwise unremarkable. All culture results remain negative to date except for the original Serratia marcescens, which was fully treated. IMAGING DATA: CT of the chest demonstrates resolution of the previously noted malignant effusions immediately following drainage. She has bilateral infiltrates and opacifications, likely consistent with acute inflammatory lung disease. Infection is unlikely here. Bilateral drainage catheters are in good position. ASSESSMENT: 1. Acute hypoxic respiratory failure. 2. Malignant effusion, bilateral. 3. Deep venous thrombosis in bilateral lower extremities, extensive. 4. Adenocarcinoma of the lung, stage IV, possibly going to respond nicely to immunotherapy given her high expression of various things. 5. Acute kidney injury, improving. DISCUSSION AND PLAN: We will continue to drain the chest tubes intermittently. As soon as she has a safe environment to transition home to, we can consider getting her out of the hospital. I will discontinue the Henderson catheter. We will get urinalysis and urine culture as this thing is starting to look a little cloudy. We will start to ambulate the patient if she can tolerate it. We will wean away oxygen as tolerated. Job ID: [id number]
[2018-10-15] MEDS: ALPRAZolam 0.25 MG TAB PO PRN (20:11)
[2018-10-15] MEDS: Lidocaine Patch Removal 1 EACH TOP SCH (20:12)
[2018-10-15] MEDS: Insulin Glargine 25 UNITS in Pre-Filled Syringe 1 EACH SC SCH (20:51)
[2018-10-16] MEDS: Zolpidem Tartrate 5 MG TAB PO PRN (03:35)
[2018-10-16] MEDS: Insulin Regular 300 UNITS/3 ML VIAL SC PRN ×3 (06:13→21:18)
[2018-10-16] MEDS: Enoxaparin Sodium 100 MG/ML SYRINGE SC SCH ×2 (08:53→21:22)
[2018-10-16] MEDS: Benzonatate 100 MG CAP PO SCH ×3 (08:54→21:22)
[2018-10-16] MEDS: Famotidine 20 MG TAB PO SCH ×2 (08:54→21:19)
[2018-10-16] MEDS: predniSONE 20 MG TAB PO SCH (08:54)
[2018-10-16] MEDS: Fluticasone Propionate Nasal Spray 16 gm Bottle NASAL SCH (08:55)
[2018-10-16] MEDS: TAGRISSO 80 MG PO SCH (08:55)
[2018-10-16] MEDS: Gabapentin 300 MG CAP PO SCH ×3 (08:55→21:22)
[2018-10-16] MEDS: Lidocaine 5% Patch TD SCH (08:56)
[2018-10-16] MEDS: Morphine 2 MG/ML SYRINGE SLOW IVP PRN ×3 (10:35→11:19)
--- NOTE | 2018-10-16 11:06 | PDOC.PN ---
- Subjective Encounter Start Date: 10/16/18 Encounter Start Time: 10:10 Subjective: +Epistaxis -: On 02 via ventimask. - Objective Resuscitation Status - Order Detail: 09/13/18 22:04 Resuscitation Status Routine Resuscitation Status: FULL: Full Resuscitation Vital Signs & Weight: Vital Signs (12 hours) Temp Pulse Resp BP Pulse Ox 10/16/18 08:00 97.8 F 116 H 20 106/68 97 10/16/18 06:21 95 10/16/18 06:15 118 H 18 10/16/18 00:53 114 H 20 97 Weight Admit Weight 196 lb Weight 225 lb 2 oz I&O: 10/15/18 10/16/18 10/17/18 06:59 06:59 06:59 Intake Total 3220 1070 Output Total 1750 500 Balance 1470 570 Result Diagrams: 10/15/18 05:50 10/15/18 05:50 Additional Labs: Accuchecks 10/16/18 10/15/18 10/15/18 05:51 20:34 16:16 POC Glucose 163 H 372 H 368 H 10/15/18 11:04 POC Glucose 188 H Phys Exam - Physical Examination Neck: no JVD Respiratory: clear to auscultation bilateral Cardiovascular: RRR Gastrointestinal: soft Musculoskeletal: edema present Neurological: moves all 4 limbs Psychiatric: A&O x 3 Dx/Plan (1) 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 s/p bilateral chest tube. f/u with surgery and oncology. (2) Acute respiratory failure with hypoxia Code(s): J96.01 - ACUTE RESPIRATORY FAILURE WITH HYPOXIA Status: Acute Comment: On o2 via ventimask. Humidify O2 in view of epistaxis. f/u cbc (3) CKD (chronic kidney disease) Code(s): N18.9 - CHRONIC KIDNEY DISEASE, UNSPECIFIED Status: Acute Qualifiers: Chronic kidney disease stage: stage 3 (moderate) Qualified Code(s): N18.3 - Chronic kidney disease, stage 3 (moderate) Comment: APOLINAR+ckd. Renal function has improved after holding diuretics. f/u chemistry. (4) DVT (deep venous thrombosis) Code(s): I82.409 - ACUTE EMBOLISM AND THOMBOS UNSP DEEP VN UNSP LOWER EXTREMITY Status: Acute Qualifiers: DVT location: lower extremity Chronicity: acute Laterality: bilateral Comment: on Lovenox. we'll discuss with Hem/Onc regarding oral anticoagulants. - Plan * .
[2018-10-16] MEDS: ALPRAZolam 0.25 MG TAB PO PRN (21:18)
[2018-10-16] MEDS: Insulin Glargine 25 UNITS in Pre-Filled Syringe 1 EACH SC SCH (21:19)
[2018-10-16] MEDS: Lidocaine Patch Removal 1 EACH TOP SCH (21:22)
[2018-10-17 05:09] LABS: #Eosinphils 0.9 thou/uL (0.0-0.7); #Lymphocytes 2.2 thou/uL (1.20-3.40); #Monocytes 1.1 thou/uL (0.11-0.59); #Neutrophils 7.7 thou/uL (1.40-6.50); %Basophils 0.2 % (0.0-1.0); %Eosinophils 7.5 % (0.0-10.0); %Lymphocytes 18.2 % (21.0-51.0); %Monocytes 9.3 % (0.0-10.0); %Neutrophils 64.8 % (42.0-75.0); Hemoglobin 9.1 g/dL (12.0-16.0); Mean Corpuscular HGB CONC 30.5 g/dL (32.0-36.0); Mean Corpuscular Hemoglobin 25.9 pg (27.0-31.0); Mean Corpuscular Volume 84.9 fL (78.0-98.0); Mean Platelet Volume 7.1 fL (7.4-10.4); Platelet Count 191 thou/uL (130-400); RBC Distribution Width 14.5 % (11.5-14.5); White Blood Cell (WBC) Count 11.9 thou/uL (4.8-10.8)
[2018-10-17 05:26] LABS: Anion Gap 15 mmol/L (10-20); BUN (Urea Nitrogen) 24 mg/dL (9.8-20.1); Calc. Creatinine Clearance 101 mL/min (70-130); Calcium 8.7 mg/dL (7.8-10.44); Carbon Dioxide 26 mmol/L (22-29); Chloride 100 mmol/L (98-107); Estimated GFR-MDRD 69; Glucose 181 mg/dL (70-105); Potassium 4.6 mmol/L (3.5-5.1); Sodium 136 mmol/L (136-145)
[2018-10-17] MEDS: Simethicone Chewable 80 MG TAB PO PRN (06:02)
[2018-10-17] MEDS ORDERED: Morphine 2 MG/ML SYRINGE SLOW IVP PRN (06:14)
[2018-10-17] MEDS: Morphine 2 MG/ML SYRINGE SLOW IVP PRN (06:15)
[2018-10-17] MEDS: Enoxaparin Sodium 100 MG/ML SYRINGE SC SCH ×2 (09:10→21:41)
[2018-10-17] MEDS: Famotidine 20 MG TAB PO SCH ×2 (09:10→21:41)
[2018-10-17] MEDS: Gabapentin 300 MG CAP PO SCH ×3 (09:10→21:41)
[2018-10-17] MEDS: Benzonatate 100 MG CAP PO SCH ×3 (09:11→21:40)
[2018-10-17] MEDS: predniSONE 20 MG TAB PO SCH (09:11)
[2018-10-17] MEDS: Fluticasone Propionate Nasal Spray 16 gm Bottle NASAL SCH (09:11)
[2018-10-17] MEDS: Lidocaine 5% Patch TD SCH (09:11)
[2018-10-17] MEDS: TAGRISSO 80 MG PO SCH (09:12)
--- NOTE | 2018-10-17 10:43 | PDOC.PN ---
- Subjective Encounter Start Date: 10/17/18 Encounter Start Time: 07:15 Subjective: No new complaint. -: No epistaxis today. - Objective Resuscitation Status - Order Detail: 09/13/18 22:04 Resuscitation Status Routine Resuscitation Status: FULL: Full Resuscitation Vital Signs & Weight: Vital Signs (12 hours) Temp Pulse Resp BP Pulse Ox 10/17/18 09:45 98 10/17/18 08:20 96 10/17/18 08:18 88 L 10/17/18 08:15 122 H 24 H 10/17/18 08:00 98.2 F 124 H 22 H 92/54 L 95 10/17/18 06:39 98 10/17/18 06:38 114 H 20 10/17/18 03:53 98 10/16/18 23:28 111 H 18 98 Weight Admit Weight 196 lb Weight 225 lb 2 oz I&O: 10/16/18 10/17/18 10/18/18 06:59 06:59 06:59 Intake Total 1070 650 Output Total 500 1370 Balance 570 -720 Result Diagrams: 10/17/18 04:50 10/17/18 04:50 Additional Labs: Accuchecks 10/17/18 10/16/18 10/16/18 04:54 20:47 16:26 POC Glucose 150 H 236 H 325 H 10/16/18 11:51 POC Glucose 191 H Phys Exam - Physical Examination Neck: no JVD Respiratory: clear to auscultation bilateral Cardiovascular: RRR Gastrointestinal: soft Musculoskeletal: edema present Neurological: moves all 4 limbs Psychiatric: A&O x 3 Dx/Plan (1) 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 s/p bilateral chest tube. f/u with surgery and oncology. (2) Acute respiratory failure with hypoxia Code(s): J96.01 - ACUTE RESPIRATORY FAILURE WITH HYPOXIA Status: Acute Comment: On o2 via ventimask. On Humidify O2 . O2 sat ok. (3) CKD (chronic kidney disease) Code(s): N18.9 - CHRONIC KIDNEY DISEASE, UNSPECIFIED Status: Acute Qualifiers: Chronic kidney disease stage: stage 3 (moderate) Qualified Code(s): N18.3 - Chronic kidney disease, stage 3 (moderate) Comment: APOLINAR+ckd. Renal function stable. (4) DVT (deep venous thrombosis) Code(s): I82.409 - ACUTE EMBOLISM AND THOMBOS UNSP DEEP VN UNSP LOWER EXTREMITY Status: Acute Qualifiers: DVT location: lower extremity Chronicity: acute Laterality: bilateral Comment: on Lovenox. - Plan -: Continue current therapy. 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 * .
--- NOTE | 2018-10-17 11:07 | OP ---
DATE OF PROCEDURE: 10/01/2018 PREOPERATIVE DIAGNOSIS: Bilateral malignant pleural effusions. PROCEDURE PERFORMED: Placement of a right-sided PleurX catheter. ANESTHESIA: General. ESTIMATED BLOOD LOSS: Minimal. DESCRIPTION OF PROCEDURE: After prepping and draping the right chest, lidocaine was used to infiltrate the skin and a finder needle was used to puncture the pleural space and obtained pleural fluid. An Angiocath and then wire were inserted. After infiltration of more local anesthetic, an exit site was chosen and a dilator and sheath were then placed over the wire after the catheter had been brought from the exit site to the site of entry into the peel-away sheath. The catheter was then advanced through the peel-away sheath. The sheath was removed and 1200 mL of fluid was then aspirated from the catheter. The wounds were closed in layers and the patient tolerated the procedure. Job ID: [id number]
[2018-10-17] MEDS: Insulin Regular 300 UNITS/3 ML VIAL SC PRN ×3 (11:42→21:41)
[2018-10-17] MEDS: ALPRAZolam 0.25 MG TAB PO PRN ×2 (17:30→21:40)
[2018-10-17] MEDS: Lidocaine Patch Removal 1 EACH TOP SCH (21:00)
[2018-10-17] MEDS: Insulin Glargine 25 UNITS in Pre-Filled Syringe 1 EACH SC SCH (21:40)
[2018-10-18] MEDS: ALPRAZolam 0.25 MG TAB PO PRN ×2 (06:35→21:17)
[2018-10-18] MEDS: predniSONE 20 MG TAB PO SCH (08:38)
[2018-10-18] MEDS: Benzonatate 100 MG CAP PO SCH ×3 (08:39→21:14)
[2018-10-18] MEDS: DULoxetine 30 MG CAP PO SCH (08:39)
[2018-10-18] MEDS: Enoxaparin Sodium 100 MG/ML SYRINGE SC SCH ×2 (08:40→21:13)
[2018-10-18] MEDS: Fluticasone Propionate Nasal Spray 16 gm Bottle NASAL SCH (08:40)
[2018-10-18] MEDS: Gabapentin 300 MG CAP PO SCH ×3 (08:40→21:13)
[2018-10-18] MEDS: Famotidine 20 MG TAB PO SCH ×2 (08:40→21:13)
[2018-10-18] MEDS: Lidocaine 5% Patch TD SCH (08:41)
[2018-10-18] MEDS: TAGRISSO 80 MG PO SCH (08:41)
--- NOTE | 2018-10-18 09:02 | PDOC.PN ---
- Subjective Encounter Start Date: 10/18/18 Encounter Start Time: 10:00 Subjective: Patient had some SOB this morning, better at plurex cath drainage -: this morning. She thinks the swelling in legs is starting to get a little -: bit better. - Objective Resuscitation Status - Order Detail: 09/13/18 22:04 Resuscitation Status Routine Resuscitation Status: FULL: Full Resuscitation MAR Reviewed: Yes Vital Signs & Weight: Vital Signs (12 hours) Temp Pulse Resp BP Pulse Ox 10/18/18 08:00 97.5 F L 121 H 22 H 103/63 93 L 10/18/18 07:02 97 10/18/18 06:30 129 H 26 H 10/18/18 04:23 99 10/17/18 22:26 97 10/17/18 22:23 126 H 24 H 97 Weight Admit Weight 196 lb Weight 206 lb 9 oz I&O: 10/17/18 10/18/18 10/19/18 06:59 06:59 06:59 Intake Total 650 1020 Output Total 1370 620 Balance -720 400 Result Diagrams: 10/17/18 04:50 10/17/18 04:50 Additional Labs: Accuchecks 10/18/18 10/17/18 10/17/18 05:34 19:27 16:24 POC Glucose 174 H 301 H 333 H 10/17/18 11:11 POC Glucose 257 H Phys Exam - Physical Examination Constitutional: NAD HEENT: moist MMs Respiratory: no rales, no rhonchi decent air movement throughout Cardiovascular: no significant murmur tachycardic, regular Gastrointestinal: soft, positive bowel sounds Musculoskeletal: edema present Neurological: non-focal, moves all 4 limbs Psychiatric: normal affect, A&O x 3 Dx/Plan (1) Malignant pleural effusion Code(s): J91.0 - MALIGNANT PLEURAL EFFUSION Status: Acute Comment: Serratia present in fluid, completed antibiotic course. Appreciate pulmonary care. Now with bilateral chest tubes, draining fluid regularly. (2) Adenocarcinoma, lung Code(s): C34.90 - MALIGNANT NEOPLASM OF UNSP PART OF UNSP BRONCHUS OR LUNG Status: Chronic Qualifiers: Laterality: left Qualified Code(s): C34.92 - Malignant neoplasm of unspecified part of left bronchus or lung Comment: Poor prognosis (3) Acute respiratory failure with hypoxia Code(s): J96.01 - ACUTE RESPIRATORY FAILURE WITH HYPOXIA Status: Acute Comment: On o2 via ventimask. On Humidify O2 . O2 sat ok. (4) Pleural effusion Code(s): J90 - PLEURAL EFFUSION, NOT ELSEWHERE CLASSIFIED Status: Acute (5) Pericardial effusion Code(s): I31.3 - PERICARDIAL EFFUSION (NONINFLAMMATORY) Status: Acute (6) CKD (chronic kidney disease) Code(s): N18.9 - CHRONIC KIDNEY DISEASE, UNSPECIFIED Status: Acute Qualifiers: Chronic kidney disease stage: stage 3 (moderate) Qualified Code(s): N18.3 - Chronic kidney disease, stage 3 (moderate) Comment: APOLINAR+ckd. Renal function stable. (7) Diabetes mellitus Code(s): E11.9 - TYPE 2 DIABETES MELLITUS WITHOUT COMPLICATIONS Status: Chronic Qualifiers: Diabetes mellitus type: type 2 Diabetes mellitus keno terminal operator insulin use: without keno terminal operator use Diabetes mellitus complication status: with unspecified complications Qualified Code(s): E11.8 - Type 2 diabetes mellitus with unspecified complications Comment: titrate up insulin as patient doesn't want to stick to a diabetic diet (8) DVT (deep venous thrombosis) Code(s): I82.409 - ACUTE EMBOLISM AND THOMBOS UNSP DEEP VN UNSP LOWER EXTREMITY Status: Acute Qualifiers: DVT location: lower extremity Chronicity: acute Laterality: bilateral Comment: on Lovenox. (9) Hypotension Status: Resolved (10) Diabetic neuropathy Code(s): E11.40 - TYPE 2 DIABETES MELLITUS WITH DIABETIC NEUROPATHY, UNSP Status: Acute - Plan cont current plan of care, PT/OT, respiratory therapy * . - Discharge Day Encounter end time: 10:10
[2018-10-18] MEDS: Morphine 2 MG/ML SYRINGE SLOW IVP PRN ×4 (09:59→10:57)
[2018-10-18] MEDS ORDERED: Lactated Ringer's 1,000 ML IV SCH (12:00)
[2018-10-18] MEDS: Insulin Regular 300 UNITS/3 ML VIAL SC PRN ×3 (12:44→21:28)
[2018-10-18] MEDS: Ondansetron PF 4 MG/2 ML Vial IVP PRN (15:28)
[2018-10-18] MEDS: Insulin Glargine 25 UNITS in Pre-Filled Syringe 1 EACH SC SCH (21:14)
[2018-10-18] MEDS: Lidocaine Patch Removal 1 EACH TOP SCH (21:14)
--- NOTE | 2018-10-19 08:11 | PDOC.PN ---
- Subjective Encounter Start Date: 10/19/18 Encounter Start Time: 11:10 Subjective: Patient reports increased SOB. Having more trouble talking due to dyspnea. -: Very fatigued. No other complaints. - Objective Resuscitation Status - Order Detail: 09/13/18 22:04 Resuscitation Status Routine Resuscitation Status: FULL: Full Resuscitation MAR Reviewed: Yes Vital Signs & Weight: Vital Signs (12 hours) Pulse Resp Pulse Ox 10/19/18 06:56 97 10/19/18 06:54 114 H 24 H 97 10/19/18 00:40 97 10/19/18 00:33 109 H 20 96 Weight Admit Weight 196 lb Weight 206 lb 9 oz I&O: 10/18/18 10/19/18 10/20/18 06:59 06:59 06:59 Intake Total 1020 560 Output Total 620 1300 Balance 400 -740 Result Diagrams: 10/17/18 04:50 10/17/18 04:50 Additional Labs: Accuchecks 10/19/18 10/18/18 10/18/18 06:04 20:20 17:08 POC Glucose 111 H 236 H 227 H 10/18/18 12:15 POC Glucose 219 H Phys Exam - Physical Examination mild respiratory distress HEENT: moist MMs Respiratory: no wheezing, no rhonchi some decreased BS in bases Cardiovascular: no significant murmur tachycardic, regular Gastrointestinal: soft, positive bowel sounds 3+ edema to bilateral lower extremities Neurological: non-focal Psychiatric: normal affect, A&O x 3 Dx/Plan (1) Malignant pleural effusion Code(s): J91.0 - MALIGNANT PLEURAL EFFUSION Status: Acute Comment: Serratia present in fluid, completed antibiotic course. Appreciate pulmonary care. Now with bilateral chest tubes, draining fluid regularly. (2) Adenocarcinoma, lung Code(s): C34.90 - MALIGNANT NEOPLASM OF UNSP PART OF UNSP BRONCHUS OR LUNG Status: Chronic Qualifiers: Laterality: left Qualified Code(s): C34.92 - Malignant neoplasm of unspecified part of left bronchus or lung Comment: Poor prognosis (3) Acute respiratory failure with hypoxia Code(s): J96.01 - ACUTE RESPIRATORY FAILURE WITH HYPOXIA Status: Acute Comment: On o2 via ventimask. On Humidify O2 . O2 sat ok but CO2 rising on latest ABG, may need BiPAP if progresses (4) Pleural effusion Code(s): J90 - PLEURAL EFFUSION, NOT ELSEWHERE CLASSIFIED Status: Acute (5) Pericardial effusion Code(s): I31.3 - PERICARDIAL EFFUSION (NONINFLAMMATORY) Status: Acute (6) CKD (chronic kidney disease) Code(s): N18.9 - CHRONIC KIDNEY DISEASE, UNSPECIFIED Status: Acute Qualifiers: Chronic kidney disease stage: stage 3 (moderate) Qualified Code(s): N18.3 - Chronic kidney disease, stage 3 (moderate) Comment: APOLINAR+ckd. Renal function stable. (7) Diabetes mellitus Code(s): E11.9 - TYPE 2 DIABETES MELLITUS WITHOUT COMPLICATIONS Status: Chronic Qualifiers: Diabetes mellitus type: type 2 Diabetes mellitus half-way insulin use: without half-way use Diabetes mellitus complication status: with unspecified complications Qualified Code(s): E11.8 - Type 2 diabetes mellitus with unspecified complications Comment: titrate up insulin as patient doesn't want to stick to a diabetic diet (8) DVT (deep venous thrombosis) Code(s): I82.409 - ACUTE EMBOLISM AND THOMBOS UNSP DEEP VN UNSP LOWER EXTREMITY Status: Acute Qualifiers: DVT location: lower extremity Chronicity: acute Laterality: bilateral Comment: on Lovenox. (9) Hypotension Status: Resolved (10) Diabetic neuropathy Code(s): E11.40 - TYPE 2 DIABETES MELLITUS WITH DIABETIC NEUROPATHY, UNSP Status: Acute - Plan cont current plan of care, PT/OT, respiratory therapy, DVT proph w/lovenox Patient has continued to decline. Too unstable to keep on floor now. Will -: transfer to [facility]. Case discussed with Dr. Allen. I had a long conversatio -: with patient about her worsening course and prognosis, she still wants full -: rescusitation and intubation if necessary. * . - Discharge Day Encounter end time: 11:20
[2018-10-19 08:26] LABS: Actual Bicarbonate (HCO3a) 29.4 mEq/L (22-28); Analyzer IN Cardio OR; Base Excess (BEa) 2.2 mEq/L (-2.0 to +3.0); Carboxyhemoglobin (COHb) 0.7 gm% (0.0-3.0); O2 Tension (PaO2) 124.5 mmHg (80.0-100.0); Potassium - ABG Lab 4.47 mmol/L (3.70-5.30); pH, Arterial 7.32 (7.35-7.45)
[2018-10-19 08:27] LABS: Puncture Site LRA
--- NOTE | 2018-10-19 09:29 | PRG ---
DATE OF SERVICE: 10/18/2018 INTERVAL HISTORY: The patient was doing very poorly this morning from respiratory standpoint. We tapped her. She ended up getting drained almost a liter on the right lung and an additional 300 or 400 mL on the left lung. Afterwards, her breathing settled down a little bit. She is currently on a nonrebreather, but is unlikely to require any longer. She is tachycardic. She appears to be a little bit dehydrated. P.o. intake is not keeping up with the amount of pleural effusions that she is creating. PHYSICAL EXAMINATION: VITAL SIGNS: Afebrile, pulse 132, blood pressure 109/71, respirations 20, saturation 100% on non-rebreather at that time. HEENT: Normocephalic and atraumatic. Sclerae are white. Conjunctivae are pink. Oral mucosa is moist without lesions. LUNGS: Decent air entry. There are rhonchi present. I do not appreciate crackles or wheezing. HEART: Normal rate and regular. ABDOMEN: Soft, nontender, and nondistended. Bowel sounds are positive. MUSCULOSKELETAL: No cyanosis or clubbing. No pitting in the bilateral lower extremities. NEUROLOGIC: Grossly nonfocal. LABORATORY DATA: Blood sugar ranges from 174 to 301. Urine is growing Klebsiella pneumoniae. This was likely contaminant associated with prolonged catheter placement. She is not behaving as though she has infection. ASSESSMENT: 1. Acute hypoxic respiratory failure. 2. Malignant pleural effusion, bilateral. 3. Deep venous thrombosis of the bilateral lower extremities, extensive. 4. Adenocarcinoma of the lung, stage IV, possibly going to respond nicely to immunotherapy given high expression of various things. 5. Acute kidney injury, resolving. DISCUSSION AND PLAN: The patient appears to have some degree of dehydration intravascularly. We will give her a liter of fluid. We will continue to drain her chest as needed. We can do it as little as every 2 days, but if she needs it more frequently, this would be perfectly acceptable. Pulmonary/Critical Care will continue to follow along. Job ID: [id number]
[2018-10-19] MEDS: predniSONE 20 MG TAB PO SCH (09:37)
[2018-10-19] MEDS: Famotidine 20 MG TAB PO SCH ×2 (09:37→20:50)
[2018-10-19] MEDS: Gabapentin 300 MG CAP PO SCH ×3 (09:37→20:50)
[2018-10-19] MEDS: Benzonatate 100 MG CAP PO SCH ×3 (09:38→20:50)
[2018-10-19] MEDS: DULoxetine 30 MG CAP PO SCH (09:38)
[2018-10-19] MEDS: TAGRISSO 80 MG PO SCH (09:39)
[2018-10-19] MEDS: Fluticasone Propionate Nasal Spray 16 gm Bottle NASAL SCH (09:39)
[2018-10-19] MEDS: Enoxaparin Sodium 100 MG/ML SYRINGE SC SCH ×2 (09:39→20:49)
[2018-10-19] MEDS: Lidocaine 5% Patch TD SCH (09:39)
[2018-10-19] MEDS: Lorazepam 2 MG/ML VIAL SLOW IVP PRN ×3 (09:42→18:44)
[2018-10-19] MEDS: Morphine 2 MG/ML SYRINGE SLOW IVP PRN ×3 (11:45→13:07)
[2018-10-19] MEDS: Insulin Regular 300 UNITS/3 ML VIAL SC PRN (16:37)
--- NOTE | 2018-10-19 18:10 | PRG ---
DATE OF SERVICE: 10/19/2018 SERVICE: Pulmonary Medicine. INTERVAL HISTORY: The patient is actually doing poorly from respiratory standpoint once again. We repeated the tap at the bilateral lungs. She put out 400 out of one and over a liter out of the other. She is having more rapid reaccumulation of these fluid collections. That being said, they seem to have a little bit less malignancy to them. She cannot provide any additional elements of the history at this point. PHYSICAL EXAMINATION: VITAL SIGNS: Afebrile, pulse 117, blood pressure 105/67, respirations 21, saturation 93%, currently on Venti mask. HEENT: Normocephalic and atraumatic. Sclerae white. Conjunctivae pink. Oral mucosa is moist without lesions. LUNGS: Decent air entry after the tap. She has got crackles and rhonchi present. I do not hear any wheezing. HEART: Normal rate regular. ABDOMEN: Soft, nontender, and nondistended. Bowel sounds are positive. MUSCULOSKELETAL: No cyanosis or clubbing. There is no pitting in the bilateral lower extremities. NEUROLOGIC: Grossly nonfocal. ASSESSMENT: 1. Acute hypoxic respiratory failure. 2. Malignant pleural effusions, bilateral. 3. Deep venous thrombosis of the bilateral lower extremities, extensive. 4. Adenocarcinoma of lung, stage IV. 5. Acute kidney injury. DISCUSSION AND PLAN: I will check magnesium, phosphorus, CBC, and basic metabolic profile in the morning. We will continue the tap frequently if needed. If she has any evidence of systemic inflammatory response syndrome beyond what her baseline is, we will need to initiate antibiotics directed at this urine organism. Because of her respiratory than earlier, she has been transitioned to ICU. We will watch her very closely here for 24 to 48 hours and consider getting her back to the floor in a couple of days if the fluid accumulation dies off. Job ID: [id number]
[2018-10-19] MEDS: ALPRAZolam 0.25 MG TAB PO PRN (18:48)
[2018-10-19] MEDS: DEXMEDETOMIDINE IVPB PRN (20:36)
[2018-10-19] MEDS: SODIUM CHLORIDE 0.9% IVPB PRN (20:36)
[2018-10-19] MEDS: Insulin Glargine 25 UNITS in Pre-Filled Syringe 1 EACH SC SCH (20:45)
[2018-10-19] MEDS: Lidocaine Patch Removal 1 EACH TOP SCH (20:51)
[2018-10-20] MEDS: Lorazepam 2 MG/ML VIAL SLOW IVP PRN ×2 (03:12→07:57)
[2018-10-20] MEDS: ALPRAZolam 0.25 MG TAB PO PRN (03:12)
[2018-10-20 04:07] LABS: #Eosinphils 0.1 thou/uL (0.0-0.7); #Lymphocytes 1.1 thou/uL (1.20-3.40); #Monocytes 0.9 thou/uL (0.11-0.59); %Basophils 0.4 % (0.0-1.0); %Eosinophils 1.3 % (0.0-10.0); %Lymphocytes 12.3 % (21.0-51.0); %Monocytes 9.6 % (0.0-10.0); %Neutrophils 76.3 % (42.0-75.0); Hemoglobin 9.1 g/dL (12.0-16.0); Mean Corpuscular HGB CONC 31.1 g/dL (32.0-36.0); Mean Corpuscular Hemoglobin 26.8 pg (27.0-31.0); Mean Corpuscular Volume 86.2 fL (78.0-98.0); Mean Platelet Volume 7.5 fL (7.4-10.4); Platelet Count 203 thou/uL (130-400); RBC Distribution Width 14.1 % (11.5-14.5); Red Blood Cell (RBC) Count 3.41 mill/uL (4.20-5.40); White Blood Cell (WBC) Count 9.1 thou/uL (4.8-10.8)
[2018-10-20 04:26] LABS: Anion Gap 15 mmol/L (10-20); BUN (Urea Nitrogen) 29 mg/dL (9.8-20.1); Calc. Creatinine Clearance 83 mL/min (70-130); Calcium 8.7 mg/dL (7.8-10.44); Carbon Dioxide 26 mmol/L (22-29); Chloride 99 mmol/L (98-107); Estimated GFR-MDRD 60; Glucose 127 mg/dL (70-105); Phosphorus 5.9 mg/dL (2.3-4.7); Potassium 5.2 mmol/L (3.5-5.1); Sodium 135 mmol/L (136-145)
[2018-10-20] MEDS: predniSONE 20 MG TAB PO SCH (07:41)
[2018-10-20] MEDS: DULoxetine 30 MG CAP PO SCH (07:45)
[2018-10-20] MEDS: Famotidine 20 MG TAB PO SCH (07:48)
[2018-10-20] MEDS: Gabapentin 300 MG CAP PO SCH ×2 (07:48→15:22)
[2018-10-20] MEDS: Benzonatate 100 MG CAP PO SCH ×2 (07:49→15:21)
[2018-10-20] MEDS: TAGRISSO 80 MG PO SCH (07:50)
[2018-10-20] MEDS: Enoxaparin Sodium 100 MG/ML SYRINGE SC SCH ×2 (07:51→21:23)
[2018-10-20] MEDS: Fluticasone Propionate Nasal Spray 16 gm Bottle NASAL SCH (07:51)
[2018-10-20] MEDS: Lidocaine 5% Patch TD SCH (07:57)
[2018-10-20] MEDS: SODIUM CHLORIDE 0.9% IVPB PRN ×2 (08:01→15:22)
[2018-10-20] MEDS: DEXMEDETOMIDINE IVPB PRN ×2 (08:01→15:22)
--- NOTE | 2018-10-20 08:04 | PDOC.PN ---
- Subjective Encounter Start Date: 10/20/18 Encounter Start Time: 10:20 Subjective: Patient doing worse, now on Bipap, Precedex, just got ativan and BP -: running a little low. Another liter drained from chest tube. - Objective Resuscitation Status - Order Detail: 09/13/18 22:04 Resuscitation Status Routine Resuscitation Status: FULL: Full Resuscitation MAR Reviewed: Yes Vital Signs & Weight: Vital Signs (12 hours) Temp Pulse Resp 10/20/18 07:34 112 H 32 H 10/20/18 00:00 97.9 F 10/19/18 23:21 108 H 28 H Weight Admit Weight 196 lb Weight 206 lb 9 oz Most Recent Monitor Data Heart Rate from ECG 97 NIBP 90/60 NIBP BP-Mean 70 Respiration from ECG 20 SpO2 99 I&O: 10/19/18 10/20/18 10/21/18 06:59 06:59 06:59 Intake Total 560 274.7 Output Total 1300 1425 Balance -740 -1150.3 Result Diagrams: 10/20/18 03:45 10/20/18 03:45 Additional Labs: Accuchecks 10/19/18 10/19/18 20:45 16:31 POC Glucose 145 H 216 H Phys Exam - Physical Examination HEENT: moist MMs some decreased BS in bases, on Bipap tachycardic Gastrointestinal: soft, positive bowel sounds Musculoskeletal: edema present Deviation from normal: somnolent after ativan Dx/Plan (1) Malignant pleural effusion Code(s): J91.0 - MALIGNANT PLEURAL EFFUSION Status: Acute Comment: Serratia present in fluid, completed antibiotic course. Appreciate pulmonary care. Now with bilateral chest tubes, draining fluid regularly. (2) Adenocarcinoma, lung Code(s): C34.90 - MALIGNANT NEOPLASM OF UNSP PART OF UNSP BRONCHUS OR LUNG Status: Chronic Qualifiers: Laterality: left Qualified Code(s): C34.92 - Malignant neoplasm of unspecified part of left bronchus or lung Comment: Poor prognosis (3) Acute respiratory failure with hypoxia Code(s): J96.01 - ACUTE RESPIRATORY FAILURE WITH HYPOXIA Status: Acute Comment: On o2 via ventimask. On Humidify O2 . O2 sat ok but CO2 rising on latest ABG, may need BiPAP if progresses (4) Pleural effusion Code(s): J90 - PLEURAL EFFUSION, NOT ELSEWHERE CLASSIFIED Status: Acute (5) Pericardial effusion Code(s): I31.3 - PERICARDIAL EFFUSION (NONINFLAMMATORY) Status: Acute (6) CKD (chronic kidney disease) Code(s): N18.9 - CHRONIC KIDNEY DISEASE, UNSPECIFIED Status: Acute Qualifiers: Chronic kidney disease stage: stage 3 (moderate) Qualified Code(s): N18.3 - Chronic kidney disease, stage 3 (moderate) Comment: APOLINAR+ckd. Renal function stable. 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 (9) Hypotension Status: Resolved (10) Diabetic neuropathy Code(s): E11.40 - TYPE 2 DIABETES MELLITUS WITH DIABETIC NEUROPATHY, UNSP Status: Acute - Plan cont current plan of care, PT/OT, respiratory therapy, DVT proph w/lovenox Patient with precipitous decline, investigating response to chemo so -: can consider immunotherapy, though that would take weeks to take -: effect. Very poor prognosis. * . - Discharge Day Encounter end time: 10:30
[2018-10-20] MEDS: Sodium Chloride 0.9% 1,000 ML IV SCH ×2 (09:57→09:58)
[2018-10-20] MEDS: Norepinephrine 8 MG/0.9% NS 250 ML IVPB SCH (15:21)
[2018-10-20 15:49] LABS: Base Excess (BEa) -3.7 mEq/L (-2.0 to +3.0); CO2 Tension 49.1 mmHg (35.0-45.0); Calcium, Ionized 1.12 mmol/L (1.12-1.30); Carboxyhemoglobin (COHb) 0.8 gm% (0.0-3.0); Hemoglobin (Hb) 10.3 g/dL (12.0-16.0); pH, Arterial 7.29 (7.35-7.45)
[2018-10-20 15:50] LABS: ALV-art Gradient 379.325 (0-20); O2 Tension (PaO2) 58.4 mmHg (80.0-100.0); Puncture Site LR
[2018-10-20] MEDS ORDERED: Propofol 1,000 MG/100 ML VIAL IV ONE (15:53)
[2018-10-20] MEDS ORDERED: Propofol 1,000 MG/100 ML VIAL IV PRN (15:55)
[2018-10-20] MEDS ORDERED: Ventilator Sedation Protocol 1 EACH FS SCH (16:00)
[2018-10-20] MEDS ORDERED: Midazolam HCl 2 mg/2 ml Vial ONE (16:02)
[2018-10-20] MEDS ORDERED: DISCONTINUE PREVIOUS NARCOTIC PAIN MEDICATIONS AND BENZODIAZEPINES FS SCH (16:05)
[2018-10-20] MEDS ORDERED: Propofol BOLUS 1,000 MG/100 ML VIAL IV PRN (16:05)
[2018-10-20] MEDS ORDERED: Fentanyl BOLUS 250 ML IVPB PRN (16:05)
[2018-10-20] MEDS ORDERED: Morphine 2 MG/ML SYRINGE SLOW IVP PRN (16:05)
[2018-10-20] MEDS ORDERED: Vecuronium 10 MG VIAL ONE (16:50)
--- NOTE | 2018-10-20 16:50 | PRG ---
DATE OF SERVICE: 10/20/2018 SERVICE: Pulmonary Medicine. INTERVAL HISTORY: The patient did poorly overnight. She had increasing agitation and episodes of hypoxemia. It seems that her agitation would come first. She would then develop hypoxemia associated with that. Whenever she would remain calm, her saturations would pop right back up. Either way, she ended up getting multiple doses of Ativan. This morning, she had a fairly dense encephalopathy. We put her on BiPAP. She woke up for a short period of time, but towards the afternoon, she started becoming increasingly somnolent and poorly responsive. Her drive to breathe was quite amazing. Either way, we got an ABG demonstrating acute hypercapnic and more severe hypoxic respiratory failure. Because of her decline in function over the last 48 hours, we decided to electively intubate her to prevent further decline. She cannot provide any additional elements of the history right now. Otherwise , nursing reports that she has not had any severe episodes of fever. PHYSICAL EXAMINATION: VITAL SIGNS: Afebrile, she has run between 97.1 and 98.3. Pulse 114, blood pressure 86/68, respirations 32, and saturation 97% on 70% FiO2 and a PEEP of 5. GENERAL: The patient will be intubated and sedated. Right now, she is encephalopathic, on BiPAP pulling a minute volume of roughly 17 L/minute. HEENT: Normocephalic and atraumatic. Sclerae are white. Conjunctivae are pink. Oral mucosa is moist without lesions. LUNGS: Poor air entry on right. There is no prolonged expiratory phase. No wheezing is present. Rhonchi and crackles are appreciated. HEART: Normal rate and regular. ABDOMEN: Soft, nontender, and nondistended. Bowel sounds are positive. MUSCULOSKELETAL: No cyanosis or clubbing. There is no pitting in bilateral lower extremities. NEUROLOGIC: Grossly nonfocal. LABORATORY DATA: CBC is essentially unremarkable. Her hemoglobin is stable at 9.1, platelets 203,000 and improving, WBC has improved to 9.1. Sodium is 135, potassium 5.2, and creatinine 1.13. Her anion gap is roughly stable at 15 with a normal bicarb. Magnesium 1.7, phosphorus 5.9. Ionized calcium was essentially unremarkable. She had a very low pO2 on 70% FiO2 via BiPAP and a pCO2 that is elevated despite the fact that she is on BiPAP. Her pH is decreasing at 7.29. Klebsiella pneumoniae are growing in the urine, but previous cultures have all been unremarkable. ASSESSMENT: 1. Acute hypoxic and hypercapnic respiratory failure. 2. Malignant pleural effusions, bilateral. 3. Deep venous thrombosis of bilateral lower extremities, extensive. 4. Adenocarcinoma of the lung, stage IV. 5. Acute kidney injury. DISCUSSION AND PLAN: We have given the patient 2 L of fluid for low blood pressures, drained the right side of her chest, and will be draining the left side of her chest. We titrated BiPAP at bedside to no avail. Ultimately, repeat ABG demonstrated increasing respiratory disturbance. As such, we are making preparations for intubation at this point. We will give her a jessica culture including respiratory, chest tube, blood culture. I will empirically start some antibiotics in case she has an infection brewing. She is already on anticoagulation for the DVT that we know about. A PE is a possibility. After intubation, a chest x-ray will be performed. In the next couple of days, we will likely be repeating imaging studies, particularly if the chest x-ray looks worse to help us understand what is going on with her lungs. Pulmonary/Critical Care will continue to follow along very closely. Critical care time: 100 minutes. Job ID: [id number] YING
[2018-10-20 17:16] LABS: Actual Bicarbonate (HCO3a) 22.7 mEq/L (22-28); Base Excess (BEa) -4.5 mEq/L (-2.0 to +3.0); CO2 Tension 51.4 mmHg (35.0-45.0); Calcium, Ionized 1.13 mmol/L (1.12-1.30); Carboxyhemoglobin (COHb) 0.9 gm% (0.0-3.0); Hemoglobin (Hb) 10.6 g/dL (12.0-16.0); O2 Tension (PaO2) 80.4 mmHg (80.0-100.0); Potassium - ABG Lab 6.32 mmol/L (3.70-5.30); pH, Arterial 7.26 (7.35-7.45)
[2018-10-20 17:18] LABS: Puncture Site LRA
--- NOTE | 2018-10-20 17:32 | RAD ---
CHEST ONE VIEW: 10/20/18 HISTORY: Hypoxia. COMPARISON: 10/10/18. NG tube and endotracheal tube have been placed in satisfactory location. There is a left pleural cath eter extending into the inferior left chest. right central line injection port. There is progressive alveolar and interstitial opacities throughout both lungs with both lungs become very opaque. This is particularly true for the mid and upper lung zones showing a definite worsening from a prior 10/12/18 CT. IMPRESSION: Marked worsening in the extensive bilateral interstitial and alveolar opacity changes and extensive p leural changes becoming much more homogeneously opaque in the mid and upper lung zones in particular. Endotracheal tube and NG tube in satisfactory location. POS: TPC
[2018-10-20] MEDS: Cefepime 2 GM in Sodium Chloride 0.9% 100 ML IVPB SCH (17:40)
[2018-10-20] MEDS: Ipratropium Bromide 2.5 ml Neb NEB SCH ×2 (18:31→23:10)
[2018-10-20] MEDS: Insulin Glargine 25 UNITS in Pre-Filled Syringe 1 EACH SC SCH (20:38)
[2018-10-20] MEDS ORDERED: Cefepime 2 GM in Sodium Chloride 0.9% 100 ML IVPB SCH (21:00)
[2018-10-20] MEDS: Famotidine/PF 20 mg/2ml Vial SLOW IVP SCH (21:22)
[2018-10-21] MEDS: SODIUM CHLORIDE 0.9% IVPB PRN ×2 (01:15→07:02)
[2018-10-21] MEDS: DEXMEDETOMIDINE IVPB PRN ×2 (01:15→07:02)
[2018-10-21 05:14] LABS: #Basophils 0.1 thou/uL (0.0-0.2); #Eosinphils 0.1 thou/uL (0.0-0.7); #Lymphocytes 1.8 thou/uL (1.20-3.40); #Monocytes 1.2 thou/uL (0.11-0.59); #Neutrophils 11.7 thou/uL (1.40-6.50); %Basophils 0.4 % (0.0-1.0); %Eosinophils 0.5 % (0.0-10.0); %Lymphocytes 12.2 % (21.0-51.0); %Monocytes 7.9 % (0.0-10.0); Hemoglobin 9.4 g/dL (12.0-16.0); Mean Corpuscular HGB CONC 31.1 g/dL (32.0-36.0); Mean Corpuscular Hemoglobin 26.3 pg (27.0-31.0); Mean Corpuscular Volume 84.6 fL (78.0-98.0); Mean Platelet Volume 7.4 fL (7.4-10.4); Platelet Count 230 thou/uL (130-400); RBC Distribution Width 14.3 % (11.5-14.5); Red Blood Cell (RBC) Count 3.56 mill/uL (4.20-5.40); White Blood Cell (WBC) Count 14.8 thou/uL (4.8-10.8)
[2018-10-21] MEDS: Cefepime 2 GM in Sodium Chloride 0.9% 100 ML IVPB SCH ×2 (05:15→16:54)
[2018-10-21 05:28] LABS: Phosphorus 5.3 mg/dL (2.3-4.7)
[2018-10-21] MEDS: Vancomycin HCl 1 GM in Premix Bag 1 BAG IVPB SCH ×2 (06:16→16:55)
[2018-10-21] MEDS: Norepinephrine 8 MG/0.9% NS 250 ML IVPB SCH (07:02)
[2018-10-21] MEDS ORDERED: Morphine 2 MG/ML SYRINGE SLOW IVP PRN (07:13)
[2018-10-21] MEDS: Ipratropium Bromide 2.5 ml Neb NEB SCH ×2 (07:30→13:04)
--- NOTE | 2018-10-21 08:55 | OP ---
DATE OF PROCEDURE: 10/20/2018 SERVICE: Pulmonary Medicine. PROCEDURES PERFORMED: Emergent endotracheal intubation. CONSENT: Procedure was performed emergently secondary to clinical deterioration and respiratory failure. MEDICATIONS USED: 1. Versed 2 mg IV push. 2. Etomidate 20 mg IV push. PREPROCEDURE DIAGNOSES: Acute hypoxic and hypercapnic respiratory failure. POSTPROCEDURE DIAGNOSES: Acute hypoxic and hypercapnic respiratory failure. DESCRIPTION OF PROCEDURE: Vital sign monitoring was accomplished by noninvasive hemodynamic monitoring, pulse oximetry, and telemetry. In the supine position, the patient was preoxygenated with BiPAP and maintained with saturation of 97%. Following induction of anesthesia, a #4 GlideScope was inserted through the mouth offering clear identification of the posterior oropharynx and laryngeal structures with a grade 1 view. A 7.5-Italian endotracheal tube was visualized passing through the vocal cords. Placement was confirmed by condensation in the endotracheal tube and bi-axillary chest auscultation. Endotracheal tube was secured at 24 cm, measured at the teeth. The patient was placed on mechanical ventilation with good return of volumes. The postprocedure chest x-ray demonstrated okay location for the endotracheal tube within the trachea. ESTIMATED BLOOD LOSS: None. COMPLICATIONS: None. Job ID: [id number]
--- NOTE | 2018-10-21 09:00 | OP ---
DATE OF PROCEDURE: 10/20/2018 SERVICE: Pulmonary Medicine. PROCEDURE: Fiberoptic bronchoscopy: 1. Visual airway inspection. 2. Bronchial wash from bilateral lung padilla. PREPROCEDURE DIAGNOSES: 1. Acute hypoxic and hypercapnic respiratory failure. 2. High airway pressures, on mechanical ventilation. POSTPROCEDURE DIAGNOSES: 1. Acute hypoxic and hypercapnic respiratory failure. 2. High ventilator pressures, on mechanical ventilation. MEDICATIONS USED: None. PREANESTHESIA ASSESSMENT: This procedure was performed emergently secondary to the patient's clinical deterioration. DESCRIPTION OF PROCEDURE: A time-out was performed identifying the correct procedure and the patient with name and date of . A diagnostic bronchoscope was introduced through the 7.5-Croatian endotracheal tube. The bronchoscope was advanced into the trachea, where a tracheobronchial tree inspection was carried out with clear identification of the right upper lobe, right middle lobe, right lower lobe, left upper lobe, lingula, and left lower lobe. Anatomy was completely normal to the segmental level. A bronchial washing was obtained from bilateral lung padilla. There was no significant secretions noted throughout any of the lung. FINDINGS: 1. Alanis was sharp. 2. No endobronchial disease was identified. 3. Secretions were minimal and thin. SPECIMENS OBTAINED: Bronchial wash for Gram stain and culture. COMPLICATIONS: None. ESTIMATED BLOOD LOSS: None. FLUOROSCOPY TIME: None. DISPOSITION: The patient will remain on mechanical ventilation to recover in the ICU. Job ID: [id number]
[2018-10-21] MEDS: methylPREDNISolone Sod Succ 40 MG VIAL IVP SCH (09:33)
[2018-10-21] MEDS: Famotidine/PF 20 mg/2ml Vial SLOW IVP SCH ×2 (09:33→20:34)
[2018-10-21] MEDS: Enoxaparin Sodium 100 MG/ML SYRINGE SC SCH ×2 (09:33→20:34)
--- NOTE | 2018-10-21 09:35 | PDOC.PN ---
- Subjective Encounter Start Date: 10/21/18 Encounter Start Time: 11:00 Subjective: Patient intubate yesterday. Lungs very non-compliant on the vent. - Objective Resuscitation Status - Order Detail: 09/13/18 22:04 Resuscitation Status Routine Resuscitation Status: FULL: Full Resuscitation MAR Reviewed: Yes Vital Signs & Weight: Vital Signs (12 hours) Temp Pulse Resp BP Pulse Ox 10/21/18 08:00 98.5 F 10/21/18 07:32 95 94/73 10/21/18 06:00 25 H 10/21/18 04:00 25 H 10/21/18 02:00 25 H 10/21/18 00:00 98.5 F 25 H 10/20/18 23:11 101 H 25 H 98 10/20/18 22:00 25 H Weight Admit Weight 196 lb Weight 209 lb 9.6 oz Most Recent Monitor Data Heart Rate from ECG 92 NIBP 103/69 NIBP BP-Mean 80 Respiration from ECG 25 SpO2 100 I&O: 10/20/18 10/21/18 10/22/18 06:59 06:59 06:59 Intake Total 274.7 3832.7 Output Total 1425 1857 65 Balance -1150.3 1975.7 -65 Result Diagrams: 10/21/18 05:05 10/21/18 05:05 Additional Labs: Accuchecks 10/20/18 10/20/18 10/20/18 22:50 17:33 11:16 POC Glucose 241 H 182 H 206 H Phys Exam - Physical Examination sedated on vent Respiratory: no wheezing, no rales, no rhonchi shallow respirations on vent Cardiovascular: RRR Gastrointestinal: soft, positive bowel sounds Neurological: non-focal Deviation from normal: sedated on vent Dx/Plan (1) Malignant pleural effusion Code(s): J91.0 - MALIGNANT PLEURAL EFFUSION Status: Acute Comment: Serratia present in fluid, completed antibiotic course. Appreciate pulmonary care. Now with bilateral chest tubes, draining fluid regularly. (2) Adenocarcinoma, lung Code(s): C34.90 - MALIGNANT NEOPLASM OF UNSP PART OF UNSP BRONCHUS OR LUNG Status: Chronic Qualifiers: Laterality: left Qualified Code(s): C34.92 - Malignant neoplasm of unspecified part of left bronchus or lung Comment: Poor prognosis (3) Acute respiratory failure with hypoxia Code(s): J96.01 - ACUTE RESPIRATORY FAILURE WITH HYPOXIA Status: Acute Comment: Patient with progressive respiratory fatigue, hypercapnea and hypoxia so had to be intubated yesterday. (4) Pleural effusion Code(s): J90 - PLEURAL EFFUSION, NOT ELSEWHERE CLASSIFIED Status: Acute (5) Pericardial effusion Code(s): I31.3 - PERICARDIAL EFFUSION (NONINFLAMMATORY) Status: Acute (6) CKD (chronic kidney disease) Code(s): N18.9 - CHRONIC KIDNEY DISEASE, UNSPECIFIED Status: Acute Qualifiers: Chronic kidney disease stage: stage 3 (moderate) Qualified Code(s): N18.3 - Chronic kidney disease, stage 3 (moderate) Comment: APOLINAR+ckd. Renal function stable. 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 (9) Hypotension Status: Resolved (10) Diabetic neuropathy Code(s): E11.40 - TYPE 2 DIABETES MELLITUS WITH DIABETIC NEUROPATHY, UNSP Status: Acute - Plan cont current plan of care, respiratory therapy * . - Discharge Day Encounter end time: 11:10
[2018-10-21] MEDS: Propofol 1,000 MG/100 ML VIAL IV PRN ×2 (10:25→18:44)
[2018-10-21] MEDS ORDERED: ISOVUE-370 76%-LOCM 1 ML ONE (10:31)
[2018-10-21] MEDS ORDERED: Sterile Water 10 ML VIAL IVP SCH (11:00)
[2018-10-21] MEDS ORDERED: Activase 2 MG VIAL CATH SCH (11:00)
[2018-10-21 11:26] LABS: ALT (SGPT) 57 U/L (8-55); AST (SGOT) 32 U/L (5-34); Albumin 2.5 g/dL (3.5-5.0); Alkaline Phosphatase 277 U/L (40-150); Anion Gap 17 mmol/L (10-20); BUN (Urea Nitrogen) 45 mg/dL (9.8-20.1); Bilirubin, Total 0.3 mg/dL (0.2-1.2); Calc. Creatinine Clearance 50 mL/min (70-130); Calcium 8.2 mg/dL (7.8-10.44); Carbon Dioxide 21 mmol/L (22-29); Chloride 103 mmol/L (98-107); Estimated GFR-MDRD 33; Globulin 2.9 g/dL (2.4-3.5); Glucose 198 mg/dL (70-105); Potassium 5.8 mmol/L (3.5-5.1); Protein, Total 5.4 g/dL (6.0-8.3); Sodium 135 mmol/L (136-145)
[2018-10-21] MEDS: Insulin Regular 300 UNITS/3 ML VIAL SC PRN ×2 (13:28→16:20)
--- NOTE | 2018-10-21 14:34 | PRG ---
DATE OF SERVICE: 10/21/2018 SERVICE: Pulmonary Medicine. INTERVAL HISTORY: The patient is doing very poorly from respiratory standpoint. Her lungs remain extremely tight. A lot of pressure generates very small tidal volumes. She cannot provide any additional elements of the history at this point. PHYSICAL EXAMINATION: VITAL SIGNS: Afebrile. Pulse 100, blood pressure 99/69, respirations 25, saturation 100% on 70% FiO2 and a PEEP of 5. GENERAL: The patient is intubated and sedated. HEENT: Normocephalic and atraumatic. Sclerae white. Conjunctivae pink. Oral mucosa is moist without lesions. LUNGS: Decent air entry. No prolonged expiratory phase, wheezing, rhonchi, or crackles. HEART: Normal rate and regular. ABDOMEN: Soft, nontender, and nondistended. Bowel sounds are positive. MUSCULOSKELETAL: No cyanosis or clubbing. No pitting in the bilateral lower extremities. LABORATORY DATA: WBC 14.8, hemoglobin 9.4, and platelets 230,000. Creatinine 1.91, which has taken a significant turn for the worse, BUN 45. Bicarb 21, potassium 5.8, sodium 135. AST 32, ALT 57 and up-trending, alkaline phosphatase 277 and up-trending. Bilirubin remains low. Body fluid culture x2 in the bilateral pleural fluid, bronchial washing and blood cultures x2 are negative from yesterday. IMAGING: CT of the chest demonstrates very dense consolidation in the left lower lobe. It also involves much of the lingula. The left upper lobe seems to be open. The right lung has ground-glass opacifications, interstitial fullness, and consolidating changes in some areas. There is a PleurX catheter in the right that has drained right lung completely. There is an anterior pigtail catheter on the left with a pocket of fluid that is likely not communicating with the rest of it. The differential for this is quite wide. The heart has a very small left ventricle. The right ventricle is a little bit dilated. The left atrium appears to be under filled. The right atrium has normal appearance about it. ASSESSMENT: 1. Acute hypoxic and hypercapnic respiratory failure. 2. Acute respiratory distress syndrome, suspected. 3. Severe restrictive lung disease, likely secondary to bilateral pleurodesis. 4. Malignant pleural effusions, bilateral. 5. Deep venous thrombosis of the bilateral lower extremities, extensive. 6. Adenocarcinoma of the lung, stage IV. 7. Acute kidney injury. DISCUSSION AND PLAN: My plan is to initiate tube feeds today. We will continue supportive care for the next 24 to 48 hours. We will try to minimize any injury to the lung by decreasing her volume. We will do what we can to keep her rotated to the right side as this should improve her V/Q mismatch. We will wean away oxygen, and other support as tolerated. Pulmonary Critical Care will continue to follow very closely. Critical care time: 30 minutes. Job ID: [id number] YING
--- NOTE | 2018-10-21 15:29 | CT ---
CT CHEST WITH CONTRAST: History Followup cancer, intubation, severe hypoxemia. COMPARISON: CT chest 10/12/2018. FINDINGS: There are extensive alveolar opacities throughout the left upper lobe as well as throughout the right upper lobe and the right middle lobe. Mild ground-glass and alveolar opacities right lower lobe. T here is a trace right pneumothorax. Baxter indwelling catheter along the right lung base. There is a small pigtail catheter on the left. No significant left-sided pneumothorax. There is peripheral rind of soft tissue and complete opacification with abnormal enhancement throughout the left lower lo be. The patient is intubated. Enteric tube tip below the diaphragm out of the field of view. No acute compression fracture. No acute displaced rib fracture. IMPRESSION: 1. Relative to the CT 10/12/2018, the right pleural effusion is smaller with trace pneumothorax and i ndwelling basilar catheter. 2. Similar appearance to the left anterior pigtail catheter. 3. Severe consolidated process in left lower lobe concerning for extensive tumor involvement given t he history of lung cancer. There is also extensive nodular peripheral enhancement left lung base ple ural space concerning for malignant effusion. 4. Worsening peripheral rind of soft tissue left upper lobe and lingula shows progressive metastatic disease. 5. From the 10/12/2018 study, there are extensive airspace opacities throughout the right lung sugges ting multifocal pneumonia given its rapid advancement. POS: ROSALBA
[2018-10-21] MEDS: Insulin Glargine 25 UNITS in Pre-Filled Syringe 1 EACH SC SCH (20:32)
[2018-10-22] MEDS: Cefepime 2 GM in Sodium Chloride 0.9% 100 ML IVPB SCH ×2 (05:01→17:35)
[2018-10-22] MEDS: Lorazepam 2 MG/ML VIAL SLOW IVP PRN ×2 (05:02→14:21)
[2018-10-22 05:19] LABS: #Lymphocytes 1.1 thou/uL (1.20-3.40); #Monocytes 1.1 thou/uL (0.11-0.59); #Neutrophils 16.9 thou/uL (1.40-6.50); %Eosinophils 0.2 % (0.0-10.0); %Lymphocytes 5.8 % (21.0-51.0); %Monocytes 5.8 % (0.0-10.0); %Neutrophils 88.3 % (42.0-75.0); Hemoglobin 8.7 g/dL (12.0-16.0); Mean Corpuscular HGB CONC 32.1 g/dL (32.0-36.0); Mean Corpuscular Hemoglobin 26.9 pg (27.0-31.0); Mean Corpuscular Volume 83.9 fL (78.0-98.0); Mean Platelet Volume 7.8 fL (7.4-10.4); Platelet Count 272 thou/uL (130-400); RBC Distribution Width 14.7 % (11.5-14.5); Red Blood Cell (RBC) Count 3.22 mill/uL (4.20-5.40); White Blood Cell (WBC) Count 19.2 thou/uL (4.8-10.8)
[2018-10-22 05:39] LABS: ALT (SGPT) 33 U/L (8-55); AST (SGOT) 12 U/L (5-34); Albumin 2.5 g/dL (3.5-5.0); Alkaline Phosphatase 200 U/L (40-150); Anion Gap 18 mmol/L (10-20); BUN (Urea Nitrogen) 47 mg/dL (9.8-20.1); Bilirubin, Total 0.2 mg/dL (0.2-1.2); Calc. Creatinine Clearance 47 mL/min (70-130); Calcium 8.7 mg/dL (7.8-10.44); Carbon Dioxide 20 mmol/L (22-29); Chloride 103 mmol/L (98-107); Estimated GFR-MDRD 31; Globulin 2.9 g/dL (2.4-3.5); Glucose 199 mg/dL (70-105); Phosphorus 5.2 mg/dL (2.3-4.7); Potassium 5.5 mmol/L (3.5-5.1); Protein, Total 5.4 g/dL (6.0-8.3); Sodium 135 mmol/L (136-145)
[2018-10-22 05:41] LABS: Vancomycin, Trough 40.5 ug/mL
[2018-10-22] MEDS ORDERED: VANCOMYCIN IVPB PRN (05:44)
[2018-10-22] MEDS: Propofol 1,000 MG/100 ML VIAL IV PRN ×4 (05:53→18:34)
[2018-10-22] MEDS: Norepinephrine 8 MG/0.9% NS 250 ML IVPB SCH (07:42)
[2018-10-22] MEDS: Famotidine/PF 20 mg/2ml Vial SLOW IVP SCH (08:34)
[2018-10-22] MEDS: Enoxaparin Sodium 100 MG/ML SYRINGE SC SCH (08:34)
[2018-10-22] MEDS: methylPREDNISolone Sod Succ 40 MG VIAL IVP SCH (08:34)
--- NOTE | 2018-10-22 09:17 | PDOC.PN ---
- Subjective Encounter Start Date: 10/22/18 (f/u hyperkalemia) Encounter Start Time: 09:15 Subjective: no overnight events, remains intubated and sedated - Objective Resuscitation Status - Order Detail: 09/13/18 22:04 Resuscitation Status Routine Resuscitation Status: FULL: Full Resuscitation Vital Signs & Weight: Vital Signs (12 hours) Temp Pulse Resp BP Pulse Ox 10/22/18 08:00 99.2 F 10/22/18 07:49 100 10/22/18 07:21 114 H 92/63 10/22/18 07:16 114 H 25 H 100 10/22/18 06:00 25 H 10/22/18 04:00 25 H 10/22/18 02:35 119 H 90/66 10/22/18 02:00 25 H 10/22/18 00:40 114 H 25 H 100 10/22/18 00:00 99.3 F 25 H 10/21/18 22:57 109 H 102/74 10/21/18 22:00 25 H Weight Admit Weight 196 lb Weight 206 lb 6.4 oz Most Recent Monitor Data Heart Rate from ECG 112 NIBP 101/70 NIBP BP-Mean 80 Respiration from ECG 25 SpO2 100 I&O: 10/21/18 10/22/18 10/23/18 06:59 06:59 06:59 Intake Total 3832.7 1345 Output Total 1857 1285 125 Balance 1975.7 60 -125 Result Diagrams: 10/22/18 04:10 10/22/18 04:10 Additional Labs: Accuchecks 10/21/18 10/21/18 16:19 10:47 POC Glucose 198 H 175 H EKG Reviewed by me: Yes (sinus tachy 110's) Phys Exam - Physical Examination Constitutional: NAD coarse breath sounds - predominantly on right no audible wheezing Cardiovascular: RRR, no significant murmur Gastrointestinal: soft, non-tender, positive bowel sounds 2+ edema in legs, 3+ edema in feet Deviation from normal: unable to assess - intubated/sedated Skin: no rash Dx/Plan (1) Hyperkalemia Code(s): E87.5 - HYPERKALEMIA Status: Acute (2) Acute respiratory failure with hypoxia Code(s): J96.01 - ACUTE RESPIRATORY FAILURE WITH HYPOXIA Status: Acute Comment: remains intubated and sedated (3) DVT (deep venous thrombosis) Code(s): I82.409 - ACUTE EMBOLISM AND THOMBOS UNSP DEEP VN UNSP LOWER EXTREMITY Status: Acute Qualifiers: DVT location: lower extremity Chronicity: acute Laterality: bilateral Comment: on Lovenox - change to once daily dosing due to renal function (4) Hypotension Status: Resolved Comment: 10/22 on levophed (5) Diabetic neuropathy Code(s): E11.40 - TYPE 2 DIABETES MELLITUS WITH DIABETIC NEUROPATHY, UNSP Status: Acute (6) Malignant pleural effusion Code(s): J91.0 - MALIGNANT PLEURAL EFFUSION Status: Acute Comment: 10/22 - gram pos staph in pleural fluid - pt on cefepime and vanc (7) Diabetes mellitus Code(s): E11.9 - TYPE 2 DIABETES MELLITUS WITHOUT COMPLICATIONS Status: Chronic Qualifiers: Diabetes mellitus type: type 2 Diabetes mellitus crm technical lead insulin use: without crm technical lead use Diabetes mellitus complication status: with unspecified complications Qualified Code(s): E11.8 - Type 2 diabetes mellitus with unspecified complications (8) CKD (chronic kidney disease) Code(s): N18.9 - CHRONIC KIDNEY DISEASE, UNSPECIFIED Status: Acute Qualifiers: Chronic kidney disease stage: stage 3 (moderate) Qualified Code(s): N18.3 - Chronic kidney disease, stage 3 (moderate) - Plan * current condition is difficult with intubation/pressor support, lung cancer, VTE on full dose anticoagulation. Appreciate Pulmonology/Critical care. * Renal function today - mild acidosis with hyperkalemia - start D5 with bicarb to address this * when tube feeds intiated - renal formula * change dosing of lovenox to once daily for renal function * vanc on hold due to high level, continue cefepime * * gi prophy - famotidine * code status full * * Difficult condition and overall poor prognosis. Family not present, will discuss as they are available. .
[2018-10-22] MEDS: Insulin Regular 300 UNITS/3 ML VIAL SC PRN ×3 (10:26→22:39)
[2018-10-22] MEDS: Sodium Bicarbonate 150 MEQ in Dextrose 5% in Water 1,000 ML IV SCH (11:50)
[2018-10-22 13:16] LABS: Actual Bicarbonate (HCO3a) 17.9 mEq/L (22-28); Base Excess (BEa) -6.1 mEq/L (-2.0 to +3.0); CO2 Tension 29.7 mmHg (35.0-45.0); Calcium, Ionized 1.14 mmol/L (1.12-1.30); Hemoglobin (Hb) 8.7 g/dL (12.0-16.0); Potassium - ABG Lab 5.38 mmol/L (3.70-5.30)
[2018-10-22 13:18] LABS: Puncture Site L.R.
[2018-10-22 13:19] LABS: ALV-art Gradient 309.675 (0-20)
--- NOTE | 2018-10-22 14:45 | PRG ---
DATE OF SERVICE: 10/22/2018 SERVICE: Pulmonary Medicine. INTERVAL HISTORY: The patient is doing okay from respiratory standpoint. She cannot provide any additional elements of the history. Compliance of the lung is improving ever so slightly. That being said, she continues to have extremely high oxygen requirements. She cannot provide additional elements of the history and the current situation. PHYSICAL EXAMINATION: VITAL SIGNS: Afebrile, pulse 119, blood pressure 97/68, respirations 44, saturation 100% on 40% FiO2 and a PEEP of 5. GENERAL: The patient is intubated and sedated. HEENT: Normocephalic and atraumatic. Sclerae white. Conjunctivae pink. Oral mucosa is moist without lesions. LUNGS: Decent air entry. Rhonchi and crackles are both present. No wheezing. HEART: Normal rate, regular. ABDOMEN: Soft, nontender, nondistended. Bowel sounds are positive. MUSCULOSKELETAL: No cyanosis or clubbing. There is 2+ pitting in the bilateral lower extremities. NEUROLOGIC: Grossly nonfocal. LABORATORY DATA: WBC 19.2, hemoglobin 8.7, platelets 272,000. PH 7.40, pCO2 29, PO2 81, on 60% FiO2 at that time. Creatinine 1.99 and slowly up trending, BUN 47. Bicarb 20, potassium 5.5 and slowly downtrending. Liver function studies are otherwise unremarkable. Phosphorus is elevated, but magnesium falls within the normal limits. Vancomycin trough is 40.5. Pleural fluid is growing coag-negative Staph and blood culture x1 is growing coag-negative Staph. The fluid that is involved is the one on the left. ASSESSMENT: 1. Acute hypoxic and hypercapnic respiratory failure. 2. Adult respiratory distress syndrome, suspected. 3. Severe restrictive lung disease, possibly secondary to bilateral pleurodesis. 4. Malignant pleural effusions, bilateral. 5. Septic shock. 6. Bacteremia, possibly secondary to Staph epidermidis, methicillin-resistant. 7. Possible empyema of the left anterior chest tube. 8. Deep venous thrombosis of the bilateral lower extremities, extensive. 9. Adenocarcinoma of the lung, stage IV. 10. Acute kidney injury. DISCUSSION AND PLAN: My plan is to support the patient on a ventilator through the weekend. If she has a significant improvement in lung compliance and defervesces, we will continue to support her. If on the other hand, through the weekend, her lungs get increasingly stiff or do have no improvement, we will talk to the family about transitioning over to comfort care. At this point, she is not weanable. We will initiate tube feeds through the weekend. Pulmonary/Critical Care will continue to follow closely. CRITICAL CARE TIME: 30 minutes. Job ID: [id number]
[2018-10-22] MEDS: Micafungin 100 MG in Sodium Chloride 0.9% 100 ML IVPB SCH (16:56)
[2018-10-22] MEDS: fentaNYL Citrate/PF 2,000 MCG in Sodium Chloride 0.9% 60 ML IV SCH (17:26)
[2018-10-22] MEDS: Insulin Glargine 25 UNITS in Pre-Filled Syringe 1 EACH SC SCH (21:05)
[2018-10-23 04:10] LABS: #Lymphocytes 1.1 thou/uL (1.20-3.40); #Monocytes 1.1 thou/uL (0.11-0.59); %Basophils 0.1 % (0.0-1.0); %Eosinophils 0.2 % (0.0-10.0); %Lymphocytes 6.7 % (21.0-51.0); %Monocytes 6.8 % (0.0-10.0); %Neutrophils 86.2 % (42.0-75.0); Mean Corpuscular HGB CONC 32.1 g/dL (32.0-36.0); Mean Corpuscular Hemoglobin 26.8 pg (27.0-31.0); Mean Corpuscular Volume 83.5 fL (78.0-98.0); Mean Platelet Volume 7.5 fL (7.4-10.4); Platelet Count 254 thou/uL (130-400); RBC Distribution Width 14.9 % (11.5-14.5); White Blood Cell (WBC) Count 16.2 thou/uL (4.8-10.8)
[2018-10-23 04:29] LABS: ALT (SGPT) 22 U/L (8-55); AST (SGOT) 9 U/L (5-34); Albumin 2.5 g/dL (3.5-5.0); Alkaline Phosphatase 161 U/L (40-150); Anion Gap 17 mmol/L (10-20); BUN (Urea Nitrogen) 55 mg/dL (9.8-20.1); Bilirubin, Total 0.2 mg/dL (0.2-1.2); Calc. Creatinine Clearance 47 mL/min (70-130); Calcium 8.4 mg/dL (7.8-10.44); Carbon Dioxide 22 mmol/L (22-29); Chloride 101 mmol/L (98-107); Estimated GFR-MDRD 31; Globulin 2.8 g/dL (2.4-3.5); Glucose 328 mg/dL (70-105); Phosphorus 4.6 mg/dL (2.3-4.7); Protein, Total 5.3 g/dL (6.0-8.3); Sodium 135 mmol/L (136-145)
[2018-10-23] MEDS: Cefepime 2 GM in Sodium Chloride 0.9% 100 ML IVPB SCH ×2 (05:21→17:02)
[2018-10-23] MEDS: Insulin Regular 300 UNITS/3 ML VIAL SC PRN ×4 (07:14→21:49)
--- NOTE | 2018-10-23 09:02 | PRG ---
DATE OF SERVICE: 10/23/2018 SUBJECTIVE: Sandee Thomas remains intubated in the vent, sedated. OBJECTIVE: VITAL SIGNS: Pulse 94, blood pressure 160/92, saturations 100%, respiratory rate 18, afebrile. GENERAL: Unresponsive, sedated. CHEST: Decreased breath sounds bilaterally, extensive rhonchi and crackles. CARDIAC: Sinus tach. ABDOMEN: Distended and soft. EXTREMITIES: 2+ edema. [place]: [place] [address], H and H 8 and 25, platelet count 254, PO2 81, pCO2 29, pH 7.40 on a bilevel 30/6 with the rate set at 27. FiO2 saturations at 60%. BUN and creatinine 55 and 2.02. Last CAT scan showed extensive pleural effusion bilaterally with consolidation in the left chest. IMPRESSION: Respiratory failure, pleural effusion, diabetes, metastatic adenocarcinoma. She is clearly not weanable at this stage. Family deciding about ongoing care. One-half hour of critical time. Job ID: [id number]
--- NOTE | 2018-10-23 09:44 | PDOC.PN ---
- Subjective Encounter Start Date: 10/23/18 Encounter Start Time: 09:41 Patient seen and examined, no family at bedside, call placed to Kae Galan at [phone], however no response. - Objective Resuscitation Status - Order Detail: 09/13/18 22:04 Resuscitation Status Routine Resuscitation Status: FULL: Full Resuscitation Vital Signs & Weight: Vital Signs (12 hours) Temp Pulse Resp BP Pulse Ox 10/23/18 07:11 99 10/23/18 06:00 27 H 10/23/18 04:00 99.0 F 27 H 10/23/18 03:02 99 103/67 10/23/18 02:00 27 H 10/23/18 00:23 101 H 27 H 95 10/23/18 00:00 98.7 F 27 H 10/22/18 22:49 99 103/70 10/22/18 22:00 27 H Weight Admit Weight 196 lb Weight 203 lb Most Recent Monitor Data Heart Rate from ECG 101 NIBP 98/69 NIBP BP-Mean 78 Respiration from ECG 27 SpO2 89 I&O: 10/22/18 10/23/18 10/24/18 06:59 06:59 06:59 Intake Total 1345 1559 Output Total 1285 1395 Balance 60 164 Result Diagrams: 10/23/18 03:45 10/23/18 03:45 Additional Labs: Accuchecks 10/22/18 10/22/18 10/22/18 22:36 16:53 10:22 POC Glucose 346 H 309 H 204 H Phys Exam - Physical Examination Constitutional: NAD HEENT: PERRLA, sclera anicteric Neck: no nodes, no JVD, supple coarse breath sounds no respiratory distress tachycardia 2/6 MARCY Gastrointestinal: soft, non-tender, no distention Musculoskeletal: pulses present, edema present Dx/Plan (1) Acute respiratory failure with hypoxia Code(s): J96.01 - ACUTE RESPIRATORY FAILURE WITH HYPOXIA Status: Acute Comment: remains intubated and sedated (2) 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 s/p bilateral chest tube. f/u with surgery and oncology. (3) CKD (chronic kidney disease) Code(s): N18.9 - CHRONIC KIDNEY DISEASE, UNSPECIFIED Status: Acute Qualifiers: Chronic kidney disease stage: stage 3 (moderate) Qualified Code(s): N18.3 - Chronic kidney disease, stage 3 (moderate) (4) Diabetic neuropathy Code(s): E11.40 - TYPE 2 DIABETES MELLITUS WITH DIABETIC NEUROPATHY, UNSP Status: Acute (5) Diabetes mellitus Code(s): E11.9 - TYPE 2 DIABETES MELLITUS WITHOUT COMPLICATIONS Status: Chronic Qualifiers: Diabetes mellitus type: type 2 Diabetes mellitus computer terminal operator insulin use: without jail use Diabetes mellitus complication status: with unspecified complications Qualified Code(s): E11.8 - Type 2 diabetes mellitus with unspecified complications (6) HTN (hypertension) Code(s): I10 - ESSENTIAL (PRIMARY) HYPERTENSION Status: Chronic Qualifiers: Hypertension type: essential hypertension Qualified Code(s): I10 - Essential (primary) hypertension Comment: controlled (7) Hypothyroidism Code(s): E03.9 - HYPOTHYROIDISM, UNSPECIFIED Status: Chronic Qualifiers: Hypothyroidism type: unspecified Qualified Code(s): E03.9 - Hypothyroidism , unspecified Comment: Yoandy thyroid stopped due to Iatrogenic Hyperthyroidism - Plan * overall prognosis terminal, hospice care would be the right course of action at this point in time as the patients main underlying disease process does not have any possibility of being cured at this point in time * call placed to patient's sister who is the decision maker, but no answer noted , voice mail left, advised to call back and let nurse know so that I can call her and discuss case. Will call again in AM * for now continue current plan of care with no changes * case and plan d/w patient at length with the nursing staff.
[2018-10-23] MEDS: Enoxaparin Sodium 100 MG/ML SYRINGE SC SCH (09:54)
[2018-10-23] MEDS: Famotidine/PF 20 mg/2ml Vial SLOW IVP SCH (09:54)
[2018-10-23] MEDS: methylPREDNISolone Sod Succ 40 MG VIAL IVP SCH (09:54)
[2018-10-23] MEDS: Sodium Bicarbonate 150 MEQ in Dextrose 5% in Water 1,000 ML IV SCH (10:26)
[2018-10-23] MEDS: Micafungin 100 MG in Sodium Chloride 0.9% 100 ML IVPB SCH (16:13)
[2018-10-23] MEDS: fentaNYL Citrate/PF 2,000 MCG in Sodium Chloride 0.9% 60 ML IV SCH (16:50)
[2018-10-23] MEDS ORDERED: Vancomycin HCl 1 GM in Premix Bag 1 BAG IVPB SCH (18:00)
[2018-10-23 18:38] LABS: Vancomycin, Random 22.2 ug/mL (See Comment)
[2018-10-23] MEDS: Insulin Glargine 25 UNITS in Pre-Filled Syringe 1 EACH SC SCH (21:49)
[2018-10-23] MEDS: Lorazepam 2 MG/ML VIAL SLOW IVP PRN (22:29)
[2018-10-23] MEDS: TAGRISSO 80 MG PO SCH (22:59)
[2018-10-24] MEDS: Cefepime 2 GM in Sodium Chloride 0.9% 100 ML IVPB SCH ×2 (04:59→18:06)
[2018-10-24] MEDS: Insulin Regular 300 UNITS/3 ML VIAL SC PRN ×4 (05:03→21:15)
[2018-10-24 05:21] LABS: #Eosinphils 0.1 thou/uL (0.0-0.7); #Lymphocytes 1.3 thou/uL (1.20-3.40); #Monocytes 0.9 thou/uL (0.11-0.59); #Neutrophils 11.5 thou/uL (1.40-6.50); %Basophils 0.1 % (0.0-1.0); %Eosinophils 0.6 % (0.0-10.0); %Lymphocytes 9.4 % (21.0-51.0); %Monocytes 6.6 % (0.0-10.0); %Neutrophils 83.3 % (42.0-75.0); Hemoglobin 8.1 g/dL (12.0-16.0); Mean Corpuscular HGB CONC 31.5 g/dL (32.0-36.0); Mean Corpuscular Hemoglobin 26.7 pg (27.0-31.0); Mean Corpuscular Volume 84.9 fL (78.0-98.0); Mean Platelet Volume 7.5 fL (7.4-10.4); Platelet Count 225 thou/uL (130-400); RBC Distribution Width 15.3 % (11.5-14.5); Red Blood Cell (RBC) Count 3.02 mill/uL (4.20-5.40); White Blood Cell (WBC) Count 13.6 thou/uL (4.8-10.8)
[2018-10-24 05:37] LABS: Vancomycin, Random 19.4 ug/mL (See Comment)
[2018-10-24 06:02] LABS: ALT (SGPT) 17 U/L (8-55); AST (SGOT) 8 U/L (5-34); Albumin 2.5 g/dL (3.5-5.0); Alkaline Phosphatase 139 U/L (40-150); Anion Gap 14 mmol/L (10-20); BUN (Urea Nitrogen) 55 mg/dL (9.8-20.1); Bilirubin, Total 0.2 mg/dL (0.2-1.2); Calc. Creatinine Clearance 52 mL/min (70-130); Calcium 8.5 mg/dL (7.8-10.44); Carbon Dioxide 26 mmol/L (22-29); Chloride 101 mmol/L (98-107); Estimated GFR-MDRD 36; Globulin 2.7 g/dL (2.4-3.5); Glucose 241 mg/dL (70-105); Phosphorus 3.3 mg/dL (2.3-4.7); Potassium 4.2 mmol/L (3.5-5.1); Protein, Total 5.2 g/dL (6.0-8.3); Sodium 137 mmol/L (136-145)
[2018-10-24] MEDS: Vancomycin HCl 1 GM in Premix Bag 1 BAG IVPB SCH (06:58)
--- NOTE | 2018-10-24 09:11 | PRG ---
DATE OF SERVICE: 10/24/2018 SUBJECTIVE: Sandee Thomas remains intubated in the vent, though she is able to open her eyes this morning. OBJECTIVE: VITAL SIGNS: Pulse is 98, blood pressure is 101/63, respiratory rate 97, sats 100%. I's and O's are 1026 in and 1328 out. CHEST: Bilateral rhonchi. CARDIAC: Sinus tach. ABDOMEN: Distended, soft. LABORATORY DATA: Creatinine 1.77, glucose is 245, albumin is low. Pleural fluid growing Staph epi. White count 81492. IMPRESSION: 1. Respiratory failure, bilateral pleural effusion, right-sided chest tube, metastatic cancer. 2. Encephalopathy, azotemia. PLAN: She at this stage is not weanable. She has antibiotics to cover Staph. Continue neb treatments, supportive care. Family to discuss long-term care in the next several days. One-half hour of critical time. Job ID: [id number]
[2018-10-24] MEDS: Enoxaparin Sodium 100 MG/ML SYRINGE SC SCH (09:35)
[2018-10-24] MEDS: methylPREDNISolone Sod Succ 40 MG VIAL IVP SCH (09:36)
[2018-10-24] MEDS: Famotidine/PF 20 mg/2ml Vial SLOW IVP SCH (09:36)
[2018-10-24] MEDS: Lorazepam 2 MG/ML VIAL SLOW IVP PRN ×3 (10:17→21:10)
[2018-10-24] MEDS: Sodium Bicarbonate 150 MEQ in Dextrose 5% in Water 1,000 ML IV SCH (11:46)
[2018-10-24] MEDS: fentaNYL Citrate/PF 2,000 MCG in Sodium Chloride 0.9% 60 ML IV SCH (11:47)
--- NOTE | 2018-10-24 12:58 | PDOC.PN ---
- Subjective Encounter Start Date: 10/24/18 Encounter Start Time: 12:56 Patient seen and examined, no changes in the last 24 hours, no family at bedside. - Objective Resuscitation Status - Order Detail: 09/13/18 22:04 Resuscitation Status Routine Resuscitation Status: FULL: Full Resuscitation Vital Signs & Weight: Vital Signs (12 hours) Temp Pulse Resp BP Pulse Ox 10/24/18 12:00 27 H 10/24/18 11:58 97.7 F 10/24/18 11:00 97.7 F 10/24/18 10:15 104 H 10/24/18 10:00 27 H 10/24/18 08:00 97.9 F 27 H 100 10/24/18 07:05 98 10/24/18 06:00 27 H 10/24/18 04:00 97.9 F 27 H 10/24/18 02:29 109 H 119/76 10/24/18 02:00 27 H Weight Admit Weight 196 lb Weight 208 lb 5.389 oz Most Recent Monitor Data Heart Rate from ECG 99 NIBP 103/66 NIBP BP-Mean 78 Respiration from ECG 11 SpO2 100 I&O: 10/23/18 10/24/18 10/25/18 06:59 06:59 06:59 Intake Total 1559 1026 1013 Output Total 1395 1328 315 Balance 164 -302 698 Result Diagrams: 10/24/18 05:00 10/24/18 05:00 Additional Labs: Accuchecks 10/24/18 10/24/18 10/23/18 09:40 05:02 21:50 POC Glucose 237 H 245 H 290 H 10/23/18 16:26 POC Glucose 230 H Phys Exam - Physical Examination Constitutional: NAD intubated/sedated HEENT: PERRLA, sclera anicteric intubated coarse breath sounds no respiratory distress tachycardia 2/6 MARCY Gastrointestinal: soft, non-tender, no distention, positive bowel sounds Musculoskeletal: pulses present, edema present Dx/Plan (1) Acute respiratory failure with hypoxia Code(s): J96.01 - ACUTE RESPIRATORY FAILURE WITH HYPOXIA Status: Acute Comment: remains intubated and sedated (2) 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 s/p bilateral chest tube. f/u with surgery and oncology. (3) CKD (chronic kidney disease) Code(s): N18.9 - CHRONIC KIDNEY DISEASE, UNSPECIFIED Status: Acute Qualifiers: Chronic kidney disease stage: stage 3 (moderate) Qualified Code(s): N18.3 - Chronic kidney disease, stage 3 (moderate) (4) Diabetic neuropathy Code(s): E11.40 - TYPE 2 DIABETES MELLITUS WITH DIABETIC NEUROPATHY, UNSP Status: Acute (5) Diabetes mellitus Code(s): E11.9 - TYPE 2 DIABETES MELLITUS WITHOUT COMPLICATIONS Status: Chronic Qualifiers: Diabetes mellitus type: type 2 Diabetes mellitus nursery technician insulin use: without nursery technician use Diabetes mellitus complication status: with unspecified complications Qualified Code(s): E11.8 - Type 2 diabetes mellitus with unspecified complications (6) HTN (hypertension) Code(s): I10 - ESSENTIAL (PRIMARY) HYPERTENSION Status: Chronic Qualifiers: Hypertension type: essential hypertension Qualified Code(s): I10 - Essential (primary) hypertension Comment: controlled (7) Hypothyroidism Code(s): E03.9 - HYPOTHYROIDISM, UNSPECIFIED Status: Chronic Qualifiers: Hypothyroidism type: unspecified Qualified Code(s): E03.9 - Hypothyroidism , unspecified Comment: Yoandy thyroid stopped due to Iatrogenic Hyperthyroidism - Plan * poor prognosis overall * attempted to reach out to sister yesterday to see if she would be interested in hospice care as prognosis is likely terminal, icu team and palliative care team have been able to discuss with her * for now, per documentation, icu team to have a discussion with family in the AM * no changes in plan of care, possible terminal extubation in AM if ok with family after discussion with icu team * plan d/w nursing staff
[2018-10-24] MEDS: Micafungin 100 MG in Sodium Chloride 0.9% 100 ML IVPB SCH (15:43)
[2018-10-24] MEDS: Insulin Glargine 30 UNITS in Pre-Filled Syringe 1 EACH SC SCH (21:17)
[2018-10-25] MEDS: Insulin Regular 300 UNITS/3 ML VIAL SC PRN ×4 (04:58→22:18)
[2018-10-25] MEDS: Lorazepam 2 MG/ML VIAL SLOW IVP PRN ×4 (05:03→19:26)
[2018-10-25] MEDS: Cefepime 2 GM in Sodium Chloride 0.9% 100 ML IVPB SCH ×2 (05:03→17:18)
[2018-10-25 05:04] LABS: #Eosinphils 0.3 thou/uL (0.0-0.7); #Lymphocytes 1.9 thou/uL (1.20-3.40); #Monocytes 1.1 thou/uL (0.11-0.59); #Neutrophils 10.9 thou/uL (1.40-6.50); %Eosinophils 2.1 % (0.0-10.0); %Lymphocytes 13.5 % (21.0-51.0); %Monocytes 7.9 % (0.0-10.0); %Neutrophils 76.4 % (42.0-75.0); Hemoglobin 8.7 g/dL (12.0-16.0); Mean Corpuscular HGB CONC 31.3 g/dL (32.0-36.0); Mean Corpuscular Hemoglobin 26.9 pg (27.0-31.0); Mean Corpuscular Volume 85.9 fL (78.0-98.0); Mean Platelet Volume 7.7 fL (7.4-10.4); Platelet Count 221 thou/uL (130-400); RBC Distribution Width 15.8 % (11.5-14.5); Red Blood Cell (RBC) Count 3.23 mill/uL (4.20-5.40); White Blood Cell (WBC) Count 14.2 thou/uL (4.8-10.8)
[2018-10-25] MEDS: Vancomycin HCl 1 GM in Premix Bag 1 BAG IVPB SCH (05:04)
[2018-10-25 05:39] LABS: ALT (SGPT) 15 U/L (8-55); AST (SGOT) 10 U/L (5-34); Albumin 2.7 g/dL (3.5-5.0); Alkaline Phosphatase 140 U/L (40-150); Anion Gap 14 mmol/L (10-20); BUN (Urea Nitrogen) 56 mg/dL (9.8-20.1); Bilirubin, Total 0.2 mg/dL (0.2-1.2); Calc. Creatinine Clearance 53 mL/min (70-130); Calcium 8.5 mg/dL (7.8-10.44); Carbon Dioxide 28 mmol/L (22-29); Chloride 99 mmol/L (98-107); Estimated GFR-MDRD 36; Globulin 2.8 g/dL (2.4-3.5); Glucose 267 mg/dL (70-105); Potassium 3.9 mmol/L (3.5-5.1); Protein, Total 5.5 g/dL (6.0-8.3); Sodium 137 mmol/L (136-145)
[2018-10-25] MEDS: Sodium Bicarbonate 150 MEQ in Dextrose 5% in Water 1,000 ML IV SCH (05:47)
[2018-10-25 06:50] LABS: Actual Bicarbonate (HCO3a) 28.3 mEq/L (22-28); Base Excess (BEa) 2.8 mEq/L (-2.0 to +3.0); CO2 Tension 48.3 mmHg (35.0-45.0); Calcium, Ionized 1.17 mmol/L (1.12-1.30); Carboxyhemoglobin (COHb) 1.1 gm% (0.0-3.0); Hemoglobin (Hb) 9.7 g/dL (12.0-16.0); O2 Tension (PaO2) 81.6 mmHg (80.0-100.0); Potassium - ABG Lab 3.69 mmol/L (3.70-5.30); Puncture Site RRA; pH, Arterial 7.39 (7.35-7.45)
[2018-10-25 06:51] LABS: ALV-art Gradient 193.135 (0-20)
[2018-10-25] MEDS: fentaNYL Citrate/PF 2,000 MCG in Sodium Chloride 0.9% 60 ML IV SCH (07:00)
[2018-10-25] MEDS: Enoxaparin Sodium 100 MG/ML SYRINGE SC SCH (08:48)
[2018-10-25] MEDS: methylPREDNISolone Sod Succ 40 MG VIAL IVP SCH (08:48)
[2018-10-25] MEDS: Famotidine/PF 20 mg/2ml Vial SLOW IVP SCH (08:49)
--- NOTE | 2018-10-25 09:40 | PDOC.PN ---
- Subjective Encounter Start Date: 10/25/18 Encounter Start Time: 11:40 -: non-verbal Subjective: Patient remains sedated on the vent and not weanable. - Objective Resuscitation Status - Order Detail: 09/13/18 22:04 Resuscitation Status Routine Resuscitation Status: FULL: Full Resuscitation MAR Reviewed: Yes Vital Signs & Weight: Vital Signs (12 hours) Temp Pulse Resp BP Pulse Ox 10/25/18 08:00 27 H 10/25/18 07:45 100 10/25/18 07:03 119 H 135/95 H 10/25/18 07:00 98.5 F 10/25/18 06:00 27 H 10/25/18 04:00 97.4 F L 27 H 10/25/18 02:05 110 H 108/71 10/25/18 02:00 27 H 10/25/18 00:30 105 H 27 H 98 10/25/18 00:00 97.8 F 27 H 10/24/18 22:29 111 H 102/76 10/24/18 22:00 27 H Weight Admit Weight 196 lb Weight 209 lb 7.026 oz Most Recent Monitor Data Heart Rate from ECG 115 NIBP 109/77 NIBP BP-Mean 87 Respiration from ECG 20 SpO2 96 I&O: 10/24/18 10/25/18 10/26/18 06:59 06:59 06:59 Intake Total 1026 3338 40 Output Total 1328 1496 253 Balance -302 1842 -213 Result Diagrams: 10/25/18 04:55 10/25/18 04:55 Additional Labs: Accuchecks 10/25/18 10/24/18 10/24/18 04:58 21:16 15:50 POC Glucose 260 H 327 H 331 H 10/24/18 09:40 POC Glucose 237 H Phys Exam - Physical Examination HEENT: moist MMs Respiratory: no wheezing, no rales, no rhonchi Cardiovascular: RRR Gastrointestinal: soft, positive bowel sounds Musculoskeletal: edema present Neurological: non-focal Deviation from normal: sedated on vent Dx/Plan (1) Malignant pleural effusion Code(s): J91.0 - MALIGNANT PLEURAL EFFUSION Status: Acute Comment: 10/22 - gram pos staph in pleural fluid - pt on cefepime and vanc (2) Adenocarcinoma, lung Code(s): C34.90 - MALIGNANT NEOPLASM OF UNSP PART OF UNSP BRONCHUS OR LUNG Status: Chronic Qualifiers: Laterality: left Qualified Code(s): C34.92 - Malignant neoplasm of unspecified part of left bronchus or lung Comment: Poor prognosis (3) Acute respiratory failure with hypoxia Code(s): J96.01 - ACUTE RESPIRATORY FAILURE WITH HYPOXIA Status: Acute Comment: remains intubated and sedated (4) Pleural effusion Code(s): J90 - PLEURAL EFFUSION, NOT ELSEWHERE CLASSIFIED Status: Acute (5) Pericardial effusion Code(s): I31.3 - PERICARDIAL EFFUSION (NONINFLAMMATORY) Status: Acute (6) CKD (chronic kidney disease) Code(s): N18.9 - CHRONIC KIDNEY DISEASE, UNSPECIFIED Status: Acute Qualifiers: Chronic kidney disease stage: stage 3 (moderate) Qualified Code(s): N18.3 - Chronic kidney disease, stage 3 (moderate) (7) Diabetes mellitus Code(s): E11.9 - TYPE 2 DIABETES MELLITUS WITHOUT COMPLICATIONS Status: Chronic Qualifiers: Diabetes mellitus type: type 2 Diabetes mellitus manager long term care insulin use: without m[facility]p use Diabetes mellitus complication status: with unspecified complications Qualified Code(s): E11.8 - Type 2 diabetes mellitus with unspecified complications (8) DVT (deep venous thrombosis) Code(s): I82.409 - ACUTE EMBOLISM AND THOMBOS UNSP DEEP VN UNSP LOWER EXTREMITY Status: Acute Qualifiers: DVT location: lower extremity Chronicity: acute Laterality: bilateral Comment: on Lovenox - change to once daily dosing due to renal function (9) Hypotension Status: Resolved Comment: 10/22 on levophed (10) Diabetic neuropathy Code(s): E11.40 - TYPE 2 DIABETES MELLITUS WITH DIABETIC NEUROPATHY, UNSP Status: Acute - Plan cont current plan of care, continue antibiotics, respiratory therapy, DVT proph w/lovenox * . - Discharge Day Encounter end time: 11:50
[2018-10-25] MEDS: Micafungin 100 MG in Sodium Chloride 0.9% 100 ML IVPB SCH (17:05)
[2018-10-25] MEDS: Insulin Glargine 30 UNITS in Pre-Filled Syringe 1 EACH SC SCH (21:22)
[2018-10-26] MEDS: fentaNYL Citrate/PF 2,000 MCG in Sodium Chloride 0.9% 60 ML IV SCH ×2 (00:37→17:03)
[2018-10-26] MEDS: Lorazepam 2 MG/ML VIAL SLOW IVP PRN ×6 (02:18→19:51)
[2018-10-26] MEDS: Cefepime 2 GM in Sodium Chloride 0.9% 100 ML IVPB SCH ×2 (04:26→17:16)
[2018-10-26] MEDS: Insulin Regular 300 UNITS/3 ML VIAL SC PRN ×4 (04:27→21:26)
[2018-10-26 05:05] LABS: Band 3 % (5-11); Eosinophils 2 % (0-10); Hemoglobin 8.7 g/dL (12.0-16.0); Lymphocytes 4 % (21-51); MDiff Complete? YES; Mean Corpuscular HGB CONC 30.5 g/dL (32.0-36.0); Mean Corpuscular Hemoglobin 26.6 pg (27.0-31.0); Mean Corpuscular Volume 87.2 fL (78.0-98.0); Mean Platelet Volume 7.9 fL (7.4-10.4); Metamyelocyte 1 % (0-0); Monocytes 9 % (0-10); Neutrophil 81 % (42-75); Platelet Count 218 thou/uL (130-400); Platelet Morphology Comment Appears Adequate; RBC Distribution Width 15.9 % (11.5-14.5); Red Blood Cell (RBC) Count 3.25 mill/uL (4.20-5.40); White Blood Cell (WBC) Count 12.6 thou/uL (4.8-10.8)
[2018-10-26 05:12] LABS: ALT (SGPT) 13 U/L (8-55); AST (SGOT) 11 U/L (5-34); Albumin 2.6 g/dL (3.5-5.0); Alkaline Phosphatase 118 U/L (40-150); Anion Gap 12 mmol/L (10-20); BUN (Urea Nitrogen) 61 mg/dL (9.8-20.1); Bilirubin, Total 0.2 mg/dL (0.2-1.2); Calc. Creatinine Clearance 52 mL/min (70-130); Calcium 8.8 mg/dL (7.8-10.44); Carbon Dioxide 31 mmol/L (22-29); Chloride 100 mmol/L (98-107); Estimated GFR-MDRD 35; Globulin 2.7 g/dL (2.4-3.5); Glucose 209 mg/dL (70-105); Phosphorus 2.8 mg/dL (2.3-4.7); Potassium 3.7 mmol/L (3.5-5.1); Protein, Total 5.3 g/dL (6.0-8.3); Sodium 139 mmol/L (136-145)
[2018-10-26] MEDS: Sodium Bicarbonate 150 MEQ in Dextrose 5% in Water 1,000 ML IV SCH (05:13)
[2018-10-26 05:20] LABS: Vancomycin, Trough 28.7 ug/mL
[2018-10-26 07:04] LABS: Actual Bicarbonate (HCO3a) 30.2 mEq/L (22-28); Base Excess (BEa) 5.2 mEq/L (-2.0 to +3.0); CO2 Tension 46.4 mmHg (35.0-45.0); Calcium, Ionized 1.16 mmol/L (1.12-1.30); Hemoglobin (Hb) 9.8 g/dL (12.0-16.0); Potassium - ABG Lab 3.53 mmol/L (3.70-5.30); pH, Arterial 7.43 (7.35-7.45)
[2018-10-26 07:05] LABS: O2 Tension (PaO2) 54.8 mmHg (80.0-100.0)
[2018-10-26 07:06] LABS: Puncture Site RRA
[2018-10-26] MEDS: Enoxaparin Sodium 100 MG/ML SYRINGE SC SCH (08:50)
[2018-10-26] MEDS: Famotidine/PF 20 mg/2ml Vial SLOW IVP SCH (08:50)
[2018-10-26] MEDS: methylPREDNISolone Sod Succ 40 MG VIAL IVP SCH (08:51)
--- NOTE | 2018-10-26 08:53 | PDOC.PN ---
- Subjective Encounter Start Date: 10/26/18 Encounter Start Time: 11:50 Subjective: Patient transitioned to pressure support today and with some -: better tidal volumes. No other changes. - Objective Resuscitation Status - Order Detail: 09/13/18 22:04 Resuscitation Status Routine Resuscitation Status: FULL: Full Resuscitation MAR Reviewed: Yes Vital Signs & Weight: Vital Signs (12 hours) Temp Pulse Resp BP 10/26/18 08:00 97.8 F 10/26/18 07:41 128 H 113/79 10/26/18 06:00 23 H 10/26/18 04:00 23 H 10/26/18 03:00 98 F 10/26/18 02:13 128 H 117/75 10/26/18 02:00 24 H 10/26/18 00:00 23 H 10/25/18 23:29 111 H 113/71 10/25/18 23:00 98.8 F 10/25/18 22:12 120 H 112/75 10/25/18 22:00 23 H Weight Admit Weight 196 lb Weight 208 lb 15.971 oz Most Recent Monitor Data Heart Rate from ECG 132 NIBP 119/74 NIBP BP-Mean 89 Respiration from ECG 18 SpO2 100 I&O: 10/25/18 10/26/18 10/27/18 06:59 06:59 06:59 Intake Total 3338 2392 Output Total 1496 1622 105 Balance 1842 770 -105 Result Diagrams: 10/26/18 04:47 10/26/18 04:47 Additional Labs: Accuchecks 10/26/18 10/25/18 10/25/18 04:26 22:18 16:44 POC Glucose 206 H 277 H 352 H 10/25/18 10:29 POC Glucose 214 H Phys Exam - Physical Examination HEENT: moist MMs Respiratory: no wheezing some dullness to bases and occ rhonchi moderate regular tachycardia, sinus rhythm on the monitor Gastrointestinal: soft, positive bowel sounds Neurological: non-focal Deviation from normal: sedated on vent Dx/Plan (1) Malignant pleural effusion Code(s): J91.0 - MALIGNANT PLEURAL EFFUSION Status: Acute Comment: 8 - gram pos staph in pleural fluid - pt on cefepime and vanc (2) Adenocarcinoma, lung Code(s): C34.90 - MALIGNANT NEOPLASM OF UNSP PART OF UNSP BRONCHUS OR LUNG Status: Chronic Qualifiers: Laterality: left Qualified Code(s): C34.92 - Malignant neoplasm of unspecified part of left bronchus or lung Comment: Poor prognosis (3) Acute respiratory failure with hypoxia Code(s): J96.01 - ACUTE RESPIRATORY FAILURE WITH HYPOXIA Status: Acute Comment: remains intubated and sedated (4) Pleural effusion Code(s): J90 - PLEURAL EFFUSION, NOT ELSEWHERE CLASSIFIED Status: Acute (5) Pericardial effusion Code(s): I31.3 - PERICARDIAL EFFUSION (NONINFLAMMATORY) Status: Acute (6) CKD (chronic kidney disease) Code(s): N18.9 - CHRONIC KIDNEY DISEASE, UNSPECIFIED Status: Acute Qualifiers: Chronic kidney disease stage: stage 3 (moderate) Qualified Code(s): N18.3 - Chronic kidney disease, stage 3 (moderate) (7) Diabetes mellitus Code(s): E11.9 - TYPE 2 DIABETES MELLITUS WITHOUT COMPLICATIONS Status: Chronic Qualifiers: Diabetes mellitus type: type 2 Diabetes mellitus fdc insulin use: without rn long term care use Diabetes mellitus complication status: with unspecified complications Qualified Code(s): E11.8 - Type 2 diabetes mellitus with unspecified complications (8) DVT (deep venous thrombosis) Code(s): I82.409 - ACUTE EMBOLISM AND THOMBOS UNSP DEEP VN UNSP LOWER EXTREMITY Status: Acute Qualifiers: DVT location: lower extremity Chronicity: acute Laterality: bilateral Comment: on Lovenox - change to once daily dosing due to renal function (9) Hypotension Status: Resolved Comment: 10/22 on levophed (10) Diabetic neuropathy Code(s): E11.40 - TYPE 2 DIABETES MELLITUS WITH DIABETIC NEUROPATHY, UNSP Status: Acute - Plan cont current plan of care, continue antibiotics, respiratory therapy, DVT proph w/lovenox * . - Discharge Day Encounter end time: 12:00
[2018-10-26] MEDS: Sodium Chloride 0.45% 1,000 ML IV SCH ×2 (09:18→21:30)
--- NOTE | 2018-10-26 09:29 | PRG ---
DATE OF SERVICE: 10/25/2018 SERVICE: Pulmonary Medicine. INTERVAL HISTORY: The patient is doing okay from respiratory standpoint. Her oxygen requirements had actually improved quite a bit. That being said, the lung compliance is still poor. She still has very high work of breathing. She appears to be more calm today and she is requiring a little bit of medication to keep her comfortable. Otherwise, there has been no interval change to her condition. PHYSICAL EXAMINATION: VITAL SIGNS: Afebrile, pulse 110, blood pressure 109/73, respirations 27, and saturation 97% on 41% FiO2 and PEEP of 5. GENERAL: The patient is intubated and sedated. HEENT: Normocephalic and atraumatic. Sclerae white. Conjunctivae pink. Oral mucosa is moist without lesions. LUNGS: There is good air entry bilaterally. Bronchial breath sounds on the right. There is vesicular sounds on the left. Crackles are noted throughout. HEART: Tachycardic. Regular. ABDOMEN: Soft, nontender, and nondistended. Bowel sounds are positive. MUSCULOSKELETAL: No cyanosis or clubbing. No pitting in the bilateral lower extremities. NEUROLOGIC: Grossly nonfocal. LABORATORY DATA: WBC 14.2, hemoglobin 8.7, and platelets 221,000. Creatinine 1.79 and stable. Basic metabolic profile is otherwise unremarkable. Liver function studies are also unremarkable. Pleural fluid is growing Staph epidermidis, which is fairly jessica-resistant. One out of two blood cultures are growing coag-negative Staph. IMAGING: Echocardiogram demonstrates a normal ejection fraction, diastolic dysfunction is noted. Mild mitral regurgitation and mild tricuspid regurgitation are appreciated. ASSESSMENT: 1. Acute hypoxic and hypercapnic respiratory failure. 2. Adult respiratory distress syndrome. 3. Severe restrictive lung disease, possibly secondary to bilateral pleurodesis. 4. Malignant pleural effusions, bilateral. 5. Septic shock. 6. Possible empyema on the left. 7. Deep venous thrombosis of the bilateral lower extremities, extensive. 8. Adenocarcinoma of the lung, stage 4. 9. Acute kidney injury. PLAN: I will interrupt the bicarb drip. We will introduce some half-normal saline at 75 mL/h and continue her tube feeds. We will continue to drain the left effusion intermittently, and try to keep her volume neutral while she remains in the hospital. Her oxygen requirements have improved fairly well. That being said, she has not had any improvement in how restrictive her lungs are. We are going to give her a little bit more time, but coming or Thursday, if there is no significant improvement in her lung compliance, we will likely talk to family about transitioning over to comfort care as she has a lung disease that would likely require permanent ventilator support through time, which the patient has previously very clearly suggested that she would not want for herself. CRITICAL CARE TIME: 30 minutes. Job ID: [id number] MTDD
--- NOTE | 2018-10-26 09:31 | RAD ---
CHEST ONE VIEW: HISTORY: Intubated. Dyspnea. Followup. COMPARISON: 10/20/2018 FINDINGS: The cardiac silhouette is obscured by near complete opacification of the left hemithorax. Irregular- shaped lucency at the left inferior thorax surrounds the pigtail catheter. There is leftward shift o f the mediastinum. Endotracheal catheter is in good radiographic position. Nasogastric tube descends to the abdomen. R ight subclavian Mediport remains in place. Pulmonary vasculature is engorged. Patchy areas of infiltrate throughout the right lung are similar in appearance to the prior study. Right pleural fluid has increased. No evidence of pneumothorax. IMPRESSION: 1. Large left and small right pleural effusions have increased since the prior examination. 2. Endotracheal catheter is in good radiographic position. 3. Small caliber left thoracostomy tube remains in place with surrounding lucency, possibly represen ting a residual aerated lung or small amount of pleural gas. 4. Pulmonary vascular congestion. POS: TPC
--- NOTE | 2018-10-26 15:02 | PRG ---
DATE OF SERVICE: 10/26/2018 SUBJECTIVE: The patient is doing fine from respiratory standpoint. Breathing comfortably. She is on mechanical ventilation, requiring some intermittent sedation or to stay comfortable. Her saturations are roughly stable. Her FiO2 has increased ever so slightly based on ABG this morning. Her space ventilation seems to be improving ever so slightly. Oncology is requesting that we get a tissue sample from her. PHYSICAL EXAMINATION: VITAL SIGNS: Afebrile, pulse 125, blood pressure 117/82, respirations 24, saturation 100% on 51% FiO2 and PEEP of 7. HEENT: Normocephalic and atraumatic. Sclerae are white. Conjunctivae are pink. Oral mucosa is moist without lesions. LUNGS: Much improved air entry on the right. There are more vesicular sounds today. Bronchial breath sounds seem to be going away. HEART: Normal rate and regular. ABDOMEN: Soft, nontender, nondistended. Bowel sounds are positive. MUSCULOSKELETAL: No cyanosis or clubbing. There is 2+ pitting in the bilateral lower extremities, which seems to be improving. : No [place]. NEUROLOGIC: Grossly nonfocal. LABORATORY DATA: WBC 12.6, hemoglobin 8.7, and platelets 218,000. Creatinine 1.83 and gently up-trending, BUN 61. Liver function studies are unremarkable. Magnesium and phosphorous fall within normal limits. Pleural fluid on the left is growing Staph epidermidis. Chest x-ray demonstrates large left and small right pleural effusions. There is apparent air pocket inside the left chest. This is likely a hydropneumothorax ex vacuo. Endotracheal tube is in good position. Pulmonary vascular congestion is suggested. ASSESSMENT: 1. Acute hypoxic and hypercapnic respiratory failure. 2. Adult respiratory distress syndrome. 3. Severe restrictive lung disease, possibly secondary to bilateral pleurodesis. 4. Malignant pleural effusions, bilateral. 5. Septic shock, resolving. 6. Empyema on the left, on antibiotic. 7. Deep venous thrombosis of the bilateral lower extremities, extensive. 8. Adenocarcinoma of lung, stage IV. 9. Acute kidney injury, stable. DISCUSSION AND PLAN: We will discontinue the bicarb drip and put her on half-normal saline at 75 mL/hr. Oncology is requesting an additional sample from inside the lung. We will take her down for bronchoscopy tomorrow to facilitate this. There is a possibility there has been transformation of her underlying malignancy. The supportive measures will be continued. CRITICAL CARE TIME: 30 minutes. Job ID: [id number]
[2018-10-26] MEDS: Micafungin 100 MG in Sodium Chloride 0.9% 100 ML IVPB SCH (16:50)
[2018-10-26] MEDS: Insulin Glargine 30 UNITS in Pre-Filled Syringe 1 EACH SC SCH (21:25)
[2018-10-27] MEDS: Lorazepam 2 MG/ML VIAL SLOW IVP PRN ×2 (03:25→15:03)
[2018-10-27 04:38] LABS: #Eosinphils 0.4 thou/uL (0.0-0.7); #Lymphocytes 1.6 thou/uL (1.20-3.40); #Monocytes 1.1 thou/uL (0.11-0.59); #Neutrophils 10.4 thou/uL (1.40-6.50); %Basophils 0.1 % (0.0-1.0); %Lymphocytes 11.5 % (21.0-51.0); %Monocytes 8.4 % (0.0-10.0); %Neutrophils 77.1 % (42.0-75.0); Hemoglobin 8.6 g/dL (12.0-16.0); Mean Corpuscular HGB CONC 30.1 g/dL (32.0-36.0); Mean Corpuscular Hemoglobin 26.4 pg (27.0-31.0); Mean Corpuscular Volume 87.6 fL (78.0-98.0); Platelet Count 259 thou/uL (130-400); RBC Distribution Width 15.9 % (11.5-14.5); Red Blood Cell (RBC) Count 3.27 mill/uL (4.20-5.40); White Blood Cell (WBC) Count 13.5 thou/uL (4.8-10.8)
[2018-10-27 04:59] LABS: Anion Gap 15 mmol/L (10-20); BUN (Urea Nitrogen) 73 mg/dL (9.8-20.1); Calc. Creatinine Clearance 44 mL/min (70-130); Calcium 8.8 mg/dL (7.8-10.44); Carbon Dioxide 27 mmol/L (22-29); Chloride 99 mmol/L (98-107); Estimated GFR-MDRD 28; Glucose 145 mg/dL (70-105); Potassium 4.3 mmol/L (3.5-5.1); Sodium 137 mmol/L (136-145)
[2018-10-27] MEDS: Cefepime 2 GM in Sodium Chloride 0.9% 100 ML IVPB SCH ×2 (05:43→16:32)
[2018-10-27] MEDS: Vancomycin HCl 500 MG in Sodium Chloride 0.9% 100 ML IVPB SCH (05:44)
[2018-10-27] MEDS: fentaNYL Citrate/PF 2,000 MCG in Sodium Chloride 0.9% 60 ML IV SCH ×2 (05:54→19:03)
[2018-10-27 07:31] LABS: Actual Bicarbonate (HCO3a) 28.4 mEq/L (22-28); Base Excess (BEa) 1.9 mEq/L (-2.0 to +3.0); CO2 Tension 54.6 mmHg (35.0-45.0); Calcium, Ionized 1.16 mmol/L (1.12-1.30); Carboxyhemoglobin (COHb) 1.1 gm% (0.0-3.0); Hemoglobin (Hb) 9.4 g/dL (12.0-16.0); O2 Tension (PaO2) 71.9 mmHg (80.0-100.0); Potassium - ABG Lab 3.76 mmol/L (3.70-5.30); pH, Arterial 7.33 (7.35-7.45)
[2018-10-27 07:32] LABS: Puncture Site LR
--- NOTE | 2018-10-27 07:55 | PDOC.PN ---
- Subjective Encounter Start Date: 10/27/18 Encounter Start Time: 09:40 Subjective: Patient remains on vent. Anticoagulation will be held for bronchoscopy -: tomorrow. - Objective Resuscitation Status - Order Detail: 09/13/18 22:04 Resuscitation Status Routine Resuscitation Status: FULL: Full Resuscitation MAR Reviewed: Yes Vital Signs & Weight: Vital Signs (12 hours) Temp Pulse Resp BP Pulse Ox 10/27/18 07:36 120 H 101/70 10/27/18 06:00 17 10/27/18 04:00 18 10/27/18 03:00 98.4 F 10/27/18 02:16 115 H 109/73 10/27/18 02:00 18 10/27/18 00:00 17 10/26/18 23:33 120 H 106/73 10/26/18 23:00 98.4 F 10/26/18 22:00 23 H 10/26/18 21:52 112 H 84/55 L 10/26/18 20:00 23 H 100 Weight Admit Weight 196 lb Weight 209 lb 14.081 oz Most Recent Monitor Data Heart Rate from ECG 119 NIBP 101/70 NIBP BP-Mean 80 Respiration from ECG 12 SpO2 100 I&O: 10/26/18 10/27/18 10/28/18 06:59 06:59 06:59 Intake Total 2392 2325 Output Total 1622 1374 Balance 770 951 Result Diagrams: 10/27/18 04:33 10/27/18 04:33 Additional Labs: Accuchecks 10/27/18 10/26/18 10/26/18 04:32 21:25 16:21 POC Glucose 161 H 266 H 281 H 10/26/18 10:47 POC Glucose 231 H Phys Exam - Physical Examination HEENT: moist MMs Respiratory: no wheezing, no rales, no rhonchi decent air movement with vent, but requiring high pressures tachycardic, sinus, no murmur Gastrointestinal: soft Musculoskeletal: edema present Neurological: non-focal Deviation from normal: sedated on vent Dx/Plan (1) Malignant pleural effusion Code(s): J91.0 - MALIGNANT PLEURAL EFFUSION Status: Acute Comment: 2/8 - gram pos staph in pleural fluid - pt on cefepime and vanc (2) Adenocarcinoma, lung Code(s): C34.90 - MALIGNANT NEOPLASM OF UNSP PART OF UNSP BRONCHUS OR LUNG Status: Chronic Qualifiers: Laterality: left Qualified Code(s): C34.92 - Malignant neoplasm of unspecified part of left bronchus or lung Comment: Poor prognosis (3) Acute respiratory failure with hypoxia Code(s): J96.01 - ACUTE RESPIRATORY FAILURE WITH HYPOXIA Status: Acute Comment: remains intubated and sedated, autopleurodesis per Dr. Allen now requiring high pressures to ventilate, likely will not be able to extubate (4) Pleural effusion Code(s): J90 - PLEURAL EFFUSION, NOT ELSEWHERE CLASSIFIED Status: Acute (5) Pericardial effusion Code(s): I31.3 - PERICARDIAL EFFUSION (NONINFLAMMATORY) Status: Acute (6) CKD (chronic kidney disease) Code(s): N18.9 - CHRONIC KIDNEY DISEASE, UNSPECIFIED Status: Acute Qualifiers: Chronic kidney disease stage: stage 3 (moderate) Qualified Code(s): N18.3 - Chronic kidney disease, stage 3 (moderate) Comment: worsening renal function (7) Diabetes mellitus Code(s): E11.9 - TYPE 2 DIABETES MELLITUS WITHOUT COMPLICATIONS Status: Chronic Qualifiers: Diabetes mellitus type: type 2 Diabetes mellitus snf insulin use: without professional bonds[employer] use Diabetes mellitus complication status: with unspecified complications Qualified Code(s): E11.8 - Type 2 diabetes mellitus with unspecified complications (8) DVT (deep venous thrombosis) Code(s): I82.409 - ACUTE EMBOLISM AND THOMBOS UNSP DEEP VN UNSP LOWER EXTREMITY Status: Acute Qualifiers: DVT location: lower extremity Chronicity: acute Laterality: bilateral Comment: on Lovenox - change to once daily dosing due to renal function (9) Hypotension Status: Resolved Comment: 10/22 on levophed (10) Diabetic neuropathy Code(s): E11.40 - TYPE 2 DIABETES MELLITUS WITH DIABETIC NEUROPATHY, UNSP Status: Acute - Plan cont current plan of care, continue antibiotics, respiratory therapy, DVT proph w/lovenox * . - Discharge Day Encounter end time: 09:55
[2018-10-27] MEDS: Enoxaparin Sodium 100 MG/ML SYRINGE SC SCH (08:01)
[2018-10-27] MEDS: Famotidine/PF 20 mg/2ml Vial SLOW IVP SCH (08:01)
[2018-10-27] MEDS: methylPREDNISolone Sod Succ 40 MG VIAL IVP SCH (08:02)
[2018-10-27] MEDS: Insulin Regular 300 UNITS/3 ML VIAL SC PRN ×3 (10:42→21:24)
[2018-10-27] MEDS: Sodium Chloride 0.45% 1,000 ML IV SCH ×2 (10:46→17:57)
--- NOTE | 2018-10-27 11:02 | PRG ---
DATE OF SERVICE: 10/27/2018 SERVICE: Pulmonary Medicine. INTERVAL HISTORY: The patient is doing really well from respiratory standpoint. I failed to stop her anticoagulation yesterday. As such, we are going to have to postpone her bronchoscopy for another day. Otherwise, there were no significant events overnight. She had a sedation holiday this morning and was following some simple commands. She is moving all 4 extremities. Currently, she is back on sedation. There has been no interval change to her condition otherwise. PHYSICAL EXAMINATION: VITAL SIGNS: Afebrile, pulse 128, blood pressure 105/62, respirations 18, saturation 97% on 41% FiO2 and a PEEP of 7. HEENT: Normocephalic and atraumatic. Sclerae white. Conjunctivae pink. Oral mucosa is moist without lesions. LUNGS: Rhonchi are present. The breath sounds on the right are more bronchial than vesicular. The breath sounds on the left are vesicular. No prolonged expiratory phase is noted. HEART: Normal rate and regular. ABDOMEN: Soft, nontender, nondistended. Bowel sounds are positive. MUSCULOSKELETAL: No cyanosis or clubbing. 2+ pitting is present in bilateral lower extremities. NEUROLOGIC: Grossly nonfocal. LABORATORY DATA: WBC 13.5, hemoglobin 8.6, and platelets 259,000. PCO2 of 54. PH 7.33, pO2 of 72; however, the A-a gradient is increasing slowly. Creatinine 2.18. Basic metabolic profile is otherwise unremarkable. Left chest tube is growing Staph epidermidis. One of two blood cultures were previously unremarkable. The right chest tube is sterile, and the respiratory culture is also sterile. ASSESSMENT: 1. Acute hypoxic and hypercapnic respiratory failure. 2. Severe restrictive lung disease, possibly secondary to bilateral pleurodesis. 3. Malignant pleural effusions, bilateral. 4. Adenocarcinoma, stage IV. 5. Septic shock, resolved. 6. Empyema on the left. 7. Deep venous thrombosis of the bilateral lower extremities, extensive. 8. Acute kidney injury, stable. DISCUSSION AND PLAN: We will continue our gentle hydration. I will postpone my bronchoscopy until tomorrow morning. At this point, it may be a moot point. It seems that she HAS AUTO-PLEURODESED bilateral lung spaces, and I am doubtful that this is going to clear through time. She has already proved that she is not able to ventilate through this process. She is requiring significant pressures with the mechanical ventilator in order to exist. That being said, we can give the patient a couple of more days to get the biopsy results and to see how this underlying lung pathology is going to progress. She has clearly stated previously that she would not be somebody who would want long-term mechanical ventilation with tracheostomy placement. After a couple of more days, we will likely need to face that decision. CRITICAL CARE TIME: 30 minutes. Job ID: [id number]
[2018-10-27] MEDS: Micafungin 100 MG in Sodium Chloride 0.9% 100 ML IVPB SCH (15:20)
[2018-10-27] MEDS: Insulin Glargine 30 UNITS in Pre-Filled Syringe 1 EACH SC SCH (21:24)
[2018-10-28] MEDS: Lorazepam 2 MG/ML VIAL SLOW IVP PRN ×3 (00:21→20:04)
[2018-10-28 05:09] LABS: #Eosinphils 0.3 thou/uL (0.0-0.7); #Lymphocytes 2.4 thou/uL (1.20-3.40); #Monocytes 1.6 thou/uL (0.11-0.59); #Neutrophils 11.5 thou/uL (1.40-6.50); %Basophils 0.3 % (0.0-1.0); %Eosinophils 1.8 % (0.0-10.0); %Lymphocytes 15.1 % (21.0-51.0); %Monocytes 10.2 % (0.0-10.0); %Neutrophils 72.7 % (42.0-75.0); Mean Corpuscular HGB CONC 30.5 g/dL (32.0-36.0); Mean Corpuscular Hemoglobin 26.7 pg (27.0-31.0); Mean Corpuscular Volume 87.7 fL (78.0-98.0); Platelet Count 330 thou/uL (130-400); RBC Distribution Width 15.8 % (11.5-14.5); Red Blood Cell (RBC) Count 3.36 mill/uL (4.20-5.40); White Blood Cell (WBC) Count 15.8 thou/uL (4.8-10.8)
[2018-10-28 05:10] LABS: Anion Gap 17 mmol/L (10-20); BUN (Urea Nitrogen) 85 mg/dL (9.8-20.1); Calc. Creatinine Clearance 31 mL/min (70-130); Carbon Dioxide 24 mmol/L (22-29); Chloride 99 mmol/L (98-107); Estimated GFR-MDRD 19; Glucose 160 mg/dL (70-105); Potassium 4.2 mmol/L (3.5-5.1); Sodium 136 mmol/L (136-145)
[2018-10-28] MEDS: Cefepime 2 GM in Sodium Chloride 0.9% 100 ML IVPB SCH ×2 (05:31→16:27)
[2018-10-28] MEDS: Vancomycin HCl 500 MG in Sodium Chloride 0.9% 100 ML IVPB SCH (05:31)
[2018-10-28] MEDS: fentaNYL Citrate/PF 2,000 MCG in Sodium Chloride 0.9% 60 ML IV SCH (08:34)
[2018-10-28] MEDS: Famotidine/PF 20 mg/2ml Vial SLOW IVP SCH (09:26)
[2018-10-28] MEDS: methylPREDNISolone Sod Succ 40 MG VIAL IVP SCH (09:27)
--- NOTE | 2018-10-28 09:40 | PDOC.PN ---
- Subjective Encounter Start Date: 10/28/18 Encounter Start Time: 12:10 Subjective: no events overnight, s/p bronch and biopsy this morning - Objective Resuscitation Status - Order Detail: 09/13/18 22:04 Resuscitation Status Routine Resuscitation Status: FULL: Full Resuscitation MAR Reviewed: Yes Vital Signs & Weight: Vital Signs (12 hours) Temp Pulse Resp BP Pulse Ox 10/28/18 08:20 123 H 88/53 L 10/28/18 08:00 97 10/28/18 07:00 98.5 F 10/28/18 06:00 18 10/28/18 04:00 17 10/28/18 03:00 98 F 10/28/18 02:30 122 H 119/85 10/28/18 02:00 17 10/28/18 00:00 19 10/27/18 23:56 128 H 123/76 10/27/18 23:00 97.8 F 10/27/18 22:00 23 H Weight Admit Weight 196 lb Weight 211 lb 13.828 oz Most Recent Monitor Data Heart Rate from ECG 120 NIBP 88/53 NIBP BP-Mean 64 Respiration from ECG 17 SpO2 99 I&O: 10/27/18 10/28/18 10/29/18 06:59 06:59 06:59 Intake Total 2325 2274 Output Total 1374 542 50 Balance 951 1732 -50 Result Diagrams: 10/28/18 04:30 10/28/18 04:30 Additional Labs: Accuchecks 10/28/18 10/27/18 10/27/18 04:44 21:24 16:31 POC Glucose 168 H 231 H 319 H 10/27/18 10:35 POC Glucose 206 H Phys Exam - Physical Examination HEENT: moist MMs Respiratory: no wheezing, no rales, no rhonchi decent breath sounds bilaterally on vent Cardiovascular: no significant murmur tachycardic, regular Gastrointestinal: soft Musculoskeletal: edema present edema improved in BLE Deviation from normal: sedated on vent Dx/Plan (1) Malignant pleural effusion Code(s): J91.0 - MALIGNANT PLEURAL EFFUSION Status: Acute Comment: 8 - gram pos staph in pleural fluid - pt on cefepime and vanc (2) Adenocarcinoma, lung Code(s): C34.90 - MALIGNANT NEOPLASM OF UNSP PART OF UNSP BRONCHUS OR LUNG Status: Chronic Qualifiers: Laterality: left Qualified Code(s): C34.92 - Malignant neoplasm of unspecified part of left bronchus or lung Comment: Poor prognosis (3) Acute respiratory failure with hypoxia Code(s): J96.01 - ACUTE RESPIRATORY FAILURE WITH HYPOXIA Status: Acute Comment: remains intubated and sedated, autopleurodesis per Dr. Allen now requiring high pressures to ventilate, likely will not be able to extubate (4) Pleural effusion Code(s): J90 - PLEURAL EFFUSION, NOT ELSEWHERE CLASSIFIED Status: Acute (5) Pericardial effusion Code(s): I31.3 - PERICARDIAL EFFUSION (NONINFLAMMATORY) Status: Acute (6) CKD (chronic kidney disease) Code(s): N18.9 - CHRONIC KIDNEY DISEASE, UNSPECIFIED Status: Acute Qualifiers: Chronic kidney disease stage: stage 3 (moderate) Qualified Code(s): N18.3 - Chronic kidney disease, stage 3 (moderate) Comment: worsening renal function (7) Diabetes mellitus Code(s): E11.9 - TYPE 2 DIABETES MELLITUS WITHOUT COMPLICATIONS Status: Chronic Qualifiers: Diabetes mellitus type: type 2 Diabetes mellitus manager intermediate insulin use: without [facility] use Diabetes mellitus complication status: with unspecified complications Qualified Code(s): E11.8 - Type 2 diabetes mellitus with unspecified complications (8) DVT (deep venous thrombosis) Code(s): I82.409 - ACUTE EMBOLISM AND THOMBOS UNSP DEEP VN UNSP LOWER EXTREMITY Status: Acute Qualifiers: DVT location: lower extremity Chronicity: acute Laterality: bilateral Comment: on Lovenox - change to once daily dosing due to renal function (9) Hypotension Status: Resolved Comment: 10/22 on levophed (10) Diabetic neuropathy Code(s): E11.40 - TYPE 2 DIABETES MELLITUS WITH DIABETIC NEUROPATHY, UNSP Status: Acute - Plan cont current plan of care, continue antibiotics, respiratory therapy lovenox held today for bronchoscopy with biopsy * . - Discharge Day Encounter end time: 12:20
--- NOTE | 2018-10-28 12:05 | OP ---
DATE OF PROCEDURE: 10/28/2018 SERVICE: Pulmonary Medicine. PROCEDURES PERFORMED: Fiberoptic bronchoscopy with; 1. Visual airway inspection. 2. Bronchoalveolar lavage from the left lingula. 3. Transbronchial biopsies from the lingula, and left lower lobe. PREPROCEDURE DIAGNOSES: 1. Pulmonary infiltrate. 2. Acute hypoxic and hypercapnic respiratory failure. POSTPROCEDURE DIAGNOSES: 1. Pulmonary infiltrate. 2. Acute hypoxic and hypercapnic respiratory failure. MEDICATIONS USED: Please refer to Anesthesia documentation for medicines delivered during this procedure. PREANESTHESIA ASSESSMENT: H and P had been performed. The patient's medications and allergies were reviewed. Informed consent was obtained after discussing risks, benefits, and rationale for performing the procedure as well as alternative options. DESCRIPTION OF PROCEDURE: A time-out was performed, identifying the correct procedure and patient with name and date of . A diagnostic fiberoptic bronchoscope was introduced through the existing endotracheal tube. The bronchoscope was advanced into the trachea, where tracheobronchial tree inspection was carried out with clear identification of the right upper lobe, right middle lobe, right lower lobe, left upper lobe, lingula, and left lower lobe. Anatomy was normal to the segmental level. Bronchoalveolar lavage from the lingula was obtained. Transbronchial biopsies were obtained from the lingula, and from the left lower lobe under fluoroscopic guidance. Hemostasis was verified and the bronchoscope was subsequently removed from the patient. Postprocedure fluoroscopy did not demonstrate a pneumothorax. FINDINGS: 1. No endobronchial disease was identified. 2. Secretions were mild, but purulent and thick. SPECIMENS OBTAINED: 1. Transbronchial biopsies for pathology from the lingula, and left lower lobe. 2. Bronchoalveolar lavage for cytology, microbiology, cell count, and viral studies. COMPLICATIONS: None. ESTIMATED BLOOD LOSS: 5 mL. FLUOROSCOPY TIME: 2 minutes 30 seconds. DISPOSITION: The patient will be sent back to the ICU once cleared by anesthesia. Job ID: [id number]
--- NOTE | 2018-10-28 12:10 | PRG ---
DATE OF SERVICE: 10/28/2018 SERVICE: Pulmonary Medicine. INTERVAL HISTORY: The patient is doing okay from her respiratory standpoint. Things are about stable. The complaints of her lungs have not significantly improved. She cannot provide additional elements of the history. We are going down for a bronchoscopy today. I am doubtful that we will find any information that is going to change her ultimate clinical course. That being said, would like to leave no stone unturned before we make a final disposition on her. Overnight, she did not have any significant events. PHYSICAL EXAMINATION: VITAL SIGNS: Afebrile, pulse 125, blood pressure 101/66, respirations 18, saturation 91% on 41% FiO2 and a PEEP of 7. HEENT: Normocephalic and atraumatic. Sclerae white. Conjunctivae pink. Oral mucosa is moist without lesions. LUNGS: There is an improved air entry on the right. It is not vesicular. The left lung has decreased air entry. There is no prolonged expiratory phase or wheezing. Crackles and rhonchi are both predominate. HEART: Normal rate and regular. ABDOMEN: Soft, nontender, nondistended. Bowel sounds are positive. MUSCULOSKELETAL: No cyanosis or clubbing. There is 2+ pitting in the bilateral lower extremities. NEUROLOGIC: Grossly nonfocal. LABORATORY DATA: WBC 15.8, hemoglobin 9.0, platelets 330,000. Creatinine 3.05 and significantly uptrending. Basic metabolic profile is otherwise unremarkable. Staphylococcus epidermidis is growing on the left pleural broth. Coag-negative staph was previously growing in 1 out of 2 blood cultures. Respiratory culture and right pleural fluid are sterile. ASSESSMENT: 1. Acute hypoxic and hypercapnic respiratory failure. 2. Severe restrictive lung disease, secondary to bilateral pleurodesis. 3. Malignant pleural effusion, bilateral. 4. Adenocarcinoma of the lungs, stage IV. 5. Acute kidney injury. 6. Septic shock, resolved. 7. Empyema on the left. 8. Deep venous thrombosis of the bilateral lower extremities, extensive. DISCUSSION AND PLAN: We will continue our hydration. We will also continue other supportive care. We will watch her urine output and our in's and out's. We will try to keep her event at very slightly positive over the next 24 to 48 hours. I do believe that her kidney injury is likely the effect of the contrast that she received several days ago. To be certain, we will get an ultrasound of her of kidneys. Pulmonary Critical Care will continue to follow along. We will await the pathology results from the bronchoscopy schedule for today before a final disposition/withdrawal of care. CRITICAL CARE TIME: 30 minutes. Job ID: [id number]
[2018-10-28 13:23] VITALS: BMI 31.2
[2018-10-28] MEDS ORDERED: PHENYLEPHRINE-NS 100 MCG/ML 10 ML SYRINGE ONE (13:23)
[2018-10-28] MEDS ORDERED: Rocuronium Bromide 10 MG/ML (10ML VIAL) ONE (13:23)
[2018-10-28] MEDS ORDERED: PROPOFOL 200 MG/20 ML VIAL ONE (13:23)
[2018-10-28] MEDS: Micafungin 100 MG in Sodium Chloride 0.9% 100 ML IVPB SCH (16:32)
[2018-10-28] MEDS: Insulin Regular 300 UNITS/3 ML VIAL SC PRN ×2 (16:36→21:45)
[2018-10-28] MEDS: Insulin Glargine 30 UNITS in Pre-Filled Syringe 1 EACH SC SCH (21:39)
[2018-10-29] MEDS: Sodium Chloride 0.45% 1,000 ML IV SCH (02:46)
[2018-10-29] MEDS: fentaNYL Citrate/PF 2,000 MCG in Sodium Chloride 0.9% 60 ML IV SCH (02:47)
[2018-10-29] MEDS: Cefepime 2 GM in Sodium Chloride 0.9% 100 ML IVPB SCH (04:44)
[2018-10-29] MEDS: Insulin Regular 300 UNITS/3 ML VIAL SC PRN ×2 (04:45→10:28)
[2018-10-29 05:06] LABS: Anion Gap 16 mmol/L (10-20); BUN (Urea Nitrogen) 97 mg/dL (9.8-20.1); Calc. Creatinine Clearance 25 mL/min (70-130); Calcium 8.6 mg/dL (7.8-10.44); Carbon Dioxide 23 mmol/L (22-29); Chloride 99 mmol/L (98-107); Estimated GFR-MDRD 14; Glucose 177 mg/dL (70-105); Potassium 4.6 mmol/L (3.5-5.1); Sodium 133 mmol/L (136-145)
[2018-10-29 05:14] LABS: Vancomycin, Trough 31.4 ug/mL
[2018-10-29 05:44] LABS: #Basophils 0.1 thou/uL (0.0-0.2); #Eosinphils 0.3 thou/uL (0.0-0.7); #Lymphocytes 1.1 thou/uL (1.20-3.40); #Monocytes 1.2 thou/uL (0.11-0.59); #Neutrophils 8.2 thou/uL (1.40-6.50); %Basophils 1.3 % (0.0-1.0); %Eosinophils 2.7 % (0.0-10.0); %Lymphocytes 10.1 % (21.0-51.0); %Monocytes 11.2 % (0.0-10.0); %Neutrophils 74.7 % (42.0-75.0); Anisocytosis SLIGHT = 6-15 cells (100X) (0-5/hpf); Hemoglobin 8.4 g/dL (12.0-16.0); MDiff Complete? YES; Mean Corpuscular HGB CONC 30.5 g/dL (32.0-36.0); Mean Corpuscular Hemoglobin 26.8 pg (27.0-31.0); Mean Corpuscular Volume 87.9 fL (78.0-98.0); Mean Platelet Volume 7.8 fL (7.4-10.4); Platelet Count 345 thou/uL (130-400); RBC Distribution Width 15.4 % (11.5-14.5); Red Blood Cell (RBC) Count 3.14 mill/uL (4.20-5.40); White Blood Cell (WBC) Count 10.9 thou/uL (4.8-10.8)
[2018-10-29] MEDS ORDERED: Vancomycin HCl 500 MG in Sodium Chloride 0.9% 100 ML IVPB SCH (06:00)
[2018-10-29 07:34] VITALS: TEMP 97.9
[2018-10-29] MEDS ORDERED: Sodium Chloride 0.45% 1,000 ML IV SCH (08:15)
[2018-10-29] MEDS: Famotidine/PF 20 mg/2ml Vial SLOW IVP SCH (09:00)
[2018-10-29] MEDS: methylPREDNISolone Sod Succ 40 MG VIAL IVP SCH (09:05)
[2018-10-29] MEDS: Lorazepam 2 MG/ML VIAL SLOW IVP PRN (09:51)
--- NOTE | 2018-10-29 10:21 | PRG ---
DATE OF SERVICE: 10/29/2018 SERVICE: Pulmonary Medicine. SUBJECTIVE: Once again, the patient has made a turn for the worse. Her creatinine is up trending. She is essentially aneuric at this point. Additionally, compliance of her lungs is once again deteriorating. She cannot provide any additional elements of the history. She currently requires significant amounts of sedation in order to maintain her comfort. Otherwise, there has been no interval change to her condition. Nursing reports no overnight events other than marginal blood pressures with more sedation. OBJECTIVE: VITAL SIGNS: Afebrile, pulse 134, blood pressure 110/84, respirations 22, saturation 98% on 60% FiO2 and a PEEP of 7. GENERAL: The patient is intubated and sedated. HEENT: Normocephalic and atraumatic. Sclerae white. Conjunctivae pink. Oral mucosa is moist without lesions. LUNGS: Decent air entry. There is no prolonged expiratory phase. Extensive rhonchi and crackles are present. HEART: Normal rate, regular. ABDOMEN: Soft, nontender, and nondistended. Bowel sounds are positive. MUSCULOSKELETAL: No cyanosis or clubbing. There is 2+ pitting in the bilateral lower extremities. NEUROLOGIC: Grossly nonfocal. LABORATORY DATA: WBC 10.9, hemoglobin 8.4, platelets 345,000. Creatinine 3.91 and significantly trending upward. Basic metabolic profile is essentially unremarkable otherwise. Vancomycin trough is 31.4. ASSESSMENT: 1. Acute hypoxic and hypercapnic respiratory failure. 2. Severe restrictive lung disease secondary to bilateral pleurodesis. 3. Malignant pleural effusion, bilateral. 4. Adenocarcinoma of the lung, stage IV. 5. Acute kidney injury with anuria. 6. Septic shock, resolved. 7. Empyema on the left. 8. Deep venous thrombosis of the bilateral lower extremities. DISCUSSION AND PLAN: At this point, continuing our efforts are essentially futile given that the patient does not want tracheostomy or prolonged mechanical ventilation. As such, I do believe at this point, it is in keeping with the patient's value structure to transition over to comfort care only. I will have a bg conversation with her family today to discuss these issues. I was hoping that things would not get worse and we could find something to fix with bronchoscopy, but it is increasingly clear to me that the patient has a condition from which she will not make a meaningful recovery as she had previously defined. Initially, I was going to workup the kidney injury and request Nephrology to come by, but I am going to discontinue those things. Pulmonary Critical Care will continue to follow along. CRITICAL CARE TIME: 30 minutes. Job ID: [id number] MTDD
--- NOTE | 2018-10-29 10:36 | ULT ---
BILATERAL STANDARD RENAL ULTRASOUND: HISTORY: Acute kidney injury. COMPARISON: None. TECHNIQUE: Real-time louis-scale and color evaluation of the kidneys and urinary bladder was performed. FINDINGS: The right kidney measures 11.3 x 4.7 x 6 cm, and the left kidney measures 9.8 x 4.8 x 4.3 cm. The ur inary bladder is decompressed with a Henderson catheter. Small volume free fluid in the pelvis. No renal mass, hydronephrosis, or abnormal calcifications. IMPRESSION: 1. No evidence for obstructive uropathy. 2. Small volume free fluid in the pelvis. POS: TPC
[2018-10-29 10:49] LABS: Actual Bicarbonate (HCO3a) 22.7 mEq/L (22-28); Base Excess (BEa) -4.2 mEq/L (-2.0 to +3.0); CO2 Tension 50.5 mmHg (35.0-45.0); Calcium, Ionized 1.19 mmol/L (1.12-1.30); Carboxyhemoglobin (COHb) 0.8 gm% (0.0-3.0); Hemoglobin (Hb) 9.4 g/dL (12.0-16.0); Potassium - ABG Lab 4.45 mmol/L (3.70-5.30); pH, Arterial 7.27 (7.35-7.45)
[2018-10-29 10:51] LABS: ALV-art Gradient 288.685 (0-20); O2 Tension (PaO2) 54.6 mmHg (80.0-100.0); Puncture Site RRA
--- NOTE | 2018-10-29 10:55 | RAD ---
SINGLE VIEW CHEST: HISTORY: Respiratory failure. COMPARISON: 10/20/2018 FINDINGS: A single view of the chest shows a normal sized cardiomediastinal silhouette. There is a pigtail cat heter projecting over the left chest. The endotracheal tube and nasogastric tube are unchanged in po sition. The Mediport is unchanged in position. There are bilateral veil-like opacities, which likel y represent layering pleural effusions, left greater than right. IMPRESSION: Bilateral pleural effusions. POS: C
--- NOTE | 2018-10-29 12:31 | PDOC.PN ---
- Subjective Encounter Start Date: 10/29/18 Encounter Start Time: 09:45 -: old records requested/rev Patient seen and examined. pt is on vent. No overnight events pt has no overall improvement but getting worse despite maximum treatment so far - Objective Resuscitation Status - Order Detail: 09/13/18 22:04 Resuscitation Status Routine Resuscitation Status: FULL: Full Resuscitation MAR Reviewed: Yes Vital Signs & Weight: Vital Signs (12 hours) Temp Pulse Resp BP Pulse Ox 10/29/18 10:40 118 H 96/65 10/29/18 08:00 21 H 98 10/29/18 07:33 128 H 90/54 L 10/29/18 07:00 97.9 F 10/29/18 06:00 19 10/29/18 04:00 18 10/29/18 03:00 98.4 F 10/29/18 02:35 131 H 10/29/18 02:00 20 Weight Admit Weight 196 lb Weight 211 lb 10.3 oz Most Recent Monitor Data Heart Rate from ECG 123 NIBP 83/55 NIBP BP-Mean 64 Respiration from ECG 5 SpO2 93 I&O: 10/28/18 10/29/18 10/30/18 06:59 06:59 06:59 Intake Total 2274 2023 60 Output Total 542 587 120 Balance 1732 1436 -60 Result Diagrams: 10/29/18 03:00 10/29/18 03:00 Additional Labs: Accuchecks 10/29/18 10/29/18 10/28/18 10:26 04:36 21:44 POC Glucose 249 H 192 H 155 H 10/28/18 16:21 POC Glucose 151 H Radiology Reviewed by me: Yes (chest xray reviewed) EKG Reviewed by me: Yes (tachycardia) Phys Exam - Physical Examination Constitutional: NAD on vent HEENT: PERRLA, sclera anicteric Neck: no JVD, supple reduced air entry at base, coarse sound+ Cardiovascular: RRR, no significant murmur, no rub Gastrointestinal: soft, no distention, positive bowel sounds Musculoskeletal: no edema, pulses present Lymphatic: no nodes Skin: no rash, normal turgor Dx/Plan (1) Acute kidney failure Status: Acute (2) Acute respiratory failure with hypoxia Code(s): J96.01 - ACUTE RESPIRATORY FAILURE WITH HYPOXIA Status: Acute Comment: (3) Adenocarcinoma of lung, stage 4 Code(s): C34.90 - MALIGNANT NEOPLASM OF UNSP PART OF UNSP BRONCHUS OR LUNG Status: Acute (4) DVT, bilateral lower limbs Code(s): I82.403 - ACUTE EMBOLISM AND THOMBOS UNSP DEEP VEINS OF LOW EXTRM, BI Status: Acute (5) Empyema lung Code(s): J86.9 - PYOTHORAX WITHOUT FISTULA Status: Acute (6) Diabetes type 2, controlled Code(s): E11.9 - TYPE 2 DIABETES MELLITUS WITHOUT COMPLICATIONS Status: Chronic (7) HTN (hypertension) Code(s): I10 - ESSENTIAL (PRIMARY) HYPERTENSION Status: Chronic Qualifiers: Hypertension type: essential hypertension Qualified Code(s): I10 - Essential (primary) hypertension Comment: (8) Hypothyroidism Code(s): E03.9 - HYPOTHYROIDISM, UNSPECIFIED Status: Chronic Qualifiers: Hypothyroidism type: unspecified Qualified Code(s): E03.9 - Hypothyroidism , unspecified Comment: (9) Malignant pleural effusion Code(s): J91.0 - MALIGNANT PLEURAL EFFUSION Status: Chronic Comment: (10) Septic shock Code(s): A41.9 - SEPSIS, UNSPECIFIED ORGANISM; R65.21 - SEVERE SEPSIS WITH SEPTIC SHOCK Status: Resolved - Plan cont current plan of care, continue antibiotics * prolonged hospital course reviewed and discussed with pulmonary * pt has no improvement and even with maximum treatment she is getting worse. her prognosis is very poor given multiorgan involvement * I am agree with pulmonary group regarding that even with continuos treatment her meaningful recovery is unlikely * medication reviewed as below * symptomatic treatment * if family ok, then all treatment will be discontinued and consider hospice placement Review of Systems - Review of Systems Other: unable to review due to intubated status - Medications/Allergies Allergies/Adverse Reactions: Allergies Allergy/AdvReac Type Severity Reaction Status Date / Time No Known Allergies Allergy Verified 07/29/18 01:32 Medications: Current Medications Acetaminophen (Tylenol) 650 mg PO Q4H PRN PRN Reason: Headache/Fever/Mild Pain (1-3) Last Admin: 10/10/18 06:44 Dose: 650 mg Albuterol/Ipratropium (Duoneb) 3 ml NEB Q6H PRN PRN Reason: .SHORTNESS OF BREATH Last Admin: 10/28/18 10:42 Dose: 3 ml Albuterol/Ipratropium (Duoneb) 3 ml NEB [id number] [facility] Last Admin: 10/29/18 07:32 Dose: 3 ml Dextrose/Water (Dextrose 50%) 25 gm IVP PRN PRN PRN Reason: HYPOGLYCEMIA PROTOCOL Famotidine (Pepcid) 20 mg SLOW IVP DAILY [facility] Last Admin: 10/29/18 09:00 Dose: 20 mg Glucagon (Glucagon) 1 mg IM PRN PRN PRN Reason: HYPOGLYCEMIA PROTOCOL Dextrose/Water (D5w) 1,000 mls @ 0 mls/hr IV INF PRN PRN Reason: HYPOGLYCEMIA PROTOCOL Fentanyl Citrate 2,000 mcg/ (Sodium Chloride) 100 mls @ 0 mls/hr IV INF [facility]; Protocol Stop: 11/19/18 16:05 Last Admin: 10/29/18 02:47 Dose: 100 mls Fentanyl Citrate (Fentanyl Bolus) 250 mls @ 0 mls/hr IVPB PRN PRN PRN Reason: Breakthrough pain/agitation Stop: 11/19/18 16:05 Insulin Glargine 30 units/ (Miscellaneous Medication) 0.3 mls @ 0 mls/hr SC [facility] Last Admin: 10/28/18 21:39 Dose: 0.3 mls Sodium Chloride (1/2 Normal Saline) 1,000 mls @ 0 mls/hr IV .Q0M [facility] Insulin Human Regular (Humulin R) 0 units SC .MODERATE SLIDING SC PRN; Protocol PRN Reason: MODERATE SLIDING SCALE Last Admin: 10/29/18 10:28 Dose: 4 unit Insulin Human Regular (Humulin R) 0 units SC .BEDTIME SLIDING SC PRN; Protocol PRN Reason: BEDTIME SLIDING SCALE Last Admin: 10/18/18 21:28 Dose: 2 units Lorazepam (Ativan) 2 mg SLOW IVP Q1H PRN PRN Reason: Breakthrough agitation Stop: 11/19/18 16:05 Last Admin: 10/29/18 09:51 Dose: 2 mg Methylprednisolone Sodium Succinate (Solu-Medrol) 40 mg IVP DAILY [facility] Last Admin: 10/29/18 09:05 Dose: 40 mg Miscellaneous Medication (Pharmacy To Dose) 0 each PO DAILYPRN PRN PRN Reason: LABS Ccu Electrolyte (Replacement Protocol) 0 each FS PRN PRN PRN Reason: FOR ELECTROLYTE REPLACEMENT Ondansetron HCl (Zofran) 4 mg IVP Q6H PRN PRN Reason: Nausea/Vomiting Last Admin: 10/18/18 15:28 Dose: 4 mg Propofol (Diprivan) 1,000 mg IV INF PRN; Protocol PRN Reason: TO ACHIEVE GOAL RASS Stop: 11/19/18 16:05 Last Admin: 10/22/18 18:34 Dose: 1,000 mg Propofol (Diprivan Bolus) 20 mg IV Q5MIN PRN PRN Reason: BREAKTHROUGH AGITATION Stop: 11/19/18 16:05 Senna/Docusate Sodium (Senokot S) 2 tab PO BIDPRN PRN PRN Reason: Constipation Last Admin: 10/03/18 11:14 Dose: 2 tab Sodium Chloride (Flush - Normal Saline) 10 ml IVF Q12HR [facility] Last Admin: 10/29/18 09:05 Dose: 10 ml Sodium Chloride (Flush - Normal Saline) 10 ml IVF PRN PRN PRN Reason: Saline Flush Last Admin: 10/12/18 09:12 Dose: 10 ml
[2018-10-29 12:59] VITALS: BP 83/55
[2018-10-29] MEDS ORDERED: Morphine 4 MG/ML VIAL SLOW IVP PRN (16:09)
[2018-10-29] MEDS ORDERED: Lorazepam 2 MG/ML VIAL SLOW IVP PRN (16:09)
[2018-10-29 16:18] LABS: Ref Lab Test Ordered HSV PCR BAL
--- NOTE | 2018-10-30 08:05 | DIS ---
DATE OF ADMISSION: 09/13/2018 DATE OF DISCHARGE: 10/29/2018 PRIMARY CAUSE OF : 1. Acute respiratory failure with hypoxia. 2. Empyema of lung. 3. Septic shock. 4. Acute kidney failure. 5. Bilateral lower extremity deep vein thrombosis. CONTRIBUTING DIAGNOSES: Advanced adenocarcinoma of lung stage IV with metastatic disease diabetes type 2, hypertension, malignant pleural effusion. HOSPITAL SUMMARY: The patient was admitted on September 13, 2018. During this hospital course, Pulmonary group, Sound Team, Cardiology group, Oncology group were following. The patient had prolonged hospital stay, please see hospital course from [facility]. This patient was requiring recurrent thoracentesis. She also required bronchoscopy, biopsy. The patient was treated with broad-spectrum antibiotic therapy. Even after 46 days in hospital, the patient's condition did not improve. Family member made her DNR, and ultimately, the patient was transitioned to comfort care only. The patient was extubated and subsequently at 1701, the patient was . was pronounced and body was released for . Job ID: [id number]
[2018-11-01 17:09] LABS: Fungus Stain Final report (.)
== END 2018-10-29 17:01 | disposition expired | DRG 853 ==
LOC: ERS 19:22 → IMCU/EMU 22:34 → 2SE 09-25 19:27 → 2NO 10-02 20:05 → ONC 10-10 14:48 → CCU 10-19 12:13
PROVIDERS: ADMIT Internal Medicine; ATTEND Internal Medicine
PROC: 0W9B3ZX Drainage of Left Pleural Cavity, Percutaneous Approach, Diagnostic (ICD-10-PCS; principal; 2018-09-17)
PROC: 0W993ZX Drainage of Right Pleural Cavity, Percutaneous Approach, Diagnostic (ICD-10-PCS; 2018-09-24)
PROC: 0W9930Z Drainage of Right Pleural Cavity with Drainage Device, Percutaneous Approach (ICD-10-PCS; 2018-10-01)
PROC: 0JH63WZ Insertion of Totally Implantable Vascular Access Device into Chest Subcutaneous Tissue and Fascia, Percutaneous Approach (ICD-10-PCS; 2018-10-04)
PROC: 02HV33Z Insertion of Infusion Device into Superior Vena Cava, Percutaneous Approach (ICD-10-PCS; 2018-10-04)
PROC: 0B9M7ZX Drainage of Bilateral Lungs, Via Natural or Artificial Opening, Diagnostic (ICD-10-PCS; 2018-10-20)
PROC: 0BH17EZ Insertion of Endotracheal Airway into Trachea, Via Natural or Artificial Opening (ICD-10-PCS; 2018-10-20)
PROC: 5A1955Z Respiratory Ventilation, Greater than 96 Consecutive Hours (ICD-10-PCS; 2018-10-20)
PROC: 0B9H8ZX Drainage of Lung Lingula, Via Natural or Artificial Opening Endoscopic, Diagnostic (ICD-10-PCS; 2018-10-28)
PROC: 0BDJ8ZX Extraction of Left Lower Lung Lobe, Via Natural or Artificial Opening Endoscopic, Diagnostic (ICD-10-PCS; 2018-10-28)
PROC: 0BDH8ZX Extraction of Lung Lingula, Via Natural or Artificial Opening Endoscopic, Diagnostic (ICD-10-PCS; 2018-10-28)
DX: A41.9 Sepsis, unspecified organism (principal); J96.02 Acute respiratory failure with hypercapnia; J96.01 Acute respiratory failure with hypoxia; R65.21 Severe sepsis with septic shock; J86.9 Pyothorax without fistula; E11.10 Type 2 diabetes mellitus with ketoacidosis without coma; I50.23 Acute on chronic systolic (congestive) heart failure; J91.0 Malignant pleural effusion; E87.2 Acidosis; N17.9 Acute kidney failure, unspecified; C34.92 Malignant neoplasm of unspecified part of left bronchus or lung; I42.9 Cardiomyopathy, unspecified; E87.1 Hypo-osmolality and hyponatremia; C78.1 Secondary malignant neoplasm of mediastinum; I31.3 Pericardial effusion (noninflammatory); I13.0 Hypertensive heart and chronic kidney disease with heart failure and stage 1 through stage 4 chronic kidney disease, or unspecified chronic kidney disease; I82.403 Acute embolism and thrombosis of unspecified deep veins of lower extremity, bilateral; Z66 Do not resuscitate; Z51.5 Encounter for palliative care; E86.0 Dehydration; E03.9 Hypothyroidism, unspecified; G89.29 Other chronic pain; M54.9 Dorsalgia, unspecified; E66.9 Obesity, unspecified; N18.3 Chronic kidney disease, stage 3 (moderate); E11.42 Type 2 diabetes mellitus with diabetic polyneuropathy; I95.9 Hypotension, unspecified; E87.5 Hyperkalemia; E11.22 Type 2 diabetes mellitus with diabetic chronic kidney disease; E83.42 Hypomagnesemia; Z68.31 Body mass index [BMI] 31.0-31.9, adult; Z87.891 Personal history of nicotine dependence; Z79.84 Long term (current) use of oral hypoglycemic drugs; Z79.899 Other long term (current) drug therapy; R00.0 Tachycardia, unspecified
CPT/HCPCS: 36415; 36416; 71045; 71046; 71250; 71260; 71275; 74018; 74177; 76770; 76999; 77012; 80048; 80053; 80069; 80202; 81003; 82150; 82330; 82803; 82805; 82945; 83605; 83615; 83690; 83735; 83880; 83930; 83986; 84100; 84157; 84439; 84443; 84478; 84484; 85014; 85018; 85025; 85049; 85060; 85379; 85610; 85730; 87040; 87070; 87077; 87086; 87102; 87116; 87149; 87186; 87205; 87206; 87804; 88112; 88305; 88313; 89051; 93005; 93010; 93306; 93970; 94002; 94003; 94640; 94660; 94760; 96361; 96365; 96367; 96375; A4216; C1729; C1788; C9113; J0131; J0670; J0692; J0696; J1100; J1642; J1644; J1650; J1815; J1825; J1940; J2001; J2060; J2248; J2250; J2270; J2405; J2543; J2550; J2704; J2920; J2997; J3010; J3370; J3475; J7050; J7070; J7620; P9047; Q0162; Q9966; S0028